=== PATIENT | male | born 1940 | race Caucasian/White ===

== ENCOUNTER → 2016-08-29 | Outpatient (REF) | payer MEDICARE, OTHER ==
[~2016-08-29] MED LIST: /AMLO25TA PO; ASPI325T5 PO; ASPI81TA85 PO; ATEN25TA PO; ATEN50TA2 PO; B COTAB3 PO; CALCTAB54 PO; CINN1CAP PO; CO Q10CA PO; FERR325T3 PO; FISH1200 PO; GARL1000 PO; LIVETAB PO; LOSA100T36 PO; MAGN250T PO; OMEP20CA3 PO; VISITAB5 PO; VITA-122 PO; ZOCO20TA PO
[2016-08-29 15:41] LABS: ALBUMIN 3.7 GM/DL (3.2-5.2); ALKALINE PHOSPHATASE 64 U/L (45-117); ALT/SGPT 82 U/L (12-78); ANION GAP 6 MEQ/L (8-16); AST/SGOT 77 U/L (15-37); BILIRUBIN,TOTAL 0.5 MG/DL (0.2-1.0); BLOOD UREA NITROGEN 21 MG/DL (7-18); CALCIUM LEVEL 9.3 MG/DL (8.8-10.2); CARBON DIOXIDE LEVEL 31 MEQ/L (21-32); CHLORIDE LEVEL 102 MEQ/L (98-107); CHOLESTEROL LEVEL 191 MG/DL (<200); CREATININE FOR GFR 1.16 MG/DL (0.70-1.30); GLOMERULAR FILTRATION RATE > 60.0 (>42); GLUCOSE, FASTING 115 MG/DL (83-110); POTASSIUM SERUM 5.1 MEQ/L (3.5-5.1); SODIUM LEVEL 139 MEQ/L (136-145); TOTAL PROTEIN 7.4 GM/DL (6.4-8.2); TRIGLYCERIDES LEVEL 171 MG/DL (<150)
== END ==
LOC: M SFHCSACK 09:26
PROVIDERS: ATTEND Physician Assistant
DX: I10 Essential (primary) hypertension (principal); E78.5 Hyperlipidemia, unspecified

== ENCOUNTER → 2017-01-21 | Outpatient (REF) | payer MEDICARE, OTHER ==
[~2017-01-21] MED LIST changes: +HYZA100T6 PO; +LOVA1CAP17 PO; +MOVE1TAB PO; +MULT1TAB10 PO; +PRAV40TA2 PO; +TOPR100T PO
[2017-01-21 18:34] LABS: ANION GAP 9 MEQ/L (8-16); BLOOD UREA NITROGEN 17 MG/DL (7-18); CALCIUM LEVEL 9.4 MG/DL (8.8-10.2); CARBON DIOXIDE LEVEL 29 MEQ/L (21-32); CHLORIDE LEVEL 97 MEQ/L (98-107); GLOMERULAR FILTRATION RATE > 60.0 (>42); GLUCOSE, FASTING 106 MG/DL (83-110); POTASSIUM SERUM 4.7 MEQ/L (3.5-5.1); SODIUM LEVEL 135 MEQ/L (136-145)
[2017-01-21 23:04] LABS: MEAN CORPUSCULAR HEMOGLOBIN 35.1 pg (27.0-33.0); MEAN CORPUSCULAR HGB CONC 35.8 g/dl (32.0-36.5); MEAN CORPUSCULAR VOLUME 98.1 fl (80.0-96.0); RED CELL DISTRIBUTION WIDTH 11.9 % (11.5-14.5); WHITE BLOOD COUNT 6.3 K/mm3 (4.0-10.0)
== END ==
LOC: M LABDRWSH 15:54
PROVIDERS: ATTEND Internal Medicine Cardiovascular Disease
DX: I25.10 Atherosclerotic heart disease of native coronary artery without angina pectoris (principal); I10 Essential (primary) hypertension

== ENCOUNTER → 2017-01-21 | Outpatient (REF) | payer MEDICARE, OTHER ==
[2017-01-21 18:40] LABS: ALBUMIN 3.6 GM/DL (3.2-5.2); ALBUMIN/GLOBULIN RATIO 0.95 (1.00-1.93); ALKALINE PHOSPHATASE 101 U/L (45-117); ALT/SGPT 79 U/L (12-78); ANION GAP 9 MEQ/L (8-16); AST/SGOT 72 U/L (15-37); BILIRUBIN,TOTAL 0.5 MG/DL (0.2-1.0); BLOOD UREA NITROGEN 17 MG/DL (7-18); CALCIUM LEVEL 9.2 MG/DL (8.8-10.2); CARBON DIOXIDE LEVEL 29 MEQ/L (21-32); CHLORIDE LEVEL 98 MEQ/L (98-107); CHOLESTEROL LEVEL 172 MG/DL (<200); CREATININE FOR GFR 1.02 MG/DL (0.70-1.30); GLOMERULAR FILTRATION RATE > 60.0 (>42); GLUCOSE, FASTING 103 MG/DL (83-110); POTASSIUM SERUM 4.7 MEQ/L (3.5-5.1); SODIUM LEVEL 136 MEQ/L (136-145); TOTAL PROTEIN 7.4 GM/DL (6.4-8.2); TRIGLYCERIDES LEVEL 125 MG/DL (<150)
[2017-01-21 19:55] LABS: BASO % 0.5 % (0.0-1.0); EOS # 0.2 K/mm3 (0.0-0.50); EOS % 2.5 % (0.0-3.0); LARGE UNSTAINED CELL # 0.1 K/mm3 (0.0-0.4); LARGE UNSTAINED CELL % 2.1 % (0.0-4.0); LYMPH # 1.2 K/mm3 (1.5-4.5); LYMPH % 18.9 % (24.0-44.0); MEAN CORPUSCULAR HEMOGLOBIN 35.1 pg (27.0-33.0); MEAN CORPUSCULAR HGB CONC 35.8 g/dl (32.0-36.5); MEAN CORPUSCULAR VOLUME 98.1 fl (80.0-96.0); MONO # 0.4 K/mm3 (0.0-0.8); MONO % 7.1 % (0.0-5.0); NEUTROPHILS # 4.3 K/mm3 (1.8-7.7); PLATELET COUNT, AUTOMATED 227 k/mm3 (150-450); RED CELL DISTRIBUTION WIDTH 11.9 % (11.5-14.5); WHITE BLOOD COUNT 6.3 K/mm3 (4.0-10.0)
== END ==
LOC: M SFHCSACK 10:07
PROVIDERS: ATTEND Physician Assistant
DX: D64.9 Anemia, unspecified (principal); I10 Essential (primary) hypertension; E78.5 Hyperlipidemia, unspecified; Z12.5 Encounter for screening for malignant neoplasm of prostate
CPT/HCPCS: 36415; 80053; 80061; 85025; G0103

== ENCOUNTER 2017-03-26 12:48 | Day surgery (SDC) | payer MEDICARE, OTHER ==
[~2017-03-26] VITALS: Ht 170.2 cm; Wt 88.9 kg
[2017-03-26] MEDS: NS 1,000 ML IV ONE (13:00)
[2017-03-26] MEDS ORDERED: PROPOFOL 200 MG/20 ML VIAL As Ordered ONE (13:39)
--- NOTE | 2017-03-26 13:55 | ROOR ---
Patient Name: Eric Eisenberg Procedure Date: 03/26/2017 1:34 PM Date of : 1940 Age: 76 Room: [facility] Gender: Male Note Status: Finalized Procedure: Colonoscopy Indications: High risk colon cancer surveillance: Personal history of colonic polyps Providers: Arnoldo Price Jr, MD Referring MD: Evelin Lozada MD, [facility], Admin. Requesting Provider: Medicines: Propofol per Anesthesia Complications: No immediate complications. Procedure: Pre-Anesthesia Assessment: - Prior to the procedure, a History and Physical was performed, and patient medications and allergies were reviewed. The patient is competent. The risks and benefits of the procedure and the sedation options and risks were discussed with the patient. All questions were answered and informed consent was obtained. Patient identification and proposed procedure were verified by the physician and the nurse in the pre-procedure area and in the procedure room. Mental Status Examination: alert and oriented. Airway Examination: normal oropharyngeal airway and neck mobility. Respiratory Examination: clear to auscultation. CV Examination: normal. ASA Grade Assessment: II - A patient with mild systemic disease. After reviewing the risks and benefits, the patient was deemed in satisfactory condition to undergo the procedure. The anesthesia plan was to use moderate sedation / analgesia (conscious sedation). Immediately prior to administration of medications, the patient was re-assessed for adequacy to receive sedatives. The heart rate, respiratory rate, oxygen saturations, blood pressure, adequacy of pulmonary ventilation, and response to care were monitored throughout the procedure. The physical status of the patient was re-assessed after the procedure. The Colonoscope was introduced through the anus and advanced to the cecum, identified by appendiceal orifice and ileocecal valve. The colonoscopy was performed without difficulty. The patient tolerated the procedure well. The quality of the bowel preparation was adequate and good. Findings: The rectum, recto-sigmoid colon, descending colon, transverse colon and appendiceal orifice appeared normal. Two polyps were found in the ascending colon and cecum. The polyps were diminutive in size. These polyps were removed with a jumbo cold forceps. Resection and retrieval were complete. Multiple small and large-mouthed diverticula were found in the sigmoid colon. Impression: - The rectum, recto-sigmoid colon, descending colon, transverse colon and appendiceal orifice are normal. - Two diminutive polyps in the ascending colon and in the cecum, removed with a jumbo cold forceps. Resected and retrieved. - Diverticulosis in the sigmoid colon. Recommendation: - Discharge patient to home (ambulatory). - Repeat colonoscopy in 5 years for surveillance. Arnoldo Price MD Arnoldo Price Jr, MD 03/26/2017 1:55:36 PM This report has been signed electronically. Number of Addenda: 0 Note Initiated On: 03/26/2017 1:34 PM Estimated Blood Loss: Estimated blood loss: none.
[2017-03-26 14:22] VITALS: BP 139/81
== END 2017-03-26 14:34 | disposition home or self-care (01) ==
LOC: M OPP 12:48
PROVIDERS: ATTEND Surgery
DX: Z12.11 Encounter for screening for malignant neoplasm of colon (principal); Z86.010 Personal history of colon polyps; D12.2 Benign neoplasm of ascending colon; D12.0 Benign neoplasm of cecum; K57.30 Diverticulosis of large intestine without perforation or abscess without bleeding; I25.10 Atherosclerotic heart disease of native coronary artery without angina pectoris; I10 Essential (primary) hypertension; Z95.1 Presence of aortocoronary bypass graft; Z95.5 Presence of coronary angioplasty implant and graft; I25.2 Old myocardial infarction; E78.5 Hyperlipidemia, unspecified; R12 Heartburn; K21.9 Gastro-esophageal reflux disease without esophagitis; Z85.46 Personal history of malignant neoplasm of prostate; Z92.3 Personal history of irradiation; G47.30 Sleep apnea, unspecified; R06.83 Snoring; N40.1 Benign prostatic hyperplasia with lower urinary tract symptoms; E66.9 Obesity, unspecified; Z79.82 Long term (current) use of aspirin; Z79.899 Other long term (current) drug therapy; Z87.891 Personal history of nicotine dependence

== ENCOUNTER → 2017-04-22 | Outpatient (REF) | payer MEDICARE, OTHER ==
[2017-04-22 14:58] LABS: BASO # 0.1 10^3/uL (0.0-0.2); BASO % 0.5 % (0.0-1.0); EOS # 0.2 10^3/uL (0.0-0.50); EOS % 2.1 % (0.0-3.0); IMMATURE GRANULOCYTE % 0.9 % (0-0); LYMPH # 1.8 10^3/uL (1.5-4.5); MEAN CORPUSCULAR HEMOGLOBIN 33.4 pg (27.0-33.0); MEAN CORPUSCULAR HGB CONC 33.7 g/dl (32.0-36.5); MEAN CORPUSCULAR VOLUME 99.2 fl (80.0-96.0); MONO # 0.8 10^3/uL (0.0-0.8); MONO % 8.8 % (0.0-5.0); NEUTROPHILS # 6.3 10^3/uL (1.8-7.7); NEUTROPHILS % 68.7 % (36.0-66.0); PLATELET COUNT, AUTOMATED 278 10^3/uL (150-450); RED CELL DISTRIBUTION WIDTH 12.1 % (11.5-14.5); WHITE BLOOD COUNT 9.2 10^3/uL (4.0-10.0)
[2017-04-22 15:26] LABS: ALBUMIN 3.5 GM/DL (3.2-5.2); ALBUMIN/GLOBULIN RATIO 0.88 (1.00-1.93); ALKALINE PHOSPHATASE 121 U/L (45-117); ALT/SGPT 64 U/L (12-78); ANION GAP 11 MEQ/L (8-16); AST/SGOT 56 U/L (7-37); BILIRUBIN,TOTAL 0.3 MG/DL (0.2-1.0); BLOOD UREA NITROGEN 22 MG/DL (7-18); CARBON DIOXIDE LEVEL 26 MEQ/L (21-32); CHLORIDE LEVEL 100 MEQ/L (98-107); CREATININE FOR GFR 0.93 MG/DL (0.70-1.30); FERRITIN 231 NG/ML (26-388); GLOMERULAR FILTRATION RATE > 60.0 (>42); GLUCOSE, FASTING 130 MG/DL (83-110); PERCENT SATURATION 17.8 % (19.7-50.0); POTASSIUM SERUM 4.2 MEQ/L (3.5-5.1); SODIUM LEVEL 137 MEQ/L (136-145); TOTAL IRON BINDING CAPACITY 349 UG/DL (250-450); TOTAL PROTEIN 7.5 GM/DL (6.4-8.2)
== END ==
LOC: M SFHCSACK 10:11
PROVIDERS: ATTEND Physician Assistant
DX: D64.9 Anemia, unspecified (principal); E78.5 Hyperlipidemia, unspecified; Z13.21 Encounter for screening for nutritional disorder; E55.9 Vitamin D deficiency, unspecified

== ENCOUNTER → 2017-07-23 | Outpatient (REF) | payer MEDICARE, OTHER ==
[2017-07-23 19:26] LABS: HEMATOCRIT 40.2 % (42.0-52.0)
[2017-07-23 20:07] LABS: RETIC HEMOGLOBIN EQUIVALENT 38.9 pg (24-36); RETICULOCYTE # 58.6 10^9/L (17-77); RETICULOCYTE % 1.5 % (0.5-1.5)
[2017-07-23 20:09] LABS: TOTAL PROTEIN,RANDOM URINE 23.9 MG/DL (0.0-12.0); URINE TOTAL PROTEIN 23.9 MG/DL (0-12)
[2017-07-23 20:12] LABS: IMMUNOGLOBULIN G 1050 MG/DL (681-1648); TOTAL PROTEIN 7.5 GM/DL (6.4-8.2)
[2017-07-23 20:13] LABS: VITAMIN B12 LEVEL 391 PG/ML (247-911)
[2017-07-23 20:15] LABS: SLIDE REVIEW Report; SOURCE PERIPHERAL SMEAR
[2017-07-23 20:18] LABS: REASON FOR REVIEW ANEMIA / RBC MORPH
[2017-07-23 20:26] LABS: APPEARANCE, URINE HAZY (CLEAR); BACTERIA, URINE AUTO NEGATIVE (NEGATIVE); BILIRUBIN, URINE AUTO NEGATIVE (NEGATIVE); BLOOD, URINE BLOOD NEGATIVE (NEGATIVE); COLOR, URINE YELLOW (YELLOW); GLUCOSE, URINE (UA) AUTO NEGATIVE (NEGATIVE); KETONE, URINE AUTO NEGATIVE (NEGATIVE); LEUKOCYTE ESTERASE, URINE AUTO NEGATIVE (NEGATIVE); MUCUS, URINE SMALL (NEGATIVE); NITRITE, URINE AUTO NEGATIVE (NEGATIVE); PROTEIN, URINE AUTO NEGATIVE (NEGATIVE); RBC, URINE AUTO 2 /HPF (0-3); SPECIFIC GRAVITY URINE AUTO 1.018 (1.002-1.035); SQUAMOUS EPITHELIAL CELL UR AU 0 /HPF (0-6); UROBILINOGEN, URINE AUTO 0.2 mg/dL (0.0-2.0); WBC, URINE AUTO 1 /HPF (0-3)
[2017-07-24 12:43] LABS: PRETREATED FOLATE FOR RBCFOL 11.9 NG/ML; RBC FOLATE 621.6 NG/ML (280-791)
[2017-07-24 13:53] LABS: ALBUMIN 3.95 GM/DL (3.29-5.55); ALBUMIN % 52.6 % (55.8-66.1); ALPHA-1-GLOBULIN % 4.9 % (2.9-4.9); ALPHA-1-GLOBULINS 0.37 GM/DL (0.17-0.41); ALPHA-2-GLOBULINS 1.02 GM/DL (0.42-0.99); ALPHA-2-GLOBULINS % 13.6 % (7.1-11.8); BETA-1-GLOBULINS 0.53 GM/DL (0.28-0.60); BETA-1-GLOBULINS % 7.1 % (4.7-7.2); BETA-2-GLOBULINS 0.47 GM/DL (0.19-0.55); BETA-2-GLOBULINS % 6.3 % (3.2-6.5); GAMMA GLOBULIN % 15.5 % (11.1-18.8); GAMMA GLOBULINS 1.16 GM/DL (0.65-1.58)
[2017-07-28 00:07] LABS: FREE KAPPA LIGHT CHAINS SERUM 36.5 mg/L (3.3-19.4); HOMOCYST(E)INE SERUM 21.1 umol/L (0.0-15.0); KAPPA/LAMBDA RATIO SERUM 1.35 (0.26-1.65); METHYLMALONIC ACID 198 nmol/L (0-378)
== END ==
LOC: M LAB REF 17:07
DX: D50.9 Iron deficiency anemia, unspecified (principal)
CPT/HCPCS: 84165

== ENCOUNTER → 2017-07-29 | Outpatient (REF) | payer MEDICARE, OTHER ==
[2017-07-29 14:18] LABS: BASO % 0.6 % (0.0-1.0); EOS # 0.2 10^3/uL (0.0-0.50); EOS % 2.8 % (0.0-3.0); HEMOGLOBIN 13.3 g/dl (14.0-18.0); IMMATURE GRANULOCYTE % 0.6 % (0-3.0); LYMPH # 1.7 10^3/uL (1.5-4.5); LYMPH % 26.8 % (24.0-44.0); MEAN CORPUSCULAR HEMOGLOBIN 32.8 pg (27.0-33.0); MEAN CORPUSCULAR VOLUME 93.8 fl (80.0-96.0); MONO # 0.7 10^3/uL (0.0-0.8); MONO % 11.2 % (0.0-5.0); NEUTROPHILS # 3.7 10^3/uL (1.8-7.7); RED BLOOD COUNT 4.05 10^6/uL (4.30-6.10); RED CELL DISTRIBUTION WIDTH 11.9 % (11.5-14.5); WHITE BLOOD COUNT 6.3 10^3/uL (4.0-10.0)
[2017-07-29 14:25] LABS: ALBUMIN 3.8 GM/DL (3.2-5.2); ALBUMIN/GLOBULIN RATIO 0.93 (1.00-1.93); ALKALINE PHOSPHATASE 108 U/L (45-117); ALT/SGPT 103 U/L (12-78); ANION GAP 10 MEQ/L (8-16); AST/SGOT 80 U/L (7-37); BILIRUBIN,TOTAL 0.5 MG/DL (0.2-1.0); BLOOD UREA NITROGEN 24 MG/DL (7-18); CALCIUM LEVEL 9.5 MG/DL (8.8-10.2); CARBON DIOXIDE LEVEL 26 MEQ/L (21-32); CHLORIDE LEVEL 99 MEQ/L (98-107); CREATININE FOR GFR 1.03 MG/DL (0.70-1.30); GLOMERULAR FILTRATION RATE > 60.0 (>42); GLUCOSE, FASTING 116 MG/DL (70-100); POTASSIUM SERUM 4.1 MEQ/L (3.5-5.1); SODIUM LEVEL 135 MEQ/L (136-145); TOTAL PROTEIN 7.9 GM/DL (6.4-8.2)
[2017-07-29 15:46] LABS: PLATELET COUNT, AUTOMATED 199 10^3/uL (150-450); POS COUNT POS FLAG
== END ==
LOC: M SFHCSACK 09:23
DX: E78.5 Hyperlipidemia, unspecified (principal); I10 Essential (primary) hypertension; E55.9 Vitamin D deficiency, unspecified
CPT/HCPCS: 80053

== ENCOUNTER → 2017-11-18 | Outpatient (REF) | payer MEDICARE, OTHER ==
[2017-11-18 15:29] LABS: BASO % 0.5 % (0.0-1.0); EOS # 0.1 10^3/uL (0.0-0.50); EOS % 1.1 % (0.0-3.0); HEMATOCRIT 36.7 % (42.0-52.0); HEMOGLOBIN 12.8 g/dl (13.5-17.5); IMMATURE GRANULOCYTE % 0.6 % (0-3.0); LYMPH # 1.1 10^3/uL (1.5-4.5); LYMPH % 17.8 % (24.0-44.0); MEAN CORPUSCULAR HEMOGLOBIN 33.6 pg (27.0-33.0); MEAN CORPUSCULAR HGB CONC 34.9 g/dl (32.0-36.5); MEAN CORPUSCULAR VOLUME 96.3 fl (80.0-96.0); MONO # 0.7 10^3/uL (0.0-0.8); MONO % 10.5 % (0.0-5.0); NEUTROPHILS # 4.3 10^3/uL (1.8-7.7); NEUTROPHILS % 69.5 % (36.0-66.0); PLATELET COUNT, AUTOMATED 214 10^3/uL (150-450); RED BLOOD COUNT 3.81 10^6/uL (4.30-6.10); WHITE BLOOD COUNT 6.2 10^3/uL (4.0-10.0)
[2017-11-18 15:41] LABS: ALBUMIN 3.6 GM/DL (3.2-5.2); ALBUMIN/GLOBULIN RATIO 0.92 (1.00-1.93); ALKALINE PHOSPHATASE 123 U/L (45-117); ALT/SGPT 68 U/L (12-78); ANION GAP 9 MEQ/L (8-16); AST/SGOT 58 U/L (7-37); BILIRUBIN,TOTAL 0.5 MG/DL (0.2-1.0); BLOOD UREA NITROGEN 15 MG/DL (7-18); CALCIUM LEVEL 9.1 MG/DL (8.8-10.2); CARBON DIOXIDE LEVEL 27 MEQ/L (21-32); CHLORIDE LEVEL 101 MEQ/L (98-107); CREATININE FOR GFR 1.04 MG/DL (0.70-1.30); FERRITIN 230 NG/ML (26-388); GLOMERULAR FILTRATION RATE > 60.0 (>42); GLUCOSE, FASTING 106 MG/DL (70-100); IRON (FE) 153 UG/DL (65-175); PERCENT SATURATION 47.1 % (19.7-50.0); POTASSIUM SERUM 4.2 MEQ/L (3.5-5.1); SODIUM LEVEL 137 MEQ/L (136-145); TOTAL IRON BINDING CAPACITY 325 UG/DL (250-450); TOTAL PROTEIN 7.5 GM/DL (6.4-8.2)
[2017-11-18 16:24] LABS: ESTIMATED AVERAGE GLUCOSE 105 MG/DL (60-110); HEMOGLOBIN A1c 5.3 %
== END ==
LOC: M SFHCPLAZ 10:38
DX: D64.9 Anemia, unspecified (principal); R73.09 Other abnormal glucose
CPT/HCPCS: 83550

== ENCOUNTER → 2017-12-07 | Outpatient (CLI) | payer MEDICARE, OTHER ==
[2017-12-07 20:00] LABS: APPEARANCE, URINE CLEAR (CLEAR); BACTERIA, URINE AUTO NEGATIVE (NEGATIVE); BILIRUBIN, URINE AUTO NEGATIVE (NEGATIVE); BLOOD, URINE BLOOD NEGATIVE (NEGATIVE); COLOR, URINE YELLOW (YELLOW); GLUCOSE, URINE (UA) AUTO NEGATIVE (NEGATIVE); KETONE, URINE AUTO NEGATIVE (NEGATIVE); LEUKOCYTE ESTERASE, URINE AUTO NEGATIVE (NEGATIVE); NITRITE, URINE AUTO NEGATIVE (NEGATIVE); PROTEIN, URINE AUTO NEGATIVE (NEGATIVE); RBC, URINE AUTO 0 /HPF (0-3); SPECIFIC GRAVITY URINE AUTO 1.009 (1.002-1.035); SQUAMOUS EPITHELIAL CELL UR AU 0 /HPF (0-6); UROBILINOGEN, URINE AUTO 0.2 mg/dL (0.0-2.0); WBC, URINE AUTO 2 /HPF (0-3)
== END ==
LOC: M SMT 13:53
DX: R31.9 Hematuria, unspecified (principal)
CPT/HCPCS: 36415

== ENCOUNTER → 2017-12-10 | Outpatient (REF) | payer MEDICARE, OTHER ==
[2017-12-10 18:42] LABS: APPEARANCE, URINE CLEAR (CLEAR); BACTERIA, URINE AUTO NEGATIVE (NEGATIVE); BILIRUBIN, URINE AUTO NEGATIVE (NEGATIVE); BLOOD, URINE BLOOD 2+ (NEGATIVE); COLOR, URINE YELLOW (YELLOW); GLUCOSE, URINE (UA) AUTO NEGATIVE (NEGATIVE); KETONE, URINE AUTO NEGATIVE (NEGATIVE); LEUKOCYTE ESTERASE, URINE AUTO NEGATIVE (NEGATIVE); NITRITE, URINE AUTO NEGATIVE (NEGATIVE); PROTEIN, URINE AUTO NEGATIVE (NEGATIVE); RBC, URINE AUTO 8 /HPF (0-3); SPECIFIC GRAVITY URINE AUTO 1.008 (1.002-1.035); SQUAMOUS EPITHELIAL CELL UR AU 0 /HPF (0-6); UROBILINOGEN, URINE AUTO 0.2 mg/dL (0.0-2.0); WBC, URINE AUTO 1 /HPF (0-3)
== END ==
LOC: M SMT 17:05
DX: R31.0 Gross hematuria (principal)
CPT/HCPCS: 81001

== ENCOUNTER → 2017-12-15 | Outpatient (CLI) | payer MEDICARE, OTHER ==
[~2017-12-15] MED LIST changes: -/AMLO25TA PO; -ASPI325T5 PO; -ASPI81TA85 PO; -ATEN25TA PO; -ATEN50TA2 PO; -B COTAB3 PO; -CALCTAB54 PO; -CINN1CAP PO; -CO Q10CA PO; -FERR325T3 PO; -FISH1200 PO; -GARL1000 PO; -HYZA100T6 PO; +ISOVUE-370 76% 100ML VIAL (Q9967) As Ordered; -LIVETAB PO; -LOSA100T36 PO; -LOVA1CAP17 PO; -MAGN250T PO; -MOVE1TAB PO; -MULT1TAB10 PO; -OMEP20CA3 PO; -PRAV40TA2 PO; -TOPR100T PO; -VISITAB5 PO; -VITA-122 PO; -ZOCO20TA PO
== END ==
LOC: M RAD 15:55
DX: R31.0 Gross hematuria (principal); N20.0 Calculus of kidney; N28.1 Cyst of kidney, acquired; E27.9 Disorder of adrenal gland, unspecified; R91.1 Solitary pulmonary nodule; K57.30 Diverticulosis of large intestine without perforation or abscess without bleeding
CPT/HCPCS: Q9967

== ENCOUNTER → 2018-03-26 | Outpatient (REF) | payer MEDICARE, OTHER ==
[2018-03-26 15:28] LABS: ALBUMIN 3.7 GM/DL (3.2-5.2); ALBUMIN/GLOBULIN RATIO 0.95 (1.00-1.93); ALKALINE PHOSPHATASE 127 U/L (45-117); ALT/SGPT 78 U/L (12-78); ANION GAP 7 MEQ/L (8-16); AST/SGOT 61 U/L (7-37); BILIRUBIN,TOTAL 0.5 MG/DL (0.2-1.0); BLOOD UREA NITROGEN 18 MG/DL (7-18); CALCIUM LEVEL 9.1 MG/DL (8.8-10.2); CARBON DIOXIDE LEVEL 32 MEQ/L (21-32); CHLORIDE LEVEL 97 MEQ/L (98-107); CHOLESTEROL LEVEL 165 MG/DL (<200); CHOLESTEROL RISK RATIO 2.426 (<5); CREATININE FOR GFR 1.08 MG/DL (0.70-1.30); FERRITIN 255 NG/ML (26-388); GLOMERULAR FILTRATION RATE > 60.0 (>42); GLUCOSE, FASTING 111 MG/DL (70-100); HDL CHOLESTEROL 68 MG/DL (>40); IRON (FE) 102 UG/DL (65-175); LDL CHOLESTEROL 77 MG/DL (<100); NON-HDL-C 97 MG/DL; POTASSIUM SERUM 4.3 MEQ/L (3.5-5.1); SODIUM LEVEL 136 MEQ/L (136-145); TOTAL IRON BINDING CAPACITY 352 UG/DL (250-450); TOTAL PROTEIN 7.6 GM/DL (6.4-8.2); TRIGLYCERIDES LEVEL 100 MG/DL (<150)
[2018-03-26 15:35] LABS: TOTAL 25(OH) VITAMIN D 50.1 NG/ML (30.0-100.0)
[2018-03-26 16:18] LABS: ESTIMATED AVERAGE GLUCOSE 105 MG/DL (60-110); HEMOGLOBIN A1c 5.3 %
== END ==
LOC: M SFHCSACK 10:42
DX: D50.9 Iron deficiency anemia, unspecified (principal); E78.5 Hyperlipidemia, unspecified; E55.9 Vitamin D deficiency, unspecified; R73.09 Other abnormal glucose
CPT/HCPCS: 83550

== ENCOUNTER → 2018-09-27 | Outpatient (REF) | payer MEDICARE, OTHER ==
[~2018-09-27] MED LIST changes: +ASPI325T5 PO; +ASPI81TA85 PO; +ATEN25TA PO; +ATEN50TA2 PO; +B COTAB3 PO; +CALCTAB54 PO; +CINN1CAP PO; +CO Q10CA PO; +FERR325T3 PO; +FISH1200 PO; +GARL1000 PO; +HYZA100T6 PO; -ISOVUE-370 76% 100ML VIAL (Q9967) As Ordered; +LIVETAB PO; +LOSA100T36 PO; +LOVA1CAP17 PO; +MAGN250T PO; +MOVE1TAB PO; +MULT1TAB10 PO; +NORV2TAB PO; +OMEP20CA3 PO; +PRAV40TA2 PO; +TOPR100T PO; +VISITAB5 PO; +VITA-122 PO; +ZOCO20TA PO
[2018-09-27 14:27] LABS: BASO % 0.3 % (0.0-1.0); EOS % 0.1 % (0.0-3.0); HEMATOCRIT 31.2 % (42.0-52.0); HEMOGLOBIN 10.5 g/dl (13.5-17.5); LYMPH # 0.8 10^3/uL (1.5-4.5); LYMPH % 9.7 % (24.0-44.0); MEAN CORPUSCULAR HGB CONC 33.7 g/dl (32.0-36.5); MEAN CORPUSCULAR VOLUME 98.1 fl (80.0-96.0); MONO # 0.6 10^3/uL (0.0-0.8); MONO % 7.2 % (0.0-5.0); NEUTROPHILS % 81.4 % (36.0-66.0); PLATELET COUNT, AUTOMATED 214 10^3/uL (150-450); RED BLOOD COUNT 3.18 10^6/uL (4.30-6.10); WHITE BLOOD COUNT 8.6 10^3/uL (4.0-10.0)
[2018-09-27 19:19] LABS: ALBUMIN 2.9 GM/DL (3.2-5.2); ALT/SGPT 31 U/L (12-78); BILIRUBIN,TOTAL 0.7 MG/DL (0.2-1.0); BLOOD UREA NITROGEN 24 MG/DL (7-18); CALCIUM LEVEL 9.3 MG/DL (8.8-10.2); CARBON DIOXIDE LEVEL 24 MEQ/L (21-32); CHLORIDE LEVEL 97 MEQ/L (98-107); CREATININE FOR GFR 1.02 MG/DL (0.70-1.30); FERRITIN 734 NG/ML (26-388); GLOMERULAR FILTRATION RATE > 60.0 (>42); GLUCOSE, FASTING 118 MG/DL (70-100); IRON (FE) 46 UG/DL (65-175); POTASSIUM SERUM 3.7 MEQ/L (3.5-5.1); PROSTATIC SPECIFIC AG MONITOR 0.04 NG/ML (< 4.00); SODIUM LEVEL 132 MEQ/L (136-145); TOTAL IRON BINDING CAPACITY 242 UG/DL (250-450); TOTAL PROTEIN 6.9 GM/DL (6.4-8.2)
[2018-09-27 19:56] LABS: TOTAL 25(OH) VITAMIN D 77.8 NG/ML (30.0-100.0)
[2018-09-27 21:39] LABS: HEMOGLOBIN A1c 5.1 %
== END ==
LOC: M SFHCSACK 10:42
PROVIDERS: ATTEND Physician Assistant
DX: D50.9 Iron deficiency anemia, unspecified (principal); R73.09 Other abnormal glucose; E55.9 Vitamin D deficiency, unspecified; N40.0 Benign prostatic hyperplasia without lower urinary tract symptoms

== ENCOUNTER 2018-11-10 16:45 | Inpatient (IN) | payer MEDICARE, OTHER ==
[~2018-11-10] VITALS: Ht 172.7 cm; Wt 73.4 kg
[2018-11-10] MEDS ORDERED: CIPR500T3 PO (16:57)
[2018-11-10] MEDS ORDERED: AMLO2.5T3 PO (16:57)
[2018-11-10] MEDS ORDERED: LOSA100T5 PO (16:57)
[2018-11-10] MEDS ORDERED: METR-265 PO (16:57)
[2018-11-10] MEDS ORDERED: FINA5TAB2 PO (16:57)
[2018-11-10 18:14] LABS: BASO % 0.1 % (0.0-1.0); HEMATOCRIT 27.3 % (42.0-52.0); HEMOGLOBIN 9.2 g/dl (13.5-17.5); LYMPH # 0.7 10^3/uL (1.5-4.5); LYMPH % 7.1 % (24.0-44.0); MEAN CORPUSCULAR HEMOGLOBIN 32.3 pg (27.0-33.0); MEAN CORPUSCULAR HGB CONC 33.7 g/dl (32.0-36.5); MEAN CORPUSCULAR VOLUME 95.8 fl (80.0-96.0); MONO # 0.9 10^3/uL (0.0-0.8); MONO % 8.6 % (0.0-5.0); NEUTROPHILS # 8.6 10^3/uL (1.8-7.7); NEUTROPHILS % 83.2 % (36.0-66.0); PLATELET COUNT, AUTOMATED 145 10^3/uL (150-450); RED BLOOD COUNT 2.85 10^6/uL (4.30-6.10); WHITE BLOOD COUNT 10.3 10^3/uL (4.0-10.0)
--- NOTE | 2018-11-10 18:38 | REPVR ---
EXAM: CT Head Without Contrast EXAM DATE/TIME: 11/10/2018 6:21 PM CLINICAL HISTORY: 78 years old, male; Injury or trauma; Fall; Initial encounter; Blunt trauma (contusions or hematomas); Additional info: Frequent falls with head injuries TECHNIQUE: Imaging protocol: Axial computed tomography images of the head without contrast. Radiation optimization: All CT scans at this facility use at least one of these dose optimization techniques: automated exposure control; mA and/or kV adjustment per patient size (includes targeted exams where dose is matched to clinical indication); or iterative reconstruction. COMPARISON: No relevant prior studies available. FINDINGS: Brain: Moderate age-related parenchymal atrophy. No significant white matter disease. Cerebellar atrophy. Ventricles: Normal. No ventriculomegaly. Bones/joints: Unremarkable. No acute fracture. Sinuses: Visualized sinuses are unremarkable. No fluid levels. Mastoid air cells: Visualized mastoid air cells are well aerated. No mastoid effusion. Soft tissues: Unremarkable. IMPRESSION: No acute findings. Electronically signed by: Erick Alvarez On 11/10/2018 18:38:46 PM
[2018-11-10 18:48] LABS: ALBUMIN 2.6 GM/DL (3.2-5.2); ALT/SGPT 19 U/L (12-78); BILIRUBIN,TOTAL 0.6 MG/DL (0.2-1.0); BLOOD UREA NITROGEN 20 MG/DL (7-18); CALCIUM LEVEL 8.7 MG/DL (8.8-10.2); CARBON DIOXIDE LEVEL 27 MEQ/L (21-32); CHLORIDE LEVEL 97 MEQ/L (98-107); CK-MB VALUE MASS < 1.0 NG/ML (<3.6); CPK CREATINE PHOSPHOKINASE 24 U/L (39-308); CREATININE FOR GFR 1.04 MG/DL (0.70-1.30); GLOMERULAR FILTRATION RATE > 60.0 (>42); GLUCOSE, FASTING 120 MG/DL (70-100); MAGNESIUM LEVEL 1.2 MG/DL (1.8-2.4); MB/CK RELATIVE INDEX 4.17 (< OR =4); POTASSIUM SERUM 3.6 MEQ/L (3.5-5.1); SODIUM LEVEL 134 MEQ/L (136-145); TOTAL PROTEIN 6.4 GM/DL (6.4-8.2); TROPONIN I 0.02 NG/ML (< 0.10)
[2018-11-10] MEDS ORDERED: MAG SULF 1GM/100ML (MAG RUN) 1 GM in APPROPRIATE DILUENT 1 EA IV ONE (20:00)
[2018-11-10] MEDS ORDERED: MAGNESIUM OXIDE 400 MG TAB (MAG-OX) PO ONE (20:00)
[2018-11-10 20:13] LABS: ETHYL ALCOHOL (ETHANOL) < 0.003 % (0.000-0.010)
[2018-11-10] MEDS ORDERED: AID PO (20:24)
[2018-11-10] MEDS ORDERED: MULTCAP PO (20:24)
[2018-11-10] MEDS ORDERED: BAYE325T12 PO (20:24)
[2018-11-10] MEDS ORDERED: OMEP-218 PO (20:24)
[2018-11-10] MEDS ORDERED: VITA50005 PO (20:25)
[2018-11-10] MEDS: GASTROGRAFIN SOLUTION 30ML PO SCH ×2 (21:00→21:12)
[2018-11-10 21:17] LABS: INR 1.17; PROTHROMBIN TIME 14.6 SECONDS (11.8-14.0)
[2018-11-10 21:18] LABS: PARTIAL THROMBOPLASTIN TIME 34.4 SECONDS (25.0-38.4)
[2018-11-10] MEDS ORDERED: ISOVUE-370 76% 100ML VIAL (Q9967) As Ordered ONE (22:20)
--- NOTE | 2018-11-10 23:19 | REPVR ---
EXAM: CT Abdomen and Pelvis With Contrast EXAM DATE/TIME: 11/10/2018 10:56 PM CLINICAL HISTORY: 78 years old, male; Abdominal pain; Additional info: Gi bleeding, weight loss TECHNIQUE: Imaging protocol: Axial computed tomography images of the abdomen and pelvis with intravenous contrast. Coronal and sagittal reformatted images were created and reviewed. Radiation optimization: All CT scans at this facility use at least one of these dose optimization techniques: automated exposure control; mA and/or kV adjustment per patient size (includes targeted exams where dose is matched to clinical indication); or iterative reconstruction. Contrast material: ISOVUE 370; Contrast volume: 100 ml; Contrast route: IV; COMPARISON: CT ABD PELVIS W/O FOL BY WIT 12/15/2017 4:16 PM FINDINGS: Lungs: Stable mild subpleural fibrotic changes at the lung bases. Stable noncalcified 4 mm nodule at the left lung base and 3.5 mm nodule at the right lung base. Liver: There is a diffuse decrease in hepatic parenchymal density, consistent with fatty infiltration. Gallbladder and bile ducts: The gallbladder is incompletely distended. This is most likely related to incomplete fasting. Clinical correlation to exclude gallbladder pathology suggested. Pancreas: There is diffuse pancreatic atrophy. Spleen: There is mild splenomegaly with a maximum span of 13 centimeters. No focal abnormalities demonstrated. Adrenals: There is bilateral adrenal hyperplasia. Kidneys and ureters: Subcentimeter nonobstructing calculus left kidney. Low pole right renal cyst measures 2.2 cm. Stomach and bowel: Mild diverticulosis is present in the distal colon. No diverticulitis. Appendix: No evidence of appendicitis. Intraperitoneal space: Normal. No free air. No significant fluid collection. Vasculature: The aorta demonstrates mild atherosclerotic calcification. Lymph nodes: Normal. No enlarged lymph nodes. Bladder: Unremarkable as visualized. Reproductive: The prostate gland demonstrates moderate hyperplasia. Fiducials demonstrated within the prostate gland. Bones/joints: The spine demonstrates mild degenerative changes. Moderate central spinal stenosis at L2-L3 4, moderate to severe central spinal stenosis at L4-5. Mild degenerative anterolisthesis of L5 and S1. Soft tissues: Unremarkable. IMPRESSION: 1. There is a diffuse decrease in hepatic parenchymal density, consistent with fatty infiltration. 2. The gallbladder is incompletely distended. This is most likely related to incomplete fasting. Clinical correlation to exclude gallbladder pathology suggested. 3. There is mild splenomegaly with a maximum span of 13 centimeters. No focal abnormalities demonstrated. 4. There is diffuse pancreatic atrophy. 5. There is bilateral adrenal hyperplasia. 6. Moderate prostatic hyperplasia. 7. Mild diverticulosis is present in the distal colon. No diverticulitis. Electronically signed by: Erick Alvarez On 11/10/2018 23:19:19 PM
[2018-11-10] MEDS ORDERED: METOPROLOL 5 MG/5 ML VIAL As Ordered ONE (23:38)
[2018-11-10] MEDS: METOPROLOL 5 MG/5 ML VIAL IV SCH ×2 (23:44→23:53)
[2018-11-11] VITALS (7 sets, daily range): BP systolic 92–146; BP diastolic 53–75
[2018-11-11] MEDS ORDERED: ACETAMINOPHEN TAB 650MG DOSE (2X325MG) PO PRN
[2018-11-11] MEDS ORDERED: MAALOX 30 ML SUSP *UDC PO PRN
[2018-11-11] MEDS ORDERED: MOM 30ML SUSPENSION UDC PO PRN
[2018-11-11] MEDS: METOPROLOL 5 MG/5 ML VIAL IV SCH (00:03)
[2018-11-11] MEDS: SUCRALFATE SUSP 1GM/10ML UD PO SCH ×5 (00:58→20:01)
--- NOTE | 2018-11-11 02:08 | HPEPDOC ---
General Date of Admission Nov 10, 2018 at 23:51 Date of Service: Nov 11, 2018 Primary Care Physician: Gita Wilkins PA-C ER Attending Physician: OUMAR WILLOUGHBY DO Chief Complaint The patient is a 78-year-old male admitted with a reason for visit of A Fib W/Rvr; Ugi Bleed. 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 In the ED patient was found to have Afib RVR, black stools (heme positive) and anemia. Patient states he has not notice black tarry stools, hematochezia. he states no N, no V, no stomach pain. has had increased GERD. States has been using alleve over past 2 weeks for low back pain, stopped all caffeine use 2-4 months ago and stopped all EtOH use (3-4 glasses of wine) 4 days ago. Denies signs of DTs. States he was started on new medication (cipro/flagyl by PCP) that would interfere with EtOH and cause N/V so he stopped all etOH use. In the ED patient was given IVF and metoprolol IV 5mg and converted from afib RVR to NSR with RBBB at 0030 on 11/11/18. Home Medications Scheduled Amlodipine Besylate (Amlodipine Besylate) 2.5 Mg Tablet, 2.5 MG PO DAILY, (Reported) Aspirin (Aspirin) 325 Mg Tablet, 325 MG PO DAILY, (Reported) Ciprofloxacin HCl (Ciprofloxacin HCl) 500 Mg Tablet, 500 MG PO BID, (Reported) Ergocalciferol (Vitamin D2) (Vitamin D2) 50,000 Unit Capsule, 50,000 UNIT PO QWEEK, (Reported) HAS BEEN TAKING ON SATURDAYS -- PT SAYS HE'S ON HIS LAST CAPSULE, AND PCP DID NOT WANT TO CONTINUE IT FOLLOWING. Finasteride (Finasteride) 5 Mg Tablet, 5 MG PO DAILY, (Reported) Losartan/Hydrochlorothiazide (Losartan-Hctz 100-25 mg Tab) 1 Each Tablet, 1 TAB PO DAILY, (Reported) Metoprolol Succinate (Toprol Xl) 100 Mg Tab, 100 MG PO DAILY, (Reported) Metronidazole (Metronidazole) 500 Mg Tablet, 500 MG PO BID, (Reported) Multivitamin (Multivitamins) 1 Each Capsule, 1 CAP PO DAILY, (Reported) Omeprazole (Omeprazole) 20 Mg Capsule.dr, 20 MG PO DAILY, (Reported) Pravastatin Sodium (Pravastatin Sodium) 40 Mg Tab, 40 MG PO DAILY, (Reported) [Liver Aid] , 1 TAB PO DAILY, (Reported) "Liverite" Allergies Coded Allergies: No Known Allergies (Unverified , 03/18/17) Past Medical History Medical History CAD, LALO with CPAP, Umbilical hernia, OA, Hyperlipidemia, prostate cancer (treated with radiation) GI bleeds s/p PVI due to radiation proctitis,GERD, HTN cardiomyopathy, HTN, pAFIB, iron deficiency anemia, diverticulosis, colon polyps (colonoscopy 2017), gross hematuria Past surgical history; CABG, pilonidal cyst, CAD stents x 2, colonoscopy 2016, PCI to left circumflex with stent 05/2013, CABGx3 and AVR 11/14/2013, cystoscopy 2017, left thoracocentesis 2013, colonsocopy 2016 Social history: EtOH 3-4 glasses wine daily denies tobacco use - quit 1980 Family history: mother and father - unknown health history A-FIB/CHADSVASC A-FIB History Current/History of A-Fib/PAF?: Yes Current PO Anticoag Therapy: No (due to GI bleed) Age/Risk Factor Scoring CHADSVASC: CHADSVASC Response (Comments) Value Age Risk Factor Age >/= 75 years old 2 Gender Risk Factor Male 0 Hx of CHF No 0 Hx of HTN Yes 1 Hx of Stroke/TIA/or VTE No 0 Hx of Diabetes No 0 Hx of Vascular Disease Yes 1 Total 4 Treatment Treatment ordered: NONE Reason Anticoagulant not given: Current bleeding Review of Systems Other systems 10 comprehensive systems reviewed and negative except as per HPI Physical Examination General Exam: Positive: Alert, Cooperative, No Acute Distress Eye Exam: Positive: PERRLA, Conjunctiva & lids normal, EOMI ENT Exam: Positive: Atraumatic, Mucous membr. moist/pink, Pharynx Normal Neck Exam: Positive: Supple, +2 carotid pulse wo bruit; Negative: JVD, thyromegaly, Lymphadenopathy Chest Exam: Positive: Clear to auscultation, Normal air movement; Negative: Rales, Rhonchi, Wheezing Heart Exam: Positive: Rate Normal, Normal S1, Normal S2, Murmurs Telemetry: Positive: Sinus, Other Telemetry: (RBBB; EKG reviewed with AFIB RVR and second EKG reviewed with NSR, RBBB) Abdomen Exam: Positive: Normal bowel sounds, Soft (NT ND , no palpable masses) Extremity Exam: Positive: Normal pulses; Negative: Clubbing, Cyanosis, Edema Skin Exam: Positive: Nl turgor and temperature, Other skin issue (surgical scars consistent with history) Neuro Exam: Positive: Normal Speech, Normal Tone, Sensation Intact, Other (moves all 4 extremities) Psych Exam: Positive: Mental status NL, Mood NL, Oriented x 3 Vital Signs Vital Signs Date Time Temp Pulse Resp B/P (MAP) Pulse Ox O2 Delivery O2 Flow Rate FiO2 11/11/18 00:03 151 95/58 11/10/18 23:45 16 100 Room Air 11/10/18 16:45 99.8 Laboratory Data Labs 24H Laboratory Tests 2 11/10/18 17:55: Immature Granulocyte % (Auto) 1.0, White Blood Count 10.3H, Red Blood Count 2.85L, Hemoglobin 9.2L, Hematocrit 27.3L, Mean Corpuscular Volume 95.8, Mean Corpuscular Hemoglobin 32.3, Mean Corpuscular Hemoglobin Concent 33.7, Red Cell Distribution Width 13.7, Platelet Count 145L, Neutrophils (%) (Auto) 83.2H, Lymphocytes (%) (Auto) 7.1L, Monocytes (%) (Auto) 8.6H, Eosinophils (%) (Auto) 0.0, Basophils (%) (Auto) 0.1, Neutrophils # (Auto) 8.6H, Lymphocytes # (Auto) 0.7L, Monocytes # (Auto) 0.9H, Eosinophils # (Auto) 0.0, Basophils # (Auto) 0.0, Nucleated Red Blood Cells % (auto) 0.0, Anion Gap 10, Glomerular Filtration Rate > 60.0, Blood Urea Nitrogen 20H, Creatinine 1.04, Sodium Level 134L, Potassium Level 3.6, Chloride Level 97L, Carbon Dioxide Level 27, Calcium Level 8.7L, Aspartate Amino Transf (AST/SGOT) 27, Alanine Aminotransferase (ALT/SGPT) 19, Total Creatine Kinase 24L, Alkaline Phosphatase 116, Total Bilirubin 0.6, Total Protein 6.4, Albumin 2.6L, Magnesium Level 1.2L, Creatine Kinase MB < 1.0, Crea fernando Kinase MB Relative Index 4.17H, Troponin I 0.02, Albumin/Globulin Ratio 0.68L, Ethyl Alcohol Level < 0.003 11/10/18 18:04: Urine Color YELLOW, Urine Appearance CLEAR, Urine pH 5.0, Urine Specific [place] 1.013, Urine Protein NEGATIVE, Urine Glucose (UA) NEGATIVE, Urine Ketones NEGATIVE, Urine Blood 2+H, Urine Nitrite NEGATIVE, Urine Bilirubin NEGATIVE, Urine Urobilinogen 0.2, Urine Leukocyte Esterase TRACEH, Urine WBC (Auto) 3, Urine RBC (Auto) 22H, Urine Hyaline Casts (Auto) 0, Urine Bacteria (Auto) NEGATIVE, Urine Squamous Epithelial Cells 0, Urine Calcium Oxalate Cryst (Auto) SMALL, Urine Mucus (Auto) SMALL, Urine Sperm (Auto) 11/10/18 20:44: Prothrombin Time 14.6H, Prothromb Time International Ratio 1.17, Activated Partial Thromboplast Time 34.4 CBC/BMP Laboratory Tests 11/10/18 17:55 Red Blood Count 2.85 L, Mean Corpuscular Volume 95.8, Mean Corpuscular Hemoglobin 32.3, Mean Corpuscular Hemoglobin Concent 33.7, Red Cell Distribution Width 13.7, Neutrophils (%) (Auto) 83.2 H, Lymphocytes (%) (Auto) 7.1 L, Monocytes (%) (Auto) 8.6 H, Eosinophils (%) (Auto) 0.0, Basophils (%) (Auto) 0.1, Neutrophils # (Auto) 8.6 H, Lymphocytes # (Auto) 0.7 L, Monocytes # (Auto) 0.9 H, Eosinophils # (Auto) 0.0, Basophils # (Auto) 0.0, Calcium Level 8.7 L, Aspartate Amino Transf (AST/SGOT) 27, Alanine Aminotransferase (ALT/SGPT) 19, Total Creatine Kinase 24 L, Alkaline Phosphatase 116, Total Bilirubin 0.6, Total Protein 6.4, Albumin 2.6 L Microbiology Microbiology 11/10/18 Urine Culture, Received Pending Assessment/Plan 1) Afib RVR - now in NSR after IVF and metoprolol 5mg IV Admit, TELE; Will need to address anticoagulation for AFIB after GI bleed resolved. 2) anemia due to iron deficiency from acute on chronic GI blood loss - probable peptic ulcer or gastritis ED spoke with surgeon email production consultant and recommended serial H/H, carafate and PPI. If remains hemodynamically stable then can be discharged and worked up as outpatient. If unstable, then will need to consult surgery. No need for transfusion at this time unless patient develops symptoms or if hgb drops below 8 given his cardiac history. Hold NSAIDS, hold caffeine 3) HTN - currently hypotension while afib RVR - now stable 4) diarrhea/stool incontinence due to GI bleed/melena - plan as above; hold cipro/flagyl 5) GERD - carafate, PPI 6) CAD with history of stents and CABG - stable CODE STATUS: FULL DVT PROPHYLAXIS: hold enoxparin. use SCD. Plan / VTE VTE Prophylaxis Ordered?: Yes OUMAR WILLOUGHBY DO Nov 11, 2018 02:08
[2018-11-11 02:54] LABS: HEMATOCRIT 25.1 % (42.0-52.0); HEMOGLOBIN 8.4 g/dl (13.5-17.5); MEAN CORPUSCULAR HEMOGLOBIN 32.1 pg (27.0-33.0); MEAN CORPUSCULAR HGB CONC 33.5 g/dl (32.0-36.5); MEAN CORPUSCULAR VOLUME 95.8 fl (80.0-96.0); PLATELET COUNT, AUTOMATED 141 10^3/uL (150-450); RED BLOOD COUNT 2.62 10^6/uL (4.30-6.10); WHITE BLOOD COUNT 9.4 10^3/uL (4.0-10.0)
[2018-11-11] MEDS ORDERED: ACETAMINOPHEN TAB 650MG DOSE (2X325MG) PO ONE (05:30)
[2018-11-11] MEDS ORDERED: diphenhydrAMINE 25 MG CAP PO ONE (05:30)
[2018-11-11] MEDS ORDERED: LORazepam 2 MG TAB PO PRN (08:30)
[2018-11-11] MEDS: PANTOPRAZOLE 40MG TAB (PROTONIX) PO SCH ×2 (08:44→20:03)
[2018-11-11] MEDS: MULTIVITAMINS/MINERALS THERAP 1 TAB PO SCH (08:44)
[2018-11-11] MEDS: FOLIC ACID 1 MG TAB PO SCH (08:44)
[2018-11-11] MEDS: THIAMINE 100 MG TAB PO SCH ×2 (08:45→20:02)
[2018-11-11] MEDS: DOCUSATE SODIUM 100 MG CAP PO SCH ×2 (08:45→20:03)
[2018-11-11] MEDS: FINASTERIDE 5 MG TAB PO SCH (08:45)
[2018-11-11] MEDS: PRAVASTATIN 20 MG TAB PO SCH (08:45)
[2018-11-11] MEDS: METOPROLOL SUCC (TopROL XL) 100MG *XL* TAB PO SCH (08:46)
[2018-11-11] MEDS: LOSARTAN 50 MG TAB PO SCH (08:47)
[2018-11-11 09:57] LABS: HEMATOCRIT 29.8 % (42.0-52.0); HEMOGLOBIN 10.1 g/dl (13.5-17.5)
--- NOTE | 2018-11-11 10:33 | ECGEPIP ---
[facility] - ED Test Date: 2018-11-10 Pat Name: CHERYL STONE Department: Room: - Gender: Male Torque Tester: : 1940 Requested By: LYNN Nolan PA-C Order Number: [id number] Reading MD: Tori Martinez Measurements Intervals [place] Rate: 94 P: 77 [place]: 135 QRS: QRSD: 138 T: 81 QT: 364 QTc: 456 Interpretive Statements SINUS RHYTHM WITH OCCASIONAL VENTRICULAR PREMATURE COMPLEXES BORDERLINE LEFT AXIS DEVIATION RIGHT BUNDLE BRANCH BLOCK No prior Electronically Signed on 11-11-2018 10:32:59 EDT by Tori Martinez
--- NOTE | 2018-11-11 10:34 | ECGEPIP ---
[facility] - ED Test Date: 2018-11-10 Pat Name: CHERYL STONE Department: Room: [facility] Gender: Male Application Chemist: amanda : 1940 Requested By: BERNARDO Howell Order Number: [id number] Reading MD: Wali Paige Measurements Intervals [place] Rate: 150 P: MA: -1 QRS: QRSD: 143 T: 84 QT: 311 QTc: 492 Interpretive Statements ATRIAL FIBRILLATION WITH RAPID VENTRICULAR RESPONSE RIGHT BUNDLE BRANCH BLOCK LEFT ANTERIOR FASCICULAR BLOCK RHYTHM/RATE CHANGE COMPARED TO PRIOR ON SAME DATE Electronically Signed on 11-11-2018 10:34:27 EDT by Wali Paige
[2018-11-11 10:36] LABS: ALBUMIN 2.5 GM/DL (3.2-5.2); ALT/SGPT 15 U/L (12-78); BILIRUBIN,TOTAL 1.7 MG/DL (0.2-1.0); BLOOD UREA NITROGEN 16 MG/DL (7-18); CALCIUM LEVEL 8.3 MG/DL (8.8-10.2); CARBON DIOXIDE LEVEL 26 MEQ/L (21-32); CHLORIDE LEVEL 99 MEQ/L (98-107); GLOMERULAR FILTRATION RATE > 60.0 (>42); GLUCOSE, FASTING 152 MG/DL (70-100); POTASSIUM SERUM 3.1 MEQ/L (3.5-5.1); SODIUM LEVEL 135 MEQ/L (136-145); TOTAL PROTEIN 5.9 GM/DL (6.4-8.2)
[2018-11-11] MEDS ORDERED: POTASSIUM CHLORIDE 10 MEQ SR TABLET PO ONE ×3 (11:00→23:35)
--- NOTE | 2018-11-11 11:48 | IPNPDOC ---
Text Note Date of Service The patient was seen on 11/11/18. NOTE PHYSICAL EXAMINATION: General: The patient is awake, alert, oriented x3, sitting up in the bed in no apparent distress. Head and Neck Exam: Extraocular muscles intact. Pupils equally round and reactive to light. Mucous membranes are moist. Neck is supple. There is no jugular venous distention (JVD). Cardiovascular: S1 and S2, regular rate. Trace edema of the bilateral lower extremities. Respiratory: Clear to auscultation bilaterally. No rhonchi, no rales, no wheezin g Abdomen: Soft. Positive bowel sounds. Nontender. No organomegaly. Genitourinary: Deferred Musculoskeletal: Clubbing of the fingernails, no cyanosis was noted. Central Nervous System (CONDENSER TUBE TENDER): No focal deficit. Power is 5/5 in all extremities. Assessment and plan 1) Afib RVR - was given 5 mg of IV metoprolol and continued on 100 mg of metoprolol home dose. Currently the patient is rate controlled with a heart rate in the upper 70s. Continue telemetry monitoring. The patient has a chart of a score of 4, but is not on any anticoagulation, likely secondary to his alcohol abuse. Also, as the patient is currently having melena. No indication of and accommodation. Continue telemetry monitoring . 2) Acute on chronic GI blood loss - probable peptic ulcer or gastritis: ED spoke with surgeon motion picture equipment machinist and recommended serial H/H, carafate and PPI. Hb stable for now. If remains hemodynamically stable then can be discharged and worked up as outpatient as per surgery. If unstable, then will need to consult surgery again . Pt is s/p 1 unit PRBC. Cont PPI and sucralfate. 3) HTN - continue home medications are contraindicated 4) hypomagnesemia and hypokalemia. Likely secondary to poor oral intake and alcohol abuse. Under replacement and frequent checks. 5) GERD - carafate, PPI 6) CAD with history of stents and CABG - stable, continue home medications CODE STATUS: FULL DVT PROPHYLAXIS: hold enoxparin. use SCD. [facility] protocol for alcohol withdrawal VS,Fishbone, I+O VS, Fishbone, I+O Laboratory Tests 11/10/18 17:55 Red Blood Count 2.85 L, Mean Corpuscular Volume 95.8, Mean Corpuscular Hemoglobin 32.3, Mean Corpuscular Hemoglobin Concent 33.7, Red Cell Distribution Width 13.7, Neutrophils (%) (Auto) 83.2 H, Lymphocytes (%) (Auto) 7.1 L, Monocytes (%) (Auto) 8.6 H, Eosinophils (%) (Auto) 0.0, Basophils (%) (Auto) 0.1, Neutrophils # (Auto) 8.6 H, Lymphocytes # (Auto) 0.7 L, Monocytes # (Auto) 0.9 H, Eosinophils # (Auto) 0.0, Basophils # (Auto) 0.0, Calcium Level 8.7 L, Aspartate Amino Transf (AST/SGOT) 27, Alanine Aminotransferase (ALT/SGPT) 19, Total Creatine Kinase 24 L, Alkaline Phosphatase 116, Total Bilirubin 0.6, Total Protein 6.4, Albumin 2.6 L 11/11/18 02:18 Red Blood Count 2.62 L, Mean Corpuscular Volume 95.8, Mean Corpuscular Hemoglobin 32.1, Mean Corpuscular Hemoglobin Concent 33.5, Red Cell Distribution Width 13.8 11/11/18 09:47 Calcium Level 8.3 L, Aspartate Amino Transf (AST/SGOT) 27, Alanine Aminotransferase (ALT/SGPT) 15, Alkaline Phosphatase 109, Total Bilirubin 1.7 #H, Total Protein 5.9 L, Albumin 2.5 L Vital Signs Date Time Temp Pulse Resp B/P (MAP) Pulse Ox O2 Delivery O2 Flow Rate FiO2 11/11/18 09:00 100 146/75 11/11/18 07:20 97.1 19 98 11/11/18 06:35 Room Air ONOFRE GOSS MD Nov 11, 2018 11:48
--- NOTE | 2018-11-11 13:28 | ECGEPIP ---
[facility] Test Date: 2018-11-11 Pat Name: CHERYL STONE Department: Room: [place] [address] Gender: Male Party Coordinator: KK : 1940 Requested By: OUMAR Bazan Order Number: [id number] Reading MD: Evelin Lozada Measurements Intervals [place] Rate: 81 P: 75 [place]: 150 QRS: QRSD: 145 T: 71 QT: 391 QTc: 454 Interpretive Statements SINUS RHYTHM MARKED LEFT AXIS DEVIATION, LAFH RIGHT BUNDLE BRANCH BLOCK COMPARED TO 11/10/2018 SINUS RHYTHM REPLACED ATRIAL FIBRILLATION WITH RVR Electronically Signed on 11-11-2018 13:27:59 EDT by Evelin Lozada
[2018-11-11 13:39] LABS: HEMATOCRIT 32.3 % (42.0-52.0); HEMOGLOBIN 10.7 g/dl (13.5-17.5)
[2018-11-11 16:35] LABS: MAGNESIUM LEVEL 1.6 MG/DL (1.8-2.4); POTASSIUM SERUM 3.4 MEQ/L (3.5-5.1)
[2018-11-11] MEDS ORDERED: SLF 3 ML SYR IV PRN (16:45)
[2018-11-11 20:02] LABS: HEMATOCRIT 26.9 % (42.0-52.0); HEMOGLOBIN 9.4 g/dl (13.5-17.5)
[2018-11-11] MEDS: MAGNESIUM OXIDE 400 MG TAB (MAG-OX) PO SCH (20:02)
[2018-11-11] MEDS: SLF 3 ML SYR IV SCH (20:49)
[2018-11-12 01:52] LABS: HEMOGLOBIN 9.6 g/dl (13.5-17.5)
[2018-11-12 04:00] VITALS: BP 106/63
[2018-11-12] MEDS: SLF 3 ML SYR IV SCH ×4 (05:06→22:00)
[2018-11-12] MEDS ORDERED: POTASSIUM CHLORIDE 10 MEQ SR TABLET PO ONE (07:30)
[2018-11-12 08:00] VITALS: BP 109/71
[2018-11-12] MEDS: PRAVASTATIN 20 MG TAB PO SCH (08:42)
[2018-11-12] MEDS: SUCRALFATE SUSP 1GM/10ML UD PO SCH ×4 (08:42→20:51)
[2018-11-12] MEDS: FINASTERIDE 5 MG TAB PO SCH (08:42)
[2018-11-12] MEDS: MULTIVITAMINS/MINERALS THERAP 1 TAB PO SCH (08:42)
[2018-11-12] MEDS: FOLIC ACID 1 MG TAB PO SCH (08:43)
[2018-11-12] MEDS: THIAMINE 100 MG TAB PO SCH ×2 (08:43→20:51)
[2018-11-12] MEDS: DOCUSATE SODIUM 100 MG CAP PO SCH ×2 (08:43→20:51)
[2018-11-12] MEDS: MAGNESIUM OXIDE 400 MG TAB (MAG-OX) PO SCH ×2 (08:43→20:51)
[2018-11-12] MEDS: PANTOPRAZOLE 40MG TAB (PROTONIX) PO SCH ×2 (08:43→20:51)
[2018-11-12] MEDS: LOSARTAN 50 MG TAB PO SCH (08:44)
[2018-11-12] MEDS: METOPROLOL SUCC (TopROL XL) 100MG *XL* TAB PO SCH (08:47)
[2018-11-12] MEDS ORDERED: SUCR1TA PO (09:51)
[2018-11-12] MEDS ORDERED: ASPI81TA85 PO (09:51)
--- NOTE | 2018-11-12 09:53 | DS.PDOC ---
Discharge Summary General Date of Admission Nov 10, 2018 at 23:51 Date of Discharge Today Discharge Summary Chief Complaint The patient is a 78-year-old male admitted with a reason for visit of A Fib W/Rvr, GI bleed Final diagnosis A. fib RVR GI bleed Alcohol abuse History of Present Illness 78 yo male with history of afib,CAD and GERD came to ED at the request of PCP. 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 In the ED patient was found to have Afib RVR, black stools (heme positive) and anemia. Patient states he has not notice black tarry stools, hematochezia. he states no N, no V, no stomach pain. has had increased GERD. States has been using alleve over past 2 weeks for low back pain, stopped all caffeine use 2-4 months ago and stopped all EtOH use (3-4 glasses of wine) 4 days ago. Denies signs of DTs. From the ER. Surgery was consulted for possible endoscopy versus colonoscopy, but they suggested that if the patient's hemoglobin and hemodynamics are stable. The patient can be discharged and he can scope the patient has an outpatient. The patient is followed up for 48 hours in the hospital. Hemoglobin remained stable and ended up. The patient was started on PPIs and sucralfate for possible gastritis. The patient's hemoglobin remained stable. He denied any complaints. He denied any hematemesis or hematochezia. The patient denied any blood in the bowel movement. The patient had a bowel movement which was nonbloody. As per him. For his A. fib RVR. Initially he got 5 mg of IV Lopressor and he was continued on his home dose of metoprolol 100 and heart rates have been in 80s for the last 6 hours. He'll be continued on his home medication. The patient also is having hypokalemia and low magnesium. Replacement was done and the patient has been advised to eat healthy diet. The patient is medically stable. Wants to go home today. States that he will follow up with outpatient doctors and wants to be back home for the weekend. Patient will be discharged home today PHYSICAL EXAMINATION: General: The patient is awake, alert, oriented x3, sitting up in the bed in no apparent distress. Head and Neck Exam: Extraocular muscles intact. Pupils equally round and reactive to light. Mucous membranes are moist. Neck is supple. There is no jugular venous distention (JVD). Cardiovascular: S1 and S2, regular rate. Trace edema of the bilateral lower extremities. Respiratory: Clear to auscultation bilaterally. No rhonchi, no rales, no wheezing Abdomen: Soft. Positive bowel sounds. Nontender. No organomegaly. Genitourinary: Deferred Musculoskeletal: Clubbing of the fingernails, no cyanosis was noted. Central Nervous System (PIPE [employer] T[employer]ER [employer] REPAIRER): No focal deficit. Power is 5/5 in all extremities. Vital Signs Date Time Temp Pulse Resp B/P (MAP) Pulse Ox O2 Delivery O2 Flow Rate FiO2 11/12/18 08:47 82 103/58 11/12/18 08:44 103/58 11/12/18 08:00 99.6 82 18 109/71 (84) 93 11/12/18 08:00 81 109/71 11/12/18 04:00 78 106/63 11/12/18 04:00 97.5 78 16 106/63 (77) 99 11/11/18 23:59 98.7 79 16 99/63 (75) 97 11/11/18 20:00 82 92/53 11/11/18 20:00 98.6 82 16 92/53 (66) 98 11/11/18 16:00 97.1 77 20 98/60 (73) 98 11/11/18 12:20 97.4 83 19 101/59 (73) 100 11/11/18 12:00 97.4 82 20 104/59 (74) 99 Intake & Output 11/12/18 06:00 Intake Total 1230 ml Output Total 250 ml Balance 980 ml Laboratory Tests 11/11/18 13:00: Hemoglobin 10.7L, Hematocrit 32.3L 11/11/18 16:13: Potassium Level 3.4L, Magnesium Level 1.6L 11/11/18 19:42: Hemoglobin 9.4L, Hematocrit 26.9L 11/12/18 01:47: Hemoglobin 9.6L, Hematocrit 29.0L 11/12/18 09:48: Hemoglobin [Pending], Hematocrit [Pending] Current Medications Medications (Trade) Dose Ordered Sig/Brandon Route PRN Reason Start Time Stop Time Status Last Admin Dose Admin Amlodipine Besylate (Norvasc) 2.5 mg DAILY PO 11/11/18 09:00 11/11/18 08:47 2.5 MG Docusate Sodium (Colace) 100 mg BID PO 11/11/18 09:00 11/12/18 08:43 100 MG Finasteride (Proscar) 5 mg DAILY PO 11/11/18 09:00 11/12/18 08:42 5 MG Folic Acid (Folic Acid) 1 mg DAILY PO 11/11/18 09:00 11/12/18 08:43 1 MG Losartan Potassium (Cozaar) 100 mg QAM PO 11/11/18 09:00 11/11/18 08:47 100 MG Magnesium Oxide (Mag-Ox) 800 mg BID PO 11/11/18 21:00 11/12/18 08:43 800 MG Metoprolol Succinate (TopROL XL) 100 mg DAILY PO 11/11/18 09:00 11/12/18 08:47 100 MG Multivitamins (Theragram-M) 1 tab DAILY PO 11/11/18 09:00 11/12/18 08:42 1 TAB Pantoprazole Sodium (Protonix) 40 mg BID PO 11/11/18 09:00 11/12/18 08:43 40 MG Pravastatin Sodium (Pravachol) 40 mg DAILY PO 11/11/18 09:00 11/12/18 08:42 40 MG Sodium Chloride (Saline Lock Flush) 2 ml SLF IV 11/11/18 22:00 11/12/18 05:06 2 ML Sucralfate (Carafate Suspension) 1 gm ACHS PO 11/11/18 00:00 11/12/18 08:42 1 GM Thiamine HCl (Thiamine HCl) 100 mg BID PO 11/11/18 09:00 11/13/18 21:01 11/12/18 08:43 100 MG Dictations. As per discharge reconciliation medication list Activity as tolerated Diet. 2 g sodium diet Follow-up appointments. PCP in 1 week, GI in 1 week. Condition on discharge. Patient is medically optimized for discharge Discharge disposition: Home Total time spent on this discharge including coordination of care, review of chart documentation and extubation contact is around 35 minutes Vital Signs/I&Os Vital Signs Date Time Temp Pulse Resp B/P (MAP) Pulse Ox O2 Delivery O2 Flow Rate FiO2 11/12/18 08:47 82 103/58 11/12/18 08:00 99.6 18 93 11/11/18 06:35 Room Air I&O- Last 24 Hours up to 6 AM 11/12/18 06:00 Intake Total 1230 ml Output Total 250 ml Balance 980 ml Laboratory Data Labs 24H Laboratory Tests 2 11/11/18 16:13: Magnesium Level 1.6L CBC/BMP Laboratory Tests 11/11/18 13:00 11/11/18 16:13 11/11/18 19:42 11/12/18 01:47 Microbiology Microbiology 11/10/18 Urine Culture, Received Pending Discharge Medications Scheduled Amlodipine Besylate (Amlodipine Besylate) 2.5 Mg Tablet, 2.5 MG PO DAILY, (Reported) Aspirin (Aspir 81) 81 Mg Tablet.dr, 81 MG PO DAILY Ergocalciferol (Vitamin D2) (Vitamin D2) 50,000 Unit Capsule, 50,000 UNIT PO QWEEK, (Reported) HAS BEEN TAKING ON SATURDAYS -- PT SAYS HE'S ON HIS LAST CAPSULE, AND PCP DID NOT WANT TO CONTINUE IT FOLLOWING. Finasteride (Finasteride) 5 Mg Tablet, 5 MG PO DAILY, (Reported) Losartan/Hydrochlorothiazide (Losartan-Hctz 100-25 mg Tab) 1 Each Tablet, 1 TAB PO DAILY, (Reported) Metoprolol Succinate (Toprol Xl) 100 Mg Tab, 100 MG PO DAILY, (Reported) Multivitamin (Multivitamins) 1 Each Capsule, 1 CAP PO DAILY, (Reported) Omeprazole (Omeprazole) 20 Mg Capsule.dr, 20 MG PO DAILY, (Reported) Pravastatin Sodium (Pravastatin Sodium) 40 Mg Tab, 40 MG PO DAILY, (Reported) Sucralfate (Sucralfate) 1 Gm Tablet, 1 TAB PO QID [Liver Aid] , 1 TAB PO DAILY, (Reported) "Liverite" Allergies Coded Allergies: No Known Allergies (Unverified , 03/18/17) ONOFRE GOSS MD Nov 12, 2018 09:53
[2018-11-12 10:01] LABS: HEMOGLOBIN 10.5 g/dl (13.5-17.5)
[2018-11-12 12:00] VITALS: BP 94/60
[2018-11-12 16:00] VITALS: BP 102/58
[2018-11-12 19:23] VITALS: BP 100/60
[2018-11-12 20:45] VITALS: BP 100/60
[2018-11-13] VITALS (8 sets, daily range): BP systolic 100–140; BP diastolic 56–67
[2018-11-13] MEDS: SLF 3 ML SYR IV SCH ×2 (05:31→05:35)
[2018-11-13] MEDS: SUCRALFATE SUSP 1GM/10ML UD PO SCH ×4 (06:37→20:39)
[2018-11-13] MEDS: PRAVASTATIN 20 MG TAB PO SCH (08:24)
[2018-11-13] MEDS: FOLIC ACID 1 MG TAB PO SCH (08:24)
[2018-11-13] MEDS: FINASTERIDE 5 MG TAB PO SCH (08:25)
[2018-11-13] MEDS: PANTOPRAZOLE 40MG TAB (PROTONIX) PO SCH ×2 (08:25→20:39)
[2018-11-13] MEDS: THIAMINE 100 MG TAB PO SCH ×2 (08:25→20:42)
[2018-11-13] MEDS: MULTIVITAMINS/MINERALS THERAP 1 TAB PO SCH (08:25)
[2018-11-13] MEDS: MAGNESIUM OXIDE 400 MG TAB (MAG-OX) PO SCH ×2 (08:25→20:39)
[2018-11-13] MEDS: METOPROLOL SUCC (TopROL XL) 100MG *XL* TAB PO SCH (08:26)
[2018-11-13] MEDS: LOSARTAN 50 MG TAB PO SCH (08:26)
[2018-11-13] MEDS: DOCUSATE SODIUM 100 MG CAP PO SCH ×2 (08:27→20:39)
--- NOTE | 2018-11-13 11:00 | IPNPDOC ---
Text Note Date of Service The patient was seen on 11/13/18. NOTE Patient was seen and examined by me. He was medically cleared for discharge by me but as the PT, OT has not cleared him. He stayed in the hospital PHYSICAL EXAMINATION: General: The patient is awake, alert, oriented x3, sitting up in the bed in no apparent distress. Head and Neck Exam: Extraocular muscles intact. Pupils equally round and reactive to light. Mucous membranes are moist. Neck is supple. There is no jugular venous distention (JVD). Cardiovascular: S1 and S2, regular rate. Trace edema of the bilateral lower extremities. Respiratory: Clear to auscultation bilaterally. No rhonchi, no rales, no wheezing Abdomen: Soft. Positive bowel sounds. Nontender. No organomegaly. Genitourinary: Deferred Musculoskeletal: Clubbing of the fingernails, no cyanosis was noted. Central Nervous System (RESTAURANT CREW): No focal deficit. Power is 5/5 in all extremities. Assessment and plan Hospital course 78 yo male with history of afib,CAD and GERD came to ED at the request of PCP. 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 In the ED patient was found to have Afib RVR, black stools (heme positive) and anemia. Patient states he has not notice black tarry stools, hematochezia. he states no N, no V, no stomach pain. has had increased GERD. States has been using alleve over past 2 weeks for low back pain, stopped all caffeine use 2-4 months ago and stopped all EtOH use (3-4 glasses of wine) 4 days ago. Denies signs of DTs. From the ER. Surgery was consulted for possible endoscopy versus colonoscopy, but they suggested that if the patient's hemoglobin and hemodynamics are stable. The patient can be discharged and he can scope the patient has an outpatient. The patient is followed up for 48 hours in the hospital. Hemoglobin remained stable and ended up. The patient was started on PPIs and sucralfate for possible gastritis. The patient's hemoglobin remained stable. He denied any complaints. He denied any hematemesis or hematochezia. The patient denied any blood in the bowel movement. The patient had a bowel movement which was nonbloody. As per him. For his A. fib RVR. Initially he got 5 mg of IV Lopressor and he was continued on his home dose of metoprolol 100 and heart rates have been in 80s for the last 6 hours. He'll be continued on his home medication. The patient also is having hypokalemia and low magnesium. Replacement was done and the patient has been advised to eat healthy diet. The patient is medically stable. Wanted to go home, but the PT, OT did not clear him yesterday or today. Discharge summary and the med reconciliation has been done for this discharge. 1) Afib RVR - was given 5 mg of IV metoprolol and continued on 100 mg of metoprolol home dose. Currently the patient is rate controlled with a heart rate in the upper 70s. Continue telemetry monitoring. The patient has a chart of a score of 4, but is not on any anticoagulation, likely secondary to his alcohol abuse and history of GI bleed in the past. Also, as the patient was having melena. Continue telemetry monitoring . 2) Acute on chronic GI blood loss - probable peptic ulcer or gastritis: ED spoke with surgeon field control inspector and recommended serial H/H, carafate and PPI. Hb stable for now. As per them If remains hemodynamically stable then can be discharged and worked up as outpatient as per surgery. If unstable, then will need to consult surgery again . Pt is s/p 1 unit PRBC. Cont PPI and sucralfate. He has been stable and cleared for discharge per PT, OT has not cleared him for discharge at 3) HTN - continue home medications are contraindicated 4) hypomagnesemia and hypokalemia. Likely secondary to poor oral intake and alcohol abuse. Under replacement and frequent checks. 5) GERD - carafate, PPI 6) CAD with history of stents and CABG - stable, continue home medications CODE STATUS: FULL DVT PROPHYLAXIS: SCD. [facility] protocol for alcohol withdrawal VS,Fishbone, I+O VS, Fishbone, I+O Vital Signs Date Time Temp Pulse Resp B/P (MAP) Pulse Ox O2 Delivery O2 Flow Rate FiO2 11/13/18 08:26 114/60 11/13/18 08:26 78 11/13/18 08:00 96.5 18 98 11/11/18 06:35 Room Air I&O- Last 24 Hours up to 6 AM 11/13/18 06:00 Intake Total 960 ml Balance 960 ml ONOFRE GOSS MD Nov 13, 2018 11:00
[2018-11-14 04:00] VITALS: BP 137/69
[2018-11-14 06:00] VITALS: BP 134/68
[2018-11-14] MEDS: SUCRALFATE SUSP 1GM/10ML UD PO SCH ×2 (07:35→11:42)
[2018-11-14 08:00] VITALS: BP_SYST 102; BP_SYST 96; BP_DIAS 56; BP_DIAS 58
[2018-11-14 08:21] VITALS: BP 102/56
[2018-11-14] MEDS: LOSARTAN 50 MG TAB PO SCH (08:46)
[2018-11-14] MEDS: DOCUSATE SODIUM 100 MG CAP PO SCH (08:55)
[2018-11-14] MEDS: PRAVASTATIN 20 MG TAB PO SCH (08:56)
[2018-11-14] MEDS: PANTOPRAZOLE 40MG TAB (PROTONIX) PO SCH (08:56)
[2018-11-14] MEDS: FINASTERIDE 5 MG TAB PO SCH (08:56)
[2018-11-14] MEDS: MULTIVITAMINS/MINERALS THERAP 1 TAB PO SCH (08:56)
[2018-11-14] MEDS: FOLIC ACID 1 MG TAB PO SCH (08:56)
[2018-11-14] MEDS: MAGNESIUM OXIDE 400 MG TAB (MAG-OX) PO SCH (08:56)
[2018-11-14 08:57] VITALS: BP 102/56
[2018-11-14] MEDS: METOPROLOL SUCC (TopROL XL) 100MG *XL* TAB PO SCH (08:57)
[2018-11-14 10:04] LABS: HEMOGLOBIN 9.8 g/dl (13.5-17.5)
[2018-11-14 10:28] LABS: BLOOD UREA NITROGEN 14 MG/DL (7-18); CALCIUM LEVEL 8.5 MG/DL (8.8-10.2); CARBON DIOXIDE LEVEL 26 MEQ/L (21-32); CHLORIDE LEVEL 100 MEQ/L (98-107); CREATININE FOR GFR 0.98 MG/DL (0.70-1.30); GLOMERULAR FILTRATION RATE > 60.0 (>42); GLUCOSE, FASTING 141 MG/DL (70-100); MAGNESIUM LEVEL 1.3 MG/DL (1.8-2.4); POTASSIUM SERUM 3.8 MEQ/L (3.5-5.1); SODIUM LEVEL 132 MEQ/L (136-145)
[2018-11-14 12:00] VITALS: BP 101/67
[2018-11-14] MEDS ORDERED: MAGNESIUM OXIDE 400 MG TAB (MAG-OX) PO ONE (15:00)
--- NOTE | 2018-11-15 07:20 | IPNPDOC ---
Text Note Date of Service The patient was seen on 11/14/18. NOTE This is a 78-year-old male admitted with history of GI blood loss. He had been noted to have a decreased hemoglobin from his prior visit and received 1 unit of packed red blood cells. Additionally, he had been noted on arrival to be in atrial fibrillation with rapid ventricular response. He rapidly reconverted to sinus after receiving metoprolol in the emergency room. Physical exam: HENT: Neck is supple, no adenopathy or thyromegaly, oral mucosa is moist. Cardiovascular: Regular rate and rhythm with a normal S1 and S2 and no appreciable murmur. Respiratory: Clear to auscultation. Abdomen: Soft, nontender, nondistended, normal bowel tones. Extremities: No peripheral edema, does have some joint changes consistent with arthritis Neuro: No focal neuromotor or sensory deficit, mobility is limited by fatigue and deconditioning. Psych: Has a moderately depressed affect. Disposition: Patient has been determined to be hemodynamically stable and medically stable for discharge to home. Discharged home had been delayed by his hesitancy and initial mobility concerns by physical and occupational therapy services. Patient is cleared to go home by them as well. Recommendations are that he have home health services for additional home physical therapy and home health nurse for vital signs/medication monitoring. Please also see full discharge summary dictated by Dr. Godoy on 11/12/2018. VS,Arleene, I+O VS, Fishbone, I+O Laboratory Tests 11/14/18 09:51 Calcium Level 8.5 L Vital Signs Date Time Temp Pulse Resp B/P (MAP) Pulse Ox O2 Delivery O2 Flow Rate FiO2 11/14/18 12:00 98.1 83 20 101/67 (78) 98 11/11/18 06:35 Room Air I&O- Last 24 Hours up to 6 AM 11/15/18 06:00 Intake Total 300 ml Balance 300 ml BENSON YOON MD Nov 15, 2018 07:20
--- NOTE | 2018-11-15 13:18 | ECGEPIP ---
[facility] Test Date: 2018-11-11 Pat Name: CHERYL STONE Department: Room: [place] [address] Gender: Male Photographer News: amanda : 1940 Requested By: BERNARDO Howell Order Number: [id number] Reading MD: Varsha Jackson Measurements Intervals [place] Rate: 79 P: MO: -1 QRS: QRSD: 146 T: 67 QT: 399 QTc: 460 Interpretive Statements NSR PACS LEFT AXIS DEVIATION LAFB RIGHT BUNDLE BRANCH BLOCK STTWA PACS NEW C/W 11/11/18 Electronically Signed on 11-15-2018 13:18:00 EDT by Varsha Jackson
== END 2018-11-14 15:38 | disposition home health service (06) | DRG 309 ==
LOC: M ED 16:45 → M ED INP 23:51 → M PCU 11-11 12:22
PROVIDERS: ADMIT Family Medicine; ATTEND Internal Medicine
PROC: 30233N1 Transfusion of Nonautologous Red Blood Cells into Peripheral Vein, Percutaneous Approach (ICD-10-PCS; principal; 2018-11-11)
DX: I48.0 Paroxysmal atrial fibrillation (principal); K92.2 Gastrointestinal hemorrhage, unspecified; D62 Acute posthemorrhagic anemia; I25.10 Atherosclerotic heart disease of native coronary artery without angina pectoris; K21.9 Gastro-esophageal reflux disease without esophagitis; G47.33 Obstructive sleep apnea (adult) (pediatric); E78.5 Hyperlipidemia, unspecified; Z92.3 Personal history of irradiation; I10 Essential (primary) hypertension; I42.9 Cardiomyopathy, unspecified; Z95.5 Presence of coronary angioplasty implant and graft; I95.9 Hypotension, unspecified; R15.9 Full incontinence of feces; E87.6 Hypokalemia; F10.10 Alcohol abuse, uncomplicated; E83.42 Hypomagnesemia; R19.7 Diarrhea, unspecified; Z85.46 Personal history of malignant neoplasm of prostate; Z79.82 Long term (current) use of aspirin; Z87.891 Personal history of nicotine dependence; Z79.899 Other long term (current) drug therapy

== ENCOUNTER 2019-01-07 12:00 | Inpatient (IN) | payer MEDICARE, OTHER ==
[~2019-01-07] VITALS: Ht 172.7 cm; Wt 66.5 kg
[~2019-01-07 12:00] MED LIST changes: +AID PO; +AMLO2.5T3 PO; +BAYE325T12 PO; +CIPR500T3 PO; +FINA5TAB2 PO; +LOSA100T5 PO; +METR-265 PO; +MULTCAP PO; +OMEP-218 PO; +SUCR1TA PO; +VITA50005 PO
[2019-01-07] MEDS ORDERED: NS 1,000 ML IV SCH ×2 (13:15→15:12)
--- NOTE | 2019-01-07 13:16 | REP ---
Portable chest, single AP view with the patient upright, 12:51 p.m.: Comparison is 01/05/2014. The lung monk are clear. Cardiac size is normal. The betsy and mediastinum are unremarkable. There is a cardiac valve replacement. The left shoulder has an unusual appearance. Clinical correlation for left shoulder dislocation is recommended. This could just be projectional artifact on the portable chest film. There is a focal lucency with surrounding eburnation in the right humeral head. This is unchanged and may represent aseptic necrosis. Impression: There are no acute cardiopulmonary findings. Sternotomy and cardiac valve replacement. Question left shoulder dislocation, correlate clinically. 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 Electronically Signed by Harjinder Vivas MD 01/07/2019 01:07 P
[2019-01-07] MEDS ORDERED: METO50TA7 PO (13:45)
[2019-01-07] MEDS ORDERED: OMEP-221 PO (13:45)
[2019-01-07] MEDS ORDERED: DRIS50003 PO (13:45)
[2019-01-07] MEDS ORDERED: THIA100T7 PO (13:45)
[2019-01-07] MEDS ORDERED: AMIO200T PO (13:45)
[2019-01-07] MEDS ORDERED: PRAV20TA2 PO (13:47)
[2019-01-07] MEDS ORDERED: SUCR1TAB56 PO (13:47)
[2019-01-07 13:50] LABS: HEMATOCRIT 27.1 % (42.0-52.0); HEMOGLOBIN 8.9 g/dl (13.5-17.5); MEAN CORPUSCULAR HEMOGLOBIN 30.6 pg (27.0-33.0); MEAN CORPUSCULAR HGB CONC 32.8 g/dl (32.0-36.5); MEAN CORPUSCULAR VOLUME 93.1 fl (80.0-96.0); PLATELET COUNT, AUTOMATED 330 10^3/uL (150-450); RED BLOOD COUNT 2.91 10^6/uL (4.30-6.10); WHITE BLOOD COUNT 25.6 10^3/uL (4.0-10.0)
[2019-01-07] MEDS ORDERED: SENN-3 PO (13:50)
[2019-01-07] MEDS ORDERED: DULC10SU2 PR (13:50)
[2019-01-07] MEDS ORDERED: ACET500T15 PO (13:51)
--- NOTE | 2019-01-07 13:54 | REP ---
Left lower extremity deep vein duplex ultrasound: The deep veins demonstrate normal compression, normal Doppler color flow and normal Doppler waveforms with respiration and augmentation from the popliteal vein to the common femoral vein. Impression: There is no lower extremity deep vein thrombus. Electronically Signed by Harjinder Vivas MD 01/07/2019 01:46 P
[2019-01-07 14:12] LABS: LYMPHOCYTES 5 % (16-44); MONOCYTES 6 % (0-5); NEUTROPHILS 89 % (28-66); PLATELET ESTIMATE NORMAL (NORMAL)
[2019-01-07 14:16] LABS: ERYTHROCYTE SEDIMENTATION RATE 106 mm/hr (0-20)
[2019-01-07 14:21] LABS: ALBUMIN 1.7 GM/DL (3.2-5.2); ALT/SGPT 9 U/L (12-78); BILIRUBIN,DIRECT 0.3 MG/DL (0.0-0.2); BILIRUBIN,TOTAL 0.5 MG/DL (0.2-1.0); BLOOD UREA NITROGEN 25 MG/DL (7-18); CALCIUM LEVEL 8.2 MG/DL (8.8-10.2); CARBON DIOXIDE LEVEL 23 MEQ/L (21-32); CHLORIDE LEVEL 98 MEQ/L (98-107); CREATININE FOR GFR 0.64 MG/DL (0.70-1.30); GLOMERULAR FILTRATION RATE > 60.0 (>42); GLUCOSE, FASTING 101 MG/DL (70-100); POTASSIUM SERUM 2.9 MEQ/L (3.5-5.1); SODIUM LEVEL 134 MEQ/L (136-145); TOTAL PROTEIN 5.4 GM/DL (6.4-8.2)
[2019-01-07 14:34] LABS: INR 1.56; PROTHROMBIN TIME 18.4 SECONDS (11.8-14.0)
[2019-01-07] MEDS ORDERED: SENOKOT S TAB PO PRN (15:30)
[2019-01-07] MEDS ORDERED: BISACODYL 10 MG SUPP PR PRN (15:30)
[2019-01-07] MEDS ORDERED: ACETAMINOPHEN 500 MG TAB PO PRN (15:30)
--- NOTE | 2019-01-07 16:19 | HPEPDOC ---
General Date of Admission Jan 07, 2019 at 15:12 Date of Service: Jan 07, 2019 Primary Care Physician: Gita Wilkins PA-C ER Attending Physician: MARCELO BARCENAS DO Chief Complaint The patient is a 78-year-old male admitted with a reason for visit of Decubitus Skin Ulcer,Hypokalemia,Ugi Bleed,Physica. Source: Patient, Family Exam Limitations: No limitations Timing/Duration: Day(s) (weakness for 3 days) Severity: Moderate Associated Symptoms: Loss of appetite, Malaise History of Present Illness Patient is 78 years old male with a past medical history of atrial fibrillation, CVA, previous GI bleed in November 2018 presented hospital with weakness. Patient stated that for past 3 days when he was in the rehabilitation he started feeling weakness, he couldn't have done exercises that he did before. Today patient developed bloody stool in the morning. Of note patient was recently hospitalized with GI bleed, he had black stool heme-positive and anemia, patient was treated conservatively with Protonix and discharged with follow-up with gastr oenterologist in the outpatient settings. In Emergency room patient was found to have elevated white blood count of 25, chest x-ray was unremarkable for acute cardiopulmonary diseases. Patient was normotensive with heart rate around 60s. Hemoglobin was 8.9, down from his baseline around 11-12. Also patient was found to have stage II decubitus ulcer which looks noninfected and multiple ingrown nails of left foot without signs of acute infection. Patient denies fever, chills, vomiting, chest pain, palpitations, shortness of breath Home Medications Scheduled Amiodarone HCl (Amiodarone HCl) 200 Mg Tablet, 200 MG PO BID, (Reported) Ergocalciferol (Vitamin D2) (Drisdol) 50,000 Unit Capsule, 50,000 UNIT PO QWEEK, (Reported) SUNDAYS Finasteride (Finasteride) 5 Mg Tablet, 5 MG PO DAILY, (Reported) Metoprolol Tartrate (Metoprolol Tartrate) 50 Mg Tablet, 50 MG PO BID, (Reported) Omeprazole (Omeprazole) 40 Mg Capsule.dr, 40 MG PO BID, (Reported) Pravastatin Sodium (Pravastatin Sodium) 20 Mg Tablet, 40 MG PO QHS, (Reported) Sucralfate (Sucralfate) 1 Gm Tablet, 1 GM PO QID, (Reported) Thiamine HCl (Thiamine HCl) 100 Mg Tablet, 100 MG PO BID, (Reported) Scheduled PRN Acetaminophen (Acetaminophen) 500 Mg Tablet, 500 MG PO Q4H PRN for PAIN, (Reported) Bisacodyl (Dulcolax) 10 Mg Supp.rect, 10 MG MI DAILY PRN for CONSTIPATION, (Reported) Sennosides/Docusate Sodium (Sennosides-Docusate Sodium Tab) 1 Each Tablet, 2 TAB PO BID PRN for CONSTIPATION, (Reported) Allergies Coded Allergies: No Known Allergies (Unverified , 03/18/17) Past Medical History Medical History CAD, LALO with CPAP, Umbilical hernia, OA, Hyperlipidemia, prostate cancer (treated with radiation) GI bleeds s/p PVI due to radiation proctitis,GERD, HTN cardiomyopathy, HTN, pAFIB, iron deficiency anemia, diverticulosis, colon polyps (colonoscopy 2016), gross hematuria Surgical History CABG, pilonidal cyst, CAD stents x 2, colonoscopy 2016, PCI to left circumflex with stent 05/2013, CABGx3 and AVR 11/14/2013, cystoscopy 2017, left thoracocentesis 2013, colonsocopy 2016 Family History Father from heart attack, mother from heart attack Social History * Smoker: former Smoker Alcohol: occationally 12 glasses of wine daily A-FIB/CHADSVASC A-FIB History Current/History of A-Fib/PAF?: Yes Current PO Anticoag Therapy: No Treatment Reason Anticoagulant not given: Current bleeding Review of Systems Constitutional: Reports: Malaise, Weakness; Denies: Chills Eyes: Denies: Pain, Vision change ENT: Denies: Head Aches, Sinus Congestion Skin: Denies: Rash, Jaundice Pulmonary: Denies: Dyspnea, Cough Cardiovascular: Denies: Chest Pain, Palpitations Gastrointestinal: Reports: Hematochezia; Denies: Nausea, Vomiting Genitourinary: Denies: Dysuria Hematologic: Denies: Bleeding Excessively Endocrine: Denies: Polydipsia, Polyphagia Musculoskeletal: Denies: Neck Pain, Back Pain Neurological: Denies: Weakness, Numbness Psych: Reports: Mood Normal Physical Examination General Exam: Positive: Alert, Cooperative, No Acute Distress; Negative: Mild Distress Eye Exam: Positive: PERRLA, Conjunctiva & lids normal, EOMI ENT Exam: Positive: Atraumatic Neck Exam: Positive: Supple; Negative: JVD Chest Exam: Positive: Clear to auscultation Heart Exam: Positive: Irregular Rhythm Telemetry: Positive: Atrial fibrillation Abdomen Exam: Positive: BS Hyperactive, Tenderness (lower quadrants bilaterally, no rebound, distended) Extremity Exam: Negative: Clubbing Skin Exam: Negative: Nl turgor and temperature Neuro Exam: Positive: Strength at 5/5 X4 ext, Cranial Nerves 3-12 NL Psych Exam: Positive: Mental status NL, Oriented x 3 Vital Signs Vital Signs Date Time Temp Pulse Resp B/P (MAP) Pulse Ox O2 Delivery O2 Flow Rate FiO2 01/07/19 16:00 64 97 01/07/19 15:00 117/61 (79) 01/07/19 12:19 98.8 20 Room Air Laboratory Data Labs 24H Laboratory Tests 2 01/07/19 13:34: Nucleated Red Blood Cells % (auto) 0.0, Neutrophils 89H, Lymphocytes (Manual) 5L, Monocytes (Manual) 6H, Platelet Estimate NORMAL, Red Blood Cell Morphology NORMAL, Erythrocyte Sedimentation Rate 106H, Anion Gap 13, Glomerular Filtration Rate > 60.0, Lactic Acid Level 1.0, Calcium Level 8.2L, Aspartate Amino Transf (AST/SGOT) 21, Alanine Aminotransferase (ALT/SGPT) 9L, Alkaline Phosphatase 211H, Total Bilirubin 0.5, Direct Bilirubin 0.3H, C-Reactive Protein, Quantitative 28.80H, Total Protein 5.4L, Albumin 1.7L, Albumin/Globulin Ratio 0.46L 01/07/19 14:12: Prothrombin Time 18.4H, Prothromb Time International Ratio 1.56 CBC/BMP Laboratory Tests 01/07/19 13:34 Red Blood Count 2.91 L, Mean Corpuscular Volume 93.1, Mean Corpuscular Hemoglob in 30.6, Mean Corpuscular Hemoglobin Concent 32.8, Red Cell Distribution Width 14.0 Microbiology Microbiology 01/07/19 Blood Culture, Received Pending 01/07/19 Blood Culture, Received Pending 01/07/19 Gram Stain - Final, Resulted 01/07/19 Wound Culture, Resulted Pending Assessment/Plan Patient is 78 years old male with a past medical history of atrial fibrillation, CVA, previous GI bleed in November 2018 presented hospital with weakness. Patient stated that for past 3 days when he was in the rehabilitation he started feeling weakness, he couldn't have done exercises that he did before. Today patient developed bloody stool in the morning. Of note patient was recently hospitalized with GI bleed, he had black stool heme-positive and anemia, patient was treated conservatively with Protonix and discharged with follow-up with fashion intern in the outpatient settings. In Emergency room patient was found to have elevated white blood count of 25, chest x-ray was unremarkable for acute cardiopulmonary diseases. Patient was normotensive with heart rate around 60s. Hemoglobin was 8.9, down from his baseline around 11-12. Also patient was found to have stage II decubitus ulcer which looks noninfected and multiple ingrown nails of left foot without signs of acute infection. Patient denies fever, chills, vomiting, chest pain, palpitations, shortness of breath Problems (1) GI bleed Problem Text: Differential diagnosis includes upper GI bleed from AVM, diverticulosis, peptic ulcer surgical consult for possible colonoscopy and EGD Protonix IV Abdominal CAT scan Clear liquid diet for now We will transfuse if hemoglobin less than 7 Patient currently normotensive with hemoglobin 8.6 (2) Physical deconditioning Problem Text: PT/OT evaluation Remelt Worker consult (3) Decubitus skin ulcer Status: Acute Problem Text: Wound care consult (4) Hypokalemia Status: Acute Problem Text: IV potassium replacement (5) Atrial fibrillation with RVR Problem Text: Heart rate is under control Continue home cardioprotective medications We will hold any anticoagulation due to bleeding (6) Leukocytosis Problem Text: Unlikely the noninfected decubitus ulcer stage II could be source of infection with high leukocytosis of 25. Await CT of abdomen We'll repeat CBC Plan / VTE VTE Prophylaxis Ordered?: No VTE Exclusion Pharmacological: Active Bleeding MARCELO BARCENAS DO Jan 07, 2019 16:19
[2019-01-07] MEDS: KCL 40MEQ in NS 1000ML 1,000 ML IV SCH (16:31)
[2019-01-07 17:00] VITALS: BP 117/55
[2019-01-07] MEDS ORDERED: POTASSIUM CHLORIDE 10 MEQ SR TABLET PO ONE (17:00)
[2019-01-07] MEDS ORDERED: SUCRALFATE 1 GM TAB PO ONE (17:00)
[2019-01-07 17:33] LABS: HEMATOCRIT 26.9 % (42.0-52.0); HEMOGLOBIN 8.9 g/dl (13.5-17.5); MEAN CORPUSCULAR HEMOGLOBIN 30.7 pg (27.0-33.0); MEAN CORPUSCULAR HGB CONC 33.1 g/dl (32.0-36.5); MEAN CORPUSCULAR VOLUME 92.8 fl (80.0-96.0); PLATELET COUNT, AUTOMATED 327 10^3/uL (150-450)
[2019-01-07] MEDS: GASTROGRAFIN SOLUTION 30ML PO SCH ×2 (18:02→18:29)
[2019-01-07 18:14] LABS: ATYPICAL LYMPH 1 % (0-5); LYMPHOCYTES 4 % (16-44); MONOCYTES 1 % (0-5); NEUTROPHILS 94 % (28-66); PLATELET ESTIMATE NORMAL (NORMAL)
[2019-01-07 18:18] LABS: TOXIC GRANULATION 1+
[2019-01-07 19:37] LABS: HEMATOCRIT 26.9 % (42.0-52.0); HEMOGLOBIN 8.7 g/dl (13.5-17.5)
[2019-01-07] MEDS ORDERED: ISOVUE-370 76% 100ML VIAL (Q9967) As Ordered ONE (19:43)
--- NOTE | 2019-01-07 20:59 | REPVR ---
EXAM: CT Abdomen and Pelvis With Contrast EXAM DATE/TIME: 01/07/2019 7:44 PM CLINICAL HISTORY: 78 years old, male; Other: Gi bleed TECHNIQUE: Imaging protocol: Computed tomography of the abdomen and pelvis with intravenous contrast. Radiation optimization: All CT scans at this facility use at least one of these dose optimization techniques: automated exposure control; mA and/or kV adjustment per patient size (includes targeted exams where dose is matched to clinical indication); or iterative reconstruction. Contrast material: ISOVUE 370; Contrast volume: 100 ml; Contrast route: IV; COMPARISON: CT ABD/PEL W/IV ORAL CONTRAS 11/10/2018 10:33 PM FINDINGS: Pleural space: Trace amount of pleural fluid noted bilaterally. Liver: Focal area of enhancement is noted in the posterior superior segment of the right lobe of the liver measuring 1.1 cm. This is contiguous with/adjacent to a terminal branch of the posterior division of the right portal vein Gallbladder and bile ducts: Hyperdensity noted along the dependent portion of the gallbladder wall may be related to sludge, stones or vicarious excretion of contrast. Pancreas: Normal. No ductal dilation. Spleen: Heterogeneous enhancement of the spleen with subcapsular low density noted along most of the lateral margin of the spleen. 1.6 cm accessory spleen inferior and anterior to the splenic hilum. Adrenals: Calcifications in the right adrenal gland. Adreniform enlargement of the left adrenal gland. Kidneys and ureters: 1.9 cm simple cyst in the lower pole of the right kidney. 2.2 mm calcification in the lower pole of the left kidney. 4.3 mm calcification in the midportion of the left kidney. Stomach and bowel: Dilated fluid containing small bowel loops noted diffusely within the abdomen with perienteric inflammation noted within the mesentery. Diffuse wall thickening noted of the dilated small bowel loops. Pneumatosis is suggested in bowel loops within the pelvis. Scattered sigmoid colonic diverticula. Appendix: No evidence of appendicitis. Intraperitoneal space: There is a small amount of intra-abdominal ascites. Vasculature: There is a thrombosis noted of the superior mesenteric artery located approximately 8 cm from its origin. There is mild mild recanalization of flow in distal branches via collaterals. Atherosclerotic change noted of the abdominal aorta with no aneurysm. Common hepatic artery has a separate origin from the aorta. Lymph nodes: Normal. No enlarged lymph nodes. Bladder: Unremarkable as visualized. Reproductive: Unremarkable as visualized. Bones/joints: No acute fracture. No dislocation. Soft tissues: Unremarkable. IMPRESSION: 1. 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 Dilated bowel loops, mesenteric and perienteric edema are present with pneumatosis suggested in small bowel loops within the pelvis. 2. 1.1 cm Rounded area of enhancement in the liver which is contiguous with or adjacent to a terminal branch of the posterior division of the right portal vein in the posterior superior segment of the right lobe the liver. This could represent a pseudoaneurysm of a terminal branch of the right hepatic artery. Portal venous aneurysm would be unusual. Was not present on previous examinations. 3. Heterogeneous enhancement of the spleen suggest splenic infarcts. 4. Right renal cyst. 5. Nonobstructing left-sided renal calculi. 6. Colonic diverticulosis. Electronically signed by: Patti Raphael On 01/07/2019 20:59:03 PM
[2019-01-07] MEDS: THIAMINE 100 MG TAB PO SCH (21:00)
[2019-01-07] MEDS: METOPROLOL TART 50 MG TAB PO SCH (21:00)
[2019-01-07] MEDS: AMIODARONE 200 MG TAB (PACERONE) PO SCH (21:00)
[2019-01-07] MEDS: PANTOPRAZOLE 40MG INJ (PROTONIX) (C9113) IV SCH (21:00)
[2019-01-07] MEDS: PRAVASTATIN 20 MG TAB PO SCH (21:00)
[2019-01-07] MEDS ORDERED: HEPARIN DRIP 25,000 UNITS in IV 1 EA IV SCH (21:46)
[2019-01-07 22:00] VITALS: BP 115/68
[2019-01-07] MEDS ORDERED: HEPARIN SOD (PORCINE) 5000 UNITS/ML VIAL IV PRN (22:00)
[2019-01-07 23:05] VITALS: BP 141/66
[2019-01-08] VITALS (26 sets, daily range): BP systolic 87–130; BP diastolic 50–67; O2SAT 97–98
[2019-01-08] MEDS: PIPERACILLIN/TAZOBACTAM SOD 3.375 GM in D5W MINI-BAG PLUS 50 ML IV SCH ×5 (00:03→22:43)
[2019-01-08 00:55] LABS: HEMATOCRIT 24.4 % (42.0-52.0); HEMOGLOBIN 7.9 g/dl (13.5-17.5)
[2019-01-08] MEDS: KCL 40MEQ in NS 1000ML 1,000 ML IV SCH ×3 (05:09→21:30)
[2019-01-08 05:59] LABS: HEMATOCRIT 27.5 % (42.0-52.0); MEAN CORPUSCULAR HEMOGLOBIN 29.4 pg (27.0-33.0); MEAN CORPUSCULAR HGB CONC 32.7 g/dl (32.0-36.5); MEAN CORPUSCULAR VOLUME 89.9 fl (80.0-96.0); PLATELET COUNT, AUTOMATED 306 10^3/uL (150-450); RED BLOOD COUNT 3.06 10^6/uL (4.30-6.10); WHITE BLOOD COUNT 26.6 10^3/uL (4.0-10.0)
[2019-01-08 06:25] LABS: ALBUMIN 1.5 GM/DL (3.2-5.2); ALT/SGPT 9 U/L (12-78); BILIRUBIN,TOTAL 0.7 MG/DL (0.2-1.0); BLOOD UREA NITROGEN 25 MG/DL (7-18); CALCIUM LEVEL 8.1 MG/DL (8.8-10.2); CARBON DIOXIDE LEVEL 21 MEQ/L (21-32); CHLORIDE LEVEL 103 MEQ/L (98-107); CREATININE FOR GFR 0.62 MG/DL (0.70-1.30); GLOMERULAR FILTRATION RATE > 60.0 (>42); GLUCOSE, FASTING 82 MG/DL (70-100); MAGNESIUM LEVEL 1.3 MG/DL (1.8-2.4); POTASSIUM SERUM 3.4 MEQ/L (3.5-5.1); SODIUM LEVEL 136 MEQ/L (136-145); TOTAL PROTEIN 5.5 GM/DL (6.4-8.2)
[2019-01-08] MEDS ORDERED: POTASSIUM CHLORIDE 10 MEQ SR TABLET PO ONE (06:45)
[2019-01-08 07:01] LABS: LYMPHOCYTES 6 % (16-44); MONOCYTES 1 % (0-5); NEUTROPHILS 93 % (28-66)
--- NOTE | 2019-01-08 07:01 | CR.PDOC ---
General Surgery Consultation Date of Consultation 01/07/19 History and Physical CONSULT REPORT FOR: Dr. Booker (hospitalist service) REASON FOR CONSULTATION: reported GI bleeding, abdominal pain HISTORY OF PRESENT ILLNESS: I was asked to see this 78-year-old gentleman with history of paroxysmal atrial fibrillation who is currently admitted from the rehabilitation floor to the acute floor for possible GI bleeding. He presented back in November with weakness and GI bleed. He was on anticoagulation at that time. This was held. 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 Reportedly have bloody diarrhea this morning likewise with vague abdominal discomfort. In the emergency room is found to have an elevated white cell count 25,000, hemoglobin of 8.9 which was down from baseline of about hemoglobin of 11. The 10 mL was cold a CT scan of the abdomen and pelvis is pending. PAST MEDICAL HISTORY: 1. History of CVA 2. Paroxysmal atrial fibrillation not on anticoagulation this time 3. Coronary artery disease 4. Obstructive sleep apnea 5. Prostate cancer treated with radiation 6. Gastroesophageal reflux disease 7. Hypertensive cardiomyopathy 8. Hypertension. PAST SURGICAL HISTORY: INCLUDES: 1. Coronary artery bypass graft 2. Coronary stent 3. CABG with bovine aortic valve replacement. ALLERGIES: Please see below HOME MEDICATIONS: Please see below. REVIEW OF SYSTEMS: GENERAL: He is 5 patient reports he has been sick since November. His strength recover from his admission in subacute rehabilitation setting and apparently was doing well up until today when he had bloody diarrhea he reports some mild weight loss. HEENT: Denies blurred vision and double vision. Denies ear symptoms. Denies walter rseness. NECK: Denies any neck pain CARDIOVASCULAR: Denies chest pain and palpitations.. SKIN: Denies rash. NEUROLOGIC: Denies headache, stroke and transient ischemic attack. PSYCHIATRIC: Denies anxiety and depression. ENDOCRINE: Denies thyroid disease. HEMATOLOGY/ONCOLOGY: Denies bleeding or clotting disorder. Patient is currently on anticoagulation HEART: Denies any chest pains, palpitations, paroxysmal dyspnea, orthopnea. PULMONARY: Denies chronic cough, dyspnea and wheezing. GASTROINTESTINAL: See HPI. GENITOURINARY: Denies dysuria, frequency, hematuria and nocturia. ENDOCRINE: Denies polydipsia, polyphagia, polyuria, heat or cold intolerance. INFECTIOUS: Denies any recent upper respiratory tract infection, UTI, need for use of antibiotics. NUTRITION: Reports fair appetite PHYSICAL EXAMINATION: VITALS SIGNS: Please see below. GENERAL APPEARANCE: Patient seen laying flat on bed relatively comfortable though he reports mild discomfort with movement SKIN: And dry. HEENT: Normocephalic, atraumatic. [place] palpebral conjunctiva, anicteric sclerae. Lips and mucosa appear moist. NECK: Supple, no thyromegaly. No obvious jugular venous distention. LUNGS: Clear to auscultation bilaterally. No wheezing appreciated. HEART: No chest wall abnormalities. Regular rate and rhythm with no murmurs appreciated. ABDOMEN: Abdomen is round, soft, mildly distended. He has some mild tenderness over the right lower quadrant area with localized guarding over the area is nontender on the upper abdomen. Abdomen is tympanitic to percussion relatively quiet. ANCILLARIES: . LABORATORY DATA: Please see below. IMAGING STUDIES: . 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 I examined him twice yesterday between6 pm before the CT and 10 pm last night. He has been hiccupping and he looks mildly distended but no tenderness now. I spoke to Dr. Naik to start him on anticoagulation (heparin drip). I have ordered Zosyn to be started. Dr. Naik has spoken To Dr. Yo. I think he needs urgent/emergent revascularization to pre vent full ischemia of his bowels. I called Dr. Yo and left a message but he has not called me back. If he develops peritonitis gets sicker, will need Ex lap to resect bowel but most important need at this time is to reopen the SMA. Vital Signs Vital Signs Date Time Temp Pulse Resp B/P (MAP) Pulse Ox O2 Delivery O2 Flow Rate FiO2 01/07/19 17:00 97.2 70 16 117/55 (75) 99 01/07/19 12:19 Room Air Laboratory Data Labs 24H Laboratory Tests 2 01/07/19 00:00: 01/07/19 13:34: Nucleated Red Blood Cells % (auto) 0.0, Neutrophils 89H, Lymphocytes (Manual) 5L, Monocytes (Manual) 6H, Platelet Estimate NORMAL, Red Blood Cell Morphology NORMAL, Erythrocyte Sedimentation Rate 106H, Anion Gap 13, Glomerular Filtration Rate > 60.0, Lactic Acid Level 1.0, Calcium Level 8.2L, Aspartate Amino Transf (AST/SGOT) 21, Alanine Aminotransferase (ALT/SGPT) 9L, Alkaline Phosphatase 211H, Total Bilirubin 0.5, Direct Bilirubin 0.3H, C-Reactive Protein, Quantitative 28.80H, Total Protein 5.4L, Albumin 1.7L, Albumin/Globulin Ratio 0.46L, Thyroid Stimulating Hormone (TSH) 3.010 01/07/19 14:12: Prothrombin Time 18.4H, Prothromb Time International Ratio 1.56 01/07/19 17:14: Nucleated Red Blood Cells % (auto) 0.0, Neutrophils 94H, Lymphocytes (Manual) 4L, Monocytes (Manual) 1, Platelet Estimate NORMAL, Red Blood Cell Morphology NORMAL, Atypical Lymphocytes 1, Toxic Granulation 1+ 01/07/19 21:58: CBC/BMP Laboratory Tests 01/07/19 13:34 Red Blood Count 2.91 L, Mean Corpuscular Volume 93.1, Mean Corpuscular Hemoglobin 30.6, Mean Corpuscular Hemoglobin Concent 32.8, Red Cell Distribution Width 14.0 01/07/19 17:14 Red Blood Count 2.90 L, Mean Corpuscular Volume 92.8, Mean Corpuscular Hemoglobin 30.7, Mean Corpuscular Hemoglobin Concent 33.1, Red Cell Distribution Width 13.9 01/07/19 19:15 Microbiology Microbiology 01/07/19 Blood Culture, Received Pending 01/07/19 Blood Culture, Received Pending 01/07/19 Gram Stain - Final, Resulted 01/07/19 Wound Culture, Resulted Pending Home Medications Scheduled Amiodarone HCl (Amiodarone HCl) 200 Mg Tablet, 200 MG PO BID, (Reported) Clopidogrel Bisulfate (Clopidogrel) 75 Mg Tablet, 75 MG PO DAILY Emollient Base (Vanicream) 453 Gm Cream..g., 0 DOSE TOP DAILY Ergocalciferol (Vitamin D2) (Drisdol) 50,000 Unit Capsule, 50,000 UNIT PO QWEEK, (Reported) SUNDAYS Finasteride (Finasteride) 5 Mg Tablet, 5 MG PO DAILY, (Reported) Magnesium Chloride (Mag64) 64 Mg Tablet.dr, 64 MG PO DAILY Metoprolol Tartrate (Metoprolol Tartrate) 50 Mg Tablet, 50 MG PO BID, (Reported) Mupirocin (Mupirocin) 22 Gm Oint...g., 0 DOSE TOP BID Nystatin (Nyamyc) 15 Gm Powder, 0 DOSE TOP BID Omeprazole (Omeprazole) 40 Mg Capsule.dr, 40 MG PO BID, (Reported) Potassium Chloride (Klor-Con M10) 10 Meq Tab.er.prt, 40 MEQ PO DAILY Pravastatin Sodium (Pravastatin Sodium) 20 Mg Tablet, 40 MG PO QHS, (Reported) Sucralfate (Sucralfate) 1 Gm Tablet, 1 GM PO QID, (Reported) Thiamine HCl (Thiamine HCl) 100 Mg Tablet, 100 MG PO BID, (Reported) Scheduled PRN Acetaminophen (Acetaminophen) 500 Mg Tablet, 500 MG PO Q4H PRN for PAIN, (Reported) Bisacodyl (Dulcolax) 10 Mg Supp.rect, 10 MG [place] DAILY PRN for CONSTIPATION, (Reported) Loperamide HCl (Loperamide) 2 Mg Capsule, 2 MG PO ASDIRECTED PRN for DIARRHEA Sennosides/Docusate Sodium (Sennosides-Docusate Sodium Tab) 1 Each Tablet, 2 TAB PO BID PRN for CONSTIPATION, (Reported) Allergies Coded Allergies: No Known Allergies (Unverified , 03/18/17) KEIRY CLIFFORD MD Jan 07, 2019 22:29
[2019-01-08 07:02] LABS: PLATELET ESTIMATE NORMAL (NORMAL); TOXIC GRANULATION 1+
[2019-01-08] MEDS: FINASTERIDE 5 MG TAB PO SCH (08:33)
[2019-01-08] MEDS: MAGNESIUM CHLORIDE 64 MG TABCR (SLO MAG) PO SCH (08:35)
[2019-01-08] MEDS: PANTOPRAZOLE 40MG INJ (PROTONIX) (C9113) IV SCH ×2 (08:35→21:19)
[2019-01-08] MEDS: METOPROLOL TART 50 MG TAB PO SCH ×2 (08:36→21:00)
[2019-01-08] MEDS: AMIODARONE 200 MG TAB (PACERONE) PO SCH ×2 (08:37→21:19)
--- NOTE | 2019-01-08 08:53 | IPNPDOC ---
Subjective General Date/Time Seen The patient was seen on 01/08/19 at 08:47. Subject Chief Complaint/History Patient reports feeling tired, did not get much sleep last night. One episode of loose stool this morning, minimal abdominal discomfort only when moving. Denies nausea, bloating, vomiting. Afebrile Current Medications Current Medications Current Medications Medications (Trade) Dose Ordered Sig/Brandon Route PRN Reason Start Time Stop Time Status Last Admin Dose Admin Acetaminophen (Tylenol Tab) 500 mg Q4H PRN PO PAIN 01/07/19 15:30 Amiodarone HCl (Pacerone, Cordarone) 200 mg BID PO 01/07/19 21:00 01/08/19 08:37 Bisacodyl (Dulcolax Suppository) 10 mg DAILY PRN [place] CONSTIPATION 01/07/19 15:30 Future hold Diatrizoate Meglum/ Diatrizoate Sod (Gastrografin) 10 ml Q30M PO 01/07/19 16:00 01/07/19 16:31 DC 01/07/19 18:29 Finasteride (Proscar) 5 mg DAILY PO 01/08/19 09:00 01/08/19 08:33 Heparin Sodium (Porcine) (Heparin) ASDIRECTED PRN IV SEE LABEL COMMENTS 01/07/19 22:00 Heparin Sodium (Porcine) 01979 units/IV Miscellaneous Supplies 250 ml @ 0 mls/hr Q0M IV 01/07/19 21:46 01/08/19 00:10 Home Med (Med Rec Complete!) ASDIRECTED XX 01/07/19 14:00 01/07/19 14:00 DC Magnesium Chloride (Slow-Mag) 64 mg DAILY PO 01/08/19 09:00 01/08/19 08:35 Metoprolol Tartrate (Lopressor) 50 mg BID PO 01/07/19 21:00 01/08/19 08:36 Non-Formulary Medication (Heparin Iv Rate Change Documentation ml/ Hr) ASDIRECTED XX 01/07/19 22:00 01/12/19 21:59 Pantoprazole Sodium (Protonix) 40 mg BID IV 01/07/19 21:00 01/08/19 08:35 Piperacillin Sod/ Tazobactam Sod 3.375 gm/Dextrose 50 ml @ 50 mls/hr Q6H IV 01/07/19 23:00 01/08/19 05:09 Potassium Chloride/Sodium Chloride 1,000 ml @ 100 mls/hr Q10H IV 01/07/19 15:30 01/08/19 05:09 Pravastatin Sodium (Pravachol) 40 mg QHS PO 01/07/19 21:00 Future hold Senna/Docusate Sodium (Senokot S) 2 tab BID PRN PO CONSTIPATION 01/07/19 15:30 Future hold Sodium Chloride 1,000 ml @ 100 mls/hr Q10H IV 01/07/19 15:12 01/07/19 15:26 DC Sodium Chloride 1,000 ml @ 150 mls/hr Q6H40M IV 01/07/19 13:15 01/07/19 15:26 DC 01/07/19 14:02 Thiamine HCl (Thiamine HCl) 100 mg BID PO 01/07/19 21:00 Future hold Vitamin D (Drisdol) 50,000 units Gr[place]om@0900 PO 01/09/19 09:00 01/09/19 09:00 DC Allergies Coded Allergies: No Known Allergies (Unverified , 03/18/17) Objective Physical Examination Examination GENERAL APPEARANCE:over all still looks comfortable, occasional hiccups SKIN: warm and dry. HEENT: dry lips, no facial asymmetry. NECK: Supple, no thyromegaly. No obvious jugular venous distention. LUNGS: Clear to auscultation bilaterally. No wheezing appreciated. HEART: irregular rhythm, 70s-80s. (+) blowing murmur. ABDOMEN: Abdomen is minimally distended, tympanitic to percussion, hypoactive BS, mild tenderness over right lower quadrant area without guarding. Vital Signs Vital Signs Date Time Temp Pulse Resp B/P (MAP) Pulse Ox O2 Delivery O2 Flow Rate FiO2 01/08/19 08:36 77 135/60 01/08/19 07:49 99.1 20 98 01/08/19 06:00 Room Air I&Os I&O- Last 24 Hours up to 6 AM 01/08/19 06:00 Intake Total 1964 ml Output Total 0 ml Balance 1964 ml Laboratory Data Labs 24H Laboratory Tests 2 01/07/19 13:34: Nucleated Red Blood Cells % (auto) 0.0, Neutrophils 89H, Lymphocytes (Manual) 5L, Monocytes (Manual) 6H, Platelet Estimate NORMAL, Red Blood Cell Morphology NORMAL, Erythrocyte Sedimentation Rate 106H, Anion Gap 13, Glomerular Filtration Rate > 60.0, Lactic Acid Level 1.0, Calcium Level 8.2L, Aspartate Amino Transf (AST/SGOT) 21, Alanine Aminotransferase (ALT/SGPT) 9L, Alkaline Phosphatase 211H, Total Bilirubin 0.5, Direct Bilirubin 0.3H, C-Reactive Protein, Quantitative 28.80H, Total Protein 5.4L, Albumin 1.7L, Albumin/Globulin Ratio 0.46L, Thyroid Stimulating Hormone (TSH) 3.010 01/07/19 14:12: Prothrombin Time 18.4H, Prothromb Time International Ratio 1.56 01/07/19 17:14: Nucleated Red Blood Cells % (auto) 0.0, Neutrophils 94H, Lymphocytes (Manual) 4L, Monocytes (Manual) 1, Platelet Estimate NORMAL, Red Blood Cell Morphology NORMAL, Atypical Lymphocytes 1, Toxic Granulation 1+ 01/07/19 21:58: Lactic Acid Level 0.8, Activated Partial Thromboplast Time 47.3H 01/08/19 05:43: Nucleated Red Blood Cells % (auto) 0.0, Neutrophils 93H, Lymphocytes (Manual) 6L, Monocytes (Manual) 1, Toxic Granulation 1+, Platelet Estimate NORMAL, Activated Partial Thromboplast Time 96.8H, Anion Gap 12, Glomerular Filtration Rate > 60.0, Blood Urea Nitrogen 25H, Creatinine 0.62L, Sodium Level 136, Potassium Level 3.4L, Chloride Level 103, Carbon Dioxide Level 21, Calcium Level 8.1L, Aspartate Amino Transf (AST/SGOT) 21, Alanine Aminotransferase (ALT/SGPT) 9L, Alkaline Phosphatase 195H, Total Bilirubin 0.7, Total Protein 5.5L, Albumin 1.5L, Magnesium Level 1.3L, Albumin/Globulin Ratio 0.38L 01/08/19 06:56: Lactic Acid Level 0.9 CBC/BMP Laboratory Tests 01/07/19 13:34 Red Blood Count 2.91 L, Mean Corpuscular Volume 93.1, Mean Corpuscular Hemoglobin 30.6, Mean Corpuscular Hemoglobin Concent 32.8, Red Cell Distribution Width 14.0 01/07/19 17:14 Red Blood Count 2.90 L, Mean Corpuscular Volume 92.8, Mean Corpuscular Hemoglobin 30.7, Mean Corpuscular Hemoglobin Concent 33.1, Red Cell Distribution Width 13.9 01/07/19 19:15 01/08/19 00:41 01/08/19 05:43 Red Blood Count 3.06 L, Mean Corpuscular Volume 89.9, Mean Corpuscular Hemoglobin 29.4, Mean Corpuscular Hemoglobin Concent 32.7, Red Cell Distribution Width 14.2, Calcium Level 8.1 L, Aspartate Amino Transf (AST/SGOT) 21, Alanine Aminotransferase (ALT/SGPT) 9 L, Alkaline Phosphatase 195 H, Total Bilirubin 0.7, Total Protein 5.5 L, Albumin 1.5 L Microbiology Microbiology 01/07/19 Blood Culture, Received Pending 01/07/19 Blood Culture, Received Pending 01/08/19 Stool Occult Blood (KAMRAN) - Final, Complete 01/07/19 Gram Stain - Final, Resulted 01/07/19 Wound Culture, Resulted Pending Impression SMA thrombosis/emboli with concerns for small bowel ischemia patient on heparin drip and zosyn His labs still show leukocytosis but no lactic acidemia. I have reached out to Dr. Yo and he is coming in to see the patient. will need to coordinate with him and plan to look at the bowels to check for degree of ischemia and necrosis. Plan / VTE VTE Prophylaxis Ordered?: Yes VTE Exclusion Pharmacological: Active Bleeding KEIRY CLIFFORD MD Jan 08, 2019 08:53
[2019-01-08] MEDS ORDERED: BUPIVACAINE HCL 0.5% 10 ML VIAL As Ordered ONE (09:55)
[2019-01-08] MEDS ORDERED: LIDOCAINE 2% MDV 20 ML VIAL As Ordered ONE (09:55)
[2019-01-08] MEDS ORDERED: ISOVUE-300 61% 50ML VIAL (Q9967) As Ordered ONE (09:55)
[2019-01-08] MEDS ORDERED: fentaNYL 100 MCG/2 ML INJECTION (J3010) As Ordered ONE ×2 (10:11→13:03)
[2019-01-08] MEDS ORDERED: MIDAZOLAM INJ 2 MG/2 ML VIAL (J2250) As Ordered ONE (10:11)
[2019-01-08] MEDS ORDERED: HEPARIN 1,000 UNITS/ML 10ML VIAL (FOR RADIOLOGY& DIALYSIS ONLY) As Ordered ONE (10:35)
[2019-01-08] MEDS: HEPARIN SOD (PORCINE) 5000 UNITS/ML VIAL IV ONE ×2 (10:37→12:42)
[2019-01-08] MEDS: LIDOCAINE 2% INJ 100 MG/5 ML SDV (FOR ANES.) XX ONE ×2 (10:50→12:40)
[2019-01-08] MEDS: ISOVUE-300 61% 50ML VIAL (Q9967) IV ONE ×2 (10:50→12:30)
--- NOTE | 2019-01-08 10:54 | IPNPDOC ---
Text Note Date of Service The patient was seen on 01/08/19. NOTE Subjective: Patient complains of abdominal pain on palpation, he described the pain as sharp. Patient denies fever but complains of chills. Objective: General Exam: Positive: Alert, Cooperative, No Acute Distress; Negative: Mild Distress Eye Exam: Positive: PERRLA, Conjunctiva & lids normal, EOMI ENT Exam: Positive: Atraumatic Neck Exam: Positive: Supple; Negative: JVD Chest Exam: Positive: Clear to auscultation Heart Exam: Positive: Irregular Rhythm Telemetry: Positive: Atrial fibrillation Abdomen Exam: Positive: Severe diffuse tenderness in all 4 quadrants, reduced bowel sounds, rebound sign positive, distended Extremity Exam: Negative: Clubbing Skin Exam: Negative: Nl turgor and temperature Neuro Exam: Positive: Strength at 5/5 X4 ext, Cranial Nerves 3-12 NL Psych Exam: Positive: Mental status NL, Oriented x 3 THIS REPORT CONTAINS FINDINGS THAT MAY BE CRITICAL TO PATIENT CARE. The findings were verbally communicated via telephone conference with Dr. Naik at 9:23 PM EDT on 01/07/2019. The findings were acknowledged and understood. Electronically signed by: Patti Raphael On 01/07/2019 21:24:40 PM DD: PATTI RAPHAEL MD [birth year]191943 DT: LINDA 01/07/192123 DS: ANTONIO 01/07/192123 EXAM: CT Abdomen and Pelvis With Contrast EXAM DATE/TIME: 01/07/2019 7:44 PM CLINICAL HISTORY: 78 years old, male; Other: Gi bleed TECHNIQUE: Imaging protocol: Computed tomography of the abdomen and pelvis with intravenous contrast. Radiation optimization: All CT scans at this facility use at least one of these dose optimization techniques: automated exposure control; mA and/or kV adjustment per patient size (includes targeted exams where dose is matched to clinical indication); or iterative reconstruction. Contrast material: ISOVUE 370; Contrast volume: 100 ml; Contrast route: IV; COMPARISON: CT ABD/PEL W/IV ORAL CONTRAS 11/10/2018 10:33 PM FINDINGS: Pleural space: Trace amount of pleural fluid noted bilaterally. Liver: Focal area of enhancement is noted in the posterior superior segment of the right lobe of the liver measuring 1.1 cm. This is contiguous with/adjacent to a terminal branch of the posterior division of the right portal vein Gallbladder and bile ducts: Hyperdensity noted along the dependent portion of the gallbladder wall may be related to sludge, stones or vicarious excretion of contrast. Pancreas: Normal. No ductal dilation. Spleen: Heterogeneous enhancement of the spleen with subcapsular low density noted along most of the lateral margin of the spleen. 1.6 cm accessory spleen inferior and anterior to the splenic hilum. Adrenals: Calcifications in the right adrenal gland. Adreniform enlargement of the left adrenal gland. Kidneys and ureters: 1.9 cm simple cyst in the lower pole of the right kidney. 2.2 mm calcification in the lower pole of the left kidney. 4.3 mm calcification in the midportion of the left kidney. Stomach and bowel: Dilated fluid containing small bowel loops noted diffusely within the abdomen with perienteric inflammation noted within the mesentery. Diffuse wall thickening noted of the dilated small bowel loops. Pneumatosis is suggested in bowel loops within the pelvis. Scattered sigmoid colonic diverticula. Appendix: No evidence of appendicitis. Intraperitoneal space: There is a small amount of intra-abdominal ascites. Vasculature: There is a thrombosis noted of the superior mesenteric artery located approximately 8 cm from its origin. There is mild mild recanalization of flow in distal branches via collaterals. Atherosclerotic change noted of the abdominal aorta with no aneurysm. Common hepatic artery has a separate origin from the aorta. Lymph nodes: Normal. No enlarged lymph nodes. Bladder: Unremarkable as visualized. Reproductive: Unremarkable as visualized. Bones/joints: No acute fracture. No dislocation. Soft tissues: Unremarkable. IMPRESSION: 1. 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 Dilated bowel loops, mesenteric and perienteric edema are present with pneumatosis suggested in small bowel loops within the pelvis. 2. 1.1 cm Rounded area of enhancement in the liver which is contiguous with or adjacent to a terminal branch of the posterior division of the right portal vein in the posterior superior segment of the right lobe the liver. This could represent a pseudoaneurysm of a terminal branch of the right hepatic artery. Portal venous aneurysm would be unusual. Was not present on previous examinations. 3. Heterogeneous enhancement of the spleen suggest splenic infarcts. 4. Right renal cyst. 5. Nonobstructing left-sided renal calculi. 6. Colonic diverticulosis. Electronically signed by: Patti Raphael On 01/07/2019 20:59:03 PM Assessment/Plan Patient is 78 years old male with a past medical history of atrial fibrillation, CVA, previous GI bleed in November 2018 presented hospital with weakness. Patient stated that for past 3 days when he was in the rehabilitation he s tarted feeling weakness, he couldn't have done exercises that he did before. Today patient developed bloody stool in the morning. Of note patient was recently hospitalized with GI bleed, he had black stool heme-positive and anemia, patient was treated conservatively with Protonix and discharged with follow-up with patient transport orderly in the outpatient settings. In Emergency room patient was found to have elevated white blood count of 25, chest x-ray was unremarkable for acute cardiopulmonary diseases. Patient was normotensive with heart rate around 60s. Hemoglobin was 8.9, down from his baseline around 11-12. Also patient was found to have stage II decubitus ulcer which looks noninfected and multiple ingrown nails of left foot without signs of acute infection. Patient was found to have severe tenderness on abdomen palpation. 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 Lactic acid was not elevated. Surgical team will proceed today with mesenteric angiography and possible exploratory laparoscopy. Acute abdomen Secondary to acute mesenteric ischemia with thrombosis of the superior mesenteric artery located 8 cm from its origin Surgical team will proceed today with mesenteric angiography and possible exploratory laparoscopy to rule out bowel ischemic necrosis. Lactic acid was negative. Zosycatrina IV Dr. Yo recommended heparin drip NPO GI bleed Hemoglobin is 9, patient is normotensive. 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 Decubitus skin ulcer Status: Acute Problem Text: Wound care consult Hydrofoam Hypokalemia Status: Acute Problem Text: IV potassium replacement Atrial fibrillation with RVR Problem Text: Heart rate is under control Continue home cardioprotective medications Pt was not on anticoagulation due to previous GI bleeding Leukocytosis Secondary to mesenteric ischemia Continue antibiotic treatment VS,Fishbone, I+O VS, Fishbone, I+O Laboratory Tests 01/07/19 13:34 Red Blood Count 2.91 L, Mean Corpuscular Volume 93.1, Mean Corpuscular Hemoglobin 30.6, Mean Corpuscular Hemoglobin Concent 32.8, Red Cell Distribution Width 14.0 01/07/19 17:14 Red Blood Count 2.90 L, Mean Corpuscular Volume 92.8, Mean Corpuscular Hemoglobin 30.7, Mean Corpuscular Hemoglobin Concent 33.1, Red Cell Distribution Width 13.9 01/07/19 19:15 01/08/19 00:41 01/08/19 05:43 Red Blood Count 3.06 L, Mean Corpuscular Volume 89.9, Mean Corpuscular Hemoglobin 29.4, Mean Corpuscular Hemoglobin Concent 32.7, Red Cell Distribution Width 14.2, Calcium Level 8.1 L, Aspartate Amino Transf (AST/SGOT) 21, Alanine Aminotransferase (ALT/SGPT) 9 L, Alkaline Phosphatase 195 H, Total Bilirubin 0.7, Total Protein 5.5 L, Albumin 1.5 L Vital Signs Date Time Temp Pulse Resp B/P (MAP) Pulse Ox O2 Delivery O2 Flow Rate FiO2 01/08/19 09:00 98 Room Air 01/08/19 08:36 77 135/60 01/08/19 07:49 99.1 20 I&O- Last 24 Hours up to 6 AM 01/08/19 06:00 Intake Total 1964 ml Output Total 0 ml Balance 1964 ml MARCELO BARCENAS DO Jan 08, 2019 10:54
[2019-01-08] MEDS ORDERED: ROCURONIUM BROMIDE 50 MG/5 ML VIAL As Ordered ONE (11:14)
[2019-01-08] MEDS ORDERED: propofoL 200 MG/20 ML VIAL As Ordered ONE (11:14)
[2019-01-08] MEDS ORDERED: LIDOCAINE 2% INJ 100 MG/5 ML SDV (FOR ANES.) As Ordered ONE (11:15)
[2019-01-08] MEDS ORDERED: BUPIVACAINE HCL 0.25% 30 ML VIAL As Ordered ONE (11:53)
[2019-01-08] MEDS ORDERED: LIDOCAINE 1% SDV INJ 30 ML VIAL As Ordered ONE (11:53)
[2019-01-08] MEDS ORDERED: ePHEDrine SULFATE 25 MG/5 ML(5MG/ML) SYRINGE As Ordered ONE (12:11)
--- NOTE | 2019-01-08 12:12 | ECGEPIP ---
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
[2019-01-08] MEDS ORDERED: ZOSYN 3.375 GM VIAL (J2543) As Ordered ONE (12:28)
[2019-01-08] MEDS ORDERED: ONDANSETRON 4MG/2ML VIAL (J2405) As Ordered ONE (13:31)
[2019-01-08] MEDS ORDERED: SUGAMMADEX SODIUM 500 MG/5 ML VIAL (BRIDION) As Ordered ONE (13:31)
[2019-01-08] MEDS ORDERED: KETOROLAC 60 MG/2 ML VIAL (J1885) As Ordered ONE (13:31)
[2019-01-08] MEDS ORDERED: MORPHINE 4 MG/ML 1ML VIAL/SYRINGE (J2270) IV PRN (14:00)
[2019-01-08] MEDS ORDERED: ONDANSETRON 4MG/2ML VIAL (J2405) IV PRN (14:30)
[2019-01-08] MEDS ORDERED: METOCLOPRAMIDE INJ 10MG/2ML VIAL (J2765) IV PRN (14:30)
[2019-01-08] MEDS ORDERED: LR 1,000 ML IV SCH (14:30)
[2019-01-08] MEDS ORDERED: fentaNYL 100 MCG/2 ML INJECTION (J3010) IV PRN (14:30)
[2019-01-08 14:58] LABS: HEMATOCRIT 28.6 % (42.0-52.0); HEMOGLOBIN 9.2 g/dl (13.5-17.5); MEAN CORPUSCULAR HEMOGLOBIN 29.3 pg (27.0-33.0); MEAN CORPUSCULAR HGB CONC 32.2 g/dl (32.0-36.5); MEAN CORPUSCULAR VOLUME 91.1 fl (80.0-96.0); PLATELET COUNT, AUTOMATED 333 10^3/uL (150-450); RED BLOOD COUNT 3.14 10^6/uL (4.30-6.10); WHITE BLOOD COUNT 16.9 10^3/uL (4.0-10.0)
[2019-01-08 15:17] LABS: ALBUMIN 1.4 GM/DL (3.2-5.2); ALT/SGPT 9 U/L (12-78); BILIRUBIN,TOTAL 0.8 MG/DL (0.2-1.0); BLOOD UREA NITROGEN 24 MG/DL (7-18); CALCIUM LEVEL 7.5 MG/DL (8.8-10.2); CARBON DIOXIDE LEVEL 21 MEQ/L (21-32); CHLORIDE LEVEL 105 MEQ/L (98-107); CREATININE FOR GFR 0.65 MG/DL (0.70-1.30); GLOMERULAR FILTRATION RATE > 60.0 (>42); GLUCOSE, FASTING 100 MG/DL (70-100); POTASSIUM SERUM 3.6 MEQ/L (3.5-5.1); SODIUM LEVEL 137 MEQ/L (136-145); TOTAL PROTEIN 4.6 GM/DL (6.4-8.2)
[2019-01-08 15:36] LABS: LYMPHOCYTES 4 % (16-44); MONOCYTES 4 % (0-5); NEUTROPHILS 89 % (28-66); PLATELET ESTIMATE NORMAL (NORMAL)
[2019-01-08] MEDS ORDERED: NS 1,000 ML IV ONE ×2 (19:30→21:15)
[2019-01-08 20:04] LABS: HEMATOCRIT 27.1 % (42.0-52.0); HEMOGLOBIN 8.8 g/dl (13.5-17.5); MEAN CORPUSCULAR HEMOGLOBIN 29.2 pg (27.0-33.0); MEAN CORPUSCULAR HGB CONC 32.5 g/dl (32.0-36.5); PLATELET COUNT, AUTOMATED 333 10^3/uL (150-450); RED BLOOD COUNT 3.01 10^6/uL (4.30-6.10); WHITE BLOOD COUNT 18.1 10^3/uL (4.0-10.0)
[2019-01-08] MEDS: NS 1,000 ML IV SCH (20:12)
[2019-01-08 20:33] LABS: BLOOD UREA NITROGEN 25 MG/DL (7-18); CALCIUM LEVEL 7.8 MG/DL (8.8-10.2); CARBON DIOXIDE LEVEL 22 MEQ/L (21-32); CHLORIDE LEVEL 109 MEQ/L (98-107); GLOMERULAR FILTRATION RATE > 60.0 (>42); GLUCOSE, FASTING 80 MG/DL (70-100); POTASSIUM SERUM 4.1 MEQ/L (3.5-5.1); SODIUM LEVEL 140 MEQ/L (136-145)
[2019-01-08 23:02] LABS: HEMATOCRIT 26.2 % (42.0-52.0); HEMOGLOBIN 8.3 g/dl (13.5-17.5)
[2019-01-09] VITALS (19 sets, daily range): BP systolic 88–103; BP diastolic 50–55
[2019-01-09 03:08] LABS: HEMATOCRIT 26.3 % (42.0-52.0); HEMOGLOBIN 8.5 g/dl (13.5-17.5)
[2019-01-09] MEDS: NS 1,000 ML IV SCH (05:30)
[2019-01-09] MEDS: PIPERACILLIN/TAZOBACTAM SOD 3.375 GM in D5W MINI-BAG PLUS 50 ML IV SCH ×4 (05:31→23:12)
[2019-01-09 07:22] LABS: HEMATOCRIT 24.7 % (42.0-52.0); HEMOGLOBIN 7.9 g/dl (13.5-17.5); MEAN CORPUSCULAR HEMOGLOBIN 29.9 pg (27.0-33.0); MEAN CORPUSCULAR VOLUME 93.6 fl (80.0-96.0); PLATELET COUNT, AUTOMATED 267 10^3/uL (150-450); RED BLOOD COUNT 2.64 10^6/uL (4.30-6.10); WHITE BLOOD COUNT 18.4 10^3/uL (4.0-10.0)
[2019-01-09 07:56] LABS: LYMPHOCYTES 4 % (16-44); MONOCYTES 4 % (0-5); NEUTROPHILS 90 % (28-66); PLATELET ESTIMATE NORMAL (NORMAL)
[2019-01-09] MEDS ORDERED: VITAMIN D 50,000 UNITS CAPSULE (ERGOCALCIFEROL 1.25MG) PO SCH (09:00)
[2019-01-09] MEDS: METOPROLOL TART 50 MG TAB PO SCH ×2 (09:00→21:00)
[2019-01-09] MEDS ORDERED: NS 1,000 ML IV ONE (09:00)
[2019-01-09 09:07] LABS: BLOOD UREA NITROGEN 26 MG/DL (7-18); CALCIUM LEVEL 7.1 MG/DL (8.8-10.2); CARBON DIOXIDE LEVEL 19 MEQ/L (21-32); CHLORIDE LEVEL 111 MEQ/L (98-107); CREATININE FOR GFR 0.73 MG/DL (0.70-1.30); GLOMERULAR FILTRATION RATE > 60.0 (>42); GLUCOSE, FASTING 73 MG/DL (70-100); POTASSIUM SERUM 3.9 MEQ/L (3.5-5.1); SODIUM LEVEL 140 MEQ/L (136-145)
[2019-01-09] MEDS: THIAMINE 100 MG TAB PO SCH ×2 (09:33→21:02)
[2019-01-09] MEDS: MAGNESIUM CHLORIDE 64 MG TABCR (SLO MAG) PO SCH (09:33)
[2019-01-09] MEDS: AMIODARONE 200 MG TAB (PACERONE) PO SCH ×2 (09:33→21:02)
[2019-01-09] MEDS: PANTOPRAZOLE 40MG INJ (PROTONIX) (C9113) IV SCH ×2 (09:33→21:02)
[2019-01-09] MEDS: FINASTERIDE 5 MG TAB PO SCH (09:33)
[2019-01-09] MEDS: D5W/0.9% SODIUM CHLORIDE 1,000 ML IV SCH ×2 (09:42→18:19)
[2019-01-09 11:04] LABS: HEMATOCRIT 27.2 % (42.0-52.0); HEMOGLOBIN 8.5 g/dl (13.5-17.5)
--- NOTE | 2019-01-09 11:35 | ROOPDOC ---
[facility] Report Of Operation Report of Operation DATE OF PROCEDURE: 01/07/19 PREPROCEDURE DIAGNOSES: Superior mesenteric artery thrombosis, ischemic bowel. POSTPROCEDURE DIAGNOSES: Superior mesenteric artery thrombosis, segmental ischemic bowel. PROCEDURE: Diagnostic laparoscopy, laparoscopic lysis of adhesion, minilaparotomy, small bowel resection of 1 foot of small bowel at the distal jejunum, early ileum with small bowel anastomosis. SURGEON: Kel Robert MD COMPUTER FIELD TECHNICIAN: MD Dr. Srinath Gil assisted me with palpation of the bowels and the blood supply and mesentery as well as in performing the resection and anastomosis through to the closure of the abdominal incision ANESTHESIA: General anesthesia. ESTIMATED BLOOD LOSS: Approximately 50 mL. COMPLICATIONS: None. REMARKS: Patient remained hemodynamically stable throughout the procedure. PROCEDURE NOTE: Roughly about a foot of small bowel is clearly ischemic with patches of necrosis along the area. The involved mesentery is hardened and thickened. I used ICG and the robotic laparoscopic for Flurosyn imaging to try to determine the extent of perfusion abnormalities and picked well-perfused area before and after this ischemic bowel to determine resection. There are some scattered patches of antimesenteric bruising at a short distance beyond the clearly necrotic bowel but shows good perfusion, peristalsis and healthy mesentery and observation that I left over. A [id number] anastomosis was then created using a WATSON 75 mm stapler with a blue load. I asked Dr. Yo to scrub in in case we need to determine the need for further vascular procedures with relation to the ischemic bowel. DESCRIPTION OF PROCEDURE: Patient was brought up from the interventional radiology suite where he had mesenteric angiogram performed with Dr. Yo and the celiac and mesenteric artery were stented. He has been receiving Zosyn 3.375 g IV every 6 hours for the bowel ischemia. He was placed supine on the table in the left arm was [facility]. Patient has been on heparin drip throughout this time and he should adequately cover for DVT prophylaxis. Heparin drip was turned off. He received 6000 units of heparin as a bolus during his time in the angiogram suite. General endotracheal anesthesia was started. A Boogie catheter placed for urine output monitoring. His abdomen was then prepped and draped in usual sterile fashion.We paused for a surgical timeout using both pre-incision safety checklist to verify correct patient, procedure site and additional clinical information prior to beginning the procedure. As his abdomen looks distended today use the left upper quadrant as my point of entry. A Veress needle was inserted after making a small incision over the left upper quadrant area. Intra-abdominal placement was confirmed with saline drop technique. CO2 insufflation started to pressure 15 mm of agree. Using the same incision a 5 mm optical port was placed under direct vision of laparoscope. Insertion site was inspected for injury and none was found. On insertion there is a ischemic appearing bowel noted starting at the mid abdomen below the umbilicus coming towards the pelvis extent of it was not immediately apparent. An 8 mm trocar was placed over the patient's supraumbilical area. I switched to the robotic laparoscope to allow me to use firefly to help check for fluorescent imaging to determine perfusion of the bowel. A 5 mm port was placed over the patient's left lower quadrant area and at the suprapubic area. Patient was placed on a Trendelenburg position the right side tilted up towards. I first visualized the bowels on the right side. The ascending colon was traced back to the cecum which appears healthy. The terminal ileum was noted to be also healthy and I traced the bowel back and I got to about 2 feet before I could see some blotching and patchy ecchymosis on the wall and the mesentery starts to get thickened. This is dropping down towards the pelvis which is likely adhered and I got to the area of clearly ischemic purplish bowel. This was lysed away from the adhesions in the pelvic sidewall as well as interbowel adhesions and also to the anterior wall of the pelvis and I continued retrogradely tracing the bowel. I estimate about a foot of small bowel that appears purplish and necrotic for get into an area of the bowel that is distended that looks to be a late jejunal in appearance and this goes back towards the left upper quadrant area were the bowels appear pink though looks moderately distended. I then asked anesthesia to inject 2 mL of the ICG dye and 10 mL of saline flush after this. I didn't turn on the fire 5 feature of the laparoscope and examined the bowel once more. The area of necrosis correlates to the lack of perfusion on fire thigh. I marked the area where there is clearly good perfusion beyond the necrotic areas both proximally and distally and I estimate about was bowel is involved. At this point I made a minilaparotomy incision roughly about 4-5 cm at the midline going towards the umbilicus and the 8 mm trocar was removed. A wound protector was placed in the necrotic portion of the bowel was exteriorized to the previously healthier selected marked. The bowel was divided with 75 mm stapler with blue load the mesentery was divided with LigaSure device. I fashioned of [id number] anastomosis using the same 75 liver stapler with blue load and the enterotomy was closed with a TA 60 mm stapler with a green load. The intersection point of the stapler as well as the crotch of the anastomosis is reinforced with 3-0 silk's. Couple of bleeding points along the staple lines were cauterized and they reinforce the corner where some bleeding with another 3-0 silk. The length of the anastomosis was examined and this was noted to be adequate. Prior to making the anastomosis examined the bowels internally and did not notice any profuse oozing. The bowels were then placed back into the abdomen I then irrigated the abdomen where there was some blood that I noticed in the pelvis or laparoscopy. I placed a 19 Steven drain in through to the abdomen pa ssing this out through the left lower quadrant port site and directed this to the pelvis. The minilaparotomy incision fascial closure was then performed using 1 Vicryl in a mattress fashion. The subcutaneous space was irrigated and the skin closed with toby along with the other port site incisions. The drain was secured to the skin. Patient remains hemodynamically stable throughout the procedure. He was subsequently awakened, extubated and brought to recovery room in a stable condition. KEL ROBERT MD Jan 09, 2019 11:34
--- NOTE | 2019-01-09 12:28 | IPNPDOC ---
Subjective General Date/Time Seen The patient was seen on 01/09/19 at 12:25. Subject Chief Complaint/History The patient is a 78-year-old male admitted with a reason for visit of Decubitus Skin Ulcer,Hypokalemia,Ugi Bleed,Physica. Patient remains in the ICU not requiring any pressors. Abdomen is distended. He is relatively clinically stable. He seems to be making increased amount the urine. Current Medications Current Medications Current Medications Medications (Trade) Dose Ordered Sig/Brandon Route PRN Reason Start Time Stop Time Status Last Admin Dose Admin Acetaminophen (Tylenol Tab) 500 mg Q4H PRN PO PAIN 01/07/19 15:30 Amiodarone HCl (Pacerone, Cordarone) 200 mg BID PO 01/07/19 21:00 01/09/19 09:33 Bisacodyl (Dulcolax Suppository) 10 mg DAILY PRN VT CONSTIPATION 01/07/19 15:30 Future hold Clopidogrel Bisulfate (PLAVix) 75 mg DAILY PO 01/09/19 09:00 Dextrose/Sodium Chloride 1,000 ml @ 125 mls/hr Q8H IV 01/09/19 10:00 01/09/19 09:42 Diatrizoate Meglum/ Diatrizoate Sod (Gastrografin) 10 ml Q30M PO 01/07/19 16:00 01/07/19 16:31 DC 01/07/19 18:29 Fentanyl Citrate (Sublimaze) 25 mcg Q5MP PRN IV MODERATE PAIN (PS 4-7) 01/08/19 14:30 01/08/19 14:31 DC Finasteride (Proscar) 5 mg DAILY PO 01/08/19 09:00 01/09/19 09:33 Heparin Sodium (Porcine) (Heparin) ASDIRECTED PRN IV SEE LABEL COMMENTS 01/07/19 22:00 01/09/19 12:13 DC Heparin Sodium (Porcine) 53440 units/IV Miscellaneous Supplies 250 ml @ 0 mls/hr Q0M IV 01/07/19 21:46 01/08/19 14:00 DC 01/08/19 00:10 Home Med (Med Rec Complete!) ASDIRECTED XX 01/07/19 14:00 01/07/19 14:00 DC Lactated Ringer's 1,000 ml @ 75 mls/hr [id number] IV 01/08/19 14:30 01/08/19 19:24 DC Magnesium Chloride (Slow-Mag) 64 mg DAILY PO 01/08/19 09:00 01/09/19 09:33 Metoclopramide HCl (REGLAN INJection) 10 mg Q6HP PRN IV NAUSEA OR VOMITING 01/08/19 14:30 01/08/19 19:25 DC Metoprolol Tartrate (Lopressor) 50 mg BID PO 01/07/19 21:00 01/08/19 08:36 Morphine Sulfate (Morphine Sulfate Inj) 2 mg Q1HP PRN IV MILD/MODERATE PAIN (PS 1-7) 01/08/19 14:00 Morphine Sulfate (Morphine Sulfate Inj) 4 mg Q3HP PRN IV SEVERE PAIN (PS 8-10) 01/08/19 14:00 Non-Formulary Medication (Heparin Iv Rate Change Documentation ml/ Hr) ASDIRECTED XX 01/07/19 22:00 01/09/19 12:13 DC Ondansetron HCl (ZOFRAN INJection) 4 mg Q4HP PRN IV NAUSEA OR VOMITING 01/08/19 14:30 01/09/19 11:44 DC Pantoprazole Sodium (Protonix) 40 mg BID IV 01/07/19 21:00 01/09/19 09:33 Piperacillin Sod/ Tazobactam Sod 3.375 gm/Dextrose 50 ml @ 50 mls/hr Q6H IV 01/07/19 23:00 01/09/19 11:54 Potassium Chloride/Sodium Chloride 1,000 ml @ 100 mls/hr Q10H IV 01/07/19 15:30 01/09/19 08:40 DC 01/08/19 11:30 Pravastatin Sodium (Pravachol) 40 mg QHS PO 01/07/19 21:00 Future hold Senna/Docusate Sodium (Senokot S) 2 tab BID PRN PO CONSTIPATION 01/07/19 15:30 Future hold Sodium Chloride 1,000 ml @ 100 mls/hr Q10H IV 01/07/19 15:12 01/07/19 15:26 DC Sodium Chloride 1,000 ml @ 125 mls/hr Q8H IV 01/08/19 19:30 01/09/19 08:40 DC 01/09/19 05:30 Sodium Chloride 1,000 ml @ 150 mls/hr Q6H40M IV 01/07/19 13:15 01/07/19 15:26 DC 01/07/19 14:02 Thiamine HCl (Thiamine HCl) 100 mg BID PO 01/07/19 21:00 Future hold 01/09/19 09:33 Vancomycin HCl 1000 mg/IV Miscellaneous Supplies 1 each/ Dextrose 270 ml @ 270 mls/hr Q12H IV 01/09/19 13:00 Vitamin D (Drisdol) 50,000 units Grissom@0900 PO 01/09/19 09:00 01/09/19 09:00 DC Allergies Coded Allergies: No Known Allergies (Unverified , 03/18/17) Objective Physical Examination Examination GENERAL APPEARANCE: Minimally uncomfortable. SKIN: Warm and dry.. NECK: Supple, no thyromegaly. No obvious jugular venous distention. LUNGS: Clear to auscultation bilaterally. No wheezing appreciated. HEART: No chest wall abnormalities. Regular rate and rhythm. ABDOMEN: Abdomen is still looks moderately distended, soft,. Dressings are clean, dry and intact. LEON drainage light pink serosanguineous in color. Mildly tender on palpation no guarding. EXTREMITIES: Minimal lower extremity edema. Vital Signs Vital Signs Date Time Temp Pulse Resp B/P (MAP) Pulse Ox O2 Delivery O2 Flow Rate FiO2 01/09/19 10:00 75 18 94/53 (67) 100 2.0 01/09/19 08:00 100.0 01/08/19 09:00 Room Air I&Os I&O- Last 24 Hours up to 6 AM 01/09/19 05:59 Intake Total 5455 ml Output Total 645 ml Balance 4810 ml Laboratory Data Labs 24H Laboratory Tests 2 01/08/19 14:37: Nucleated Red Blood Cells % (auto) 0.0, Neutrophils 89H, Band Neutrophils 3, Lymphocytes (Manual) 4L, Monocytes (Manual) 4, Platelet Estimate NORMAL, Red Blood Cell Morphology NORMAL, Anion Gap 11, Glomerular Filtration Rate > 60.0, Lactic Acid Level 1.4, Blood Urea Nitrogen 24H, Creatinine 0.65L, Sodium Level 137, Potassium Level 3.6, Chloride Level 105, Carbon Dioxide Level 21, Calcium Level 7.5L, Aspartate Amino Transf (AST/SGOT) 22, Alanine Aminotransferase (ALT/SGPT) 9L, Alkaline Phosphatase 195H, Total Bilirubin 0.8, Total Protein 4.6L, Albumin 1.4L, Albumin/Globulin Ratio 0.44L 01/08/19 19:55: Nucleated Red Blood Cells % (auto) 0.0, Anion Gap 9, Glomerular Filtration Rate > 60.0, Blood Urea Nitrogen 25H, Creatinine 0.80, Sodium Level 140, Potassium Level 4.1, Chloride Level 109H, Carbon Dioxide Level 22, Calcium Level 7.8L 01/09/19 07:06: Anion Gap 10, Glomerular Filtration Rate > 60.0, Blood Urea Nitrogen 26H, Creatinine 0.73, Sodium Level 140, Potassium Level 3.9, Chloride Level 111H, Carbon Dioxide Level 19L, Calcium Level 7.1L 01/09/19 07:10: Nucleated Red Blood Cells % (auto) 0.0, Neutrophils 90H, Band Neutrophils 2, Lymphocytes (Manual) 4L, Monocytes (Manual) 4, Platelet Estimate NORMAL, Red Blood Cell Morphology NORMAL, Lactic Acid Level 0.8, Whole Blood Ionized Calcium 4.2L CBC/BMP Laboratory Tests 01/08/19 14:37 Red Blood Count 3.14 L, Mean Corpuscular Volume 91.1, Mean Corpuscular Hemoglobin 29.3, Mean Corpuscular Hemoglobin Concent 32.2, Red Cell Distribution Width 14.4, Calcium Level 7.5 L, Aspartate Amino Transf (AST/SGOT) 22, Alanine Aminotransferase (ALT/SGPT) 9 L, Alkaline Phosphatase 195 H, Total Bilirubin 0.8, Total Protein 4.6 L, Albumin 1.4 L 01/08/19 19:55 Red Blood Count 3.01 L, Mean Corpuscular Volume 90.0, Mean Corpuscular Hemoglobin 29.2, Mean Corpuscular Hemoglobin Concent 32.5, Red Cell Distribution Width 14.4, Calcium Level 7.8 L 01/08/19 22:48 01/09/19 03:03 01/09/19 07:06 Calcium Level 7.1 L 01/09/19 07:10 Red Blood Count 2.64 L, Mean Corpuscular Volume 93.6, Mean Corpuscular Hem oglobin 29.9, Mean Corpuscular Hemoglobin Concent 32.0, Red Cell Distribution Width 14.6 H 01/09/19 10:52 Microbiology Microbiology 01/07/19 Blood Culture - Preliminary, Resulted 01/07/19 Blood Culture - Preliminary, Resulted No growth after 24 hours . All specim... 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 Patient should have adequate length of his small bowel and he still has his terminal ileum. I don't think he is ready yet for any oral intake. I'll allow him some sips of water just to get him comfortable. He still looks distended. He'll try to get physical therapy to work with him and strengthen him up. Continue on antib iotics. Issue at this point is went to anticoagulate him. I spoke with Dr. Yo yesterday. He does not need the heparin drip at this point as the clot that large was pretty distal to the SMA origin and the effected bowel has already been resected. He is currently in sinus though if he does go in and out of atrial fibrillation he will need long-term anticoagulation to prevent this from happening again. In terms of the stent according to Dr. Yo he will be on Plavix. Plan / VTE VTE Prophylaxis Ordered?: Yes VTE Exclusion Pharmacological: Active Bleeding KEIRY CLIFFORD MD Jan 09, 2019 12:28
--- NOTE | 2019-01-09 12:37 | IPNPDOC ---
Text Note Date of Service The patient was seen on 01/09/19. NOTE Subjective: Patient complains of moderate abdominal pain, but stated that he f eels much better in general. His urine output was 15 mL per hour. Pt stated that he is thirsty. Patient was hypotensive in the morning. Blood pressure around 90s over 60s Objective: Gen: NAD HEENT: PERRLA, EOMI, no JVD Chest: CTA Abdomen: Drainage in place, serosanguineous discharge around 10 mL, moderately tender around area of surgery, no rebound, no rigidity Extremities: No cyanosis, no swelling, ingrown nails on the left fourth, no open wounds seen Neuro: Nonfocal, cranial nerves from 2 through 12 intact, alert, awake, oriented Patient is 78 years old male with a past medical history of atrial fibrillation, subarachnoid bleed in 11/19/2018, previous GI bleed in November 2018 presented ho spital with weakness. Patient stated that for past 3 days when he was in the rehabilitation he started feeling weakness, he couldn't have done exercises that he did before. Patient developed bloody stool in the morning. 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 In Emergency room patient was found to have elevated white blood count of 25, chest x-ray was unremarkable for acute cardiopulmonary diseases. Patient was normotensive with heart rate around 60s. Hemoglobin was 8.9, down from his baseline around 11-12. Also patient was found to have stage II decubitus ulcer which looks noninfected and multiple ingrown nails of left foot without signs of acute infection. Patient was found to have severe tenderness on abdomen palpation. 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 Lactic acid was not elevated. Surgical team proceeded with mesenteric angiography followed by revascularization, exploratory laparotomy and colon resection. Dr. Yo recommended Plavix 75 mg daily. Blood culture came back positive for MRSA, vancomycin added to Zosyn. 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 Dr. Yo recommended Plavix 75 mg NPO Acute mesenteric ischemia above Sepsis Secondary to MRSA bacteremia Wound culture was positive for Klebsiella pneumonia, Escherichia coli, MRSA Continue vancomycin and Zosyn Echo to r/o endocarditis Repeat blood culture Lactic acid was negative in the morning Appreciate/agree with ID consult Continue to monitor the urine output fluid IV GI bleed Most likely secondary to ischemic colitis secondary to mesenteric ischemia Hemoglobin is 8.5 We will transfuse if hemoglobin less than 7 Surgical team on board see above Physical deconditioning Problem Text: PT/OT Fence Builder consult Nothing by mouth for now Decubitus skin ulcer Status: Acute Problem Text: Wound care consult Hydrofoam Hypokalemia Status: Resolved Atrial fibrillation with RVR Problem Text: Heart rate is under control Continue home cardioprotective medications Received medical records from [facility] in [place]. 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 seen on MRI on 11/30/18 Oral anticoagulation is contraindicated Leukocytosis Secondary to bacteremia Continue antibiotic treatment DVT sequential device VS,Fishbone, I+O VS, Fishbone, I+O Laboratory Tests 01/08/19 14:37 Red Blood Count 3.14 L, Mean Corpuscular Volume 91.1, Mean Corpuscular Hemoglobin 29.3, Mean Corpuscular Hemoglobin Concent 32.2, Red Cell Distribution Width 14.4, Calcium Level 7.5 L, Aspartate Amino Transf (AST/SGOT) 22, Alanine Aminotransferase (ALT/SGPT) 9 L, Alkaline Phosphatase 195 H, Total Bilirubin 0.8, Total Protein 4.6 L, Albumin 1.4 L 01/08/19 19:55 Red Blood Count 3.01 L, Mean Corpuscular Volume 90.0, Mean Corpuscular Hemo globin 29.2, Mean Corpuscular Hemoglobin Concent 32.5, Red Cell Distribution Width 14.4, Calcium Level 7.8 L 01/08/19 22:48 01/09/19 03:03 01/09/19 07:06 Calcium Level 7.1 L 01/09/19 07:10 Red Blood Count 2.64 L, Mean Corpuscular Volume 93.6, Mean Corpuscular Hemoglobin 29.9, Mean Corpuscular Hemoglobin Concent 32.0, Red Cell Distribution Width 14.6 H 01/09/19 10:52 Vital Signs Date Time Temp Pulse Resp B/P (MAP) Pulse Ox O2 Delivery O2 Flow Rate FiO2 9/1/19 10:00 75 18 94/53 (67) 100 2.0 01/09/19 08:00 100.0 01/08/19 09:00 Room Air I&O- Last 24 Hours up to 6 AM 01/09/19 06:00 Intake Total 6035 ml Output Total 690 ml Balance 5345 ml MARCELO BARCENAS DO Jan 09, 2019 12:37
--- NOTE | 2019-01-09 13:47 | PHACANCOPD ---
PHARMACY VANCOMYCIN DOSING Pt Demographics Demographics Patient Age:78 , Weight:67.100 , Gender: male Adjusted Body Weight Date: 01/09/19, Adjusted Body Weight: Kg Events Past 24 Hours Events Past 24 Hours: YES: Fever, Elevation in WBC Vancomycin Vancomycin indication: SEPSIS Vancomycin Target Ranges: 15-20 mcg/ml Vancomycin Load Y/N: Yes Load Dose Date Time Vancomycin Load Dose: 1500mg Date: 01/09/19 Time: 1300 Vancomycin Dose Date: 01/09/19. Current Vancomycin Dose: [1g IV Q12H] Intermittent Dosing?: No Labs Labs Item Value Date Time White Blood Count 18.1 10^3/uL H 01/08/191954 White Blood Count 18.4 10^3/uL H 01/09/19 0710 Creatinine 0.73 MG/DL 01/09/19 0706 Creatinine 0.80 MG/DL 01/08/191954 Lactic Acid Level 1.4 MMOL/L 01/08/19 143 Lactic Acid Level 0.8 MMOL/L 01/09/19 0710 Blood Urea Nitrogen 26 MG/DL H 01/09/19 0706 Blood Urea Nitrogen 25 MG/DL H 01/08/191954 Micro Microbiology 01/07/19 Blood Culture - Preliminary, Resulted 01/07/19 Blood Culture - Preliminary, Resulted 01/08/19 Stool Occult Blood (KAMRAN) - Final, Complete 01/07/19 Gram Stain - Final, Complete 01/07/19 Wound Culture - Final, Complete Klebsiella Pneumoniae Escherichia Coli Staph.aureus Methicillin Resis Creatinine Clearance Date:01/09/19. Est Creatinine Clearance: [~70ml/min]. Pending Labs Vancomycin trough level scheduled 01/10/19 @1200, prior to the 3rd dose Assessment and Plan Maintaining Current Dose?: Yes Reason for dose change: No Dose Change Pharmacist Note Pharmacist Note Date: 01/09/19. Pharmacist note: Day #1 empiric vancomycin tx initiated with a 1500g loading dose, followed by a maintenance regimen of 1g IV Q12H for the treatment of sepsis - aiming for 15-20mcg/ml. Pt is febrile, WBC, CRP, ESR, and procalcitonin all elevated. Pt has been hypotensive with LA WNL. 2/2 Blood cultures drawn prior to abx growing gram positive cocci in chains. Decubitus ulcer wound culture growing klebsiella, ecoli, and MRSA (KAMRAN <0.5). Given sepsis, pt age, and concomitant zosyn tx will schedule a vancomycin trough level prior to the 3rd dose, 01/10/19, at 1200 - to ensure close monitoring. We will continue to monitor and make dose adjustments as needed. SUJIT SABILLON PHARMACY Jan 09, 2019 13:47
[2019-01-09] MEDS ORDERED: VANCOMYCIN HCL 500 MG in D5W MINI-BAG PLUS 100 ML IV ONE (14:00)
[2019-01-09] MEDS: CLOPIDOGREL 75 MG TAB PO SCH (15:14)
[2019-01-09 15:18] LABS: HEMATOCRIT 22.2 % (42.0-52.0); HEMOGLOBIN 7.1 g/dl (13.5-17.5); MEAN CORPUSCULAR HEMOGLOBIN 30.1 pg (27.0-33.0); MEAN CORPUSCULAR VOLUME 94.1 fl (80.0-96.0); PLATELET COUNT, AUTOMATED 248 10^3/uL (150-450); RED BLOOD COUNT 2.36 10^6/uL (4.30-6.10); WHITE BLOOD COUNT 19.8 10^3/uL (4.0-10.0)
[2019-01-09] MEDS: VANCOMYCIN HCL 1,000 MG, VIAL MATE ADAPTER 1 EACH in D5W 250 ML IV SCH (15:20)
[2019-01-09 15:33] LABS: BLOOD UREA NITROGEN 24 MG/DL (7-18); CALCIUM LEVEL 7.1 MG/DL (8.8-10.2); CARBON DIOXIDE LEVEL 20 MEQ/L (21-32); CHLORIDE LEVEL 112 MEQ/L (98-107); GLOMERULAR FILTRATION RATE > 60.0 (>42); GLUCOSE, FASTING 115 MG/DL (70-100); POTASSIUM SERUM 3.6 MEQ/L (3.5-5.1); SODIUM LEVEL 140 MEQ/L (136-145)
[2019-01-09] MEDS: KCL 40MEQ in NS 1000ML 1,000 ML IV SCH (16:30)
--- NOTE | 2019-01-09 16:30 | ECGEPIP ---
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
[2019-01-09] MEDS: PRAVASTATIN 20 MG TAB PO SCH (21:02)
[2019-01-10] VITALS (22 sets, daily range): BP systolic 90–120; BP diastolic 51–73
[2019-01-10] MEDS: VANCOMYCIN HCL 1,000 MG, VIAL MATE ADAPTER 1 EACH in D5W 250 ML IV SCH ×2 (00:55→12:40)
[2019-01-10] MEDS: D5W/0.9% SODIUM CHLORIDE 1,000 ML IV SCH (02:00)
[2019-01-10] MEDS: PIPERACILLIN/TAZOBACTAM SOD 3.375 GM in D5W MINI-BAG PLUS 50 ML IV SCH ×4 (05:13→23:18)
[2019-01-10 05:16] LABS: HEMATOCRIT 25.2 % (42.0-52.0); MEAN CORPUSCULAR HEMOGLOBIN 29.9 pg (27.0-33.0); MEAN CORPUSCULAR HGB CONC 31.7 g/dl (32.0-36.5); PLATELET COUNT, AUTOMATED 265 10^3/uL (150-450); RED BLOOD COUNT 2.68 10^6/uL (4.30-6.10); WHITE BLOOD COUNT 21.7 10^3/uL (4.0-10.0)
[2019-01-10 05:28] LABS: ANISOCYTOSIS 1+; LYMPHOCYTES 3 % (16-44); MONOCYTES 3 % (0-5); NEUTROPHILS 94 % (28-66); POLYCHROMASIA 1+
[2019-01-10 05:29] LABS: PLATELET ESTIMATE NORMAL (NORMAL)
[2019-01-10] MEDS ORDERED: CALCIUM GLUCONATE 1,000 MG in D5W MINI-BAG PLUS 100 ML IV ONE (07:00)
[2019-01-10 07:19] LABS: ALBUMIN 1.2 GM/DL (3.2-5.2); ALT/SGPT 11 U/L (12-78); BILIRUBIN,DIRECT 0.4 MG/DL (0.0-0.2); BILIRUBIN,TOTAL 0.7 MG/DL (0.2-1.0); BLOOD UREA NITROGEN 24 MG/DL (7-18); CALCIUM LEVEL 7.3 MG/DL (8.8-10.2); CARBON DIOXIDE LEVEL 20 MEQ/L (21-32); CHLORIDE LEVEL 110 MEQ/L (98-107); CREATININE FOR GFR 0.67 MG/DL (0.70-1.30); GLOMERULAR FILTRATION RATE > 60.0 (>42); GLUCOSE, FASTING 160 MG/DL (70-100); POTASSIUM SERUM 3.4 MEQ/L (3.5-5.1); SODIUM LEVEL 139 MEQ/L (136-145); TOTAL PROTEIN 4.2 GM/DL (6.4-8.2)
[2019-01-10] MEDS: FINASTERIDE 5 MG TAB PO SCH (08:29)
[2019-01-10] MEDS: CLOPIDOGREL 75 MG TAB PO SCH (08:29)
[2019-01-10] MEDS: THIAMINE 100 MG TAB PO SCH ×2 (08:29→20:55)
[2019-01-10] MEDS: MAGNESIUM CHLORIDE 64 MG TABCR (SLO MAG) PO SCH (08:29)
[2019-01-10] MEDS: PANTOPRAZOLE 40MG INJ (PROTONIX) (C9113) IV SCH ×2 (08:29→20:54)
[2019-01-10] MEDS: AMIODARONE 200 MG TAB (PACERONE) PO SCH ×2 (08:29→20:55)
[2019-01-10] MEDS: METOPROLOL TART 50 MG TAB PO SCH ×2 (09:00→20:59)
--- NOTE | 2019-01-10 09:59 | IPNPDOC ---
Subjective General Date/Time Seen The patient was seen on 01/10/19 at 09:38. Subject Chief Complaint/History The patient is a 78-year-old male admitted with a reason for visit of Decubitus Skin Ulcer,Hypokalemia,Ugi Bleed,Physica. Patient is having some increased abdominal distention and discomfort overnight. Nasogastric tube has been placed. He has remained hemodynamically stable and did not need any further fluid boluses. He is making adequate and clear-appearing urine now. Current Medications Current Medications Current Medications Medications (Trade) Dose Ordered Sig/Brandon Route PRN Reason Start Time Stop Time Status Last Admin Dose Admin Acetaminophen (Tylenol Tab) 500 mg Q4H PRN PO PAIN 01/07/19 15:30 Amiodarone HCl (Pacerone, Cordarone) 200 mg BID PO 01/07/19 21:00 01/10/19 08:29 Bisacodyl (Dulcolax Suppository) 10 mg DAILY PRN MA CONSTIPATION 01/07/19 15:30 Future hold Clopidogrel Bisulfate (PLAVix) 75 mg DAILY PO 01/09/19 09:00 01/10/19 08:29 Dextrose/Sodium Chloride 1,000 ml @ 125 mls/hr Q8H IV 01/09/19 10:00 01/10/19 06:53 DC 01/09/19 18:19 Diatrizoate Meglum/ Diatrizoate Sod (Gastrografin) 10 ml Q30M PO 01/07/19 16:00 01/07/19 16:31 DC 01/07/19 18:29 Fentanyl Citrate (Sublimaze) 25 mcg Q5MP PRN IV MODERATE PAIN (PS 4-7) 01/08/19 14:30 01/08/19 14:31 DC Finasteride (Proscar) 5 mg DAILY PO 01/08/19 09:00 01/10/19 08:29 Heparin Sodium (Porcine) (Heparin) ASDIRECTED PRN IV SEE LABEL COMMENTS 01/07/19 22:00 01/09/19 12:13 DC Heparin Sodium (Porcine) 51124 units/IV Miscellaneous Supplies 250 ml @ 0 mls/hr Q0M IV 01/07/19 21:46 01/08/19 14:00 DC 01/08/19 00:10 Home Med (Med Rec Complete!) ASDIRECTED XX 01/07/19 14:00 01/07/19 14:00 DC Lactated Ringer's 1,000 ml @ 75 mls/hr [id number] IV 01/08/19 14:30 01/08/19 19:24 DC Magnesium Chloride (Slow-Mag) 64 mg DAILY PO 01/08/19 09:00 01/10/19 08:29 Metoclopramide HCl (REGLAN INJection) 10 mg Q6HP PRN IV NAUSEA OR VOMITING 01/08/19 14:30 01/08/19 19:25 DC Metoprolol Tartrate (Lopressor) 50 mg BID PO 01/07/19 21:00 01/08/19 08:36 Morphine Sulfate (Morphine Sulfate Inj) 2 mg Q1HP PRN IV MILD/MODERATE PAIN (PS 1-7) 01/08/19 14:00 Morphine Sulfate (Morphine Sulfate Inj) 4 mg Q3HP PRN IV SEVERE PAIN (PS 8-10) 01/08/19 14:00 01/09/19 18:15 Non-Formulary Medication (Heparin Iv Rate Change Documentation ml/ Hr) ASDIRECTED XX 01/07/19 22:00 01/09/19 12:13 DC Ondansetron HCl (ZOFRAN INJection) 4 mg Q4HP PRN IV NAUSEA OR VOMITING 01/08/19 14:30 01/09/19 11:44 DC Pantoprazole Sodium (Protonix) 40 mg BID IV 01/07/19 21:00 01/10/19 08:29 Piperacillin Sod/ Tazobactam Sod 3.375 gm/Dextrose 50 ml @ 50 mls/hr Q6H IV 01/07/19 23:00 01/10/19 05:13 Potassium Chloride/Sodium Chloride 1,000 ml @ 100 mls/hr Q10H IV 01/07/19 15:30 01/09/19 08:40 DC 01/08/19 11:30 Potassium Chloride 1,000 ml @ 100 mls/hr Q10H IV 01/10/19 07:00 Pravastatin Sodium (Pravachol) 40 mg QHS PO 01/07/19 21:00 Future hold 01/09/19 21:02 Senna/Docusate Sodium (Senokot S) 2 tab BID PRN PO CONSTIPATION 01/07/19 15:30 Future hold Sodium Chloride 1,000 ml @ 100 mls/hr Q10H IV 01/07/19 15:12 01/07/19 15:26 DC Sodium Chloride 1,000 ml @ 125 mls/hr Q8H IV 01/08/19 19:30 01/09/19 08:40 DC 01/09/19 05:30 Sodium Chloride 1,000 ml @ 150 mls/hr Q6H40M IV 01/07/19 13:15 01/07/19 15:26 DC 01/07/19 14:02 Thiamine HCl (Thiamine HCl) 100 mg BID PO 01/07/19 21:00 Future hold 01/10/19 08:29 Vancomycin HCl 1000 mg/IV Miscellaneous Supplies 1 each/ Dextrose 270 ml @ 270 mls/hr Q12H IV 01/09/19 13:00 01/10/19 00:55 Vitamin D (Drisdol) 50,000 units Grissom@0900 PO 01/09/19 09:00 01/09/19 09:00 DC Allergies Coded Allergies: No Known Allergies (Unverified , 03/18/17) Objective Physical Examination Examination GENERAL APPEARANCE: Looks comfortable. SKIN: Warm and dry. HEENT: He has a new nasogastric tube in place.Per his nurse about a liter of enteric contents came out soon as the nasogastric tube was asiya. NECK: [Supple, no thyromegaly. No obvious jugular venous distention]. LUNGS: [Clear to auscultation bilaterally. No wheezing appreciated]. HEART: Intermittent irregular beats, heart rates in the 70s. Positive murmur. ABDOMEN: Abdomen is moderately distended, soft, and quiet abdomen. Midline mini laparotomy incision with dressings clean and intact. LEON drain is mostly serous now. He has still some distinct tenderness over the right lower quadrant area more than the other parts of the abdomen with some mild guarding.. EXTREMITIES: Mild lower extremity edema. Vital Signs Vital Signs Date Time Temp Pulse Resp B/P (MAP) Pulse Ox O2 Delivery O2 Flow Rate FiO2 01/10/19 06:00 93 106/59 (75) 99 01/10/19 04:00 2.0 01/10/19 04:00 98.5 18 01/08/19 09:00 Room Air I&Os I&O- Last 24 Hours up to 6 AM 01/10/19 05:59 Intake Total 3940 ml Output Total 1005 ml Balance 2935 ml Laboratory Data Labs 24H Laboratory Tests 2 01/09/19 15:06: Nucleated Red Blood Cells % (auto) 0.0, Anion Gap 8, Glomerular Filtration Rate > 60.0, Blood Urea Nitrogen 24H, Creatinine 0.70, Sodium Level 140, Potassium Level 3.6, Chloride Level 112H, Carbon Dioxide Level 20L, Calcium Level 7.1L 01/10/19 04:44: Nucleated Red Blood Cells % (auto) 0.0, Anion Gap 9, Glomerular Filtration Rate > 60.0, Calcium Level 7.3L, Neutrophils 94H, Lymphocytes (Manual) 3L, Monocytes (Manual) 3, Platelet Estimate NORMAL, Polychromasia 1+, Anisocytosis 1+, Aspartate Amino Transf (AST/SGOT) 20, Alanine Aminotransferase (ALT/SGPT) 11L, Alkaline Phosphatase 183H, Total Bilirubin 0.7, Direct Bilirubin 0.4H, Total Protein 4.2L, Albumin 1.2L, Albumin/Globulin Ratio 0.40L 01/10/19 07:08: Lactic Acid Level 1.7 CBC/BMP Laboratory Tests 01/09/19 10:52 01/09/19 15:06 Red Blood Count 2.36 L, Mean Corpuscular Volume 94.1, Mean Corpuscular Hemoglobin 30.1, Mean Corpuscular Hemoglobin Concent 32.0, Red Cell Distribution Width 14.6 H, Calcium Level 7.1 L 01/10/19 04:44 Red Blood Count 2.68 L, Mean Corpuscular Volume 94.0, Mean Corpuscular Hemoglobin 29.9, Mean Corpuscular Hemoglobin Concent 31.7 L, Red Cell Distribution Width 14.6 H Microbiology Microbiology 01/09/19 Blood Culture, Received Pending 01/07/19 Blood Culture - Preliminary, Resulted 01/07/19 Blood Culture - Preliminary, Resulted 01/08/19 Stool Occult Blood (KMARAN) - Final, Complete 01/07/19 Gram Stain - Final, Complete 01/07/19 Wound Culture - Final, Complete Klebsiella Pneumoniae Escherichia Coli Staph.aureus Methicillin Resis Impression Postop day 2 exploratory laparotomy for 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 He has remained hemodynamically stable throughout his postoperative course and he is making adequate urine. He had some worsening tenderness overnight and this is probably from postoperative ileus and this has gotten better within nasogastric tube. Depending on his course he may need TPN to bridge him until we have good bowel function. Secondary issue is whether he should be anticoagulated. Apparently he was at [facility] for 3 weeks in November with from what could granddaughter reports is a small intracranial hemorrhage seen on one cut of the MRI. He had a normal-appearing CT here in our institution. The risks of him bleeding may need to be reinvestigated. Awaiting the results of the echocardiogram. Plan / VTE VTE Prophylaxis Ordered?: Yes VTE Exclusion Pharmacological: Active Bleeding KEIRY CLIFFORD MD Jan 10, 2019 09:59
[2019-01-10] MEDS: KCL 40MEQ IN D5/NS 1000ML 1,000 ML IV SCH ×2 (11:04→21:02)
--- NOTE | 2019-01-10 12:47 | ECHO ---
DATE OF PROCEDURE: 01/09/2019 REFERRING PHYSICIAN: Dr. Booker INDICATION: Sepsis. HEIGHT: 68 inches. WEIGHT: 147 pounds. 2D MEASUREMENTS: Aortic root: 3.0 cm Proximal ascending aorta: 3.7 cm Left atrium: 5.7 cm Left atrial volume index: 63 Ventricular septum: 0.99 cm - 1.61 cm Posterior wall: 0.97 cm Left ventricle diastole: 4.9 cm Left ventricle systole: 3.2 cm Right ventricle: 3.9 cm Aortic annulus: 2.0 cm DOPPLER MEASUREMENTS: No aortic stenosis No aortic regurgitation Aortic valve velocity: 223 cm/s Peak aortic valve gradient: 44 mmHg Mean aortic valve gradient: 25 mmHg Aortic valve VTI: 68.7 cm LVOT velocity: 138 cm/s LVOT VTI: 30.2 cm Moderate mitral regurgitation. Mitral E velocity: 123 cm/s Mitral A velocity: 124 cm/s Mitral deceleration time: 169 ms Moderate tricuspid regurgitation. Estimated right ventricle systolic pressure: 39-44 mmHg assuming a right atrial pressure of 5 -10 mmHg. Pulmonary artery systolic pressure: 40 mmHg MITRAL ANNULAR TISSUE DOPPLER: E prime septal: 6.4 cm/s E prime lateral: 8.4 cm/s DESCRIPTION: Rhythm was sinus with appearance of right bundle branch block. Image quality was fair. No subcostal views present due to presence of a dressing. CONCLUSIONS: 1. No vegetations visualized. 2. Status post aortic valve bioprosthesis, which appears to be structurally and functionally normal. If I had to guess, I suspect that it was a TAVR valve. No aortic stenosis or regurgitation. 3. Normal left ventricle internal dimensions. Moderate focal hypertrophy of the basal anterior ventricular septum. No dynamic LVOT obstruction. Normal LV wall thickness elsewhere. Normal LV systolic function. Left ventricular ejection fraction of 60% by visual estimate. Grade 1 LV diastolic dysfunction. 4. Severe left atrial dilatation. 5. Mild mitral annular calcification and presence of thickening of the distal portion of the anterior mitral leaflet (septal contact lesion). Mild mitral regurgitation. 6. Tiny pericardial effusion. 7. Suggestive of mild to moderate elevation of pulmonary artery systolic pressure and estimated right ventricle systolic pressure.
--- NOTE | 2019-01-10 15:19 | IPNPDOC ---
Text Note Date of Service The patient was seen on 01/10/19. NOTE Subjective: Patient complains of moderate abdominal pain. No any acute events overnight. His blood pressure became better and normalized. Objective: Gen: NAD HEENT: PERRLA, EOMI, no JVD Chest: CTA Abdomen: Drainage in place, serous discharge, moderately tender around area of surgery, no rebound, no rigidity, abdomen is distended Extremities: No cyanosis, no swelling, ingrown nails on the left fourth, no open wounds seen Neuro: Nonfocal, cranial nerves from 2 through 12 intact, alert, awake, oriented Assessment and plan: Patient is 78 years old male with a past medical history of atrial fibrillation, subarachnoid bleed in 11/19/2018, previous GI bleed in November 2018 presented hospital with weakness. 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 Lactic acid was not elevated. Surgical team proceeded with mesenteric angiography followed by revascularization, exploratory laparotomy and colon resection. Dr. Yo recommended Plavix 75 mg daily. Blood culture came back positive for MRSA, vancomycin added to Zosyn. TTE was done and negative. 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 Today patient's abdomen was very distended, NG tube was placed Dr. Yo recommended Plavix 75 mg NPO Continue IV fluid Ileus NG tube placed Acute mesenteric ischemia above Sepsis Secondary to MRSA bacteremia Wound culture was positive for Klebsiella pneumonia, Escherichia coli, MRSA Continue vancomycin and Zosyn Echo was negative for vegetation Repeat blood culture Lactic acid was negative in the morning Appreciate/agree with ID consult Urine output improved, continued to monitor GI bleed Most likely secondary to ischemic colitis secondary to mesenteric ischemia Hemoglobin is stable We will transfuse if hemoglobin less than 7 Surgical team on board see above Physical deconditioning Problem Text: PT/OT 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 in [place]. 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 seen on MRI on 11/30/18 Oral anticoagulation for atrial fibrillation is contraindicated for now Leukocytosis Secondary to bacteremia Continue antibiotic treatment DVT sequential device VS,Fishbone, I+O VS, Fishbone, I+O Laboratory Tests 01/10/19 04:44 Red Blood Count 2.68 L, Mean Corpuscular Volume 94.0, Mean Corpuscular Hemo globin 29.9, Mean Corpuscular Hemoglobin Concent 31.7 L, Red Cell Distribution Width 14.6 H Vital Signs Date Time Temp Pulse Resp B/P (MAP) Pulse Ox O2 Delivery O2 Flow Rate FiO2 01/10/19 10:00 85 17 100/57 (71) 100 01/10/19 08:00 98.3 01/10/19 04:00 2.0 01/08/19 09:00 Room Air I&O- Last 24 Hours up to 6 AM 01/10/19 06:00 Intake Total 3740 ml Output Total 1065 ml Balance 2675 ml MARCELO BARCENAS DO Jan 10, 2019 15:19
[2019-01-10 16:09] LABS: BLOOD UREA NITROGEN 23 MG/DL (7-18); CALCIUM LEVEL 7.3 MG/DL (8.8-10.2); CARBON DIOXIDE LEVEL 20 MEQ/L (21-32); CHLORIDE LEVEL 111 MEQ/L (98-107); GLOMERULAR FILTRATION RATE > 60.0 (>42); GLUCOSE, FASTING 130 MG/DL (70-100); POTASSIUM SERUM 3.1 MEQ/L (3.5-5.1); SODIUM LEVEL 139 MEQ/L (136-145)
--- NOTE | 2019-01-10 18:49 | ROOPDOC ---
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 PROCEDURE: Left brachial artery exposure Abdominal Aortogram Selective celiac artery catheter placement with angiogram Celiac artery angioplasty and stent with a 6 mm x 14 mm express SD stent Selective superior mesenteric artery catheter placement with angiogram Superior mesenteric artery angioplasty and stent with a 6 mm x 18 mm express SD stent Selective secondary branch catheter placement of the superior mesenteric artery with angiography Selective tertiary branch catheter placement of the superior mesenteric artery with angiography Secondary and tertiary branch artery of the superior mesenteric artery into plasty with a 5 mm x 100 mm Madison balloon catheter Closure of the left brachial artery arteriotomy SURGEON: Dr. Farrukh Yo MD CHIEF INTERNAL AUDITOR: Minnie Kang INDICATION: The patient is a 78-year-old male who presented with abdominal pain and underwent a CT angiogram of the abdomen and pelvis which showed stenosis secondary to atherosclerotic arterial occlusive disease in the celiac artery and superior mesenteric artery. The CT angiogram also showed occlusion of a branch of the superior mesenteric artery approximately 8 cm distal to the takeoff of the superior mesenteric artery. The CT angiogram also showed some thickened small bowel consistent with possible ischemia. Patient was evaluated and recommendation was to undergo angiography of the mesenteric arteries with possible angioplasty, stent, thrombolysis, thrombectomy and/or atherectomy. The procedure was explained and described to the patient's family in detail including drawing of pictures demonstrating the procedure and the pertinent anatomy. Risks, benefits and alternative treatment options were discussed with the patient's family. Alternative treatment options included but were not limited to no intervention. Benefits include but were not limited to evaluation of arterial inflow to the intra-abdominal organs, small bowel and large bowel with possible intervention to treat the gastrointestinal hemorrhage. Risks included but were not limited to infection, bleeding, renal failure requiring hemodialysis, retroperitoneal hematoma, possible need for surgical intervention, allergic and/or adverse reaction from the prepping and draping materials, allergic and/or adverse reaction to the IV sedation and local anesthetic, sedation related complication, possible requirement for transfusion of blood products, scarring of the skin, bruising, nerve injury, anesthetic complications, cerebrovascular accident, myocardial infarction, pulmonary e mbolus, deep venous thrombosis, poor satisfaction, poor outcome, poor results, loss of limb and loss of life. Patient's family's questions were answered. Patient's family voices understanding of these risks, benefits and alternative treatment options. Patient's family voices acceptance of the risks associated with angiogram to evaluate for gastrointestinal bleeding with possible intervention and consents to proceed with the procedure accepting the associated risks of the procedure. There were no promises or guarantees made to the patient regarding the outcome and/or results of the procedure ANESTHESIA: Local monitored anesthesia care with 10 mL of 2% lidocaine mixed with 0.5% Marcaine. FLOURO TIME: 8.1 minutes CONTRAST: 20 mL of Isovue 300 IVF: 100 mL ESTIMATED BLOOD LOSS: 20 mL. HEPARIN: 6000 units PROTAMINE: None COMPLICATIONS: None. DRAINS: None SPECIMENS: None IMPLANTS: 6 mm x 14 mm express SD stent in the celiac artery. 6 mm x 18 mm express SD stent in the superior mesenteric artery. DESCRIPTION OF PROCEDURE: The patient was taken to the angiography suite and placed supine on the angiography room table and then prepped and draped in a standard surgical fashion. A time-out was conducted by myself and the team members in the room confirming the correct procedure, patient and laterality. The left brachial artery was exposed through a transverse incision in the left antecubital fossa after anesthetizing the overlying skin with 2% lidocaine mixed with 0.5% Marcaine. The brachial artery was sharply dissected free proximally and distally and then encircled with vessel loops. The micropuncture needle was then used to cannulate the left brachial artery. A micropuncture wire was then advanced through the micropuncture needle which was used to up-size to a micropuncture sheath. The Middleton wire was then advanced through the micropuncture sheath which was up-sized to a 5 Chinese sheath. The Omni flush catheter was used to direct the Middleton wire through the aortic arch into the descending thoracic aorta and the infrarenal abdominal aorta. The socks Omni catheter was placed in the aorta at the level of the diaphragm and aortogram was performed showing the position of the celiac and superior mesenteric arteries.. The 5 Chinese sheath was then exchanged for a long 6 Chinese sheath which was placed with the tip in the abdominal aorta just below the diaphragm. The patient was given systemic heparin for anticoagulation. The celiac artery was then selectively cannulated and an angiogram performed showing approximately 80% stenosis at its origin. This celiac artery was then angioplastied and stented with a 6 mm x 14 mm express SD stent. The completion celiac artery angiogram showed the celiac artery to be widely patent with no residual stenosis and good placement of the stent at the origin of the celiac artery. The superior mesenteric artery was then selectively cannulated and an angiogram performed showing and approximate 70% stenosis at the origin of the superior mesenteric artery. There was also noted to be occlusion of a distal branch of the superior mesenteric artery add a secondary and tertiary branch point. The branch where the occlusion was noted was a branch leading to the small bowel.. The superior mesenteric artery was then angioplastied and stented with a 6 mm x 18 mm express SD stent. The completion superior mesenteric artery angiogram showed the superior mesenteric artery origin to be widely patent with a stent in good position with no residual stenosis remaining. The occlusion in the distal superior mesenteric artery branches was then recanalized with the angled glide catheter advanced through the occlusion and into the tertiary branch of the superior mesenteric artery with angiography showing intraluminal positioning. The secondary and tertiary branches of the superior mesenteric artery which were previously occluded with an angioplastied with a 5 mm x 100 mm balloon catheter. A completion angiogram showed resolution of the occlusion with no residual stenosis remaining. A completion aortogram was performed and this showed the superior mesenteric artery and celiac arteries to be widely patent. The sheath was then removed and the arteriotomy in the left brachial artery was closed with 6-0 Prolene sutures in interrupted fashion. Once hemostasis was obtained the wound was closed using toby to approximate the skin . Steri-Strips and dressings were then applied. The patient tolerated the procedure well. All instrument, sponge and needle counts were correct at the end of the case. There were no complications. Dr. Yo was present for and directed the entire case. The patient was transferred to the recovery area and subsequently to the operating room for exploratory laparoscopy in stable condition. RADIOLOGIC SUPERVISION INTERPRETATION: Aortogram: This showed atherosclerotic plaquing along the wall of the aorta. The celiac artery showed and approximate 80% stenosis at its origin. The superior mesenteric artery showed and approximate 70% stenosis at its origin. Selective celiac artery angiogram: This confirmed the stenosis in the celiac artery and showed intraluminal positioning after crossing the stenosis in the celiac artery origin. The celiac artery underwent angioplasty and stenting with follow-up angiogram showing widely patent celiac artery. Selective superior mesenteric artery angiogram: This showed the stenosis at the superior mesenteric artery origin as well as the occluded secondary and tertiary branch origin of the superior mesenteric artery distally with the branch occluded being a branch going to the small bowel. The superior mesenteric artery origin underwent angioplasty and stenting with follow-up angiogram showing widely patent origin with no residual stenosis remaining. The occlusion in the distal superior mesenteric artery was crossed using a nail Glidewire catheter and the angled glide catheter placed in the superior mesenteric artery branch distal to the occlusion with an angiogram showing intraluminal positioning after which these. Mesenteric artery secondary and tertiary branch occlusion underwent and plasty with a 5 x 100 mm balloon. A completion angiogram showed the occlusion to be resolved with good flow through the superior mesenteric artery into the previously occluded secondary and tertiary branch point with good filling of the branch distally. CONCLUSION: Patient underwent successful angioplasty and stenting of the celiac artery and superior mesenteric artery origins. The occlusion in the distal superior mesenteric artery branch was recanalized and underwent successful angioplasty with a 5 mm balloon. PLAN: Patient will be taken to the operating room for exploratory laparoscopy with possible intervention to evaluate for ischemic bowel. Patient will require Plavix secondary to the placement of the superior mesenteric and celiac artery stents. Ashutosh Yo MD Jan 10, 2019 18:49
[2019-01-10] MEDS: PRAVASTATIN 20 MG TAB PO SCH (20:55)
[2019-01-10] MEDS ORDERED: ISOVUE-370 76% 100ML VIAL (Q9967) As Ordered ONE (21:37)
[2019-01-10] MEDS: MORPHINE 4 MG/ML 1ML VIAL/SYRINGE (J2270) IV PRN (22:17)
--- NOTE | 2019-01-10 22:54 | REPVR ---
EXAM: CT Abdomen and Pelvis With Contrast EXAM DATE/TIME: 01/10/2019 10:04 PM CLINICAL HISTORY: 78 years old, male; Abdominal pain; Generalized; Prior surgery; Surgery date: 3-7 days post-operative; Additional info: S/P bowel resection, revasc after mesent art thrombosis TECHNIQUE: Imaging protocol: Computed tomography of the abdomen and pelvis with intravenous contrast. Radiation optimization: All CT scans at this facility use at least one of these dose optimization techniques: automated exposure control; mA and/or kV adjustment per patient size (includes targeted exams where dose is matched to clinical indication); or iterative reconstruction. Contrast material: ISOVUE 370; Contrast volume: 100 ml; Contrast route: IV; COMPARISON: CT ABD/PEL W/IV ORAL CONTRAS 01/07/2019 7:44 PM FINDINGS: Tubes, catheters and devices: NG tube extending to the gastric antrum. Pelvic drain in position. Lungs: Mild bilateral lower lobe fibro-atelectatic change. Pleural space: Small bilateral pleural effusions with suggestion of loculation on the right. 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 Gallbladder and bile ducts: Layering density in the gallbladder which may reflect recent contrast injection. Pancreas: Normal. No ductal dilation. Spleen: Perfusion defects of the spleen consistent with areas of splenic infarct which are similar to the prior study. Adrenals: Slight fullness of the adrenals, left greater than right which may reflect hyperplasia. Kidneys and ureters: There is a right renal cyst measuring 20 mm. Small nonobstructing left renal calculus. Stomach and bowel: Colonic diverticulosis with muscular hypertrophy and some wall thickening of the mid and distal sigmoid. There is surrounding induration which is likely postsurgical. Minimal diverticulitis is not excluded. Mild distention of proximal small bowel with air-fluid levels and collapse of distal small bowel consistent with small bowel obstruction. There appears to be a point of transition in the anterior left pelvis and corresponds to a site of anastomosis. Appendix: There are no changes of appendicitis. A normal appendix is not seen. Intraperitoneal space: Free air in the abdomen consistent with recent surgery. Minimal free fluid about the abdomen and pelvis. Vasculature: There is moderate atherosclerotic calcification of the abdominal aorta with extension into the iliac arteries. Lymph nodes: Unremarkable. No enlarged lymph nodes. Bladder: There is a Boogie catheter in the bladder. Reproductive: Metallic densities in the prostatic bed which may reflect previous prostatectomy. Bones/joints: Status post sternotomy with aortic valve replacement. Soft tissues: Unremarkable. Other findings: Midline skin toby. IMPRESSION: 1. Evidence of interval surgery since 01/07/2019 with free air, free fluid, midline skin toby and a pelvic drain. 2. Evidence of small bowel obstruction which is increased since the prior study with a point of transition corresponding to a site of small bowel anastomosis in the anterior left pelvis. 3. Colonic diverticulosis with muscular hypertrophy and wall thickening of the mid to distal sigmoid. Surrounding induration is likely postsurgical in origin. Minimal diverticulitis is not excluded. 4. Small bilateral pleural effusions, slightly increased since the prior study with suggestion of some loculation on the right. There is adjacent mild bilateral lower lobe fibro-atelectatic change. 5. NG tube in the stomach. 6. Nonobstructing left renal calculus. 7. Multiple focal perfusion defects of the spleen consistent with splenic infarcts which are similar. 8. Small dense focus in the posterior right hepatic lobe which is decreased since the prior study and suggests a hepatic pseudoaneurysm. Electronically signed by: Javier Knutson On 01/10/2019 22:54:37 PM
[2019-01-10] MEDS: MAG SULF 1GM/100ML (MAG RUN) 1 GM in IV 1 EA IV SCH (23:18)
[2019-01-11] VITALS (28 sets, daily range): BP systolic 102–160; BP diastolic 51–74
[2019-01-11] MEDS: MAG SULF 1GM/100ML (MAG RUN) 1 GM in IV 1 EA IV SCH (00:26)
[2019-01-11] MEDS: VANCOMYCIN HCL 1,000 MG, VIAL MATE ADAPTER 1 EACH in D5W 250 ML IV SCH ×2 (00:26→13:16)
[2019-01-11 02:38] LABS: HEMATOCRIT 21.3 % (42.0-52.0); MEAN CORPUSCULAR HEMOGLOBIN 30.3 pg (27.0-33.0); MEAN CORPUSCULAR HGB CONC 32.4 g/dl (32.0-36.5); MEAN CORPUSCULAR VOLUME 93.4 fl (80.0-96.0); PLATELET COUNT, AUTOMATED 209 10^3/uL (150-450); RED BLOOD COUNT 2.28 10^6/uL (4.30-6.10); WHITE BLOOD COUNT 14.5 10^3/uL (4.0-10.0)
[2019-01-11 02:51] LABS: HEMOGLOBIN 6.9 g/dl (13.5-17.5)
[2019-01-11 03:01] LABS: ALT/SGPT 8 U/L (12-78); BILIRUBIN,TOTAL 0.5 MG/DL (0.2-1.0); BLOOD UREA NITROGEN 20 MG/DL (7-18); CALCIUM LEVEL 7.4 MG/DL (8.8-10.2); CARBON DIOXIDE LEVEL 21 MEQ/L (21-32); CHLORIDE LEVEL 113 MEQ/L (98-107); CREATININE FOR GFR 0.66 MG/DL (0.70-1.30); EOSINOPHILS 2 % (0-3); GLOMERULAR FILTRATION RATE > 60.0 (>42); GLUCOSE, FASTING 143 MG/DL (70-100); LYMPHOCYTES 4 % (16-44); MAGNESIUM LEVEL 1.7 MG/DL (1.8-2.4); MONOCYTES 1 % (0-5); NEUTROPHILS 93 % (28-66); PLATELET ESTIMATE NORMAL (NORMAL); POTASSIUM SERUM 3.1 MEQ/L (3.5-5.1); SODIUM LEVEL 140 MEQ/L (136-145); TOTAL PROTEIN 4.1 GM/DL (6.4-8.2)
[2019-01-11 03:02] LABS: ANISOCYTOSIS 1+; POLYCHROMASIA 1+
[2019-01-11] MEDS ORDERED: MAG SULF 1GM/100ML (MAG RUN) 1 GM in IV 1 EA IV ONE ×2 (04:00→09:00)
[2019-01-11] MEDS ORDERED: POTASSIUM CHLORIDE 10% LIQ 20 MEQ/15 ML UDC PO ONE (04:00)
[2019-01-11] MEDS: PIPERACILLIN/TAZOBACTAM SOD 3.375 GM in D5W MINI-BAG PLUS 50 ML IV SCH ×2 (04:27→10:59)
[2019-01-11 08:38] LABS: HEMATOCRIT 25.6 % (42.0-52.0); HEMOGLOBIN 8.2 g/dl (13.5-17.5)
[2019-01-11 08:39] LABS: BASO % 0.1 % (0.0-1.0); EOS # 0.1 10^3/uL (0.0-0.5); EOS % 0.8 % (0.0-3.0); HEMATOCRIT 25.2 % (42.0-52.0); HEMOGLOBIN 8.3 g/dl (13.5-17.5); LYMPH # 0.5 10^3/uL (1.5-5.0); LYMPH % 3.5 % (24.0-44.0); MEAN CORPUSCULAR HEMOGLOBIN 30.7 pg (27.0-33.0); MEAN CORPUSCULAR HGB CONC 32.9 g/dl (32.0-36.5); MEAN CORPUSCULAR VOLUME 93.3 fl (80.0-96.0); MONO # 0.6 10^3/uL (0.0-0.8); MONO % 4.3 % (0.0-5.0); NEUTROPHILS # 12.6 10^3/uL (1.5-8.5); NEUTROPHILS % 89.4 % (36.0-66.0); PLATELET COUNT, AUTOMATED 225 10^3/uL (150-450); WHITE BLOOD COUNT 14.1 10^3/uL (4.0-10.0)
[2019-01-11 08:57] LABS: BLOOD UREA NITROGEN 17 MG/DL (7-18); CALCIUM LEVEL 7.2 MG/DL (8.8-10.2); CARBON DIOXIDE LEVEL 20 MEQ/L (21-32); CHLORIDE LEVEL 113 MEQ/L (98-107); CREATININE FOR GFR 0.62 MG/DL (0.70-1.30); GLOMERULAR FILTRATION RATE > 60.0 (>42); GLUCOSE, FASTING 117 MG/DL (70-100); POTASSIUM SERUM 4.8 MEQ/L (3.5-5.1); SODIUM LEVEL 140 MEQ/L (136-145)
[2019-01-11] MEDS: MAGNESIUM CHLORIDE 64 MG TABCR (SLO MAG) PO SCH (09:00)
[2019-01-11] MEDS: THIAMINE 100 MG TAB PO SCH ×2 (09:00→21:00)
[2019-01-11] MEDS: FINASTERIDE 5 MG TAB PO SCH (09:00)
[2019-01-11] MEDS: METOPROLOL TART 50 MG TAB PO SCH ×2 (09:00→21:00)
[2019-01-11] MEDS: CLOPIDOGREL 75 MG TAB PO SCH (09:08)
[2019-01-11] MEDS: AMIODARONE 200 MG TAB (PACERONE) PO SCH ×2 (09:08→21:14)
[2019-01-11] MEDS: KCL 40MEQ IN D5/NS 1000ML 1,000 ML IV SCH ×2 (09:08→13:00)
[2019-01-11] MEDS: PANTOPRAZOLE 40MG INJ (PROTONIX) (C9113) IV SCH ×2 (09:08→21:13)
[2019-01-11 13:00] LABS: VANCOMYCIN LEVEL TROUGH 15.8 UG/ML (10.0-20.0)
--- NOTE | 2019-01-11 13:11 | PHACANCOPD ---
PHARMACY VANCOMYCIN DOSING Pt Demographics Demographics Patient Age:78 , Weight:75.800 , Gender: male Adjusted Body Weight Date: 01/09/19, Adjusted Body Weight: Kg Events Past 24 Hours Events Past 24 Hours: YES: Change in CrCl; NO: Dialysis, Diuretic Therapy, Fever, Elevation in WBC, Pending Diagnostics, Pending Procedures, Other Vancomycin Vancomycin indication: SEPSIS Vancomycin Target Ranges: 15-20 mcg/ml Vancomycin Load Y/N: Yes Load Dose Date Time Vancomycin Load Dose: 1500mg Date: 01/09/19 Time: 1300 Vancomycin Dose Date: 01/09/19. Current Vancomycin Dose: [1g IV Q12H] Intermittent Dosing?: No Labs Labs Vital Signs Label Value Date Time Patient Temperature 97.3 degrees F 01/11/19 1119 Temperature Source Temporal 01/11/19 1119 Patient Temperature 98.4 degrees F 01/11/19 1034 Temperature Source Temporal 01/11/19 1034 Patient Temperature 98.7 degrees F 01/11/19 1019 Temperature Source Temporal 01/11/19 1019 Item Value Date Time White Blood Count 14.1 10^3/uL H 01/11/19 0823 White Blood Count 14.5 10^3/uL H 01/11/19 0233 White Blood Count 21.7 10^3/uL H 01/10/19 0444 Creatinine 0.62 MG/DL L 01/11/19 0823 Creatinine 0.66 MG/DL L 01/11/19 0233 Vancomycin Level Trough 15.8 UG/ML 01/11/19 1227 Vancomycin Level Trough 16.4 UG/ML 01/10/19 1153 Micro Microbiology 01/09/19 Blood Culture - Preliminary, Resulted No growth after 24 hours . All specim... 01/07/19 Blood Culture - Final, Complete Streptococcus Salivarius 01/07/19 Blood Culture - Preliminary, Resulted 01/08/19 Stool Occult Blood (KAMRAN) - Final, Complete 01/07/19 Gram Stain - Final, Complete 01/07/19 Wound Culture - Final, Complete Klebsiella Pneumoniae Escherichia Coli Staph.aureus Methicillin Resis Creatinine Clearance Date:01/09/19. Est Creatinine Clearance: [~70ml/min]. Pending Labs Vancomycin trough level scheduled 01/10/19 @1200, prior to the 3rd dose Assessment and Plan Maintaining Current Dose?: Yes Reason for dose change: No Dose Change Pharmacist Note Pharmacist Note 01/11/19: Trough was ordered due to change in SCr. Trough resulted at 15.8mcg/ml. This is within 15-20mcg/ml so at this time I would continue the current dose of Vanco 1G IV Q12H. We will continue to monitor and adjust dose as needed. Date: 01/09/19. Pharmacist note: Day #1 empiric vancomycin tx initiated with a 1500g loading dose, followed by a maintenance regimen of 1g IV Q12H for the treatment of sepsis - aiming for 15-20mcg/ml. Pt is febrile, WBC, CRP, ESR, and procalcitonin all elevated. Pt has been hypotensive with LA WNL. 2/2 Blood cultures drawn prior to abx growing gram positive cocci in chains. Decubitus ulcer wound culture growing klebsiella, ecoli, and MRSA (KAMRAN <0.5). Given sepsis, pt age, and concomitant zosyn tx will schedule a vancomycin trough level prior to the 3rd dose, 01/10/19, at 1200 - to ensure close monitoring. We will continue to monitor and make dose adjustments as needed. VALE PITT PHARMACY Jan 11, 2019 13:11
--- NOTE | 2019-01-11 15:54 | IPNPDOC ---
Text Note Date of Service The patient was seen on 01/11/19. NOTE Subjective: Patient complains of mild abdominal pain, abdomen less distended t emile. Hemoglobin dropped overnight, patient received blood transfusion 1 unit. Objective: Gen: NAD HEENT: PERRLA, EOMI, no JVD Chest: CTA Abdomen: Drainage in place, serous discharge, moderately tender around area of surgery, no rebound, no rigidity, abdomen is moderately distended Extremities: No cyanosis, no swelling, ingrown nails on the left fourth, no open wounds seen Neuro: Nonfocal, cranial nerves from 2 through 12 intact, alert, awake, oriented Assessment and plan: Patient is 78 years old male with a past medical history of atrial fibrillation, subarachnoid bleed in 11/19/2018, previous GI bleed in November 2018 presented hospital with weakness. 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 Lactic acid was not elevated. Surgical team proceeded with mesenteric angiography followed by revascularization, exploratory laparotomy and colon resection. Dr. Yo recommended Plavix 75 mg daily. Blood culture came back positive for gram-positive cocci, vancomycin added to Zosyn. Blood culture on 01/11/19 showed Streptococcus salivary. TTE was done and negative. Repeated blood culture negative for past 48 hours Await ID input. After surgery patient was mildly hypotensive with hypokalemia. Developed ileus.Received IV fluid and electrolytes replacement. On 01/11/19 hemoglobin dropped to 6.9. Patient received 3 units of blood in total. CT scan of abdomen was done on 01/11/2019 showed increased small bowel obstruction and ileus. NG tube in place. On 01/11/2019 PICC line placed for TPN. Received medical records from [facility] in [place]. 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 seen on MRI on 11/30/18 Oral anticoagulation for atrial fibrillation is contraindicated for now Acute abdomen Secondary to 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 NG tube was placed Dr. Yo recommended Plavix 75 mg NPO Continue IV fluid Surgical team recommended PICC line placement and TPN Ileus NG tube Continue follow clinically Acute mesenteric ischemia above Sepsis Secondary to MRSA bacteremia Wound culture was positive for Klebsiella pneumonia, Escherichia coli, MRSA. Could be contamination. 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 in [place]. 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 seen on MRI on 11/30/18 Oral anticoagulation for atrial fibrillation is contraindicated for now Leukocytosis Secondary to bacteremia Continue antibiotic treatment DVT sequential device VS,Fishbone, I+O VS, Fishbone, I+O Laboratory Tests 01/11/19 02:33 Red Blood Count 2.28 L, Mean Corpuscular Volume 93.4, Mean Corpuscular Hemoglob in 30.3, Mean Corpuscular Hemoglobin Concent 32.4, Red Cell Distribution Width 14.6 H, Neutrophils (%) (Auto) , Lymphocytes (%) (Auto) , Monocytes (%) (Auto) , Eosinophils (%) (Auto) , Basophils (%) (Auto) , Neutrophils # (Auto) , Lymphocytes # (Auto) , Monocytes # (Auto) , Eosinophils # (Auto) , Basophils # (Auto) , Calcium Level 7.4 L, Aspartate Amino Transf (AST/SGOT) 17, Alanine Aminotransferase (ALT/SGPT) 8 L, Alkaline Phosphatase 143 H, Total Bilirubin 0.5, Total Protein 4.1 L, Albumin 1.0 L 01/11/19 08:23 Red Blood Count 2.70 L, Mean Corpuscular Volume 93.3, Mean Corpuscular Hemoglobin 30.7, Mean Corpuscular Hemoglobin Concent 32.9, Red Cell Distribution Width 14.3, Neutrophils (%) (Auto) 89.4 H, Lymphocytes (%) (Auto) 3.5 L, Monocytes (%) (Auto) 4.3, Eosinophils (%) (Auto) 0.8, Basophils (%) (Auto) 0.1, Neutrophils # (Auto) 12.6 H, Lymphocytes # (Auto) 0.5 L, Monocytes # (Auto) 0.6, Eosinophils # (Auto) 0.1, Basophils # (Auto) 0.0, Calcium Level 7.2 L Vital Signs Date Time Temp Pulse Resp B/P (MAP) Pulse Ox O2 Delivery O2 Flow Rate FiO2 01/11/19 11:19 97.3 75 18 125/60 (81) 98 01/10/19 04:00 2.0 01/08/19 09:00 Room Air I&O- Last 24 Hours up to 6 AM 01/11/19 05:59 Intake Total 3870 ml Output Total 2900 ml Balance 970 ml MARCELO BARCENAS DO Jan 11, 2019 15:54
[2019-01-11] MEDS ORDERED: LIDOCAINE 1% MDV 20ML VIAL As Ordered ONE (16:01)
[2019-01-11] MEDS ORDERED: SODIUM CHLORIDE 0.9% INJ 10 ML SYR IV PRN (17:30)
[2019-01-11] MEDS: HumaLOG INSULIN (NovoLOG) PER UNIT SC SCH (17:39)
[2019-01-11] MEDS: cefTRIAXone SOD 2 GM in D5W MINI-BAG PLUS 50 ML IV SCH (17:40)
[2019-01-11] MEDS: SODIUM CHLORIDE 0.9% INJ 10 ML SYR IV SCH (17:42)
[2019-01-11 17:54] LABS: HEMATOCRIT 31.8 % (42.0-52.0); HEMOGLOBIN 10.5 g/dl (13.5-17.5)
[2019-01-11] MEDS ORDERED: FAT EMULSION IV 20% 500 ML IV SCH (18:00)
[2019-01-11] MEDS ORDERED: POTASSIUM CHLORIDE INJ 40 MEQ in AMINO AC/ELECTROLYTE/DEX/CALC 2,000 ML IV SCH (18:00)
[2019-01-11 18:08] LABS: INR 1.95
[2019-01-11] MEDS ORDERED: VANICREAM MOISTURIZING SKIN CREAM 113GM TUBE TOP ONE (19:15)
[2019-01-11] MEDS: PRAVASTATIN 20 MG TAB PO SCH (21:00)
--- NOTE | 2019-01-11 22:11 | CR ---
DATE OF CONSULTATION: 01/11/2019 CONSULTING PROVIDER: Dr. Justin Booker REASON FOR CONSULTATION: Sepsis, positive blood cultures and methicillin-resistant Staphylococcus aureus (MRSA) wound cultures. HISTORY OF PRESENT ILLNESS: This is a 78-year-old male with a pertinent past medical history of atrial fibrillation, not currently on anticoagulation, history of CVA previous with gastrointestinal (GI) bleed in 2011, who presented to the emergency room (ER) after a fall. He states that he came to the ER on 01/07/2019 per the recommendations of his primary care provider, for he was feeling weak and fell and was recommended for further evaluation. He did admit on the morning of the fall, he did have bloody stools but none in the days prior. He did admit in early November, he did have some GI bleed and was treated with Protonix and was discharged to followup with GI outpatient. He notes that he has had a 50-pound weight loss early this May due to poor appetite. He denies having any fevers, chills, night sweats, nausea, vomiting, or constipation. He denies having any lightheadedness or dizziness, just weakness. He denies having any open wound, but he does notice that there is dry, gangrenous changes on his left lower toes. He also admits that he has a wound on his buttocks area but denies having any discharge. He denies any chest pain, palpitation, or shortness of breath. 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 Dr. Robert and Dr. Yo performed a mesenteric angiography followed by revascularization, exploratory laparotomy, and a colon resection on 01/08/2019. A nasogastric (NG) tube was placed, and he was continued on Plavix 75 mg. Two blood cultures came back positive for gram-positive cocci, and one came back positive for Streptococcus salivarius. He was started on vancomycin and Zosyn, and a transthoracic echocardiogram (TTE) was done but was negative for vegetation. Patient does admit to having a bovine aortic valve placed a couple years prior. He denies any intravenous (IV) drug use. He does admit to having a history of atrial fibrillation. Is currently not on any anticoagulation, for he had a subarachnoid bleed in his left frontal lobe found on 11/30/2018. His hemoglobin while admitted did drop to 6.9, and he has had 3 units of packed red blood cells (RBC) transfused. PAST MEDICAL HISTORY: 1. Coronary artery disease. 2. Obstructive sleep apnea, on continuous positive airway pressure (CPAP). 3. Umbilical hernia. 4. Osteoarthritis. 5. Hyperlipidemia. 6. Prostate cancer, treated with radiation. 7. GI bleed, status post PVI due to radiation proctitis. 8. Gastroesophageal reflux disease (GERD). 9. Hypertensive cardiomyopathy. 10. Hypertension. 11. Paroxysmal atrial fibrillation, not on anticoagulation. 12. Iron deficiency anemia. 13. Diverticulosis. 14. History of colon polyps in 2017. 15. Gross hematuria. SURGICAL HISTORY: 1. Coronary artery bypass graft (CABG). 2. Pilonidal cyst. 3. Coronary artery disease, stent placement times two. 4. Colonoscopy in 2016. 5. Percutaneous coronary intervention (PCI) of the left circumflex with stent in May 2013. 6. CABG times three with a bovine aortic valve replacement in November 2013. 7. Cystoscopy in 2017. 8. Thoracocentesis in 2013. FAMILY HISTORY: Father and mother both due to heart attack. SOCIAL HISTORY: Former smoker. Admits to 12 glasses of wine daily. REVIEW OF SYSTEMS: CONSTITUTIONAL: Admits to malaise, weakness, weight loss, 50 pounds. Denies chills or fevers, vision change, headaches, or sinus congestion. PULMONARY: Denies shortness of breath, trouble breathing, or dyspnea. CARDIOVASCULAR: Denies chest pain, palpitations. Does admit to lower extremity edema. GASTROINTESTINAL: Admits to hematochezia, blood in his stool. Denies nausea, vomiting. Admits to current diarrhea due to ileus. GENITOURINARY: Denies dysuria. HEMATOLOGY: Denies bleeding excessively, but currently not on anticoagulation because of history of GI bleed. ENDOCRINE: Denies polydipsia or polyphagia. MUSCULOSKELETAL: Denies any back pain or joint swelling. PHYSICAL EXAMINATION: VITAL SIGNS: Temperature 97.5, pulse 80, respirations 20, blood pressure 144/64 (90), pulse oximetry 99% on room air. GENERAL: This is a very pleasant 78-year-old male who is sitting up on the chair. Does not appear in any acute distress. Appropriately answering questions with no accessory muscle use. HEENT: Atraumatic, normocephalic. Pupils are equal, round, and reactive.Fair dentition is noted with a NG tube placed in the right naris. No jugular venous distention (JVD) is noted. HEART: Regular rate and rhythm. A 2/6 holosystolic murmur appreciated at the right 2nd intercostal space with no radiation. LUNGS: Clear to auscultate bilaterally. No audible wheezing, rhonchi, or rales. ABDOMEN: Positive bowel sounds in one quadrant, diminished in the remaining. Distended abdomen with slight tenderness around the surgical site, none in the left lower quadrant. No bruising. No discharge noted on the dressing. Nawaf-Flynn (LEON) drain in place with serosanguineous discharge noted. LOWER EXTREMITIES: No lower extremity tenderness. 2+ edema,bilaterally. Dry gangrenous changes noted in the distal tips of the left toes #2,3,5, noninfectious. No open wound noted. Stage II decubitus ulcer measuring about 2-3 cm with no discharge, noninfectious in nature, with slight scaling of the skin around. Bandage on top for protection. LABORATORY: WBC 14.1, hemoglobin 8.3, hematocrit 25.2, platelets 225. Chemistry: Sodium 140, potassium 4.8, chloride 113, carbon dioxide 20, anion gap 7, BUN 17, creatinine 0.62, GFR 60, fasting glucose 117, calcium 7.2. CRP 14.0, down from 28.8 on the day of admission. Lactic acid 1.4. Procalcitonin 1.02. Wound cultures: Blood culture times one positive for Streptococcus salivarius. Blood culture times one positive for gram-positive cocci in chain. Decubitus wound culture positive for Klebsiella pneumoniae, Escherichia (E) coli, and MRSA. Stool occult positive for blood. Repeat blood culture times one negative for no growth for 48. Repeat blood culture times one pending. Echocardiogram on 01/09/2019 was negative for any vegetation, status post aortic valve bioprosthetic that is structurally and functionally normal. No aortic stenosis or regurgitation noted. There was severe left atrial dilatation with mild mitral annular calcification with thickening of the distal portion of the anterior mitral leaflet with mild mitral regurgitation. ASSESSMENT AND PLAN: This is a pleasant 78-year-old male with a pertinent past medical history of paroxysmal atrial fibrillation, currently not on anticoagulation, who has a pertinent history of a 50-pound weight loss since May 2017, who is admitted for weakness and acute abdomen. 1. Streptococcus salivarius Bacteremia in patient with aortic valve replacement aortic valve replacement (TAVR), concerning for endocarditis TTE was negative for vegetation. Dr. Lozada his factory laborer was consulted to perform a TTE. We will discontinue the vancomycin and Zosyn and start him on ceftriaxone 2 grams every 24 hours. Pending the results of the transesophageal echocardiogram (ORLY), we will decide on duration of antibiotics, 2 weeks versus 6 weeks. We will continue to monitor patient while he is admitted. We will also trend his C-reactive protein (CRP) 2. Stage II decubitus ulcer. Wound cultures were positive for Klebsiella, MRSA, and E. coli colonization. The wound does not appear infected at this current time. No additional topical antibiotics were necessary. exchange specialist has been consulted. Will follow with their recommendations. ADDENDUM: Asked to consult by hospitalist for evaluation of Streptococcus salivarius bacteremia and a decubitus ulcer antibiotic management. The consult report is done by Dr. Vania Pepper. This is an addendum. Patient admitted with loss of appetite, malaise. He has been sick for over 3 months with different presentations, including gastrointestinal (GI) bleed in November of 2017, admitted to [facility]. No blood cultures were done as the patient was afebrile. 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 The decubitus ulcer does not seem to be infected. Patient is status post aortic valve replacement. He follows up with cardiology and, therefore, a transesophageal echocardiogram was ordered to rule out endocarditis of the mitral valve, which would explain possibility of septic emboli to his superior mesenteric artery and multiple emboli to his left foot, where he has four purplish toes.DC IV VANCO/zosyn switch to Rocephin Case has been discussed with Dr. Lozada and his granddaughter, who is at the bedside, Cha Blank. Addendum dictated: GREG 01/11/[id number] Addendum transcribed: camryn 01/11/[id number] SADIE
[2019-01-11] MEDS ORDERED: METOPROLOL TART 12.5 MG PER 1/2 TAB PO ONE (23:00)
[2019-01-12] VITALS (9 sets, daily range): BP systolic 152–174; BP diastolic 72–84
[2019-01-12 00:16] LABS: HEMATOCRIT 30.1 % (42.0-52.0); HEMOGLOBIN 10.2 g/dl (13.5-17.5)
[2019-01-12] MEDS: HumaLOG INSULIN (NovoLOG) PER UNIT SC SCH ×4 (00:16→17:47)
[2019-01-12 05:07] LABS: BASO % 0.2 % (0.0-1.0); EOS # 0.1 10^3/uL (0.0-0.5); EOS % 0.9 % (0.0-3.0); HEMATOCRIT 31.5 % (42.0-52.0); HEMOGLOBIN 10.4 g/dl (13.5-17.5); LYMPH # 0.6 10^3/uL (1.5-5.0); LYMPH % 4.2 % (24.0-44.0); MEAN CORPUSCULAR HEMOGLOBIN 29.8 pg (27.0-33.0); MEAN CORPUSCULAR VOLUME 90.3 fl (80.0-96.0); MONO # 0.5 10^3/uL (0.0-0.8); MONO % 4.1 % (0.0-5.0); NEUTROPHILS # 11.5 10^3/uL (1.5-8.5); NEUTROPHILS % 87.6 % (36.0-66.0); PLATELET COUNT, AUTOMATED 229 10^3/uL (150-450); RED BLOOD COUNT 3.49 10^6/uL (4.30-6.10); WHITE BLOOD COUNT 13.2 10^3/uL (4.0-10.0)
[2019-01-12 05:47] LABS: ALBUMIN 1.2 GM/DL (3.2-5.2); ALT/SGPT 11 U/L (12-78); BILIRUBIN,TOTAL 0.7 MG/DL (0.2-1.0); BLOOD UREA NITROGEN 15 MG/DL (7-18); CALCIUM LEVEL 7.2 MG/DL (8.8-10.2); CARBON DIOXIDE LEVEL 21 MEQ/L (21-32); CHLORIDE LEVEL 111 MEQ/L (98-107); CREATININE FOR GFR 0.56 MG/DL (0.70-1.30); GLOMERULAR FILTRATION RATE > 60.0 (>42); GLUCOSE, FASTING 120 MG/DL (70-100); MAGNESIUM LEVEL 1.7 MG/DL (1.8-2.4); POTASSIUM SERUM 3.5 MEQ/L (3.5-5.1); SODIUM LEVEL 139 MEQ/L (136-145); TOTAL PROTEIN 4.2 GM/DL (6.4-8.2)
--- NOTE | 2019-01-12 05:59 | IPNPDOC ---
Subjective General Date/Time Seen The patient was seen on 01/11/19 at 07:30 am Subject Chief Complaint/History The patient is a 78-year-old male admitted with a reason for visit of Decubitus Skin Ulcer,Hypokalemia,Ugi Bleed,Physica. Patient reports feeling mildly better. His having bowel movements, denies any further bloating. He has been afebrile. Current Medications Current Medications Current Medications Medications (Trade) Dose Ordered Sig/Brandon Route PRN Reason Start Time Stop Time Status Last Admin Dose Admin Acetaminophen (Tylenol Tab) 500 mg Q4H PRN PO PAIN 01/07/19 15:30 Amiodarone HCl (Pacerone, Cordarone) 200 mg BID PO 01/07/19 21:00 01/11/19 21:14 Bisacodyl (Dulcolax Suppository) 10 mg DAILY PRN AR CONSTIPATION 01/07/19 15:30 Future hold Ceftriaxone Sodium 2 gm/ Dextrose 50 ml @ 100 mls/hr Q24H IV 01/11/19 17:00 01/11/19 17:40 Clopidogrel Bisulfate (PLAVix) 75 mg DAILY PO 01/09/19 09:00 01/11/19 09:08 Dextrose/Sodium Chloride 1,000 ml @ 125 mls/hr Q8H IV 01/09/19 10:00 01/10/19 06:53 DC 01/09/19 18:19 Diatrizoate Meglum/ Diatrizoate Sod (Gastrografin) 10 ml Q30M PO 01/07/19 16:00 01/07/19 16:31 DC 01/07/19 18:29 Fat Emulsion Intravenous 500 ml @ 20 mls/hr ONCE@1800 IV 01/11/19 18:00 01/12/19 17:59 01/11/19 17:42 Fentanyl Citrate (Sublimaze) 25 mcg Q5MP PRN IV MODERATE PAIN (PS 4-7) 01/08/19 14:30 01/08/19 14:31 DC Finasteride (Proscar) 5 mg DAILY PO 01/08/19 09:00 01/10/19 08:29 Heparin Sodium (Heparin (Flush)) 200 units ASDIRECTED PRN IV SEE LABEL COMMENTS 01/11/19 17:30 Heparin Sodium (Heparin (Flush)) 200 units PICC IV 01/11/19 18:00 Heparin Sodium (Porcine) (Heparin) ASDIRECTED PRN IV SEE LABEL COMMENTS 01/07/19 22:00 01/09/19 12:13 DC Heparin Sodium (Porcine) 42719 units/IV Miscellaneous Supplies 250 ml @ 0 mls/hr Q0M IV 01/07/19 21:46 01/08/19 14:00 DC 01/08/19 00:10 Home Med (Med Rec Complete!) ASDIRECTED XX 01/07/19 14:00 01/07/19 14:00 DC Insulin Human Lispro (HumaLOG INSULIN) See Protocol Table Q6H SC 01/11/19 18:00 01/12/19 12:01 01/12/19 00:16 Lactated Ringer's 1,000 ml @ 75 mls/hr [id number] IV 01/08/19 14:30 01/08/19 19:24 DC Magnesium Chloride (Slow-Mag) 64 mg DAILY PO 01/08/19 09:00 01/10/19 08:29 Magnesium Sulfate/ Dextrose 1 gm/IV Miscellaneous Supplies 100 ml @ 100 mls/hr 0000,2300 IV 01/10/19 23:00 01/11/19 03:00 DC 01/11/19 00:26 Metoclopramide HCl (REGLAN INJection) 10 mg Q6HP PRN IV NAUSEA OR VOMITING 01/08/19 14:30 01/08/19 19:25 DC Metoprolol Tartrate (Lopressor) 50 mg BID PO 01/07/19 21:00 01/11/19 21:54 DC 01/08/19 08:36 Morphine Sulfate (Morphine Sulfate Inj) 2 mg Q1HP PRN IV MILD/MODERATE PAIN (PS 1-7) 01/08/19 14:00 01/10/19 22:17 Morphine Sulfate (Morphine Sulfate Inj) 4 mg Q3HP PRN IV SEVERE PAIN (PS 8-10) 01/08/19 14:00 01/09/19 18:15 Non-Formulary Medication (Heparin Iv Rate Change Documentation ml/ Hr) ASDIRECTED XX 01/07/19 22:00 01/09/19 12:13 DC Ondansetron HCl (ZOFRAN INJection) 4 mg Q4HP PRN IV NAUSEA OR VOMITING 01/08/19 14:30 01/09/19 11:44 DC Pantoprazole Sodium (Protonix) 40 mg BID IV 01/07/19 21:00 01/11/19 21:13 Piperacillin Sod/ Tazobactam Sod 3.375 gm/Dextrose 50 ml @ 50 mls/hr Q6H IV 01/07/19 23:00 01/11/19 15:43 DC 01/11/19 10:59 Potassium Chloride 40 meq/ Amino Ac/Electrol/ Dextrose/Calcium 2,020 ml @ 70 mls/hr ONCE@1800 IV 01/11/19 18:00 01/12/19 17:59 01/11/19 17:42 Potassium Chloride/Sodium Chloride 1,000 ml @ 100 mls/hr Q10H IV 01/07/19 15:30 01/09/19 08:40 DC 01/08/19 11:30 Potassium Chloride 1,000 ml @ 125 mls/hr Q8H IV 01/10/19 07:00 01/11/19 16:30 DC 01/10/19 21:02 Pravastatin Sodium (Pravachol) 40 mg QHS PO 01/07/19 21:00 Future hold 01/10/19 20:55 Senna/Docusate Sodium (Senokot S) 2 tab BID PRN PO CONSTIPATION 01/07/19 15:30 Future hold Sodium Chloride 1,000 ml @ 100 mls/hr Q10H IV 01/07/19 15:12 01/07/19 15:26 DC Sodium Chloride 1,000 ml @ 125 mls/hr Q8H IV 01/08/19 19:30 01/09/19 08:40 DC 01/09/19 05:30 Sodium Chloride 1,000 ml @ 150 mls/hr Q6H40M IV 01/07/19 13:15 01/07/19 15:26 DC 01/07/19 14:02 Sodium Chloride (Saline Lock Flush) 10 ML PICC IV 01/11/19 18:00 01/11/19 17:42 Sodium Chloride (Saline Lock Flush) 10ML ASDIRECTED PRN IV SEE LABEL COMMENTS 01/11/19 17:30 Thiamine HCl (Thiamine HCl) 100 mg BID PO 01/07/19 21:00 Future hold 01/10/19 20:55 Vancomycin HCl 1000 mg/IV Miscellaneous Supplies 1 each/ Dextrose 270 ml @ 270 mls/hr Q12H IV 01/09/19 13:00 01/11/19 15:43 DC 01/11/19 13:16 Vitamin D (Drisdol) 50,000 units Grissom@0900 PO 01/09/19 09:00 01/09/19 09:00 DC Allergies Coded Allergies: No Known Allergies (Unverified , 03/18/17) Objective Physical Examination Examination GENERAL APPEARANCE: Patient looks relatively comfortable. SKIN: Warm and dry. LUNGS: Clear to auscultation bilaterally. No wheezing appreciated. HEART: No chest wall abnormalities. Regular rate and rhythm with no murmurs appreciated. ABDOMEN: Abdomen is round, soft, and minimally distended. Incision over the midline is clean and intact, toby in place. No drainage. Minimally tender, active bowel sounds. EXTREMITIES: Extremities have no deformities. No edema identified. Vital Signs Vital Signs Date Time Temp Pulse Resp B/P (MAP) Pulse Ox O2 Delivery O2 Flow Rate FiO2 01/12/19 04:00 97.8 68 17 161/76 (104) 98 01/10/19 04:00 2.0 01/08/19 09:00 Room Air I&Os I&O- Last 24 Hours up to 6 AM 01/12/19 06:00 Intake Total 2375 ml Output Total 2795 ml Balance -420 ml Laboratory Data Labs 24H Laboratory Tests 2 01/11/19 08:23: Immature Granulocyte % (Auto) 1.9, White Blood Count 14.1H, Red Blood Count 2.70L, Hemoglobin 8.3L, Hematocrit 25.2L, Mean Corpuscular Volume 93.3, Mean Corpuscular Hemoglobin 30.7, Mean Corpuscular Hemoglobin Concent 32.9, Red Cell Distribution Width 14.3, Platelet Count 225, Neutrophils (%) (Auto) 89.4H, Lymphocytes (%) (Auto) 3.5L, Monocytes (%) (Auto) 4.3, Eosinophils (%) (Auto) 0.8, Basophils (%) (Auto) 0.1, Neutrophils # (Auto) 12.6H, Lymphocytes # (Auto) 0.5L, Monocytes # (Auto) 0.6, Eosinophils # (Auto) 0.1, Basophils # (Auto) 0.0, Nucleated Red Blood Cells % (auto) 0.0, Anion Gap 7L, Glomerular Filtration Rate > 60.0, Blood Urea Nitrogen 17, Creatinine 0.62L, Sodium Level 140, Potassium Level 4.8#, Chloride Level 113H, Carbon Dioxide Level 20L, Calcium Level 7.2L 01/11/19 12:27: C-Reactive Protein, Quantitative 14.00H, Vancomycin Level Trough 15.8 01/11/19 17:23: Bedside Glucose (Misc Panel) 91 01/11/19 17:38: Prothrombin Time 22.0H, Prothromb Time International Ratio 1.95 01/12/19 00:09: Bedside Glucose (Misc Panel) 141H 01/12/19 04:52: Immature Granulocyte % (Auto) 3.0, White Blood Count 13.2H, Red Blood Count 3.49L, Hemoglobin 10.4L, Hematocrit 31.5L, Mean Corpuscular Volume 90.3, Mean Corpuscular Hemoglobin 29.8, Mean Corpuscular Hemoglobin Concent 33.0, Red Cell Distribution Width 14.3, Platelet Count 229, Neutrophils (%) (Auto) 87.6H, Lymphocytes (%) (Auto) 4.2L, Monocytes (%) (Auto) 4.1, Eosinophils (%) (Auto) 0.9, Basophils (%) (Auto) 0.2, Neutrophils # (Auto) 11.5H, Lymphocytes # (Auto) 0.6L, Monocytes # (Auto) 0.5, Eosinophils # (Auto) 0.1, Basophils # (Auto) 0.0, Nucleated Red Blood Cells % (auto) 0.0, Anion Gap 7L, Glomerular Filtration Rate > 60.0, Blood Urea Nitrogen 15, Creatinine 0.56L, Sodium Level 139, Potassium Level 3.5#, Chloride Level 111H, Carbon Dioxide Level 21, Calcium Level 7.2L, Aspartate Amino Transf (AST/SGOT) 21, Alanine Aminotransferase (ALT/SGPT) 11L, Alkaline Phosphatase 183H, Total Bilirubin 0.7, Total Protein 4.2L, Albumin 1.2L, Magnesium Level 1.7L, Albumin/Globulin Ratio 0.40L CBC/BMP Laboratory Tests 01/11/19 08:23 Red Blood Count 2.70 L, Mean Corpuscular Volume 93.3, Mean Corpuscular Hemoglobin 30.7, Mean Corpuscular Hemoglobin Concent 32.9, Red Cell Distribution Width 14.3, Neutrophils (%) (Auto) 89.4 H, Lymphocytes (%) (Auto) 3.5 L, Monocytes (%) (Auto) 4.3, Eosinophils (%) (Auto) 0.8, Basophils (%) (Auto) 0.1, Neutrophils # (Auto) 12.6 H, Lymphocytes # (Auto) 0.5 L, Monocytes # (Auto) 0.6, Eosinophils # (Auto) 0.1, Basophils # (Auto) 0.0, Calcium Level 7.2 L 01/11/19 17:35 01/12/19 00:06 01/12/19 04:52 Red Blood Count 3.49 L, Mean Corpuscular Volume 90.3, Mean Corpuscular Hem oglobin 29.8, Mean Corpuscular Hemoglobin Concent 33.0, Red Cell Distribution Width 14.3, Neutrophils (%) (Auto) 87.6 H, Lymphocytes (%) (Auto) 4.2 L, Monocytes (%) (Auto) 4.1, Eosinophils (%) (Auto) 0.9, Basophils (%) (Auto) 0.2, Neutrophils # (Auto) 11.5 H, Lymphocytes # (Auto) 0.6 L, Monocytes # (Auto) 0.5, Eosinophils # (Auto) 0.1, Basophils # (Auto) 0.0, Calcium Level 7.2 L, Aspartate Amino Transf (AST/SGOT) 21, Alanine Aminotransferase (ALT/SGPT) 11 L, Alkaline Phosphatase 183 H, Total Bilirubin 0.7, Total Protein 4.2 L, Albumin 1.2 L Microbiology Microbiology 01/11/19 Blood Culture, Received Pending 01/09/19 Blood Culture - Preliminary, Resulted No Growth after 48 hours. All Specime... 01/07/19 Blood Culture - Final, Complete Streptococcus Salivarius 01/07/19 Blood Culture - Preliminary, Resulted 01/08/19 Stool Occult Blood (KAMRAN) - Final, Complete 01/07/19 Gram Stain - Final, Complete 01/07/19 Wound Culture - Final, Complete Klebsiella Pneumoniae Escherichia Coli Staph.aureus Methicillin Resis Impression Postop day 3 exploratory laparoscopy for small bowel ischemia and small bowel resection Status post SMA and celiac artery stenting Postoperative ileus Patient are still remains somewhat distended. Continue with nasogastric tube decompression. Continue with antibiotics. Increase activity. Plan / VTE VTE Prophylaxis Ordered?: Yes VTE Exclusion Pharmacological: Active Bleeding KEIRY CLIFFORD MD Jan 12, 2019 05:59
[2019-01-12] MEDS: SODIUM CHLORIDE 0.9% INJ 10 ML SYR IV SCH ×2 (06:34→17:27)
[2019-01-12] MEDS: MORPHINE 4 MG/ML 1ML VIAL/SYRINGE (J2270) IV PRN (08:26)
--- NOTE | 2019-01-12 08:29 | IPNPDOC ---
Subjective General Date/Time Seen The patient was seen on 01/12/19 at 08:28. Subject Chief Complaint/History The patient is a 78-year-old male admitted with a reason for visit of Decubitus Skin Ulcer,Hypokalemia,Ugi Bleed,Physica. Looks comfortable. Reports feeling the same as yesterday. Denies any nausea. He has had a couple of loose bowel movements overnight that are nonbloody. Nasogastric tube output has decreased and remains nonbloody. He has been seen by infectious disease for possible blood cultures of Staphylococcus aureus and Dr. Lozada is planning for a ORLY to rule out endocarditis today Current Medications Current Medications Current Medications Medications (Trade) Dose Ordered Sig/Brandon Route PRN Reason Start Time Stop Time Status Last Admin Dose Admin Acetaminophen (Tylenol Tab) 500 mg Q4H PRN PO PAIN 01/07/19 15:30 Amiodarone HCl (Pacerone, Cordarone) 200 mg BID PO 01/07/19 21:00 01/11/19 21:14 Bisacodyl (Dulcolax Suppository) 10 mg DAILY PRN UT CONSTIPATION 01/07/19 15:30 Future hold Ceftriaxone Sodium 2 gm/ Dextrose 50 ml @ 100 mls/hr Q24H IV 01/11/19 17:00 01/11/19 17:40 Clopidogrel Bisulfate (PLAVix) 75 mg DAILY PO 01/09/19 09:00 01/11/19 09:08 Dextrose/Sodium Chloride 1,000 ml @ 125 mls/hr Q8H IV 01/09/19 10:00 01/10/19 06:53 DC 01/09/19 18:19 Diatrizoate Meglum/ Diatrizoate Sod (Gastrografin) 10 ml Q30M PO 01/07/19 16:00 01/07/19 16:31 DC 01/07/19 18:29 Fat Emulsion Intravenous 500 ml @ 20 mls/hr ONCE@1800 IV 01/11/19 18:00 01/12/19 17:59 01/11/19 17:42 Fentanyl Citrate (Sublimaze) 25 mcg Q5MP PRN IV MODERATE PAIN (PS 4-7) 01/08/19 14:30 01/08/19 14:31 DC Finasteride (Proscar) 5 mg DAILY PO 01/08/19 09:00 01/10/19 08:29 Heparin Sodium (Heparin (Flush)) 200 units ASDIRECTED PRN IV SEE LABEL COMMENTS 01/11/19 17:30 Heparin Sodium (Heparin (Flush)) 200 units PICC IV 01/11/19 18:00 01/12/19 06:34 Heparin Sodium (Porcine) (Heparin) ASDIRECTED PRN IV SEE LABEL COMMENTS 01/07/19 22:00 01/09/19 12:13 DC Heparin Sodium (Porcine) 51033 units/IV Miscellaneous Supplies 250 ml @ 0 mls/hr Q0M IV 01/07/19 21:46 01/08/19 14:00 DC 01/08/19 00:10 Home Med (Med Rec Complete!) ASDIRECTED XX 01/07/19 14:00 01/07/19 14:00 DC Insulin Human Lispro (HumaLOG INSULIN) See Protocol Table Q6H SC 01/11/19 18:00 01/12/19 12:01 01/12/19 06:33 Lactated Ringer's 1,000 ml @ 75 mls/hr [id number] IV 01/08/19 14:30 01/08/19 19:24 DC Magnesium Chloride (Slow-Mag) 64 mg DAILY PO 01/08/19 09:00 01/10/19 08:29 Magnesium Sulfate/ Dextrose 1 gm/IV Miscellaneous Supplies 100 ml @ 100 mls/hr 0000,2300 IV 01/10/19 23:00 01/11/19 03:00 DC 01/11/19 00:26 Metoclopramide HCl (REGLAN INJection) 10 mg Q6HP PRN IV NAUSEA OR VOMITING 01/08/19 14:30 01/08/19 19:25 DC Metoprolol Tartrate (Lopressor) 50 mg BID PO 01/07/19 21:00 01/11/19 21:54 DC 01/08/19 08:36 Morphine Sulfate (Morphine Sulfate Inj) 2 mg Q1HP PRN IV MILD/MODERATE PAIN (PS 1-7) 01/08/19 14:00 01/12/19 08:26 Morphine Sulfate (Morphine Sulfate Inj) 4 mg Q3HP PRN IV SEVERE PAIN (PS 8-10) 01/08/19 14:00 01/09/19 18:15 Non-Formulary Medication (Heparin Iv Rate Change Documentation ml/ Hr) ASDIRECTED XX 01/07/19 22:00 01/09/19 12:13 DC Ondansetron HCl (ZOFRAN INJection) 4 mg Q4HP PRN IV NAUSEA OR VOMITING 01/08/19 14:30 01/09/19 11:44 DC Pantoprazole Sodium (Protonix) 40 mg BID IV 01/07/19 21:00 01/11/19 21:13 Piperacillin Sod/ Tazobactam Sod 3.375 gm/Dextrose 50 ml @ 50 mls/hr Q6H IV 01/07/19 23:00 01/11/19 15:43 DC 01/11/19 10:59 Potassium Chloride 40 meq/ Amino Ac/Electrol/ Dextrose/Calcium 2,020 ml @ 70 mls/hr ONCE@1800 IV 01/11/19 18:00 01/12/19 17:59 01/11/19 17:42 Potassium Chloride/Sodium Chloride 1,000 ml @ 100 mls/hr Q10H IV 01/07/19 15:30 01/09/19 08:40 DC 01/08/19 11:30 Potassium Chloride 1,000 ml @ 125 mls/hr Q8H IV 01/10/19 07:00 01/11/19 16:30 DC 01/10/19 21:02 Pravastatin Sodium (Pravachol) 40 mg QHS PO 01/07/19 21:00 Future hold 01/10/19 20:55 Senna/Docusate Sodium (Senokot S) 2 tab BID PRN PO CONSTIPATION 01/07/19 15:30 Future hold Sodium Chloride 1,000 ml @ 100 mls/hr Q10H IV 01/07/19 15:12 01/07/19 15:26 DC Sodium Chloride 1,000 ml @ 125 mls/hr Q8H IV 01/08/19 19:30 01/09/19 08:40 DC 01/09/19 05:30 Sodium Chloride 1,000 ml @ 150 mls/hr Q6H40M IV 01/07/19 13:15 01/07/19 15:26 DC 01/07/19 14:02 Sodium Chloride (Saline Lock Flush) 10 ML PICC IV 01/11/19 18:00 01/12/19 06:34 Sodium Chloride (Saline Lock Flush) 10ML ASDIRECTED PRN IV SEE LABEL COMMENTS 01/11/19 17:30 Thiamine HCl (Thiamine HCl) 100 mg BID PO 01/07/19 21:00 Future hold 01/10/19 20:55 Vancomycin HCl 1000 mg/IV Miscellaneous Supplies 1 each/ Dextrose 270 ml @ 270 mls/hr Q12H IV 01/09/19 13:00 01/11/19 15:43 DC 01/11/19 13:16 Vitamin D (Drisdol) 50,000 units Grissom@0900 PO 01/09/19 09:00 01/09/19 09:00 DC Allergies Coded Allergies: No Known Allergies (Unverified , 03/18/17) Objective Physical Examination Examination GENERAL APPEARANCE: Overall looks fairly comfortable. He remains awake, alert, oriented. SKIN: Warm and dry. HEENT: Mild pale palpebral conjunctiva. Nasogastric tube in place, functioning with bilious output. Output has decreased. Only 50 ML's overnight. Lips are dry. NECK: Supple, no thyromegaly. No obvious jugular venous distention. LUNGS: Clear to auscultation bilaterally. No wheezing appreciated. HEART: No chest wall abnormalities. Regular rate and rhythm with no murmurs appreciated. ABDOMEN: Abdomen is still appears moderately distended, soft, he has some point tenderness over the right lower quadrant area which seems less today than yesterday. He still has some mild guarding over the area. Nontender over the midline. The incision over the dressings were removed and the incision inspected and noted to be containing and dry with no drainage or erythema. He is having a lot of serous drainage from his intra-abdominal drain no signs of bleeding. . EXTREMITIES: Both lower extremities minimal edematous. Vital Signs Vital Signs Date Time Temp Pulse Resp B/P (MAP) Pulse Ox O2 Delivery O2 Flow Rate FiO2 01/12/19 08:26 18 98 01/12/19 06:00 72 158/84 (108) 01/12/19 04:00 97.8 01/10/19 04:00 2.0 01/08/19 09:00 Room Air I&Os I&O- Last 24 Hours up to 6 AM 01/12/19 06:00 Intake Total 2555 ml Output Total 3025 ml Balance -470 ml Laboratory Data Labs 24H Laboratory Tests 2 01/11/19 12:27: C-Reactive Protein, Quantitative 14.00H, Vancomycin Level Trough 15.8 01/11/19 17:23: Bedside Glucose (Misc Panel) 91 01/11/19 17:38: Prothrombin Time 22.0H, Prothromb Time International Ratio 1.95 01/12/19 00:09: Bedside Glucose (Misc Panel) 141H 01/12/19 04:52: Immature Granulocyte % (Auto) 3.0, White Blood Count 13.2H, Red Blood Count 3.49L, Hemoglobin 10.4L, Hematocrit 31.5L, Mean Corpuscular Volume 90.3, Mean Corpuscular Hemoglobin 29.8, Mean Corpuscular Hemoglobin Concent 33.0, Red Cell Distribution Width 14.3, Platelet Count 229, Neutrophils (%) (Auto) 87.6H, Lymphocytes (%) (Auto) 4.2L, Monocytes (%) (Auto) 4.1, Eosinophils (%) (Auto) 0.9, Basophils (%) (Auto) 0.2, Neutrophils # (Auto) 11.5H, Lymphocytes # (Auto) 0.6L, Monocytes # (Auto) 0.5, Eosinophils # (Auto) 0.1, Basophils # (Auto) 0.0, Nucleated Red Blood Cells % (auto) 0.0, Anion Gap 7L, Glomerular Filtration Rate > 60.0, Blood Urea Nitrogen 15, Creatinine 0.56L, Sodium Level 139, Potassium Level 3.5#, Chloride Level 111H, Carbon Dioxide Level 21, Calcium Level 7.2L, Aspartate Amino Transf (AST/SGOT) 21, Alanine Aminotransferase (ALT/SGPT) 11L, Alkaline Phosphatase 183H, Total Bilirubin 0.7, Total Protein 4.2L, Albumin 1.2L, Magnesium Level 1.7L, Albumin/Globulin Ratio 0.40L CBC/BMP Laboratory Tests 01/11/19 17:35 01/12/19 00:06 01/12/19 04:52 Red Blood Count 3.49 L, Mean Corpuscular Volume 90.3, Mean Corpuscular Hemoglobin 29.8, Mean Corpuscular Hemoglobin Concent 33.0, Red Cell Distribution Width 14.3, Neutrophils (%) (Auto) 87.6 H, Lymphocytes (%) (Auto) 4.2 L, Monocytes (%) (Auto) 4.1, Eosinophils (%) (Auto) 0.9, Basophils (%) (Auto) 0.2, Neutrophils # (Auto) 11.5 H, Lymphocytes # (Auto) 0.6 L, Monocytes # (Auto) 0.5, Eosinophils # (Auto) 0.1, Basophils # (Auto) 0.0, Calcium Level 7.2 L, Aspartate Amino Transf (AST/SGOT) 21, Alanine Aminotransferase (ALT/SGPT) 11 L, Alkaline Phosphatase 183 H, Total Bilirubin 0.7, Total Protein 4.2 L, Albumin 1.2 L Microbiology Microbiology 01/11/19 Blood Culture, Received Pending 01/09/19 Blood Culture - Preliminary, Resulted No Growth after 48 hours. All Specime... 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 Yo paroxysmal atrial fibrillation postop ileus He seems to be having some bowel function although he still remains distended. I'll clamp the NG tube and see if he'll tolerate this and hopefully remove the nasogastric tube weight by the end of the day. Continue with close monitoring and antibiotics. He remains on antibiotics for the possibility cultures. He is having less serous drainage from the intra-abdominal drain which he thinks mainly from third spacing which is expected. we'll observe if he continues to have good bowel function and hopefully advance his diet appropriately for now continue with TPN. He scheduled for ORLY today. Plan / VTE VTE Prophylaxis Ordered?: Yes VTE Exclusion Pharmacological: Active Bleeding KEIRY CLIFFORD MD Jan 12, 2019 08:29
[2019-01-12] MEDS: MAGNESIUM CHLORIDE 64 MG TABCR (SLO MAG) PO SCH (09:00)
[2019-01-12] MEDS: THIAMINE 100 MG TAB PO SCH ×2 (09:00→20:51)
[2019-01-12] MEDS: AMIODARONE 200 MG TAB (PACERONE) PO SCH ×2 (09:00→20:51)
[2019-01-12] MEDS: FINASTERIDE 5 MG TAB PO SCH (09:09)
[2019-01-12] MEDS: PANTOPRAZOLE 40MG INJ (PROTONIX) (C9113) IV SCH ×2 (09:09→20:51)
[2019-01-12] MEDS: CLOPIDOGREL 75 MG TAB PO SCH (09:09)
[2019-01-12 09:25] LABS: HEMATOCRIT 31.1 % (42.0-52.0); HEMOGLOBIN 10.4 g/dl (13.5-17.5)
--- NOTE | 2019-01-12 11:16 | IPNPDOC ---
Subjective Date Seen The patient was seen on 01/12/19. Subjective Chief Complaint/HPI Patient is comfortable in no distress had a BM yesterday. Again, scheduled for EGD today General: Denies: ROS Unobtainable, Chills, Night Sweats, Fatigue, Malaise, Normal Appetite, Other Symptoms Constitutional: Denies: Chills, Fever, Malaise, Night Sweats, Weakness, Fatigue, Weight Loss, Lethargy, Other Eyes: Denies: Pain, Vision change, Conjunctivae inflammation, Eyelid infla mmation, Redness, Other ENT: Denies: Head Aches, Ear Pain, Dysphagia, Sinus Congestion, Post Nasal Drip, Sore Throat, Epistaxis, Other Symptoms Skin: Denies: Rash, Lesions, Jaundice, Bruising, Itching, Dry, Breakdown, Nail Changes, Other Pulmonary: Denies: Dyspnea, Cough, Pleuritic Chest Pain, Other Symptoms Cardiovascular: Denies: Chest Pain, Palpitations, Orthopnea, Paroxysmal Noc. Dyspnea, Edema, Lt Headedness, Other Symptoms Gastrointestinal: Denies: Nausea, Vomiting, Abdominal Pain, Diarrhea, Constipation, Melena, Hematochezia, Other Symptoms Musculoskeletal: Denies: Neck Pain, Back Pain, Shoulder Pain, Arm Pain, Hand Pain, Leg Pain, Foot Pain, Joint Pain, Muscle Pain, Spasms, Other Symptoms Neurological: Denies: Weakness, Numbness, Incoordination, Change in speech, Confusion, Seizures, Other Symptoms Objective Physical Examination General Exam: Positive: Alert, Cooperative, No Acute Distress; Negative: Mild Distress Eye Exam: Positive: PERRLA, Conjunctiva & lids normal, EOMI ENT Exam: Positive: Atraumatic Neck Exam: Positive: Supple; Negative: JVD Chest Exam: Positive: Clear to auscultation Heart Exam: Positive: Irregular Rhythm Telemetry: Positive: Atrial fibrillation Abdomen Exam: Positive: BS Hyperactive, Tenderness (lower quadrants bilaterally, no rebound, distended) Extremity Exam: Negative: Clubbing Skin Exam: Negative: Nl turgor and temperature Neuro Exam: Positive: Strength at 5/5 X4 ext, Cranial Nerves 3-12 NL Psych Exam: Positive: Mental status NL, Oriented x 3 Assessment /Plan Problems (1) GI bleed Status: Acute Problem Text: (2) Physical deconditioning Status: Acute Problem Text: (3) Decubitus skin ulcer Status: Acute Problem Text: (4) Hypokalemia Status: Acute Problem Text: (5) Atrial fibrillation with RVR Status: Chronic Problem Text: (6) Leukocytosis Status: Acute Problem Text: (7) Uncontrolled hypertension Status: Acute (8) Mesenteric ischemia Status: Acute (9) Sepsis Status: Acute Plan/VTE VTE Prophylaxis Ordered?: Yes VTE Exclusion Pharmacological: Active Bleeding Plan Acute mesenteric ischemia Secondary to 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 NG tube was placed Dr. Yo recommended Plavix 75 mg NPO with NG tube in place Continue IV fluid PICC line and TPN and progress as per surgical recommendations NG tube has been clamped and possibly will be removed today Will monitor patient's progress. Surgical consultation appreciated Sepsis Secondary to MRSA bacteremia Wound culture was positive for Klebsiella pneumonia, Escherichia coli, MRSA. Could be contamination. Sacral wound does not look infected Started on Rocephin to by Dr. 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 seen on MRI on 11/30/18 Oral anticoagulation for atrial fibrillation is contraindicated for now Leukocytosis Secondary to bacteremia Continue antibiotic treatment Uncontrolled hypertension Restart metoprolol 50 mg by mouth twice a day Monitor blood pressure closely DVT sequential device VS, I&O, 24H, Angie Vital Signs/I&O Vital Signs Date Time Temp Pulse Resp B/P (MAP) Pulse Ox O2 Delivery O2 Flow Rate FiO2 01/12/19 08:26 18 98 01/12/19 08:04 98.0 72 167/80 (109) 01/10/19 04:00 2.0 01/08/19 09:00 Room Air I&O- Last 24 Hours up to 6 AM 01/12/19 06:00 Intake Total 2555 ml Output Total 3025 ml Balance -470 ml Laboratory Data 24H LABS Laboratory Tests 2 01/11/19 12:27: C-Reactive Protein, Quantitative 14.00H, Vancomycin Level Trough 15.8 01/11/19 17:23: Bedside Glucose (Misc Panel) 91 01/11/19 17:38: Prothrombin Time 22.0H, Prothromb Time International Ratio 1.95 01/12/19 00:09: Bedside Glucose (Misc Panel) 141H 01/12/19 04:52: Immature Granulocyte % (Auto) 3.0, White Blood Count 13.2H, Red Blood Count 3.49L, Hemoglobin 10.4L, Hematocrit 31.5L, Mean Corpuscular Volume 90.3, Mean Corpuscular Hemoglobin 29.8, Mean Corpuscular Hemoglobin Concent 33.0, Red Cell Distribution Width 14.3, Platelet Count 229, Neutrophils (%) (Auto) 87.6H, Lymphocytes (%) (Auto) 4.2L, Monocytes (%) (Auto) 4.1, Eosinophils (%) (Auto) 0.9, Basophils (%) (Auto) 0.2, Neutrophils # (Auto) 11.5H, Lymphocytes # (Auto) 0.6L, Monocytes # (Auto) 0.5, Eosinophils # (Auto) 0.1, Basophils # (Auto) 0.0, Nucleated Red Blood Cells % (auto) 0.0, Anion Gap 7L, Glomerular Filtration Rate > 60.0, Blood Urea Nitrogen 15, Creatinine 0.56L, Sodium Level 139, Potassium Level 3.5#, Chloride Level 111H, Carbon Dioxide Level 21, Calcium Level 7.2L, Aspartate Amino Transf (AST/SGOT) 21, Alanine Aminotransferase (ALT/SGPT) 11L, Alkaline Phosphatase 183H, Total Bilirubin 0.7, Total Protein 4.2L, Albumin 1.2L, Magnesium Level 1.7L, Albumin/Globulin Ratio 0.40L CBC/BMP Laboratory Tests 01/11/19 17:35 01/12/19 00:06 01/12/19 04:52 Red Blood Count 3.49 L, Mean Corpuscular Volume 90.3, Mean Corpuscular Hemoglo bin 29.8, Mean Corpuscular Hemoglobin Concent 33.0, Red Cell Distribution Width 14.3, Neutrophils (%) (Auto) 87.6 H, Lymphocytes (%) (Auto) 4.2 L, Monocytes (%) (Auto) 4.1, Eosinophils (%) (Auto) 0.9, Basophils (%) (Auto) 0.2, Neutrophils # (Auto) 11.5 H, Lymphocytes # (Auto) 0.6 L, Monocytes # (Auto) 0.5, Eosinophils # (Auto) 0.1, Basophils # (Auto) 0.0, Calcium Level 7.2 L, Aspartate Amino Transf (AST/SGOT) 21, Alanine Aminotransferase (ALT/SGPT) 11 L, Alkaline Phosphatase 183 H, Total Bilirubin 0.7, Total Protein 4.2 L, Albumin 1.2 L 01/12/19 09:05 Microbiology Microbiology 01/11/19 Blood Culture, Received Pending 01/09/19 Blood Culture - Preliminary, Resulted No Growth after 48 hours. All Specime... 01/07/19 Blood Culture - Final, Complete Streptococcus Salivarius 01/07/19 Blood Culture - Final, Complete Streptococcus Salivarius 01/08/19 Stool Occult Blood (KAMRAN) - Final, Complete 01/07/19 Gram Stain - Final, Complete 01/07/19 Wound Culture - Final, Complete Klebsiella Pneumoniae Escherichia Coli Staph.aureus Methicillin Resis RODGER ZUNIGA MD Jan 12, 2019 11:16
[2019-01-12] MEDS: METOPROLOL TART 50 MG TAB PO SCH ×2 (11:18→20:51)
[2019-01-12] MEDS: cefTRIAXone SOD 2 GM in D5W MINI-BAG PLUS 50 ML IV SCH (17:26)
[2019-01-12] MEDS ORDERED: [UNRECOGNIZED DRUG - MIXTURE] IV SCH ×4 (18:00)
[2019-01-12] MEDS ORDERED: FAT EMULSION IV 20% 500 ML IV SCH (18:00)
[2019-01-12 19:42] LABS: HEMATOCRIT 31.8 % (42.0-52.0); HEMOGLOBIN 10.5 g/dl (13.5-17.5)
[2019-01-12] MEDS: PRAVASTATIN 20 MG TAB PO SCH (20:51)
[2019-01-13] VITALS: BP 144/67
[2019-01-13 04:00] VITALS: BP_SYST 138; BP_SYST 170; BP_DIAS 72; BP_DIAS 91
[2019-01-13 05:44] LABS: HEMOGLOBIN 11.2 g/dl (13.5-17.5); MEAN CORPUSCULAR HEMOGLOBIN 30.8 pg (27.0-33.0); MEAN CORPUSCULAR HGB CONC 33.9 g/dl (32.0-36.5); MEAN CORPUSCULAR VOLUME 90.7 fl (80.0-96.0); PLATELET COUNT, AUTOMATED 204 10^3/uL (150-450); RED BLOOD COUNT 3.64 10^6/uL (4.30-6.10); WHITE BLOOD COUNT 11.4 10^3/uL (4.0-10.0)
[2019-01-13 06:10] LABS: ALBUMIN 1.2 GM/DL (3.2-5.2); ALT/SGPT 11 U/L (12-78); BILIRUBIN,TOTAL 0.4 MG/DL (0.2-1.0); BLOOD UREA NITROGEN 12 MG/DL (7-18); CALCIUM LEVEL 7.7 MG/DL (8.8-10.2); CARBON DIOXIDE LEVEL 23 MEQ/L (21-32); CHLORIDE LEVEL 106 MEQ/L (98-107); CREATININE FOR GFR 0.48 MG/DL (0.70-1.30); GLOMERULAR FILTRATION RATE > 60.0 (>42); GLUCOSE, FASTING 143 MG/DL (70-100); MAGNESIUM LEVEL 1.6 MG/DL (1.8-2.4); POTASSIUM SERUM 3.1 MEQ/L (3.5-5.1); SODIUM LEVEL 136 MEQ/L (136-145); TOTAL PROTEIN 4.8 GM/DL (6.4-8.2)
[2019-01-13] MEDS: SODIUM CHLORIDE 0.9% INJ 10 ML SYR IV SCH ×2 (06:17→17:28)
[2019-01-13] MEDS: HumaLOG INSULIN (NovoLOG) PER UNIT SC SCH ×3 (06:17→12:16)
[2019-01-13 06:59] LABS: EOSINOPHILS 2 % (0-3); LYMPHOCYTES 6 % (16-44); MONOCYTES 8 % (0-5); NEUTROPHILS 84 % (28-66)
[2019-01-13 07:00] LABS: PLATELET ESTIMATE NORMAL (NORMAL)
[2019-01-13 07:03] LABS: TOXIC GRANULATION 1+
[2019-01-13] MEDS ORDERED: MAG SULF 1GM/100ML (MAG RUN) 1 GM in IV 1 EA IV ONE (08:00)
[2019-01-13] MEDS: FINASTERIDE 5 MG TAB PO SCH (08:16)
[2019-01-13] MEDS: KCL 10MEQ/100ML SWI (KRUN) 10 MEQ in IV 1 EA IV SCH ×4 (08:16→12:16)
[2019-01-13] MEDS: METOPROLOL TART 50 MG TAB PO SCH ×2 (08:17→22:13)
[2019-01-13] MEDS: AMIODARONE 200 MG TAB (PACERONE) PO SCH ×2 (08:17→22:12)
[2019-01-13] MEDS: CLOPIDOGREL 75 MG TAB PO SCH (08:17)
[2019-01-13] MEDS: THIAMINE 100 MG TAB PO SCH ×2 (08:17→22:13)
[2019-01-13] MEDS: PANTOPRAZOLE 40MG INJ (PROTONIX) (C9113) IV SCH ×2 (08:17→22:12)
[2019-01-13] MEDS: MAGNESIUM CHLORIDE 64 MG TABCR (SLO MAG) PO SCH (08:17)
[2019-01-13 08:20] VITALS: BP 147/77
[2019-01-13] MEDS: VANICREAM MOISTURIZING SKIN CREAM 113GM TUBE TOP SCH (09:00)
--- NOTE | 2019-01-13 11:23 | IPNPDOC ---
Subjective Date Seen The patient was seen on 01/13/19. Subjective Chief Complaint/HPI Patient offers no new complaints at the present time General: Denies: ROS Unobtainable, Chills, Night Sweats, Fatigue, Malaise, Normal Appetite, Other Symptoms Constitutional: Denies: Chills, Fever, Malaise, Night Sweats, Weakness, Fatigue, Weight Loss, Lethargy, Other Eyes: Denies: Pain, Vision change, Conjunctivae inflammation, Eyelid inflammation, Redness, Other ENT: Denies: Head Aches, Ear Pain, Dysphagia, Sinus Congestion, Post Nasal Drip, Sore Throat, Epistaxis, Other Symptoms Pulmonary: Denies: Dyspnea, Cough, Pleuritic Chest Pain, Other Symptoms Cardiovascular: Denies: Chest Pain, Palpitations, Orthopnea, Paroxysmal Noc. Dyspnea, Edema, Lt Headedness, Other Symptoms Gastrointestinal: Denies: Nausea, Vomiting, Abdominal Pain, Diarrhea, Constipation, Melena, Hematochezia, Other Symptoms Musculoskeletal: Denies: Neck Pain, Back Pain, Shoulder Pain, Arm Pain, Hand Pain, Leg Pain, Foot Pain, Joint Pain, Muscle Pain, Spasms, Other Symptoms Neurological: Denies: Weakness, Numbness, Incoordination, Change in speech, Confusion, Seizures, Other Symptoms Objective Physical Examination General Exam: Positive: Alert, Cooperative, No Acute Distress; Negative: Mild Distress Eye Exam: Positive: PERRLA, Conjunctiva & lids normal, EOMI ENT Exam: Positive: Atraumatic Neck Exam: Positive: Supple; Negative: JVD Chest Exam: Positive: Clear to auscultation Heart Exam: Positive: Irregular Rhythm Telemetry: Positive: Atrial fibrillation Abdomen Exam: Positive: BS Hyperactive, Tenderness (lower quadrants bilaterally, no rebound, distended) Extremity Exam: Negative: Clubbing Skin Exam: Negative: Nl turgor and temperature Neuro Exam: Positive: Strength at 5/5 X4 ext, Cranial Nerves 3-12 NL Psych Exam: Positive: Mental status NL, Oriented x 3 Assessment /Plan Problems (1) GI bleed Status: Acute Problem Text: (2) Physical deconditioning Status: Acute Problem Text: (3) Decubitus skin ulcer Status: Acute Problem Text: (4) Hypokalemia Status: Acute Problem Text: (5) Atrial fibrillation with RVR Status: Chronic Problem Text: (6) Leukocytosis Status: Acute Problem Text: (7) Uncontrolled hypertension Status: Acute (8) Mesenteric ischemia Status: Acute (9) Sepsis Status: Acute Plan/VTE VTE Prophylaxis Ordered?: Yes VTE Exclusion Pharmacological: Active Bleeding Plan Acute mesenteric ischemia Secondary to 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 NG tube was placed Dr. Yo recommended Plavix 75 mg NG tube has been taken out Patient is still nothing by mouth diet as per surgery Continue IV fluid Continue TPN Sepsis Secondary to MRSA bacteremia Wound culture was positive for Klebsiella pneumonia, Escherichia coli, MRSA. Could be contamination. Sacral wound does not look infected Started on Rocephin to by Dr. 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 seen on MRI on 11/30/18 Oral anticoagulation for atrial fibrillation is contraindicated for now Leukocytosis Secondary to bacteremia Continue antibiotic treatment Uncontrolled hypertension Restart metoprolol 50 mg by mouth twice a day Monitor blood pressure closely DVT sequential device VS, I&O, 24H, [facility] Vital Signs/I&O Vital Signs Date Time Temp Pulse Resp B/P (MAP) Pulse Ox O2 Delivery O2 Flow Rate FiO2 01/13/19 08:20 97.9 76 22 147/77 (100) 99 01/10/19 04:00 2.0 01/08/19 09:00 Room Air I&O- Last 24 Hours up to 6 AM 01/13/19 06:00 Intake Total 945 ml Output Total 820 ml Balance 125 ml Laboratory Data 24H LABS Laboratory Tests 2 01/12/19 11:55: Bedside Glucose (Misc Panel) 135H 01/12/19 17:34: Bedside Glucose (Misc Panel) 115H 01/13/19 00:08: Bedside Glucose (Misc Panel) 128H 01/13/19 04:59: Immature Granulocyte % (Auto) , Nucleated Red Blood Cells % (auto) 0.0, Neutrophils 84H, Lymphocytes (Manual) 6L, Monocytes (Manual) 8H, Eosinophils (Manual) 2, Toxic Granulation 1+, Platelet Estimate NORMAL, Anion Gap 7L, Glomerular Filtration Rate > 60.0, Blood Urea Nitrogen 12, Creatinine 0.48L, Sodium Level 136, Potassium Level 3.1L, Chloride Level 106, Carbon Dioxide Level 23, Calcium Level 7.7L, Aspartate Amino Transf (AST/SGOT) 20, Alanine Aminotransferase (ALT/SGPT) 11L, Alkaline Phosphatase 225H, Total Bilirubin 0.4, Total Protein 4.8L, Albumin 1.2L, Magnesium Level 1.6L, Albumin/Globulin Ratio 0.33L 01/13/19 06:14: Bedside Glucose (Misc Panel) 139H CBC/BMP Laboratory Tests 01/12/19 19:24 01/13/19 04:59 Red Blood Count 3.64 L, Mean Corpuscular Volume 90.7, Mean Corpuscular Hemoglobin 30.8, Mean Corpuscular Hemoglobin Concent 33.9, Red Cell Distribution Width 14.0, Calcium Level 7.7 L, Aspartate Amino Transf (AST/SGOT) 20, Alanine Aminotransferase (ALT/SGPT) 11 L, Alkaline Phosphatase 225 H, Total Bilirubin 0.4, Total Protein 4.8 L, Albumin 1.2 L Microbiology Microbiology 01/11/19 Blood Culture - Preliminary, Resulted No growth after 24 hours . All specim... 01/09/19 Blood Culture - Preliminary, Resulted No Growth after 72 hours. All specime... 01/07/19 Blood Culture - Final, Complete Streptococcus Salivarius 01/07/19 Blood Culture - Final, Complete Streptococcus Salivarius 01/08/19 Stool Occult Blood (KAMRAN) - Final, Complete 01/07/19 Gram Stain - Final, Complete 01/07/19 Wound Culture - Final, Complete Klebsiella Pneumoniae Escherichia Coli Staph.aureus Methicillin Resis RODGER ZUNIGA MD Jan 13, 2019 11:23
--- NOTE | 2019-01-13 11:30 | REP ---
Procedure: PICC line insertion with Herbert-Kylie The procedure was performed under the direct supervision of Dr. Conroy. The risks and benefits of the procedure were explained to the patient and informed consent was obtained. The right basilic vein was localized using ultrasound guidance. The skin was prepped and draped in a sterile fashion. 2% lidocaine was used as a local anesthetic. Using ultrasound guidance the basilic vein was cannulated and a 0.018 guidewire was inserted and advanced to the SVC using fluoroscopic guidance. The needle was removed and a 5.5 Marshallese dilator and peel-away sheath was inserted over the guide wire. A 5.5 Marshallese dual lumen catheter was cut to length of 38 cm. The dilator was removed and the catheter was inserted over the guide wire with the tip ending in the SVC. The peel-away sheath was removed and the catheter was flushed with heparinized saline as per Hospital protocol. The catheter was affixed to the skin and a sterile dressing was applied. The patient tolerated the procedure well and there were no immediate complications. 0.1 minutes of fluoro time was utilized for this procedure. Reviewed by AUGUSTA Hidalgo 01/12/2019 05:13 P Electronically Signed by Harjinder Conroy MD 01/13/2019 11:21 A
[2019-01-13 12:00] VITALS: BP 138/78
--- NOTE | 2019-01-13 12:08 | IPNPDOC ---
Subjective General Date/Time Seen The patient was seen on 01/13/19 at 12:07. Subject Chief Complaint/History The patient is a 78-year-old male admitted with a reason for visit of Decubitus Skin Ulcer,Hypokalemia,Ugi Bleed,Physica. Patient reports minimal discomfort over the abdomen. Denies any nausea or vomiting. He is tolerating clear liquids Current Medications Current Medications Current Medications Medications (Trade) Dose Ordered Sig/Brandon Route PRN Reason Start Time Stop Time Status Last Admin Dose Admin Acetaminophen (Tylenol Tab) 500 mg Q4H PRN PO PAIN 01/07/19 15:30 Amino Ac/Electrol/ Dextrose/Calcium 2,000 ml @ 70 mls/hr ONCE@1800 IV 01/13/19 18:00 01/14/19 17:59 Amiodarone HCl (Pacerone, Cordarone) 200 mg BID PO 01/07/19 21:00 01/13/19 08:17 Bisacodyl (Dulcolax Suppository) 10 mg DAILY PRN [place] CONSTIPATION 01/07/19 15:30 Future hold Ceftriaxone Sodium 2 gm/ Dextrose 50 ml @ 100 mls/hr Q24H IV 01/11/19 17:00 01/12/19 17:26 Clopidogrel Bisulfate (PLAVix) 75 mg DAILY PO 01/09/19 09:00 01/13/19 08:17 Dextrose/Sodium Chloride 1,000 ml @ 125 mls/hr Q8H IV 01/09/19 10:00 01/10/19 06:53 DC 01/09/19 18:19 Diatrizoate Meglum/ Diatrizoate Sod (Gastrografin) 10 ml Q30M PO 01/07/19 16:00 01/07/19 16:31 DC 01/07/19 18:29 Fat Emulsion Intravenous 500 ml @ 20 mls/hr ONCE@1800 IV 01/11/19 18:00 01/12/19 17:59 DC 01/11/19 17:42 Fat Emulsion Intravenous 500 ml @ 20 mls/hr ONCE@1800 IV 01/12/19 18:00 01/13/19 17:59 01/12/19 17:27 Fat Emulsion Intravenous 500 ml @ 20 mls/hr ONCE@1800 IV 01/13/19 18:00 01/14/19 17:59 Fentanyl Citrate (Sublimaze) 25 mcg Q5MP PRN IV MODERATE PAIN (PS 4-7) 01/08/19 14:30 01/08/19 14:31 DC Finasteride (Proscar) 5 mg DAILY PO 01/08/19 09:00 01/13/19 08:16 Heparin Sodium (Heparin (Flush)) 200 units ASDIRECTED PRN IV SEE LABEL COMMENTS 01/11/19 17:30 Heparin Sodium (Heparin (Flush)) 200 units PICC IV 01/11/19 18:00 01/13/19 06:17 Heparin Sodium (Porcine) (Heparin) ASDIRECTED PRN IV SEE LABEL COMMENTS 01/07/19 22:00 01/09/19 12:13 DC Heparin Sodium (Porcine) 90148 units/IV Miscellaneous Supplies 250 ml @ 0 mls/hr Q0M IV 01/07/19 21:46 01/08/19 14:00 DC 01/08/19 00:10 Home Med (Med Rec Complete!) ASDIRECTED XX 01/07/19 14:00 01/07/19 14:00 DC Insulin Human Lispro (HumaLOG INSULIN) See Protocol Table Q6H GA 01/11/19 18:00 01/12/19 12:01 DC 01/12/19 12:42 Insulin Human Lispro (HumaLOG INSULIN) See Protocol Table Q6H GA 01/12/19 18:00 01/13/19 12:01 DC 01/13/19 06:17 Lactated Ringer's 1,000 ml @ 75 mls/hr [id number] IV 01/08/19 14:30 01/08/19 19:24 DC Magnesium Chloride (Slow-Mag) 64 mg DAILY PO 01/08/19 09:00 01/13/19 08:17 Magnesium Sulfate/ Dextrose 1 gm/IV Miscellaneous Supplies 100 ml @ 100 mls/hr 0000,2300 IV 01/10/19 23:00 01/11/19 03:00 DC 01/11/19 00:26 Metoclopramide HCl (REGLAN INJection) 10 mg Q6HP PRN IV NAUSEA OR VOMITING 01/08/19 14:30 01/08/19 19:25 DC Metoprolol Tartrate (Lopressor) 50 mg BID PO 01/07/19 21:00 01/11/19 21:54 DC 01/08/19 08:36 Metoprolol Tartrate (Lopressor) 50 mg BID PO 01/12/19 09:00 01/13/19 08:17 Morphine Sulfate (Morphine Sulfate Inj) 2 mg Q1HP PRN IV MILD/MODERATE PAIN (PS 1-7) 01/08/19 14:00 01/12/19 08:26 Morphine Sulfate (Morphine Sulfate Inj) 4 mg Q3HP PRN IV SEVERE PAIN (PS 8-10) 01/08/19 14:00 01/09/19 18:15 Multivitamins 10 ml/Chromium/ Copper/Manganese/ Seleni/Zn 1 ml/ Magnesium Sulfate 5 meq/Amino Ac/ Electrol/Dextrose/ Calcium 2,012.25 ml @ 70 mls/hr ONCE@1800 IV 01/12/19 18:00 01/13/19 17:59 01/12/19 17:27 Non-Formulary Medication (Heparin Iv Rate Change Documentation ml/ Hr) ASDIRECTED XX 01/07/19 22:00 01/09/19 12:13 DC Ondansetron HCl (ZOFRAN INJection) 4 mg Q4HP PRN IV NAUSEA OR VOMITING 01/08/19 14:30 01/09/19 11:44 DC Pantoprazole Sodium (Protonix) 40 mg BID IV 01/07/19 21:00 01/13/19 08:17 Piperacillin Sod/ Tazobactam Sod 3.375 gm/Dextrose 50 ml @ 50 mls/hr Q6H IV 01/07/19 23:00 01/11/19 15:43 DC 01/11/19 10:59 Potassium Chloride 10 meq/ IV Miscellaneous Supplies 100 ml @ 100 mls/hr Q1H IV 01/13/19 08:00 01/13/19 11:59 DC 01/13/19 11:12 Potassium Chloride 40 meq/ Amino Ac/Electrol/ Dextrose/Calcium 2,020 ml @ 70 mls/hr ONCE@1800 IV 01/11/19 18:00 01/12/19 17:59 DC 01/11/19 17:42 Potassium Chloride/Sodium Chloride 1,000 ml @ 100 mls/hr Q10H IV 01/07/19 15:30 01/09/19 08:40 DC 01/08/19 11:30 Potassium Chloride 1,000 ml @ 125 mls/hr Q8H IV 01/10/19 07:00 01/11/19 16:30 DC 01/10/19 21:02 Pravastatin Sodium (Pravachol) 40 mg QHS PO 01/07/19 21:00 Future hold 01/12/19 20:51 Senna/Docusate Sodium (Senokot S) 2 tab BID PRN PO CONSTIPATION 01/07/19 15:30 Future hold Sodium Chloride 1,000 ml @ 100 mls/hr Q10H IV 01/07/19 15:12 01/07/19 15:26 DC Sodium Chloride 1,000 ml @ 125 mls/hr Q8H IV 01/08/19 19:30 01/09/19 08:40 DC 01/09/19 05:30 Sodium Chloride 1,000 ml @ 150 mls/hr Q6H40M IV 01/07/19 13:15 01/07/19 15:26 DC 01/07/19 14:02 Sodium Chloride (Saline Lock Flush) 10 ML PICC IV 01/11/19 18:00 01/13/19 06:17 Sodium Chloride (Saline Lock Flush) 10ML ASDIRECTED PRN IV SEE LABEL COMMENTS 01/11/19 17:30 Thiamine HCl (Thiamine HCl) 100 mg BID PO 01/07/19 21:00 Future hold 01/13/19 08:17 Vancomycin HCl 1000 mg/IV Miscellaneous Supplies 1 each/ Dextrose 270 ml @ 270 mls/hr Q12H IV 01/09/19 13:00 01/11/19 15:43 DC 01/11/19 13:16 Vitamin D (Drisdol) 50,000 units Grissom@0900 PO 01/09/19 09:00 01/09/19 09:00 DC Allergies Coded Allergies: No Known Allergies (Unverified , 03/18/17) Objective Physical Examination Examination GENERAL APPEARANCE: Looks more comfortable today. SKIN: Warm and moist. HEENT: Normocephalic, atraumatic. Cos Cob palpebral conjunctiva, anicteric sclerae. Lips and mucosa appear moist. NECK: Supple, no thyromegaly. No obvious jugular venous distention. LUNGS: Clear to auscultation bilaterally. No wheezing appreciated. HEART: No chest wall abnormalities. Regular rate and rhythm. ABDOMEN: Abdomen is round, soft, and minimally distended. Midline incision with toby intact, no drainage no erythema. LEON drain mostly serous at this point. Minimal tenderness only on deep palpation. Vital Signs Vital Signs Date Time Temp Pulse Resp B/P (MAP) Pulse Ox O2 Delivery O2 Flow Rate FiO2 01/13/19 08:20 97.9 76 22 147/77 (100) 99 01/10/19 04:00 2.0 01/08/19 09:00 Room Air I&Os I&O- Last 24 Hours up to 6 AM 01/13/19 06:00 Intake Total 945 ml Output Total 820 ml Balance 125 ml Laboratory Data Labs 24H Laboratory Tests 2 01/12/19 17:34: Bedside Glucose (Misc Panel) 115H 01/13/19 00:08: Bedside Glucose (Misc Panel) 128H 01/13/19 04:59: Immature Granulocyte % (Auto) , Nucleated Red Blood Cells % (auto) 0.0, Neutrophils 84H, Lymphocytes (Manual) 6L, Monocytes (Manual) 8H, Eosinophils (Manual) 2, Toxic Granulation 1+, Platelet Estimate NORMAL, Anion Gap 7L, Glomerular Filtration Rate > 60.0, Blood Urea Nitrogen 12, Creatinine 0.48L, Sodium Level 136, Potassium Level 3.1L, Chloride Level 106, Carbon Dioxide Level 23, Calcium Level 7.7L, Aspartate Amino Transf (AST/SGOT) 20, Alanine Aminotransferase (ALT/SGPT) 11L, Alkaline Phosphatase 225H, Total Bilirubin 0.4, Total Protein 4.8L, Albumin 1.2L, Magnesium Level 1.6L, Albumin/Globulin Ratio 0.33L 01/13/19 06:14: Bedside Glucose (Misc Panel) 139H CBC/BMP Laboratory Tests 01/12/19 19:24 01/13/19 04:59 Red Blood Count 3.64 L, Mean Corpuscular Volume 90.7, Mean Corpuscular Hemoglobin 30.8, Mean Corpuscular Hemoglobin Concent 33.9, Red Cell Distribution Width 14.0, Calcium Level 7.7 L, Aspartate Amino Transf (AST/SGOT) 20, Alanine Aminotransferase (ALT/SGPT) 11 L, Alkaline Phosphatase 225 H, Total Bilirubin 0.4, Total Protein 4.8 L, Albumin 1.2 L Microbiology Microbiology 01/11/19 Blood Culture - Preliminary, Resulted No growth after 24 hours . All specim... 01/09/19 Blood Culture - Preliminary, Resulted No Growth after 72 hours. All specime... 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 Yo paroxysmal atrial fibrillation postop ileus grm pos bacteremia (Staph aureus) Can advance diet if no plans to do ORLY today. Plan / VTE VTE Prophylaxis Ordered?: Yes VTE Exclusion Pharmacological: Active Bleeding KEIRY CLIFFORD MD Jan 13, 2019 12:08
[2019-01-13 16:00] VITALS: BP 135/75
[2019-01-13] MEDS: FUROSEMIDE 40 MG TAB PO SCH (17:27)
[2019-01-13] MEDS: cefTRIAXone SOD 2 GM in D5W MINI-BAG PLUS 50 ML IV SCH (17:28)
[2019-01-13] MEDS ORDERED: AMINO AC/ELECTROLYTE/DEX/CALC 2,000 ML IV SCH (18:00)
[2019-01-13] MEDS ORDERED: FAT EMULSION IV 20% 500 ML IV SCH (18:00)
--- NOTE | 2019-01-13 19:02 | IPN ---
DATE: 01/13/2019 Mr. Eisenberg was seen and examined this afternoon, laying comfortably in his bed. He states that he is feeling much better today. He is ambulating around the room and to the bathroom with no problems. He states that he has had multiple bowel movements today and his urine output is not as significant, but he is transitioning off of total parenteral nutrition (TPN) to a full liquid diet today and is hoping that it will get better. He denies having any fevers, chills, night sweats, nausea, vomiting, or diarrhea. He has no complaints today. He does admit to having some abdominal discomfort with palpation but none at rest. PHYSICAL EXAMINATION: Vital signs: Temperature 98.0, pulse 78, respirations 22, blood pressure 138/78 (98), 99% on room air. Heart: Regular rate and rhythm with 2/6 holosystolic murmur appreciated at the right second intercostal space with no radiation. Lungs: Clear to auscultate bilaterally with no audible wheezing, rhonchi, or rales. Abdomen: Positive bowel sounds in two quadrants, diminished in the remaining. Distended abdomen with some tenderness right around the surgical site, none on the left lower, right lower and the left upper quadrant. No bruising, no discharge noted on the dressing. Nawaf-Flynn (LEON) drain noted with serosanguineous fluid noted. Lower Extremities: 1+ pitting edema at the midcalves with 2+ pitting edema in the ankles bilaterally with dry gangrenous changes on the distal tips of the left toes on 2, 3, and 5, noninfectious. No open wounds are noted. Very dry scaly skin bilateral on the feet, left worse than right. LABORATORIES: WBC 11.4, hemoglobin 11.2, hematocrit 33.0, platelets 204. Chemistries: Sodium 136, potassium 3.1, chloride 106, BUN 12, creatinine 0.48, fasting glucose 143, AST 20, ALT 11, alkaline phosphatase 225. ANTIBIOTICS: Ceftriaxone 2 grams every 24 hours. Blood cultures: Most recent blood cultures times two - no growth for 72 hours and 48 hours respectively. 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 Repeat blood cultures for the last 72 hours have no growth. We will continue with the ceftriaxone 2 grams every 24 hours as planned. He does have a history of aortic bovine valve via the TAVR, which could be a possible source of infection. He had a transthoracic echocardiogram (TTE), which was negative for vegetations. was called and will perform a transesophageal echocardiogram (ORLY) on 01/17/2019. We will continue with the ceftriaxone as scheduled; pending the results of the ORLY, we will determine the duration for 2 weeks versus 6 weeks. MTDD
[2019-01-13 20:00] VITALS: BP 116/70
[2019-01-13] MEDS: PRAVASTATIN 20 MG TAB PO SCH (22:12)
[2019-01-14] VITALS (7 sets, daily range): BP systolic 96–126; BP diastolic 51–72
[2019-01-14] MEDS: SODIUM CHLORIDE 0.9% INJ 10 ML SYR IV SCH ×2 (05:06→17:52)
[2019-01-14 05:21] LABS: HEMATOCRIT 34.3 % (42.0-52.0); HEMOGLOBIN 11.5 g/dl (13.5-17.5); MEAN CORPUSCULAR HGB CONC 33.5 g/dl (32.0-36.5); MEAN CORPUSCULAR VOLUME 89.6 fl (80.0-96.0); PLATELET COUNT, AUTOMATED 195 10^3/uL (150-450); RED BLOOD COUNT 3.83 10^6/uL (4.30-6.10); WHITE BLOOD COUNT 12.3 10^3/uL (4.0-10.0)
[2019-01-14 05:44] LABS: ALBUMIN 1.2 GM/DL (3.2-5.2); ALT/SGPT 12 U/L (12-78); BILIRUBIN,TOTAL 0.5 MG/DL (0.2-1.0); BLOOD UREA NITROGEN 10 MG/DL (7-18); CALCIUM LEVEL 7.8 MG/DL (8.8-10.2); CARBON DIOXIDE LEVEL 24 MEQ/L (21-32); CHLORIDE LEVEL 103 MEQ/L (98-107); CREATININE FOR GFR 0.32 MG/DL (0.70-1.30); GLOMERULAR FILTRATION RATE > 60.0 (>42); GLUCOSE, FASTING 76 MG/DL (70-100); MAGNESIUM LEVEL 1.3 MG/DL (1.8-2.4); POTASSIUM SERUM 3.1 MEQ/L (3.5-5.1); SODIUM LEVEL 133 MEQ/L (136-145); TOTAL PROTEIN 5.1 GM/DL (6.4-8.2)
[2019-01-14 05:47] LABS: ATYPICAL LYMPH 2 % (0-5); LYMPHOCYTES 6 % (16-44); MONOCYTES 5 % (0-5); NEUTROPHILS 86 % (28-66); PLATELET ESTIMATE NORMAL (NORMAL)
[2019-01-14 05:49] LABS: GIANT PLATELETS 1+
[2019-01-14] MEDS ORDERED: POTASSIUM CHLORIDE 10% LIQ 20 MEQ/15 ML UDC PO ONE (06:30)
[2019-01-14] MEDS: FINASTERIDE 5 MG TAB PO SCH (08:00)
[2019-01-14] MEDS: FUROSEMIDE 40 MG TAB PO SCH ×2 (08:00→17:52)
[2019-01-14] MEDS: CLOPIDOGREL 75 MG TAB PO SCH (08:00)
[2019-01-14] MEDS: PANTOPRAZOLE 40MG INJ (PROTONIX) (C9113) IV SCH ×2 (08:01→20:49)
[2019-01-14] MEDS: MAGNESIUM CHLORIDE 64 MG TABCR (SLO MAG) PO SCH (08:01)
[2019-01-14] MEDS: VANICREAM MOISTURIZING SKIN CREAM 113GM TUBE TOP SCH (08:01)
[2019-01-14] MEDS: AMIODARONE 200 MG TAB (PACERONE) PO SCH ×2 (08:01→20:49)
[2019-01-14] MEDS: THIAMINE 100 MG TAB PO SCH ×2 (08:01→20:50)
[2019-01-14] MEDS: METOPROLOL TART 50 MG TAB PO SCH ×2 (08:02→20:50)
--- NOTE | 2019-01-14 11:24 | IPNPDOC ---
Subjective General Date/Time Seen The patient was seen on 01/14/19 at 11:20. Subject Chief Complaint/History The patient is a 78-year-old male admitted with a reason for visit of Decubitus Skin Ulcer,Hypokalemia,Ugi Bleed,Physica. Reports feeling better, tolerating liquids but no appetite. Denies nausea, abdominal pain. Having a couple of loose stools so far. Current Medications Current Medications Current Medications Medications (Trade) Dose Ordered Sig/Brandon Route PRN Reason Start Time Stop Time Status Last Admin Dose Admin Acetaminophen (Tylenol Tab) 500 mg Q4H PRN PO PAIN 01/07/19 15:30 Amino Ac/Electrol/ Dextrose/Calcium 2,000 ml @ 70 mls/hr ONCE@1800 IV 01/13/19 18:00 01/14/19 17:59 Cancel Amiodarone HCl (Pacerone, Cordarone) 200 mg BID PO 01/07/19 21:00 01/14/19 08:01 Bisacodyl (Dulcolax Suppository) 10 mg DAILY PRN [place] CONSTIPATION 01/07/19 15:30 Future hold Ceftriaxone Sodium 2 gm/ Dextrose 50 ml @ 100 mls/hr Q24H IV 01/11/19 17:00 01/13/19 17:28 Clopidogrel Bisulfate (PLAVix) 75 mg DAILY PO 01/09/19 09:00 01/14/19 08:00 Dextrose/Sodium Chloride 1,000 ml @ 125 mls/hr Q8H IV 01/09/19 10:00 01/10/19 06:53 DC 01/09/19 18:19 Diatrizoate Meglum/ Diatrizoate Sod (Gastrografin) 10 ml Q30M PO 01/07/19 16:00 01/07/19 16:31 DC 01/07/19 18:29 Emollient Cream (Vanicream) Apply to dry areas daily DAILY TOP 01/13/19 09:00 01/14/19 08:01 Fat Emulsion Intravenous 500 ml @ 20 mls/hr ONCE@1800 IV 01/11/19 18:00 01/12/19 17:59 DC 01/11/19 17:42 Fat Emulsion Intravenous 500 ml @ 20 mls/hr ONCE@1800 IV 01/12/19 18:00 01/13/19 17:59 DC 01/12/19 17:27 Fat Emulsion Intravenous 500 ml @ 20 mls/hr ONCE@1800 IV 01/13/19 18:00 01/14/19 17:59 Cancel Fentanyl Citrate (Sublimaze) 25 mcg Q5MP PRN IV MODERATE PAIN (PS 4-7) 01/08/19 14:30 01/08/19 14:31 DC Finasteride (Proscar) 5 mg DAILY PO 01/08/19 09:00 01/14/19 08:00 Furosemide (Lasix) 40 mg BID@09,17 PO 01/13/19 17:00 01/14/19 08:00 Heparin Sodium (Heparin (Flush)) 200 units ASDIRECTED PRN IV SEE LABEL COMMENTS 01/11/19 17:30 Heparin Sodium (Heparin (Flush)) 200 units PICC IV 01/11/19 18:00 01/14/19 05:05 Heparin Sodium (Porcine) (Heparin) ASDIRECTED PRN IV SEE LABEL COMMENTS 01/07/19 22:00 01/09/19 12:13 DC Heparin Sodium (Porcine) 30429 units/IV Miscellaneous Supplies 250 ml @ 0 mls/hr Q0M IV 01/07/19 21:46 01/08/19 14:00 DC 01/08/19 00:10 Home Med (Med Rec Complete!) ASDIRECTED XX 01/07/19 14:00 01/07/19 14:00 DC Insulin Human Lispro (HumaLOG INSULIN) See Protocol Table Q6H [place] 01/11/19 18:00 01/12/19 12:01 DC 01/12/19 12:42 Insulin Human Lispro (HumaLOG INSULIN) See Protocol Table Q6H VA 01/12/19 18:00 01/13/19 12:01 DC 01/13/19 12:16 Lactated Ringer's 1,000 ml @ 75 mls/hr [id number] IV 01/08/19 14:30 01/08/19 19:24 DC Magnesium Chloride (Slow-Mag) 64 mg DAILY PO 01/08/19 09:00 01/14/19 08:01 Magnesium Sulfate/ Dextrose 1 gm/IV Miscellaneous Supplies 100 ml @ 100 mls/hr 0000,2300 IV 01/10/19 23:00 01/11/19 03:00 DC 01/11/19 00:26 Metoclopramide HCl (REGLAN INJection) 10 mg Q6HP PRN IV NAUSEA OR VOMITING 01/08/19 14:30 01/08/19 19:25 DC Metoprolol Tartrate (Lopressor) 50 mg BID PO 01/07/19 21:00 01/11/19 21:54 DC 01/08/19 08:36 Metoprolol Tartrate (Lopressor) 50 mg BID PO 01/12/19 09:00 01/14/19 08:02 Morphine Sulfate (Morphine Sulfate Inj) 2 mg Q1HP PRN IV MILD/MODERATE PAIN (PS 1-7) 01/08/19 14:00 01/12/19 08:26 Morphine Sulfate (Morphine Sulfate Inj) 4 mg Q3HP PRN IV SEVERE PAIN (PS 8-10) 01/08/19 14:00 01/09/19 18:15 Multivitamins 10 ml/Chromium/ Copper/Manganese/ Seleni/Zn 1 ml/ Magnesium Sulfate 5 meq/Amino Ac/ Electrol/Dextrose/ Calcium 2,012.25 ml @ 70 mls/hr ONCE@1800 IV 01/12/19 18:00 01/13/19 15:52 DC 01/12/19 17:27 Non-Formulary Medication (Heparin Iv Rate Change Documentation ml/ Hr) ASDIRECTED XX 01/07/19 22:00 01/09/19 12:13 DC Ondansetron HCl (ZOFRAN INJection) 4 mg Q4HP PRN IV NAUSEA OR VOMITING 01/08/19 14:30 01/09/19 11:44 DC Pantoprazole Sodium (Protonix) 40 mg BID IV 01/07/19 21:00 01/14/19 08:01 Piperacillin Sod/ Tazobactam Sod 3.375 gm/Dextrose 50 ml @ 50 mls/hr Q6H IV 01/07/19 23:00 01/11/19 15:43 DC 01/11/19 10:59 Potassium Chloride 10 meq/ IV Miscellaneous Supplies 100 ml @ 100 mls/hr Q1H IV 01/13/19 08:00 01/13/19 11:59 DC 01/13/19 12:16 Potassium Chloride 40 meq/ Amino Ac/Electrol/ Dextrose/Calcium 2,020 ml @ 70 mls/hr ONCE@1800 IV 01/11/19 18:00 01/12/19 17:59 DC 01/11/19 17:42 Potassium Chloride/Sodium Chloride 1,000 ml @ 100 mls/hr Q10H IV 01/07/19 15:30 01/09/19 08:40 DC 01/08/19 11:30 Potassium Chloride 1,000 ml @ 125 mls/hr Q8H IV 01/10/19 07:00 01/11/19 16:30 DC 01/10/19 21:02 Pravastatin Sodium (Pravachol) 40 mg QHS PO 01/07/19 21:00 Future hold 01/13/19 22:12 Senna/Docusate Sodium (Senokot S) 2 tab BID PRN PO CONSTIPATION 01/07/19 15:30 Future hold Sodium Chloride 1,000 ml @ 100 mls/hr Q10H IV 01/07/19 15:12 01/07/19 15:26 DC Sodium Chloride 1,000 ml @ 125 mls/hr Q8H IV 01/08/19 19:30 01/09/19 08:40 DC 01/09/19 05:30 Sodium Chloride 1,000 ml @ 150 mls/hr Q6H40M IV 01/07/19 13:15 01/07/19 15:26 DC 01/07/19 14:02 Sodium Chloride (Saline Lock Flush) 10 ML PICC IV 01/11/19 18:00 01/14/19 05:06 Sodium Chloride (Saline Lock Flush) 10ML ASDIRECTED PRN IV SEE LABEL COMMENTS 01/11/19 17:30 Thiamine HCl (Thiamine HCl) 100 mg BID PO 01/07/19 21:00 Future hold 01/14/19 08:01 Vancomycin HCl 1000 mg/IV Miscellaneous Supplies 1 each/ Dextrose 270 ml @ 270 mls/hr Q12H IV 01/09/19 13:00 01/11/19 15:43 DC 01/11/19 13:16 Vitamin D (Drisdol) 50,000 units Grissom@0900 PO 01/09/19 09:00 01/09/19 09:00 DC Allergies Coded Allergies: No Known Allergies (Unverified , 03/18/17) Objective Physical Examination Examination GENERAL APPEARANCE:looks comfortable. SKIN: Warm and moist. NECK: Supple, no thyromegaly. No obvious jugular venous distention. LUNGS: Clear to auscultation bilaterally. No wheezing appreciated. HEART: No chest wall abnormalities. Regular rate and rhythm with no murmurs appreciated. ABDOMEN: Abdomen is minimally distended, soft, no longer tender at the right lower quadrant. incision site dressings are clean, dry, minimal staining at the mini-laparotomy incision. drain with serous output. EXTREMITIES: moderate landen LE edema. Vital Signs Vital Signs Date Time Temp Pulse Resp B/P (MAP) Pulse Ox O2 Delivery O2 Flow Rate FiO2 01/14/19 08:02 77 124/60 01/14/19 08:00 97.0 18 100 01/10/19 04:00 2.0 01/08/19 09:00 Room Air I&Os I&O- Last 24 Hours up to 6 AM 01/14/19 05:59 Intake Total 2390 ml Output Total 1320 ml Balance 1070 ml Laboratory Data Labs 24H Laboratory Tests 2 01/13/19 12:08: Bedside Glucose (Misc Panel) 153H 01/14/19 05:00: Immature Granulocyte % (Auto) , Nucleated Red Blood Cells % (auto) 0.0, Neutrophils 86H, Band Neutrophils 1, Lymphocytes (Manual) 6L, Monocytes (Manual) 5, Atypical Lymphocytes 2, Platelet Estimate NORMAL, Giant Platelets 1+, Anion Gap 6L, Glomerular Filtration Rate > 60.0, Blood Urea Nitrogen 10, Creatinine 0.32L, Sodium Level 133L, Potassium Level 3.1L, Chloride Level 103, Carbon Dioxide Level 24, Calcium Level 7.8L, Aspartate Amino Transf (AST/SGOT) 25, Alanine Aminotransferase (ALT/SGPT) 12, Alkaline Phosphatase 327H, Total Bilirubin 0.5, Total Protein 5.1L, Albumin 1.2L, Magnesium Level 1.3L, Albumin/Globulin Ratio 0.31L CBC/BMP Laboratory Tests 01/14/19 05:00 Red Blood Count 3.83 L, Mean Corpuscular Volume 89.6, Mean Corpuscular Hemoglobin 30.0, Mean Corpuscular Hemoglobin Concent 33.5, Red Cell Distribution Width 13.8, Calcium Level 7.8 L, Aspartate Amino Transf (AST/SGOT) 25, Alanine Aminotransferase (ALT/SGPT) 12, Alkaline Phosphatase 327 H, Total Bilirubin 0.5, Total Protein 5.1 L, Albumin 1.2 L Microbiology Microbiology 01/11/19 Blood Culture - Preliminary, Resulted No Growth after 48 hours. All Specime... 01/09/19 Blood Culture - Preliminary, Resulted No Growth after 72 hours. All specime... 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 Yo paroxysmal atrial fibrillation, in sinus postop ileus resolved grm pos bacteremia (streptococcus) I have advanced him to regular diet. continue pt/ot. still getting a lot of serous drainage from joel drain, continue for now. Plan / VTE VTE Prophylaxis Ordered?: Yes VTE Exclusion Pharmacological: Active Bleeding KEIRY CLIFFORD MD Jan 14, 2019 11:24
--- NOTE | 2019-01-14 12:15 | IPNPDOC ---
Subjective Date Seen The patient was seen on 01/14/19. Subjective Chief Complaint/HPI Patient comfortable, in no apparent distress. Offers no new complaints General: Denies: ROS Unobtainable, Chills, Night Sweats, Fatigue, Malaise, Normal Appetite, Other Symptoms Constitutional: Denies: Chills, Fever, Malaise, Night Sweats, Weakness, Fatigue, Weight Loss, Lethargy, Other Eyes: Denies: Pain, Vision change, Conjunctivae inflammation, Eyelid inflammation, Redness, Other ENT: Denies: Head Aches, Ear Pain, Dysphagia, Sinus Congestion, Post Nasal Drip, Sore Throat, Epistaxis, Other Symptoms Skin: Denies: Rash, Lesions, Jaundice, Bruising, Itching, Dry, Breakdown, Nail Changes, Other Pulmonary: Denies: Dyspnea, Cough, Pleuritic Chest Pain, Other Symptoms Cardiovascular: Denies: Chest Pain, Palpitations, Orthopnea, Paroxysmal Noc. Dyspnea, Edema, Lt Headedness, Other Symptoms Gastrointestinal: Denies: Nausea, Vomiting, Abdominal Pain, Diarrhea, Const ipation, Melena, Hematochezia, Other Symptoms Endocrine: Denies: Polydipsia, Polyphagia, Polyuria, Heat Intolerance, Cold Intolerance, Other Endocrine Sx Musculoskeletal: Denies: Neck Pain, Back Pain, Shoulder Pain, Arm Pain, Hand Pain, Leg Pain, Foot Pain, Joint Pain, Muscle Pain, Spasms, Other Symptoms Neurological: Denies: Weakness, Numbness, Incoordination, Change in speech, Confusion, Seizures, Other Symptoms Objective Physical Examination General Exam: Positive: Alert, Cooperative, No Acute Distress; Negative: Mild Distress Eye Exam: Positive: PERRLA, Conjunctiva & lids normal, EOMI ENT Exam: Positive: Atraumatic Neck Exam: Positive: Supple; Negative: JVD Chest Exam: Positive: Clear to auscultation Heart Exam: Positive: Irregular Rhythm Telemetry: Positive: Atrial fibrillation Abdomen Exam: Positive: BS Hyperactive, Tenderness (lower quadrants bilaterally, no rebound, distended) Extremity Exam: Negative: Clubbing Skin Exam: Negative: Nl turgor and temperature Neuro Exam: Positive: Strength at 5/5 X4 ext, Cranial Nerves 3-12 NL Psych Exam: Positive: Mental status NL, Oriented x 3 Assessment /Plan Problems (1) Status post laparotomy Status: Acute Problem Text: POD5 Ex Lap small bowel resection for small bowel ischemia POD5 stenting of SMA and celiac artery by Dr. Yo Surgical follow-up appreciated Diet advanced to regular Physical therapy and occupational therapy in progress Drain to be continued as per surgery secondary to his large amount of serous drainage Further, as per surgery (2) GI bleed Status: Resolved Problem Text: (3) Physical deconditioning Status: Acute Problem Text: (4) Decubitus skin ulcer Status: Acute Problem Text: (5) Hypokalemia Status: Acute Problem Text: Corrected, supplement given Repeat labs in a.m. (6) Atrial fibrillation with RVR Status: Chronic Problem Text: In normal sinus rhythm Rate under control Continue home meds (7) Leukocytosis Status: Acute Problem Text: (8) Uncontrolled hypertension Status: Resolved (9) Mesenteric ischemia Status: Acute (10) Sepsis Status: Acute Problem Text: Sepsis secondary to Streptococcus bacteremia based on a positive blood cultures on admission Patient had a TAVR done with bovine wall, could be possible source of infection Repeat blood cultures have been negative so far Continue ceftriaxone 2 g every 24 hours as per ID Repeat ORLY is scheduled on 01/17/2019 Further decision will made by ID regarding the duration of IV antibiotics depending on the reports of ORLY Plan/VTE VTE Prophylaxis Ordered?: Yes VTE Exclusion Pharmacological: Active Bleeding VS, I&O, 24H, Fishbone Vital Signs/I&O Vital Signs Date Time Temp Pulse Resp B/P (MAP) Pulse Ox O2 Delivery O2 Flow Rate FiO2 01/14/19 08:02 77 124/60 01/14/19 08:00 97.0 18 100 01/10/19 04:00 2.0 01/08/19 09:00 Room Air I&O- Last 24 Hours up to 6 AM 01/14/19 05:59 Intake Total 2390 ml Output Total 1320 ml Balance 1070 ml Laboratory Data 24H LABS Laboratory Tests 2 01/14/19 05:00: Immature Granulocyte % (Auto) , Nucleated Red Blood Cells % (auto) 0.0, Neutrophils 86H, Band Neutrophils 1, Lymphocytes (Manual) 6L, Monocytes (Manual) 5, Atypical Lymphocytes 2, Platelet Estimate NORMAL, Giant Platelets 1+, Anion Gap 6L, Glomerular Filtration Rate > 60.0, Blood Urea Nitrogen 10, Creatinine 0.32L, Sodium Level 133L, Potassium Level 3.1L, Chloride Level 103, Carbon Dioxide Level 24, Calcium Level 7.8L, Aspartate Amino Transf (AST/SGOT) 25, Alanine Aminotransferase (ALT/SGPT) 12, Alkaline Phosphatase 327H, Total Bilirubin 0.5, Total Protein 5.1L, Albumin 1.2L, Magnesium Level 1.3L, Albu min/Globulin Ratio 0.31L CBC/BMP Laboratory Tests 01/14/19 05:00 Red Blood Count 3.83 L, Mean Corpuscular Volume 89.6, Mean Corpuscular Hemoglobin 30.0, Mean Corpuscular Hemoglobin Concent 33.5, Red Cell Distribution Width 13.8, Calcium Level 7.8 L, Aspartate Amino Transf (AST/SGOT) 25, Alanine Aminotransferase (ALT/SGPT) 12, Alkaline Phosphatase 327 H, Total Bilirubin 0.5, Total Protein 5.1 L, Albumin 1.2 L Microbiology Microbiology 01/11/19 Blood Culture - Preliminary, Resulted No Growth after 48 hours. All Specime... 01/09/19 Blood Culture - Preliminary, Resulted No Growth after 72 hours. All specime... 01/07/19 Blood Culture - Final, Complete Streptococcus Salivarius 01/07/19 Blood Culture - Final, Complete Streptococcus Salivarius 01/08/19 Stool Occult Blood (K[facility]RAN) - Final, Complete 01/07/19 Gram Stain - Final, Complete 01/07/19 Wound Culture - Final, Complete Klebsiella Pneumoniae Escherichia Coli Staph.aureus Methicillin Resis RODGER ZUNIGA MD Jan 14, 2019 12:15
[2019-01-14] MEDS: cefTRIAXone SOD 2 GM in D5W MINI-BAG PLUS 50 ML IV SCH (17:52)
[2019-01-14] MEDS ORDERED: MAG SULF 1GM/100ML (MAG RUN) 1 GM in IV 1 EA IV ONE (19:00)
[2019-01-14] MEDS: PRAVASTATIN 20 MG TAB PO SCH (20:49)
[2019-01-15] MEDS ORDERED: LOPERAMIDE 2 MG CAPLET PO ONE (01:45)
[2019-01-15] MEDS ORDERED: LOPERAMIDE 2 MG CAPLET PO PRN ×2 (01:45→22:45)
[2019-01-15] MEDS ORDERED: NS 1,000 ML IV ONE (01:45)
[2019-01-15] MEDS: SODIUM CHLORIDE 0.9% INJ 10 ML SYR IV SCH ×2 (03:27→17:31)
[2019-01-15 04:00] VITALS: BP 119/60
[2019-01-15 06:44] LABS: ALBUMIN 1.2 GM/DL (3.2-5.2); ALT/SGPT 11 U/L (12-78); BILIRUBIN,TOTAL 0.5 MG/DL (0.2-1.0); BLOOD UREA NITROGEN 8 MG/DL (7-18); CALCIUM LEVEL 7.7 MG/DL (8.8-10.2); CARBON DIOXIDE LEVEL 24 MEQ/L (21-32); CHLORIDE LEVEL 103 MEQ/L (98-107); CREATININE FOR GFR 0.44 MG/DL (0.70-1.30); GLOMERULAR FILTRATION RATE > 60.0 (>42); GLUCOSE, FASTING 71 MG/DL (70-100); MAGNESIUM LEVEL 1.5 MG/DL (1.8-2.4); POTASSIUM SERUM 2.5 MEQ/L (3.5-5.1); SODIUM LEVEL 136 MEQ/L (136-145); TOTAL PROTEIN 4.8 GM/DL (6.4-8.2)
[2019-01-15] MEDS ORDERED: KCL 10MEQ/100ML SWI (KRUN) 10 MEQ in IV 1 EA IV ONE (07:00)
[2019-01-15] MEDS ORDERED: POTASSIUM CHLORIDE 10 MEQ SR TABLET PO ONE (07:00)
[2019-01-15 08:00] VITALS: BP 96/48
[2019-01-15] MEDS ORDERED: MAG SULF 1GM/100ML (MAG RUN) 1 GM in IV 1 EA IV ONE (08:00)
[2019-01-15] MEDS: FUROSEMIDE 40 MG TAB PO SCH (09:00)
[2019-01-15] MEDS: METOPROLOL TART 50 MG TAB PO SCH ×2 (09:00→20:49)
[2019-01-15] MEDS: FINASTERIDE 5 MG TAB PO SCH (09:46)
[2019-01-15] MEDS: CLOPIDOGREL 75 MG TAB PO SCH (09:46)
[2019-01-15] MEDS: AMIODARONE 200 MG TAB (PACERONE) PO SCH ×2 (09:46→20:49)
[2019-01-15] MEDS: THIAMINE 100 MG TAB PO SCH ×2 (09:46→20:48)
[2019-01-15] MEDS: MAGNESIUM CHLORIDE 64 MG TABCR (SLO MAG) PO SCH (09:47)
[2019-01-15] MEDS: VANICREAM MOISTURIZING SKIN CREAM 113GM TUBE TOP SCH (09:47)
[2019-01-15] MEDS: KCL 10MEQ/100ML SWI (KRUN) 10 MEQ in IV 1 EA IV SCH ×4 (09:48→14:05)
--- NOTE | 2019-01-15 10:34 | IPNPDOC ---
Subjective Date Seen The patient was seen on 01/15/19. Subjective Chief Complaint/HPI Patient is comfortable in no apparent distress. Offers no new complaints. No more diarrhea General: Denies: ROS Unobtainable, Chills, Night Sweats, Fatigue, Malaise, Normal Appetite, Other Symptoms Constitutional: Denies: Chills, Fever, Malaise, Night Sweats, Weakness, Fatigue, Weight Loss, Lethargy, Other Eyes: Denies: Pain, Vision change, Conjunctivae inflammation, Eyelid inf lammation, Redness, Other ENT: Denies: Head Aches, Ear Pain, Dysphagia, Sinus Congestion, Post Nasal Drip, Sore Throat, Epistaxis, Other Symptoms Skin: Denies: Rash, Lesions, Jaundice, Bruising, Itching, Dry, Breakdown, Nail Changes, Other Pulmonary: Denies: Dyspnea, Cough, Pleuritic Chest Pain, Other Symptoms Cardiovascular: Denies: Chest Pain, Palpitations, Orthopnea, Paroxysmal Noc. Dyspnea, Edema, Lt Headedness, Other Symptoms Gastrointestinal: Denies: Nausea, Vomiting, Abdominal Pain, Diarrhea, Constipation, Melena, Hematochezia, Other Symptoms Musculoskeletal: Denies: Neck Pain, Back Pain, Shoulder Pain, Arm Pain, Hand Pain, Leg Pain, Foot Pain, Joint Pain, Muscle Pain, Spasms, Other Symptoms Neurological: Denies: Weakness, Numbness, Incoordination, Change in speech, Confusion, Seizures, Other Symptoms Objective Physical Examination General Exam: Positive: Alert, Cooperative, No Acute Distress; Negative: Mild Distress Eye Exam: Positive: PERRLA, Conjunctiva & lids normal, EOMI ENT Exam: Positive: Atraumatic Neck Exam: Positive: Supple; Negative: JVD Chest Exam: Positive: Clear to auscultation Heart Exam: Positive: Irregular Rhythm Telemetry: Positive: Atrial fibrillation Abdomen Exam: Positive: BS Hyperactive, Tenderness (lower quadrants bilaterally, no rebound, distended) Extremity Exam: Negative: Clubbing Skin Exam: Negative: Nl turgor and temperature Neuro Exam: Positive: Strength at 5/5 X4 ext, Cranial Nerves 3-12 NL Psych Exam: Positive: Mental status NL, Oriented x 3 Assessment /Plan Problems (1) Status post laparotomy Status: Acute Problem Text: POD5 Ex Lap small bowel resection for small bowel ischemia POD5 stenting of SMA and celiac artery by Dr. Yo Surgical follow-up appreciated Diet advanced to regular Physical therapy and occupational therapy in progress Drain to be continued as per surgery secondary to his large amount of serous drainage Further, as per surgery (2) GI bleed Status: Resolved Problem Text: (3) Physical deconditioning Status: Acute Problem Text: (4) Decubitus skin ulcer Status: Acute Problem Text: (5) Hypokalemia Status: Acute Problem Text: KCl 10 mEq 4. Given Repeat labs in a.m. (6) Atrial fibrillation with RVR Status: Chronic Problem Text: In normal sinus rhythm Rate under control Continue home meds (7) Leukocytosis Status: Acute Problem Text: (8) Uncontrolled hypertension Status: Resolved (9) Mesenteric ischemia Status: Acute (10) Sepsis Status: Acute Problem Text: Sepsis secondary to Streptococcus bacteremia based on a positive blood cultures on admission Patient had a TAVR done with bovine wall, could be possible source of infection Repeat blood cultures have been negative so far Continue ceftriaxone 2 g every 24 hours as per ID Repeat ORLY is scheduled on 01/17/2019 Further decision will made by ID regarding the duration of IV antibiotics depending on the reports of ORLY (11) Hypomagnesemia Status: Acute Problem Text: Make sulfate 1 g IV given Check levels in a.m. Plan/VTE VTE Prophylaxis Ordered?: Yes VTE Exclusion Pharmacological: Active Bleeding VS, I&O, 24H, Fishbone Vital Signs/I&O Vital Signs Date Time Temp Pulse Resp B/P (MAP) Pulse Ox O2 Delivery O2 Flow Rate FiO2 01/15/19 09:00 75 96/48 01/15/19 08:00 97.7 18 99 01/10/19 04:00 2.0 I&O- Last 24 Hours up to 6 AM 01/15/19 05:59 Intake Total 1910 ml Output Total 1010 ml Balance 900 ml Laboratory Data 24H LABS Laboratory Tests 2 01/15/19 05:38: Anion Gap 9, Glomerular Filtration Rate > 60.0, Blood Urea Nitrogen 8, Creatinine 0.44L, Sodium Level 136, Potassium Level 2.5*L, Chloride Level 103, Carbon Dioxide Level 24, Calcium Level 7.7L, Aspartate Amino Transf (AST/SGOT) 22, Alanine Aminotransferase (ALT/SGPT) 11L, Alkaline Phosphatase 337H, Total Bilirubin 0.5, Total Protein 4.8L, Albumin 1.2L, Magnesium Level 1.5L, Albumin/Globulin Ratio 0.33L CBC/BMP Laboratory Tests 01/15/19 05:38 Calcium Level 7.7 L, Aspartate Amino Transf (AST/SGOT) 22, Alanine Aminotransferase (ALT/SGPT) 11 L, Alkaline Phosphatase 337 H, Total Bilirubin 0.5, Total Protein 4.8 L, Albumin 1.2 L Microbiology Microbiology 01/11/19 Blood Culture - Preliminary, Resulted No Growth after 72 hours. All specime... 01/09/19 Blood Culture - Final, Complete NO GROWTH AFTER 5 DAYS 01/07/19 Blood Culture - Final, Complete Streptococcus Salivarius 01/07/19 Blood Culture - Final, Complete Streptococcus Salivarius 01/08/19 Stool Occult Blood ([facility]RAN) - Final, Complete 01/07/19 Gram Stain - Final, Complete 01/07/19 Wound Culture - Final, Complete Klebsiella Pneumoniae Escherichia Coli Staph.aureus Methicillin Resis RODGER ZUNIGA MD Jan 15, 2019 10:34
[2019-01-15 12:00] VITALS: BP 101/57
[2019-01-15 13:34] LABS: BLOOD UREA NITROGEN 8 MG/DL (7-18); CREATININE FOR GFR 0.51 MG/DL (0.70-1.30); GLOMERULAR FILTRATION RATE > 60.0 (>42); GLUCOSE, FASTING 101 MG/DL (70-100); POTASSIUM SERUM 3.7 MEQ/L (3.5-5.1); SODIUM LEVEL 135 MEQ/L (136-145)
[2019-01-15 13:35] LABS: CALCIUM LEVEL 7.6 MG/DL (8.8-10.2); CARBON DIOXIDE LEVEL 17 MEQ/L (21-32); CHLORIDE LEVEL 106 MEQ/L (98-107)
--- NOTE | 2019-01-15 14:12 | REP ---
Clinical: Chest pain. Possible effusion . Comparison: 01/07/2019 . Findings: The mediastinum and cardiac silhouette are stable and within normal limits for portable technique. Right PICC line with tip in the SVC. Evidence of prior sternotomy and aortic valve repair. The lung monk are clear without acute consolidation, effusion, or pneumothorax. Degenerative changes of the left shoulder noted. Impression: No acute cardiopulmonary process appreciated. Electronically Signed by Sam Villa MD 01/15/2019 02:04 P
--- NOTE | 2019-01-15 15:05 | IPN ---
DATE: 01/15/2019 HISTORY: The patient is now postop day #8 from laparotomy for small bowel resection for ischemic bowel. On that same date, he had also undergone a visceral arteriogram with stenting of the celiac and superior mesenteric arteries by Dr. Yo. He reports today that he feels tired and weak just like he did yesterday. He has been tolerating some oral intake and reports that the Ensure is going okay, though he does not have much appetite. He is voiding spontaneously. He reports he has been having some loose stools. Vital signs show that he has been afebrile over the past 24 hours. His pulse is in the 70s and 80s and his blood pressure has been somewhat low in the mid 90s to low 1 teens. His oxygen saturation is normal. Intake and output shows that yesterday he had 900 in with 1200 recorded out, although he had 800 of urine and 400 from his abdominal drain. There were multiple small bowel movements noted. PHYSICAL EXAMINATION: The patient is an elderly man sitting up in the bed. He is alert and appears oriented. Sclerae are anicteric. Mucous membranes are moist. Heart exam shows a regular rhythm. The lungs show somewhat distant breath sounds but no wheezes or rhonchi. The abdomen reveals a clean dressing over a midline incision. He has a drain in the left midabdomen with a small amount of turbid yellowish fluid in the bulb. He does have bowel sounds present. Laboratory studies show white count of 12, hemoglobin 12, hematocrit 34 and platelet count of 195,000. Differential count shows 86% neutrophils, 1 band, 6 lymphocytes and 5 monocytes. Chemistry profile shows a sodium of 136, potassium 2.5, chloride 103, CO2 of 24, BUN of 8, creatinine 0.4 and glucose of 71. Magnesium is 1.5. Total protein is 4.8 with an albumin of 1.2. Most recent cultures include blood cultures from the 01/09 and 01/11/2019 and these were both no growth. IMPRESSION: The patient appears to be doing acceptably. His oral intake is somewhat suspect. He is having bowel movements and urine output. His drain output has diminished with 400 mL recorded yesterday after 970 the day before. PLAN: The patient will be allowed to shower. I will stop his ordered morphine, which he has not been using. I will obtain a chest x-ray to evaluate for pleural effusions. He does have some lower extremity pitting edema. Because his blood pressure has been somewhat low and he is complaining of feeling weak and tired, I am going to stop his Lasix for now as well. He has another medical profile pending soon to recheck his potassium, which was quite low this morning. SADIE
[2019-01-15 16:00] VITALS: BP 106/57
[2019-01-15] MEDS: cefTRIAXone SOD 2 GM in D5W MINI-BAG PLUS 50 ML IV SCH (17:31)
[2019-01-15 20:00] VITALS: BP 118/63
[2019-01-15] MEDS: PRAVASTATIN 20 MG TAB PO SCH (20:49)
[2019-01-15 23:59] VITALS: BP 123/66
[2019-01-16 04:00] VITALS: BP 115/64
[2019-01-16 05:43] LABS: BASO % 0.2 % (0.0-1.0); EOS # 0.1 10^3/uL (0.0-0.5); EOS % 0.6 % (0.0-3.0); HEMATOCRIT 29.8 % (42.0-52.0); HEMOGLOBIN 9.9 g/dl (13.5-17.5); LYMPH # 0.8 10^3/uL (1.5-5.0); LYMPH % 5.2 % (24.0-44.0); MEAN CORPUSCULAR HEMOGLOBIN 30.3 pg (27.0-33.0); MEAN CORPUSCULAR HGB CONC 33.2 g/dl (32.0-36.5); MEAN CORPUSCULAR VOLUME 91.1 fl (80.0-96.0); MONO # 0.7 10^3/uL (0.0-0.8); MONO % 4.2 % (0.0-5.0); NEUTROPHILS % 87.8 % (36.0-66.0); PLATELET COUNT, AUTOMATED 168 10^3/uL (150-450); RED BLOOD COUNT 3.27 10^6/uL (4.30-6.10); WHITE BLOOD COUNT 15.9 10^3/uL (4.0-10.0)
[2019-01-16] MEDS: SODIUM CHLORIDE 0.9% INJ 10 ML SYR IV SCH ×2 (05:50→17:08)
[2019-01-16 06:08] LABS: ALBUMIN 1.2 GM/DL (3.2-5.2); ALT/SGPT 10 U/L (12-78); BILIRUBIN,TOTAL 0.4 MG/DL (0.2-1.0); BLOOD UREA NITROGEN 9 MG/DL (7-18); CALCIUM LEVEL 7.6 MG/DL (8.8-10.2); CARBON DIOXIDE LEVEL 25 MEQ/L (21-32); CHLORIDE LEVEL 104 MEQ/L (98-107); GLOMERULAR FILTRATION RATE > 60.0 (>42); GLUCOSE, FASTING 83 MG/DL (70-100); MAGNESIUM LEVEL 1.5 MG/DL (1.8-2.4); POTASSIUM SERUM 3.3 MEQ/L (3.5-5.1); SODIUM LEVEL 135 MEQ/L (136-145); TOTAL PROTEIN 4.9 GM/DL (6.4-8.2)
[2019-01-16] MEDS ORDERED: MAG SULF 1GM/100ML (MAG RUN) 1 GM in IV 1 EA IV ONE (07:30)
--- NOTE | 2019-01-16 07:53 | PHACANCOPD ---
PHARMACY VANCOMYCIN DOSING Pt Demographics Demographics Patient Age:78 , Weight:70.200 , Gender: male Adjusted Body Weight Date: 01/09/19, Adjusted Body Weight: Kg Events Past 24 Hours Events Past 24 Hours: YES: Elevation in WBC; NO: Dialysis, Diuretic Therapy, Change in CrCl, Fever, Pending Diagnostics, Pending Procedures, Other Vancomycin Vancomycin indication: SEPSIS Vancomycin Target Ranges: 15-20 mcg/ml Vancomycin Load Y/N: Yes Load Dose Date Time Vancomycin Load Dose: 1500mg Date: 01/16/19 Time: 0800 Vancomycin Dose Date: 01/16/19. Current Vancomycin Dose: [1g IV Q12H @09] Intermittent Dosing?: No Labs Labs Item Value Date Time White Blood Count 11.4 10^3/uL H 01/13/19 0459 White Blood Count 12.3 10^3/uL H 01/14/19 0500 White Blood Count 15.9 10^3/uL H 01/16/19 0525 Creatinine 0.44 MG/DL L 01/15/19 0538 Creatinine 0.51 MG/DL L 01/15/19 1114 Creatinine 0.40 MG/DL L 01/16/19 0525 Micro Microbiology 01/11/19 Blood Culture - Preliminary, Resulted No Growth after 72 hours. All specime... 01/09/19 Blood Culture - Final, Complete NO GROWTH AFTER 5 DAYS 01/07/19 Blood Culture - Final, Complete Streptococcus Salivarius 01/07/19 Blood Culture - Final, Complete Streptococcus Salivarius 01/08/19 Stool Occult Blood (KAMRAN) - Final, Complete 01/07/19 Gram Stain - Final, Complete 01/07/19 Wound Culture - Final, Complete Klebsiella Pneumoniae Escherichia Coli Staph.aureus Methicillin Resis Creatinine Clearance Date:01/09/19. Est Creatinine Clearance: [~70ml/min]. Pending Labs vancomycin trough scheduled 01/17 @08:00 Assessment and Plan Maintaining Current Dose?: Yes Reason for dose change: No Dose Change Pharmacist Note Pharmacist Note Date: 01/16/19. Pharmacist note: pt has been restarted on Vancomycin. He was previously on vancomycin/zosyn earlier this admission from 01/09 - 01/11. On 01/11 he was switched to Rocephin monotherapy for bacteremia/possible endocarditis. Based on his prior consult I have started him on vancomycin 1.5g loading dose followed by 1g IV q12h. Inflammatory markers have been trending up. I have a trough scheduled for tomorrow morning. We will continue to monitor and make adjustments as necessary. Colton Tolbert Pharm.D. Jan 16, 2019 07:53
[2019-01-16 08:00] VITALS: BP 111/65
[2019-01-16] MEDS ORDERED: VANCOMYCIN HCL 500 MG in D5W MINI-BAG PLUS 100 ML IV ONE (08:00)
[2019-01-16] MEDS: CLOPIDOGREL 75 MG TAB PO SCH (08:56)
[2019-01-16] MEDS: THIAMINE 100 MG TAB PO SCH ×2 (08:56→20:10)
[2019-01-16] MEDS: FINASTERIDE 5 MG TAB PO SCH (08:56)
[2019-01-16] MEDS: AMIODARONE 200 MG TAB (PACERONE) PO SCH ×2 (08:56→20:11)
[2019-01-16] MEDS: METOPROLOL TART 50 MG TAB PO SCH ×2 (08:56→20:10)
[2019-01-16] MEDS: MAGNESIUM CHLORIDE 64 MG TABCR (SLO MAG) PO SCH (08:57)
[2019-01-16] MEDS: POTASSIUM CHLORIDE 10 MEQ SR TABLET PO SCH (08:57)
[2019-01-16] MEDS: VANICREAM MOISTURIZING SKIN CREAM 113GM TUBE TOP SCH (08:57)
[2019-01-16] MEDS: VANCOMYCIN HCL 1,000 MG, VIAL MATE ADAPTER 1 EACH in D5W 250 ML IV SCH ×2 (08:57→20:11)
--- NOTE | 2019-01-16 10:51 | IPNPDOC ---
Subjective Date Seen The patient was seen on 01/16/19. Subjective Chief Complaint/HPI Patient is comfortable in no apparent distress tolerated breakfast without any complications or problems, patient feels much better. He has shaved and cleaned himself as well General: Denies: ROS Unobtainable, Chills, Night Sweats, Fatigue, Malaise, Normal Appetite, Other Symptoms Constitutional: Denies: Chills, Fever, Malaise, Night Sweats, Weakness, Fatigue, Weight Loss, Lethargy, Other Eyes: Denies: Pain, Vision change, Conjunctivae inflammation, Eyelid inflammation, Redness, Other ENT: Denies: Head Aches, Ear Pain, Dysphagia, Sinus Congestion, Post Nasal Drip, Sore Throat, Epistaxis, Other Symptoms Skin: Denies: Rash, Lesions, Jaundice, Bruising, Itching, Dry, Breakdown, Nail Changes, Other Pulmonary: Denies: Dyspnea, Cough, Pleuritic Chest Pain, Other Symptoms Cardiovascular: Denies: Chest Pain, Palpitations, Orthopnea, Paroxysmal Noc. Dyspnea, Edema, Lt Headedness, Other Symptoms Gastrointestinal: Denies: Nausea, Vomiting, Abdominal Pain, Diarrhea, C onstipation, Melena, Hematochezia, Other Symptoms Musculoskeletal: Denies: Neck Pain, Back Pain, Shoulder Pain, Arm Pain, Hand Pain, Leg Pain, Foot Pain, Joint Pain, Muscle Pain, Spasms, Other Symptoms Neurological: Denies: Weakness, Numbness, Incoordination, Change in speech, Confusion, Seizures, Other Symptoms Objective Physical Examination General Exam: Positive: No Acute Distress Neck Exam: Positive: Supple Chest Exam: Positive: Clear to auscultation Heart Exam: Positive: Irregular Rhythm Telemetry: Positive: Atrial fibrillation Abdomen Exam: Positive: Normal bowel sounds Extremity Exam: Positive: Normal pulses Assessment /Plan Problems (1) Status post laparotomy Status: Acute Problem Text: POD6 Ex Lap small bowel resection for small bowel ischemia POD6 stenting of SMA and celiac artery by Dr. Yo Patient is tolerating regular diet very well wBC count is slightly elevated to 15.9 related vancomycin along with Rocephin for MRSA coverage But patient is afebrile, asymptomatic at the present time Physical therapy and occupational therapy in progress Drain to be continued as per surgery secondary to his large amount of serous drainage (2) GI bleed Status: Resolved Problem Text: (3) Physical deconditioning Status: Acute Problem Text: (4) Decubitus skin ulcer Status: Acute Problem Text: (5) Hypokalemia Status: Acute Problem Text: KCl 40 mg by mouth 1 given Repeat labs in a.m. (6) Atrial fibrillation with RVR Status: Chronic Problem Text: In normal sinus rhythm Rate under control Continue home meds (7) Leukocytosis Status: Acute Problem Text: (8) Uncontrolled hypertension Status: Resolved (9) Mesenteric ischemia Status: Acute (10) Sepsis Status: Acute Problem Text: Sepsis secondary to Streptococcus bacteremia based on a positive blood cultures on admission Patient had a TAVR done with bovine wall, could be possible source of infection Repeat blood cultures have been negative so far Continue ceftriaxone 2 g every 24 hours as per ID Repeat ORLY is scheduled on 01/17/2019 Further decision will made by ID regarding the duration of IV antibiotics depending on the reports of ORLY Will add vancomycin secondary to increasing WBC count and MRSA positive on wound culture Is with ID in a.m. (11) Hypomagnesemia Status: Acute Problem Text: Magnesium sulfate 1 g IV given Repeat labs in a.m. Plan/VTE VTE Prophylaxis Ordered?: Yes VTE Exclusion Pharmacological: Active Bleeding VS, I&O, 24H, Fishbone Vital Signs/I&O Vital Signs Date Time Temp Pulse Resp B/P (MAP) Pulse Ox O2 Delivery O2 Flow Rate FiO2 01/16/19 08:56 76 111/65 01/16/19 08:00 97.2 18 99 01/10/19 04:00 2.0 I&O- Last 24 Hours up to 6 AM 01/16/19 05:59 Intake Total 1570 ml Output Total 510 ml Balance 1060 ml Laboratory Data 24H LABS Laboratory Tests 2 01/15/19 11:14: Anion Gap 12, Glomerular Filtration Rate > 60.0, Blood Urea Nitrogen 8, Creatinine 0.51L, Sodium Level 135L, Potassium Level 3.7#, Chloride Level 106, Carbon Dioxide Level 17L, Calcium Level 7.6L 01/15/19 23:54: Bedside Glucose (Misc Panel) 90 01/16/19 05:25: Anion Gap 6L, Glomerular Filtration Rate > 60.0, Blood Urea Nitrogen 9, Creatinine 0.40L, Sodium Level 135L, Potassium Level 3.3L, Chloride Level 104, Carbon Dioxide Level 25, Calcium Level 7.6L, Immature Granulocyte % (Auto) 2.0, White Blood Count 15.9H, Red Blood Count 3.27L, Hemoglobin 9.9L, Hematocrit 29.8L, Mean Corpuscular Volume 91.1, Mean Corpuscular Hemoglobin 30.3, Mean Corpuscular Hemoglobin Concent 33.2, Red Cell Distribution Width 13.8, Platelet Count 168, Neutrophils (%) (Auto) 87.8H, Lymphocytes (%) (Auto) 5.2L, Monocytes (%) (Auto) 4.2, Eosinophils (%) (Auto) 0.6, Basophils (%) (Auto) 0.2, Neutrophils # (Auto) 14.0H, Lymphocytes # (Auto) 0.8L, Monocytes # (Auto) 0.7, Eosinophils # (Auto) 0.1, Basophils # (Auto) 0.0, Nucleated Red Blood Cells % (auto) 0.0, Aspartate Amino Transf (AST/SGOT) 16, Alanine Aminotransferase (ALT/SGPT) 10L, Alkaline Phosphatase 315H, Total Bilirubin 0.4, Total Protein 4.9L, Albumin 1.2L, Magnesium Level 1.5L, Albumin/Globulin Ratio 0.32L CBC/BMP Laboratory Tests 01/15/19 11:14 Calcium Level 7.6 L 01/16/19 05:25 Calcium Level 7.6 L, Red Blood Count 3.27 L, Mean Corpuscular Volume 91.1, Mean Corpuscular Hemoglobin 30.3, Mean Corpuscular Hemoglobin Concent 33.2, Red Cell Distribution Width 13.8, Neutrophils (%) (Auto) 87.8 H, Lymphocytes (%) (Auto) 5.2 L, Monocytes (%) (Auto) 4.2, Eosinophils (%) (Auto) 0.6, Basophils (%) (Auto) 0.2, Neutrophils # (Auto) 14.0 H, Lymphocytes # (Auto) 0.8 L, Monocytes # (Auto) 0.7, Eosinophils # (Auto) 0.1, Basophils # (Auto) 0.0, Aspartate Amino Transf (AST/SGOT) 16, Alanine Aminotransferase (ALT/SGPT) 10 L, Alkaline Phosp hatase 315 H, Total Bilirubin 0.4, Total Protein 4.9 L, Albumin 1.2 L Microbiology Microbiology 01/11/19 Blood Culture - Preliminary, Resulted No Growth after 72 hours. All specime... 01/09/19 Blood Culture - Final, Complete NO GROWTH AFTER 5 DAYS 01/07/19 Blood Culture - Final, Complete Streptococcus Salivarius 01/07/19 Blood Culture - Final, Complete Streptococcus Salivarius 01/08/19 Stool Occult Blood (KAMRAN) - Final, Complete 01/07/19 Gram Stain - Final, Complete 01/07/19 Wound Culture - Final, Complete Klebsiella Pneumoniae Escherichia Coli Staph.aureus Methicillin Resis RODGER ZUNIGA MD Jan 16, 2019 10:50
[2019-01-16 12:00] VITALS: BP 98/57
[2019-01-16 16:00] VITALS: BP 105/58
--- NOTE | 2019-01-16 16:16 | IPN ---
DATE: 01/16/2019 HISTORY: The patient is now postoperative day #9 from an open small bowel resection for ischemic bowel. He underwent arteriography with placement of celiac and superior mesenteric artery stents on the same day as his bowel resection. Today the patient complains of feeling tired and weak just like yesterday. He has been taking a limited diet. He denies any nausea or vomiting and has had some small bowel movements though these have diminished today. Vital signs show that he has been afebrile over the past 24 hours. His pulse is in the 70s generally and his blood pressure is good. Intake and output show that yesterday he had 2600 in with 560 recorded out. 500 of this was from an abdominal drain. 50 mL was recorded as stool and he had four voids and four incontinent voids recorded numerically but no volume was measured. He also was reported to have had ten bowel movements yesterday. PHYSICAL EXAMINATION: The patient is lying quietly in the hospital bed. He appears fairly comfortable. He is alert and oriented. Heart exam shows a regular rhythm. The lungs are clear. The abdomen shows a dry dressing at the midline. He has a drain in the left side of the abdomen which has some clear serous fluid in the bulb. The abdomen is soft and without any undue tenderness. LABORATORY STUDIES: His CBC today shows a white count of 16,000 with a hemoglobin of 10, hematocrit of 30 and platelet count of 168,000. The differential count shows 88% neutrophils, 5% lymphocytes and 4% monocytes. Chemistry panel today shows a sodium of 135, potassium 3.3, chloride 106, CO2 of 25, BUN of 9, creatinine 0.4, glucose of 83. His magnesium is 1.5. Liver function tests are normal, though his alkaline phosphatase is slightly elevated at 315. His protein and albumin remain low at 4.9 and 1.2 respectively. His chest x-ray yesterday was interpreted as showing no acute cardiopulmonary process. IMPRESSION: The patient remains stable postoperative day #9. His oral intake remains somewhat limited. He reports that he just feels tired and weak and has not reported any nausea or vomiting. His multiple bowel movements seem to have slowed down significantly today. He did have a dose of Imodium late last night. This had been ordered by the hospitalist. PLAN: The patient will have his drain removed today. This only had 20 mL so far today. I do not believe this is of any clinical benefit to him so I will have the drain removed. I encouraged him to take a diet as tolerated. If his diet remains limited and his nutritional parameters do not improve it may be that we will need to resort to total parenteral nutrition again. MTDD
[2019-01-16] MEDS: cefTRIAXone SOD 2 GM in D5W MINI-BAG PLUS 50 ML IV SCH (17:07)
[2019-01-16 20:00] VITALS: BP 115/61
[2019-01-16] MEDS: PRAVASTATIN 20 MG TAB PO SCH (20:11)
[2019-01-17] VITALS (10 sets, daily range): BP systolic 100–136; BP diastolic 56–66
[2019-01-17] MEDS: SODIUM CHLORIDE 0.9% INJ 10 ML SYR IV SCH ×2 (06:19→17:57)
--- NOTE | 2019-01-17 07:40 | IPN ---
DATE: 01/17/2019 I was asked by Dr. Basilio to perform transesophageal echocardiogram on Mr. Eric Gil, ID# [id number]. I met with the patient this morning, took history and examined him. I explained to the patient the nature of the procedure, its indications and potential complications. He did sign appropriate consent. The procedure will be performed later today. He has been nothing by mouth. Otherwise, the physical pertinent findings include presence of normal airway. He has all of his own teeth without dentures or loose fitting dentures. His heart revealed irregular rhythm, with a faint murmur best heard over the aortic valve. I do not appreciate any diastolic murmur or signs of peripheral embolization. SADIE
[2019-01-17 08:05] LABS: BASO % 0.1 % (0.0-1.0); EOS # 0.1 10^3/uL (0.0-0.5); EOS % 0.6 % (0.0-3.0); HEMATOCRIT 30.3 % (42.0-52.0); LYMPH # 0.9 10^3/uL (1.5-5.0); MEAN CORPUSCULAR HEMOGLOBIN 29.7 pg (27.0-33.0); MEAN CORPUSCULAR VOLUME 89.9 fl (80.0-96.0); MONO # 0.7 10^3/uL (0.0-0.8); MONO % 4.3 % (0.0-5.0); NEUTROPHILS # 13.5 10^3/uL (1.5-8.5); NEUTROPHILS % 87.7 % (36.0-66.0); PLATELET COUNT, AUTOMATED 255 10^3/uL (150-450); RED BLOOD COUNT 3.37 10^6/uL (4.30-6.10); WHITE BLOOD COUNT 15.4 10^3/uL (4.0-10.0)
[2019-01-17] MEDS ORDERED: LIDOCAINE 2% INJ 100 MG/5 ML SDV (FOR ANES.) As Ordered ONE (08:08)
[2019-01-17] MEDS ORDERED: propofoL 200 MG/20 ML VIAL As Ordered ONE (08:08)
[2019-01-17] MEDS ORDERED: fentaNYL 100 MCG/2 ML INJECTION (J3010) As Ordered ONE (08:09)
[2019-01-17] MEDS ORDERED: MIDAZOLAM INJ 2 MG/2 ML VIAL (J2250) As Ordered ONE (08:09)
[2019-01-17] MEDS ORDERED: VANCOMYCIN 1000 MG/20 ML VIAL (J3370) As Ordered ONE (08:26)
[2019-01-17 08:31] LABS: ALBUMIN 1.3 GM/DL (3.2-5.2); ALT/SGPT 11 U/L (12-78); BILIRUBIN,TOTAL 0.4 MG/DL (0.2-1.0); BLOOD UREA NITROGEN 12 MG/DL (7-18); CALCIUM LEVEL 8.2 MG/DL (8.8-10.2); CARBON DIOXIDE LEVEL 22 MEQ/L (21-32); CHLORIDE LEVEL 102 MEQ/L (98-107); CREATININE FOR GFR 0.44 MG/DL (0.70-1.30); GLOMERULAR FILTRATION RATE > 60.0 (>42); GLUCOSE, FASTING 72 MG/DL (70-100); MAGNESIUM LEVEL 1.7 MG/DL (1.8-2.4); POTASSIUM SERUM 3.9 MEQ/L (3.5-5.1); SODIUM LEVEL 134 MEQ/L (136-145); TOTAL PROTEIN 4.9 GM/DL (6.4-8.2); VANCOMYCIN LEVEL TROUGH 15.5 UG/ML (10.0-20.0)
[2019-01-17] MEDS: VANCOMYCIN HCL 1,000 MG, VIAL MATE ADAPTER 1 EACH in D5W 250 ML IV SCH (09:00)
[2019-01-17] MEDS ORDERED: LR 1,000 ML IV SCH (09:15)
--- NOTE | 2019-01-17 09:43 | IPNPDOC ---
Subjective Date Seen The patient was seen on 01/17/19. Subjective Chief Complaint/HPI Patient is scheduled for ORLY today and in no apparent distress. Offers no new complaints General: Denies: ROS Unobtainable, Chills, Night Sweats, Fatigue, Malaise, Normal Appetite, Other Symptoms Constitutional: Denies: Chills, Fever, Malaise, Night Sweats, Weakness, Fatigue, Weight Loss, Lethargy, Other Eyes: Denies: Pain, Vision change, Conjunctivae inflammation, Eyelid infla mmation, Redness, Other ENT: Denies: Head Aches, Ear Pain, Dysphagia, Sinus Congestion, Post Nasal Drip, Sore Throat, Epistaxis, Other Symptoms Skin: Denies: Rash, Lesions, Jaundice, Bruising, Itching, Dry, Breakdown, Nail Changes, Other Pulmonary: Denies: Dyspnea, Cough, Pleuritic Chest Pain, Other Symptoms Cardiovascular: Denies: Chest Pain, Palpitations, Orthopnea, Paroxysmal Noc. Dyspnea, Edema, Lt Headedness, Other Symptoms Gastrointestinal: Denies: Nausea, Vomiting, Abdominal Pain, Diarrhea, Constipation, Melena, Hematochezia, Other Symptoms Musculoskeletal: Denies: Neck Pain, Back Pain, Shoulder Pain, Arm Pain, Hand Pain, Leg Pain, Foot Pain, Joint Pain, Muscle Pain, Spasms, Other Symptoms Neurological: Denies: Weakness, Numbness, Incoordination, Change in speech, Confusion, Seizures, Other Symptoms Objective Physical Examination General Exam: Positive: No Acute Distress Neck Exam: Positive: Supple Chest Exam: Positive: Clear to auscultation Heart Exam: Positive: Irregular Rhythm Telemetry: Positive: Atrial fibrillation Abdomen Exam: Positive: Normal bowel sounds Extremity Exam: Positive: Normal pulses Assessment /Plan Problems (1) Status post laparotomy Status: Acute Problem Text: And also had a stenting of SMA and celiac artery done by Dr. Yo. Patient has a history of aortic wall replacement and his wound cultures were positive for Status post Ex Lap small bowel resection for small bowel ischemia Status post stenting of SMA and celiac artery by Dr. Yo Patient is tolerating regular diet, I encouraged him to take a diet as tolerated. If his diet remains limited and his nutritional parameters do not improve it may be that we will need to resort to total parenteral nutrition again. But patient is afebrile, asymptomatic at the present time Vancomycin was again added to Rocephin secondary to increasing WBC count. WBC today is 15.4 which is slightly decreased from yesterday Patient will get a ORLY done today to rule out any vegetation as it has a history of aortic wall replacement with positive strep salivirus on wound culture Will request ID follow-up for this patient as soon as the ORLY report is back Restart physical therapy Drain was removed by surgery yesterday. Further, as per surgery (2) GI bleed Status: Resolved Problem Specific Plan: Repeat Labs Problem Text: (3) Physical deconditioning Status: Acute Problem Text: (4) Decubitus skin ulcer Status: Acute Problem Text: (5) Hypokalemia Status: Acute Problem Text: KCl 40 mg by mouth 1 given Repeat labs in a.m. (6) Atrial fibrillation with RVR Status: Chronic Problem Text: In normal sinus rhythm Rate under control Continue home meds (7) Leukocytosis Status: Acute Problem Text: (8) Uncontrolled hypertension Status: Resolved (9) Mesenteric ischemia Status: Acute (10) Sepsis Status: Acute Problem Text: Sepsis secondary to Streptococcus bacteremia based on a positive blood cultures on admission Patient had a TAVR done with bovine wall, could be possible source of infection Repeat blood cultures have been negative so far Continue ceftriaxone 2 g every 24 hours as per ID aid vancomycin 1 g IV every 12 hours secondary to rising WBC count Repeat ORLY is scheduled today to rule out vegetation Further decision will made by ID regarding the duration of IV antibiotics depending on the reports of ORLY ID follow-up has been requested (11) Hypomagnesemia Status: Acute Problem Text: Magnesium sulfate 1 g IV given Repeat labs in a.m. Plan/VTE VTE Prophylaxis Ordered?: Yes VTE Exclusion Pharmacological: Active Bleeding VS, I&O, 24H, Fishbone Vital Signs/I&O Vital Signs Date Time Temp Pulse Resp B/P (MAP) Pulse Ox O2 Delivery O2 Flow Rate FiO2 01/17/19 09:24 97 68 16 102/64 (77) 98 01/17/19 08:59 10 I&O- Last 24 Hours up to 6 AM 01/17/19 05:59 Intake Total 1700 ml Output Total 85 ml Balance 1615 ml Laboratory Data 24H LABS Laboratory Tests 2 01/17/19 07:54: Immature Granulocyte % (Auto) 1.3, White Blood Count 15.4H, Red Blood Count 3.37L, Hemoglobin 10.0L, Hematocrit 30.3L, Mean Corpuscular Volume 89.9, Mean Corpuscular Hemoglobin 29.7, Mean Corpuscular Hemoglobin Concent 33.0, Red Cell Distribution Width 13.9, Platelet Count 255, Neutrophils (%) (Auto) 87.7H, Lymphocytes (%) (Auto) 6.0L, Monocytes (%) (Auto) 4.3, Eosinophils (%) (Auto) 0.6, Basophils (%) (Auto) 0.1, Neutrophils # (Auto) 13.5H, Lymphocytes # (Auto) 0.9L, Monocytes # (Auto) 0.7, Eosinophils # (Auto) 0.1, Basophils # (Auto) 0.0, Nucleated Red Blood Cells % (auto) 0.0, Anion Gap 10, Glomerular Filtration Rate > 60.0, Blood Urea Nitrogen 12, Creatinine 0.44L, Sodium Level 134L, Potassium Level 3.9, Chloride Level 102, Carbon Dioxide Level 22, Calcium Level 8.2L, Aspartate Amino Transf (AST/SGOT) 18, Alanine Aminotransferase (ALT/SGPT) 11L, Alkaline Phosphatase 373H, Total Bilirubin 0.4, Total Protein 4.9L, Albumin 1.3L, Magnesium Level 1.7L, Albumin/Globulin Ratio 0.36L, Vancomycin Level Trough 15.5 CBC/BMP Laboratory Tests 01/17/19 07:54 Red Blood Count 3.37 L, Mean Corpuscular Volume 89.9, Mean Corpuscular Hemoglobin 29.7, Mean Corpuscular Hemoglobin Concent 33.0, Red Cell Distribution Width 13.9, Neutrophils (%) (Auto) 87.7 H, Lymphocytes (%) (Auto) 6.0 L, Monocytes (%) (Auto) 4.3, Eosinophils (%) (Auto) 0.6, Basophils (%) (Auto) 0.1, Neutrophils # (Auto) 13.5 H, Lymphocytes # (Auto) 0.9 L, Monocytes # (Auto) 0.7, Eosinophils # (Auto) 0.1, Basophils # (Auto) 0.0, Calcium Level 8.2 L, Aspartate Amino Transf (AST/SGOT) 18, Alanine Aminotransferase (ALT/SGPT) 11 L, Alkaline Phosphatase 373 H, Total Bilirubin 0.4, Total Protein 4.9 L, Albumin 1.3 L Microbiology Microbiology 01/11/19 Blood Culture - Final, Complete NO GROWTH AFTER 5 DAYS 01/09/19 Blood Culture - Final, Complete NO GROWTH AFTER 5 DAYS 01/07/19 Blood Culture - Final, Complete Streptococcus Salivarius 01/07/19 Blood Culture - Final, Complete Streptococcus Salivarius 01/08/19 Stool Occult Blood ([facility]) - Final, Complete 01/07/19 Gram Stain - Final, Complete 01/07/19 Wound Culture - Final, Complete Klebsiella Pneumoniae Escherichia Coli Staph.aureus Methicillin Resis RODGER ZUNIGA MD Jan 17, 2019 09:43
[2019-01-17] MEDS ORDERED: MAG SULF 1GM/100ML (MAG RUN) 1 GM in IV 1 EA IV ONE (10:00)
[2019-01-17] MEDS: FINASTERIDE 5 MG TAB PO SCH (10:15)
[2019-01-17] MEDS: POTASSIUM CHLORIDE 10 MEQ SR TABLET PO SCH (10:15)
[2019-01-17] MEDS: METOPROLOL TART 50 MG TAB PO SCH ×2 (10:17→21:11)
[2019-01-17] MEDS: THIAMINE 100 MG TAB PO SCH ×2 (10:18→21:11)
[2019-01-17] MEDS: AMIODARONE 200 MG TAB (PACERONE) PO SCH ×2 (10:18→21:11)
[2019-01-17] MEDS: CLOPIDOGREL 75 MG TAB PO SCH (10:18)
[2019-01-17] MEDS: MAGNESIUM CHLORIDE 64 MG TABCR (SLO MAG) PO SCH (10:18)
[2019-01-17] MEDS: VANICREAM MOISTURIZING SKIN CREAM 113GM TUBE TOP SCH (10:19)
[2019-01-17 15:27] LABS: C REACTIVE PROTEIN QUANTITATIV 6.06 MG/DL (0.00-0.30)
[2019-01-17 16:18] LABS: ERYTHROCYTE SEDIMENTATION RATE 70 mm/hr (0-20)
[2019-01-17] MEDS: cefTRIAXone SOD 2 GM in D5W MINI-BAG PLUS 50 ML IV SCH (17:07)
--- NOTE | 2019-01-17 18:45 | IPN ---
DATE: 01/17/2019 SUBJECTIVE: Mr. Eisenberg is a 78-year-old male who does not appear in acute distress, laying comfortably in his bed with his granddaughter at bedside playing Tile. The patient states that he is feeling relatively well, just very weak and has been tired for the last couple of days. He denies having any fevers, chills, night sweats, shortness of breath, trouble breathing, nausea, vomiting, diarrhea. He does admit to having some abdominal discomfort, which has been there but is slowly improving as the days go by. He states that he has not worked with physical therapy (PT) for the last couple of days for he has been pretty weak. But he will work with them tomorrow. PHYSICAL EXAMINATION: Vital Signs: Temperature 97.3, pulse 70, respirations 18, blood pressure 100/56 (71), pulse oximetry 96% on room air. Heart: Regular rate and rhythm with a 2/6 holosystolic murmur appreciated on the right second intercostal space with no radiation. Lungs: Clear to auscultation bilaterally with no audible wheezing, rhonchi or rales. Abdomen: Continues to have a distended abdomen with minimal tenderness around the surgical site, which is improving since we have last seen him. No drainage or discharge noted on the dressing. Lower Extremities: 1+ pitting edema up to mid calf bilaterally with dry gangrenous changes on the distal tips of the left toes on the 2nd, 3rd and 5th, noninfectious in nature. No open wounds continue to be noted. Dry scaly skin on bilateral feet are improved but left continues to be worse than right. LABORATORY: WBC 15.4, hemoglobin 10.0, hematocrit 30.3, platelets 255. Chemistries: Electrolytes - sodium 134, potassium 3.9, chloride 102, carbon dioxide 22, BUN 12, creatinine 0.44, fasting glucose 72. Alkaline phosphatase 273. CRP is 6.06. Blood cultures are negative since 01/09/2019; no growth for 5 days. Transesophageal echocardiogram (ORLY) report is currently pending. ANTIBIOTICS: Ceftriaxone every 24 hours IV plus vancomycin 1 gram every 12 hours. ASSESSMENT: This is a very pleasant 78-year-old male with a pertinent history of paroxysmal atrial fibrillation, currently on anticoagulation, 50-pound weight loss since May 2017, who is currently being treated for Streptococcus salivarius bacteremia with acute mesenteric ischemia, on ceftriaxone 2 grams every 24 hours. Recently he was just started on vancomycin yesterday for an increased white count, but clinically he has been improving. He had a ORLY done by Dr. Lozada today, which showed positive vegetations. The official report is currently pending. PLAN: 1. We will continue with the ceftriaxone 2 grams every 24 hours for treatment for endocarditis for the next 6 weeks, end date being 02/22/2019. He has a peripherally inserted central catheter (PICC) line in place, and once he is clinically stable, he can continue with antibiotics when discharged. 2. Discontinue the vancomycin, which was initially started yesterday for an increasing white count. Clinically, the patient is improving. If the white count continues to climb today, will need to evaluate the decubitus ulcer for on initial evaluation it was noninfectious or will have to consider doing repeat imaging of the abdomen for the patient does still complain of abdominal discomfort. 3. Deconditioning. Patient is significantly deconditioned. At the current time, will benefit from acute rehab or NH placement for he has no one to take care of him. He will continue IV antibiotics in either/or of those locations. SADIE
--- NOTE | 2019-01-17 20:47 | T-ECHO ---
DATE OF PROCEDURE: 01/17/2019 REFERRING PHYSICIAN: Dr. Basilio INDICATION: Streptococcal bacteremia in patient with aortic valve replacement, suspicion for bacterial endocarditis. PROCEDURE: Transesophageal echocardiogram. PROCEDURE PERFORMED BY: Dr. Evelin Lozada ANESTHESIA: Kanwal Buenrostro CRNA BRIEF HISTORY: Mr. Eisenberg is a 78-year-old man who has a history of paroxysmal atrial fibrillation, aortic valve replacement with bioprosthesis and coronary artery bypass grafting. He presented with altered mental status and was found to have evidence for infection. His decubital ulcer on his buttocks grew mixed gregg but blood cultures were positive for Streptococcus on two separate occasions. In setting of prosthetic valve, there was raised suspicion for bacterial endocarditis. After transthoracic echocardiogram did not provide convincing evidence for the vegetation, transesophageal echocardiogram was ordered. The patient also had ischemic colon and underwent intervention to mesenteric artery and small bowel resection. I spoke about the procedure with the patient the morning of the procedure in his room. I explained the rationale and potential outcomes. He did sign appropriate consent. PROCEDURE NOTE: Procedure was performed in the operating room. The patient was in fasting condition. After appropriate time-out was taken and all monitors were applied, the patient's posterior pharynx was anesthetized using Cetacaine spray. The patient was then positioned in the left lateral decubital position. Bite block was placed. After appropriate level of sedation was accomplished by anesthesiology, probe was introduced into esophagus and later stomach without difficulty. After appropriate images were taken, it was withdrawn. There were no immediate complications. FINDINGS: Left ventricle appears to be normal systolic function with estimated ejection fraction (EF) around 60%. I do not appreciate any segmental wall motion abnormalities. Same applies for right ventricle. Both atria appear enlarged. Mitral valve has normal anatomy. No vegetations or prolapse is apparent. Mild mitral insufficiency seen by color Doppler imaging. Left atrial appendix is free of thrombi. There is normal flow in both left-sided and right-sided pulmonary veins. Atrial septum is intact based on 2D and color Doppler imaging. Tricuspid valve was fairly seen. There is mild tricuspid insufficiency. Calculated pulmonary artery pressure was in 30s. No vegetation is seen. Pulmonic valve was poorly visualized but grossly appears normal. There is a bioprosthetic valve in aortic position. The valve itself was relatively poorly seen but grossly appears intact. There is a mobile echodensity attached to the aortic surface of the valve in appropriate clinical setting consistent with vegetation. By color Doppler imaging, there is trace aortic insufficiency. Peak gradient across the valve was 23 and mean gradient 13 mmHg. No pericardial effusion is noted. Mild atherosclerosis of aortic arch was noted. CONCLUSION: 1. Preserved left ventricular (LV) systolic function. 2. Normally functioning mitral valve with only mild insufficiency. 3. Bioprosthetic aortic valve with trivial insufficiency and no stenosis, mobile echodensity attached to aortic surface consistent with vegetation. 4. Mild tricuspid insufficiency, mild pulmonary hypertension. 5. Mild atherosclerosis of thoracic aorta. COMMENT: Subacute bacterial endocarditis (SBE) is recommended. In appropriate clinical setting, this study confirms presence of bacterial endocarditis. [facility]
[2019-01-17] MEDS: PRAVASTATIN 20 MG TAB PO SCH (21:11)
--- NOTE | 2019-01-17 21:36 | IPN ---
DATE: 01/14/2019 He is tolerating his dinner with no complaints. He has had no fever or chills. No abdominal pain. PHYSICAL EXAMINATION: Temperature is 97.3, pulse 68, respirations 18, blood pressure 115/71, oxygen saturation 98% on room air. HEART: Normal S1, S2 with systolic ejection murmur, 2/6, unchanged. LUNGS: Clear. No wheezes, rales, or rhonchi. ABDOMEN: Mildly tender. Incision site is clean. EXTREMITIES: Bilateral lower extremity edema. LABORATORY DATA: White count 12.3, hemoglobin 11.5, hematocrit 34.3, platelets 195, 96% neutrophils, 6% lymphocytes, 5% monocytes. Sodium 133, potassium 3.1, chloride 103, bicarbonate 24, BUN 10, creatinine 0.32, glucose 76, calcium 7.8, magnesium 1.3. AST 25, ALT 12, alkaline phosphatase 327, CRP 5.1, down from 14 on January 11. Blood cultures on January 07 were positive for Streptococcus salivarius. Decubitus ulcer has Klebsiella, Escherichia (E) coli, and methicillin-resistant Staphylococcus aureus (MRSA). Repeat blood cultures on January 09, and January 11 are negative. IMPRESSION: 1. Streptococcus salivarius bacteremia in a patient with an aortic valve replacement. Patient is scheduled for a transesophageal echocardiogram on January 17, to be done by Dr. Lozada. In the meantime, he will continue intravenous (IV) Rocephin for presumptive endocarditis. 2. 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 Tolerating a clear liquid last night. 3. Decubitus ulcer colonized with methicillin-resistant Staphylococcus aureus (MRSA) , Escherichia (E) coli, and Klebsiella, currently being treated conservatively with dressing changes and alternating size of the decubitus ulcer . There is no evidence of evidence of infection there at this point. PLAN: Continue IV Rocephin to run every 24 hours. Transesophageal echocardiogram on Thursday. Plan of treatment with will depend on those results. [facility]
[2019-01-18] VITALS: BP 118/61
[2019-01-18 04:00] VITALS: BP 123/69
[2019-01-18] MEDS: SODIUM CHLORIDE 0.9% INJ 10 ML SYR IV SCH ×2 (05:56→17:56)
[2019-01-18 07:39] VITALS: BP 131/67
[2019-01-18] MEDS: POTASSIUM CHLORIDE 10 MEQ SR TABLET PO SCH (08:10)
[2019-01-18] MEDS: AMIODARONE 200 MG TAB (PACERONE) PO SCH ×2 (08:10→20:25)
[2019-01-18] MEDS: CLOPIDOGREL 75 MG TAB PO SCH (08:10)
[2019-01-18] MEDS: FINASTERIDE 5 MG TAB PO SCH (08:10)
[2019-01-18] MEDS: METOPROLOL TART 50 MG TAB PO SCH ×2 (08:11→20:25)
[2019-01-18] MEDS: THIAMINE 100 MG TAB PO SCH ×2 (08:11→20:25)
[2019-01-18] MEDS: MAGNESIUM CHLORIDE 64 MG TABCR (SLO MAG) PO SCH (08:11)
[2019-01-18 08:15] LABS: BASO % 0.2 % (0.0-1.0); EOS # 0.1 10^3/uL (0.0-0.5); EOS % 0.4 % (0.0-3.0); HEMATOCRIT 30.7 % (42.0-52.0); HEMOGLOBIN 10.1 g/dl (13.5-17.5); LYMPH # 0.9 10^3/uL (1.5-5.0); LYMPH % 6.3 % (24.0-44.0); MEAN CORPUSCULAR HEMOGLOBIN 30.3 pg (27.0-33.0); MEAN CORPUSCULAR HGB CONC 32.9 g/dl (32.0-36.5); MEAN CORPUSCULAR VOLUME 92.2 fl (80.0-96.0); MONO # 0.6 10^3/uL (0.0-0.8); MONO % 4.6 % (0.0-5.0); NEUTROPHILS # 11.9 10^3/uL (1.5-8.5); NEUTROPHILS % 87.5 % (36.0-66.0); PLATELET COUNT, AUTOMATED 301 10^3/uL (150-450); RED BLOOD COUNT 3.33 10^6/uL (4.30-6.10); WHITE BLOOD COUNT 13.5 10^3/uL (4.0-10.0)
[2019-01-18] MEDS: VANICREAM MOISTURIZING SKIN CREAM 113GM TUBE TOP SCH (08:16)
--- NOTE | 2019-01-18 08:32 | IPN ---
DATE: 01/18/2019 I came to talk to Mr. Eisenberg about the transesophageal echocardiogram that I performed yesterday. I explained to him again that there is evidence for vegetation on his aortic valve and also explained the ramifications of these findings. He does not have any negative consequences after the procedure and has been feeling relatively well. Unfortunately, he is facing a tough clinical situation. I am sincerely hopeful that he will not have to consider redo open heart surgery which in his condition would be very challenging proposition.
[2019-01-18 08:49] LABS: ALBUMIN 1.4 GM/DL (3.2-5.2); ALT/SGPT 11 U/L (12-78); BILIRUBIN,TOTAL 0.4 MG/DL (0.2-1.0); BLOOD UREA NITROGEN 11 MG/DL (7-18); CALCIUM LEVEL 8.2 MG/DL (8.8-10.2); CARBON DIOXIDE LEVEL 23 MEQ/L (21-32); CHLORIDE LEVEL 103 MEQ/L (98-107); CREATININE FOR GFR 0.44 MG/DL (0.70-1.30); GLOMERULAR FILTRATION RATE > 60.0 (>42); GLUCOSE, FASTING 88 MG/DL (70-100); SODIUM LEVEL 136 MEQ/L (136-145); TOTAL PROTEIN 4.7 GM/DL (6.4-8.2)
--- NOTE | 2019-01-18 10:27 | IPNPDOC ---
Subjective Date Seen The patient was seen on 01/18/19. Subjective Chief Complaint/HPI Patient comfortable. His in no apparent distress. Offers no new complaints General: Denies: ROS Unobtainable, Chills, Night Sweats, Fatigue, Malaise, Normal Appetite, Other Symptoms Constitutional: Denies: Chills, Fever, Malaise, Night Sweats, Weakness, Fatigue, Weight Loss, Lethargy, Other Eyes: Denies: Pain, Vision change, Conjunctivae inflammation, Eyelid inflammation, Redness, Other ENT: Denies: Head Aches, Ear Pain, Dysphagia, Sinus Congestion, Post Nasal Drip, Sore Throat, Epistaxis, Other Symptoms Skin: Denies: Rash, Lesions, Jaundice, Bruising, Itching, Dry, Breakdown, Nail Changes, Other Pulmonary: Denies: Dyspnea, Cough, Pleuritic Chest Pain, Other Symptoms Cardiovascular: Denies: Chest Pain, Palpitations, Orthopnea, Paroxysmal Noc. Dyspnea, Edema, Lt Headedness, Other Symptoms Gastrointestinal: Denies: Nausea, Vomiting, Abdominal Pain, Diarrhea, Constipation, Melena, Hematochezia, Other Symptoms Genitourinary: Denies: Dysuria, Frequency, Incontinence, Hematuria, Retention, Other Symptoms Hematologic: Denies: Bruising, Bleeding Excessively, Petecchia, Purpura, Enlarged Lymph Nodes, Other Hematologic Musculoskeletal: Denies: Neck Pain, Back Pain, Shoulder Pain, Arm Pain, Hand Pain, Leg Pain, Foot Pain, Joint Pain, Muscle Pain, Spasms, Other Symptoms Neurological: Denies: Weakness, Numbness, Incoordination, Change in speech, Confusion, Seizures, Other Symptoms Objective Physical Examination General Exam: Positive: No Acute Distress Neck Exam: Positive: Supple Chest Exam: Positive: Clear to auscultation Heart Exam: Positive: Irregular Rhythm Telemetry: Positive: Atrial fibrillation Abdomen Exam: Positive: Normal bowel sounds Extremity Exam: Positive: Normal pulses Assessment /Plan Problems (1) Subacute bacterial endocarditis (SBE) Status: Acute Problem Text: Repeat PE consistent with subacute bacterial endocarditis Patient is currently receiving Rocephin as per IDs recommendation Will reach out to Dr. tobias for any further recommendations Patient has a PICC line in already Possible transfer to subacute rehabilitation facility once cleared by ID (2) Status post laparotomy Status: Acute Problem Text: And also had a stenting of SMA and celiac artery done by Dr. Yo. Patient has a history of aortic wall replacement and his wound cultures were positive for Status post Ex Lap small bowel resection for small bowel ischemia Status post stenting of SMA and celiac artery by Dr. Yo Patient is tolerating regular diet, . But patient is afebrile, asymptomatic at the present time Further, as per surgery (3) GI bleed Status: Resolved Problem Specific Plan: Repeat Labs Problem Text: (4) Physical deconditioning Status: Acute Problem Text: (5) Decubitus skin ulcer Status: Acute Problem Text: (6) Hypokalemia Status: Acute Problem Text: KCl 40 mg by mouth 1 given Repeat labs in a.m. (7) Atrial fibrillation with RVR Status: Chronic Problem Text: In normal sinus rhythm Rate under control Continue home meds (8) Leukocytosis Status: Acute Problem Text: (9) Uncontrolled hypertension Status: Resolved (10) Mesenteric ischemia Status: Acute (11) Sepsis Status: Acute Problem Text: Sepsis secondary to Streptococcus bacteremia based on a positive blood cultures on admission Patient had a TAVR done with bovine wall, could be possible source of infection Repeat blood cultures have been negative so far Continue ceftriaxone 2 g every 24 hours as per ID aid vancomycin 1 g IV every 12 hours secondary to rising WBC count Repeat ORLY is scheduled today to rule out vegetation Further decision will made by ID regarding the duration of IV antibiotics depending on the reports of ORLY ID follow-up has been requested (12) Hypomagnesemia Status: Acute Problem Text: Magnesium sulfate 1 g IV given Repeat labs in a.m. Plan/VTE VTE Prophylaxis Ordered?: Yes VTE Exclusion Pharmacological: Active Bleeding VS, I&O, 24H, Fishbone Vital Signs/I&O Vital Signs Date Time Temp Pulse Resp B/P (MAP) Pulse Ox O2 Delivery O2 Flow Rate FiO2 01/18/19 07:39 97.5 73 16 131/67 (88) 98 01/17/19 08:59 10 I&O- Last 24 Hours up to 6 AM 01/18/19 05:59 Intake Total 972 ml Output Total 150 ml Balance 822 ml Laboratory Data 24H LABS Laboratory Tests 2 01/18/19 08:01: Immature Granulocyte % (Auto) 1.0, White Blood Count 13.5H, Red Blood Count 3.33L, Hemoglobin 10.1L, Hematocrit 30.7L, Mean Corpuscular Volume 92.2, Mean Corpuscular Hemoglobin 30.3, Mean Corpuscular Hemoglobin Concent 32.9, Red Cell Distribution Width 13.8, Platelet Count 301, Neutrophils (%) (Auto) 87.5H, Lymphocytes (%) (Auto) 6.3L, Monocytes (%) (Auto) 4.6, Eosinophils (%) (Auto) 0.4, Basophils (%) (Auto) 0.2, Neutrophils # (Auto) 11.9H, Lymphocytes # (Auto) 0.9L, Monocytes # (Auto) 0.6, Eosinophils # (Auto) 0.1, Basophils # (Auto) 0.0, Nucleated Red Blood Cells % (auto) 0.0, Anion Gap 10, Glomerular Filtration Rate > 60.0, Blood Urea Nitrogen 11, Creatinine 0.44L, Sodium Level 136, Potassium Level 4.0, Chloride Level 103, Carbon Dioxide Level 23, Calcium Level 8.2L, Aspartate Amino Transf (AST/SGOT) 18, Alanine Aminotransferase (ALT/SGPT) 11L, Alkaline Phosphatase 361H, Total Bilirubin 0.4, Total Protein 4.7L, Albumin 1.4L, Albumin/Globulin Ratio 0.42L CBC/BMP Laboratory Tests 01/18/19 08:01 Red Blood Count 3.33 L, Mean Corpuscular Volume 92.2, Mean Corpuscular Hemoglobin 30.3, Mean Corpuscular Hemoglobin Concent 32.9, Red Cell Distribution Width 13.8, Neutrophils (%) (Auto) 87.5 H, Lymphocytes (%) (Auto) 6.3 L, Monocytes (%) (Auto) 4.6, Eosinophils (%) (Auto) 0.4, Basophils (%) (Auto) 0.2, Neutrophils # (Auto) 11.9 H, Lymphocytes # (Auto) 0.9 L, Monocytes # (Auto) 0.6, Eosinophils # (Auto) 0.1, Basophils # (Auto) 0.0, Calcium Level 8.2 L, Aspartate Amino Transf (AST/SGOT) 18, Alanine Aminotransferase (ALT/SGPT) 11 L, Alkaline Phosphatase 361 H, Total Bilirubin 0.4, Total Protein 4.7 L, Albumin 1.4 L Microbiology Microbiology 01/11/19 Blood Culture - Final, Complete NO GROWTH AFTER 5 DAYS 01/09/19 Blood Culture - Final, Complete NO GROWTH AFTER 5 DAYS 01/08/19 Stool Occult Blood (KAMRAN) - Final, Complete RODGER ZUNIGA MD Jan 18, 2019 10:27
[2019-01-18 14:05] LABS: C REACTIVE PROTEIN QUANTITATIV 5.44 MG/DL (0.00-0.30)
--- NOTE | 2019-01-18 15:22 | IPNPDOC ---
Subjective General Date/Time Seen The patient was seen on 01/18/19 at 15:18. Subject Chief Complaint/History The patient is a 78-year-old male admitted with a reason for visit of Decubitus Skin Ulcer,Hypokalemia,Ugi Bleed,Physica. Patient continues to do well. He is starting to increase activity, increasing oral intake. He has soft stools, no overt diarrhea. He has been afebrile. Current Medications Current Medications Current Medications Medications (Trade) Dose Ordered Sig/Brandon Route PRN Reason Start Time Stop Time Status Last Admin Dose Admin Acetaminophen (Tylenol Tab) 500 mg Q4H PRN PO PAIN 01/07/19 15:30 Amino Ac/Electrol/ Dextrose/Calcium 2,000 ml @ 70 mls/hr ONCE@1800 IV 01/13/19 18:00 01/14/19 17:59 Cancel Amiodarone HCl (Pacerone, Cordarone) 200 mg BID PO 01/07/19 21:00 01/18/19 08:10 Bisacodyl (Dulcolax Suppository) 10 mg DAILY PRN NM CONSTIPATION 01/07/19 15:30 Future hold Ceftriaxone Sodium 2 gm/ Dextrose 50 ml @ 100 mls/hr Q24H IV 01/11/19 17:00 01/17/19 17:07 Clopidogrel Bisulfate (PLAVix) 75 mg DAILY PO 01/09/19 09:00 01/18/19 08:10 Dextrose/Sodium Chloride 1,000 ml @ 125 mls/hr Q8H IV 01/09/19 10:00 01/10/19 06:53 DC 01/09/19 18:19 Diatrizoate Meglum/ Diatrizoate Sod (Gastrografin) 10 ml Q30M PO 01/07/19 16:00 01/07/19 16:31 DC 01/07/19 18:29 Emollient Cream (Vanicream) Apply to dry areas daily DAILY TOP 01/13/19 09:00 01/18/19 08:16 Fat Emulsion Intravenous 500 ml @ 20 mls/hr ONCE@1800 IV 01/11/19 18:00 01/12/19 17:59 DC 01/11/19 17:42 Fat Emulsion Intravenous 500 ml @ 20 mls/hr ONCE@1800 IV 01/12/19 18:00 01/13/19 17:59 DC 01/12/19 17:27 Fat Emulsion Intravenous 500 ml @ 20 mls/hr ONCE@1800 IV 01/13/19 18:00 01/14/19 17:59 Cancel Fentanyl Citrate (Sublimaze) 25 mcg Q5MP PRN IV MODERATE PAIN (PS 4-7) 01/08/19 14:30 01/08/19 14:31 DC Finasteride (Proscar) 5 mg DAILY PO 01/08/19 09:00 01/18/19 08:10 Furosemide (Lasix) 40 mg BID@09,17 PO 01/13/19 17:00 01/15/19 13:19 DC 01/14/19 17:52 Heparin Sodium (Heparin (Flush)) 200 units ASDIRECTED PRN IV SEE LABEL COMMENTS 01/11/19 17:30 Heparin Sodium (Heparin (Flush)) 200 units PICC IV 01/11/19 18:00 01/18/19 05:56 Heparin Sodium (Porcine) (Heparin) ASDIRECTED PRN IV SEE LABEL COMMENTS 01/07/19 22:00 01/09/19 12:13 DC Heparin Sodium (Porcine) 97716 units/IV Miscellaneous Supplies 250 ml @ 0 mls/hr Q0M IV 01/07/19 21:46 01/08/19 14:00 DC 01/08/19 00:10 Home Med (Med Rec Complete!) ASDIRECTED XX 01/07/19 14:00 01/07/19 14:00 DC Insulin Human Lispro (HumaLOG INSULIN) See Protocol Table Q6H SC 01/11/19 18:00 01/12/19 12:01 DC 01/12/19 12:42 Insulin Human Lispro (HumaLOG INSULIN) See Protocol Table Q6H SC 01/12/19 18:00 01/13/19 12:01 DC 01/13/19 12:16 Lactated Ringer's 1,000 ml @ 75 mls/hr [id number] IV 01/08/19 14:30 01/08/19 19:24 DC Lactated Ringer's 1,000 ml @ 100 mls/hr Q10H IV 01/17/19 09:15 01/17/19 10:15 DC Loperamide HCl (Imodium) 2 mg ASDIRECTED PRN PO DIARRHEA 01/15/19 01:45 9/9/19 01:44 Cancel Loperamide HCl (Imodium) 2 mg ASDIRECTED PRN PO DIARRHEA 01/15/19 22:45 01/15/19 22:55 Magnesium Chloride (Slow-Mag) 64 mg DAILY PO 01/08/19 09:00 01/18/19 08:11 Magnesium Sulfate/ Dextrose 1 gm/IV Miscellaneous Supplies 100 ml @ 100 mls/hr 0000,2300 IV 01/10/19 23:00 01/11/19 03:00 DC 01/11/19 00:26 Metoclopramide HCl (REGLAN INJection) 10 mg Q6HP PRN IV NAUSEA OR VOMITING 01/08/19 14:30 01/08/19 19:25 DC Metoprolol Tartrate (Lopressor) 50 mg BID PO 01/07/19 21:00 01/11/19 21:54 DC 01/08/19 08:36 Metoprolol Tartrate (Lopressor) 50 mg BID PO 01/12/19 09:00 01/18/19 08:11 Miscellaneous (Unresolved Clarification Entry) SEE LABEL COMMENTS DAILY XX 01/14/19 09:00 01/15/19 22:43 DC Morphine Sulfate (Morphine Sulfate Inj) 2 mg Q1HP PRN IV MILD/MODERATE PAIN (PS 1-7) 01/08/19 14:00 01/15/19 13:19 DC 01/12/19 08:26 Morphine Sulfate (Morphine Sulfate Inj) 4 mg Q3HP PRN IV SEVERE PAIN (PS 8-10) 01/08/19 14:00 01/15/19 13:19 DC 01/09/19 18:15 Multivitamins 10 ml/Chromium/ Copper/Manganese/ Seleni/Zn 1 ml/ Magnesium Sulfate 5 meq/Amino Ac/ Electrol/Dextrose/ Calcium 2,012.25 ml @ 70 mls/hr ONCE@1800 IV 01/12/19 18:00 01/13/19 15:52 DC 01/12/19 17:27 Non-Formulary Medication (Heparin Iv Rate Change Documentation ml/ Hr) ASDIRECTED XX 01/07/19 22:00 01/09/19 12:13 DC Ondansetron HCl (ZOFRAN INJection) 4 mg Q4HP PRN IV NAUSEA OR VOMITING 01/08/19 14:30 01/09/19 11:44 DC Pantoprazole Sodium (Protonix) 40 mg BID IV 01/07/19 21:00 01/15/19 01:29 DC 01/14/19 20:49 Piperacillin Sod/ Tazobactam Sod 3.375 gm/Dextrose 50 ml @ 50 mls/hr Q6H IV 01/07/19 23:00 01/11/19 15:43 DC 01/11/19 10:59 Potassium Chloride 10 meq/ IV Miscellaneous Supplies 100 ml @ 100 mls/hr Q1H IV 01/13/19 08:00 01/13/19 11:59 DC 01/13/19 12:16 Potassium Chloride 10 meq/ IV Miscellaneous Supplies 100 ml @ 100 mls/hr Q1H IV 01/15/19 08:00 01/15/19 11:59 DC 01/15/19 14:05 Potassium Chloride 40 meq/ Amino Ac/Electrol/ Dextrose/Calcium 2,020 ml @ 70 mls/hr ONCE@1800 IV 01/11/19 18:00 01/12/19 17:59 DC 01/11/19 17:42 Potassium Chloride/Sodium Chloride 1,000 ml @ 100 mls/hr Q10H IV 01/07/19 15:30 01/09/19 08:40 DC 01/08/19 11:30 Potassium Chloride 1,000 ml @ 125 mls/hr Q8H IV 01/10/19 07:00 01/11/19 16:30 DC 01/10/19 21:02 Potassium Chloride (Micro-K Extencaps) 40 meq DAILY PO 01/16/19 09:00 01/18/19 08:10 Pravastatin Sodium (Pravachol) 40 mg QHS PO 01/07/19 21:00 Future hold 01/17/19 21:11 Senna/Docusate Sodium (Senokot S) 2 tab BID PRN PO CONSTIPATION 01/07/19 15:30 01/15/19 01:29 DC Sodium Chloride 1,000 ml @ 100 mls/hr Q10H IV 01/07/19 15:12 01/07/19 15:26 DC Sodium Chloride 1,000 ml @ 125 mls/hr Q8H IV 01/08/19 19:30 01/09/19 08:40 DC 01/09/19 05:30 Sodium Chloride 1,000 ml @ 150 mls/hr Q6H40M IV 01/07/19 13:15 01/07/19 15:26 DC 01/07/19 14:02 Sodium Chloride (Saline Lock Flush) 10 ML PICC IV 01/11/19 18:00 01/18/19 05:56 Sodium Chloride (Saline Lock Flush) 10ML ASDIRECTED PRN IV SEE LABEL COMMENTS 01/11/19 17:30 Thiamine HCl (Thiamine HCl) 100 mg BID PO 01/07/19 21:00 Future hold 01/18/19 08:11 Vancomycin HCl 1000 mg/IV Miscellaneous Supplies 1 each/ Dextrose 270 ml @ 270 mls/hr Q12H IV 01/09/19 13:00 01/11/19 15:43 DC 01/11/19 13:16 Vancomycin HCl 1000 mg/IV Miscellaneous Supplies 1 each/ Dextrose 270 ml @ 270 mls/hr Q12H IV 01/16/19 09:00 01/17/19 18:03 DC 01/16/19 20:11 Vitamin D (Drisdol) 50,000 units Grissom@0900 PO 01/09/19 09:00 01/09/19 09:00 DC Allergies Coded Allergies: No Known Allergies (Unverified , 03/18/17) Objective Physical Examination Examination Patient looks comfortable sitting up on the chair. He looks well. His abdomen looks benign, nondistended. Midline incision with toby intact with no drainage and appears to be healing well. Drain site with dressing intact with slight staining no gross erythema. Nontender on palpation Vital Signs Vital Signs Date Time Temp Pulse Resp B/P (MAP) Pulse Ox O2 Delivery O2 Flow Rate FiO2 01/18/19 07:39 97.5 73 16 131/67 (88) 98 01/17/19 08:59 10 I&Os I&O- Last 24 Hours up to 6 AM 01/18/19 05:59 Intake Total 972 ml Output Total 150 ml Balance 822 ml Laboratory Data Labs 24H Laboratory Tests 2 01/18/19 08:01: Immature Granulocyte % (Auto) 1.0, White Blood Count 13.5H, Red Blood Count 3.33L, Hemoglobin 10.1L, Hematocrit 30.7L, Mean Corpuscular Volume 92.2, Mean Corpuscular Hemoglobin 30.3, Mean Corpuscular Hemoglobin Concent 32.9, Red Cell Distribution Width 13.8, Platelet Count 301, Neutrophils (%) (Auto) 87.5H, Lymphocytes (%) (Auto) 6.3L, Monocytes (%) (Auto) 4.6, Eosinophils (%) (Auto) 0.4, Basophils (%) (Auto) 0.2, Neutrophils # (Auto) 11.9H, Lymphocytes # (Auto) 0.9L, Monocytes # (Auto) 0.6, Eosinophils # (Auto) 0.1, Basophils # (Auto) 0.0, Nucleated Red Blood Cells % (auto) 0.0, Anion Gap 10, Glomerular Filtration Rate > 60.0, Blood Urea Nitrogen 11, Creatinine 0.44L, Sodium Level 136, Potassium Level 4.0, Chloride Level 103, Carbon Dioxide Level 23, Calcium Level 8.2L, Aspartate Amino Transf (AST/SGOT) 18, Alanine Aminotransferase (ALT/SGPT) 11L, Alkaline Phosphatase 361H, Total Bilirubin 0.4, Total Protein 4.7L, Albumin 1.4L, C-Reactive Protein, Quantitative 5.44H, Albumin/Globulin Ratio 0.42L CBC/BMP Laboratory Tests 01/18/19 08:01 Red Blood Count 3.33 L, Mean Corpuscular Volume 92.2, Mean Corpuscular Hemoglobin 30.3, Mean Corpuscular Hemoglobin Concent 32.9, Red Cell Distribution Width 13.8, Neutrophils (%) (Auto) 87.5 H, Lymphocytes (%) (Auto) 6.3 L, Monocytes (%) (Auto) 4.6, Eosinophils (%) (Auto) 0.4, Basophils (%) (Auto) 0.2, Neutrophils # (Auto) 11.9 H, Lymphocytes # (Auto) 0.9 L, Monocytes # (Auto) 0.6, Eosinophils # (Auto) 0.1, Basophils # (Auto) 0.0, Calcium Level 8.2 L, Aspartate Amino Transf (AST/SGOT) 18, Alanine Aminotransferase (ALT/SGPT) 11 L, Alkaline Phosphatase 361 H, Total Bilirubin 0.4, Total Protein 4.7 L, Albumin 1.4 L Microbiology Microbiology 01/11/19 Blood Culture - Final, Complete NO GROWTH AFTER 5 DAYS 01/09/19 Blood Culture - Final, Complete NO GROWTH AFTER 5 DAYS 01/08/19 Stool Occult Blood (KAMRAN) - Final, Complete Impression Patient is postoperative day 10 for ischemic bowel status post resection of the ischemic portions of bowel secondary to SMA thrombosis/emboli. He is doing well from this surgery. I'll come back at the end of the week and see if the toby are ready to be removed. Plan / VTE VTE Prophylaxis Ordered?: Yes VTE Exclusion Pharmacological: Active Bleeding KEIRY CLIFFORD MD Jan 18, 2019 15:22
[2019-01-18] MEDS: cefTRIAXone SOD 2 GM in D5W MINI-BAG PLUS 50 ML IV SCH (15:56)
[2019-01-18 15:57] VITALS: BP 129/64
--- NOTE | 2019-01-18 16:20 | IPN ---
DATE: 01/18/2019 Eric is doing much better today. He got out of bed twice and walked. He ate 25% of his meal but drinking Ensure for breakfast and lunch. He has no nausea or vomiting. No diarrhea. He has soft stools about 2-3 a day. No fever or chills. He has been afebrile. Temperature is 98.2, pulse 69, respirations 16, blood pressure 129/64, oxygen saturation 99% on room air. Heart: Normal S1, S2, irregular. Lungs are clear. No wheezes, rales or rhonchi. Abdomen: Midline toby with minimal erythema left lower quadrant where a drain was placed has an area of induration measuring about 2 cm., tender to touch with slight yellowish drainage. Back: No costovertebral angle (CVA) tenderness. Extremities: +1 pitting edema bilaterally. Left foot has purplish discoloration of four toes unchanged. Dry skin. LABS: White count is 13.5, hemoglobin 10.1, hematocrit 30.7, platelets 301, 87% neutrophils, 6% lymphocytes, 5% monocytes. ESR 70. Sodium 136, potassium 4, chloride 103, bicarbonate 23, BUN 11, creatinine 0.1, glucose 88, calcium 8.2, AST 18, ALT 11, alkaline phosphatase 361. CRP 5.4., down from 28.8. Blood cultures 01/09/2019 and 01/11/2019 are negative. IMAGING: Chest x-ray, done on 01/15/2019, no acute disease. IMPRESSION: 1. 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 The patient will be treated with 6 weeks of IV Rocephin. 2. Mesenteric artery ischemia status post laparotomy and stenting with thrombus/embolism to the superior mesenteric artery could be complication from endocarditis as well, doing well. 3. Leukocytosis. Clinically, the patient is doing well. The only concern is his left lower quadrant where the drain was placed and could be the source of infection. If white count is persistently elevated, please obtain followup CT abdomen and pelvis to rule out intra-abdominal abscess. 4. Sacral decubitus measuring about 2 cm with no evidence of infection, healing well with Optifoam dressing. PLAN: Continue IV Rocephin for a total of 6 weeks from negative culture. Discontinue IV vancomycin. Monitor for worsening leukocytosis or CRP and if increased white count or fever obtain CT abdomen and pelvis.
[2019-01-18 20:00] VITALS: BP 141/77
[2019-01-18] MEDS: PRAVASTATIN 20 MG TAB PO SCH (20:25)
[2019-01-18] MEDS ORDERED: FUROSEMIDE 20 MG/2 ML VIAL (J1940) IV ONE (21:30)
[2019-01-19 04:00] VITALS: BP 111/61
[2019-01-19] MEDS: SODIUM CHLORIDE 0.9% INJ 10 ML SYR IV SCH ×2 (04:57→17:05)
[2019-01-19 05:15] LABS: BASO % 0.2 % (0.0-1.0); EOS # 0.1 10^3/uL (0.0-0.5); EOS % 0.6 % (0.0-3.0); HEMATOCRIT 29.7 % (42.0-52.0); LYMPH # 0.9 10^3/uL (1.5-5.0); LYMPH % 7.1 % (24.0-44.0); MEAN CORPUSCULAR HEMOGLOBIN 30.6 pg (27.0-33.0); MEAN CORPUSCULAR HGB CONC 33.7 g/dl (32.0-36.5); MEAN CORPUSCULAR VOLUME 90.8 fl (80.0-96.0); MONO # 0.5 10^3/uL (0.0-0.8); MONO % 4.2 % (0.0-5.0); NEUTROPHILS % 86.9 % (36.0-66.0); PLATELET COUNT, AUTOMATED 302 10^3/uL (150-450); RED BLOOD COUNT 3.27 10^6/uL (4.30-6.10); WHITE BLOOD COUNT 12.7 10^3/uL (4.0-10.0)
[2019-01-19 05:35] LABS: ALBUMIN 1.4 GM/DL (3.2-5.2); ALT/SGPT 10 U/L (12-78); BILIRUBIN,TOTAL 0.4 MG/DL (0.2-1.0); BLOOD UREA NITROGEN 11 MG/DL (7-18); CALCIUM LEVEL 7.8 MG/DL (8.8-10.2); CARBON DIOXIDE LEVEL 27 MEQ/L (21-32); CHLORIDE LEVEL 100 MEQ/L (98-107); CREATININE FOR GFR 0.46 MG/DL (0.70-1.30); GLOMERULAR FILTRATION RATE > 60.0 (>42); GLUCOSE, FASTING 81 MG/DL (70-100); SODIUM LEVEL 135 MEQ/L (136-145); TOTAL PROTEIN 4.7 GM/DL (6.4-8.2)
[2019-01-19 08:00] VITALS: BP 105/62
[2019-01-19] MEDS: POTASSIUM CHLORIDE 10 MEQ SR TABLET PO SCH (09:09)
[2019-01-19] MEDS: FINASTERIDE 5 MG TAB PO SCH (09:09)
[2019-01-19] MEDS: CLOPIDOGREL 75 MG TAB PO SCH (09:09)
[2019-01-19] MEDS: AMIODARONE 200 MG TAB (PACERONE) PO SCH ×2 (09:09→20:42)
[2019-01-19] MEDS: METOPROLOL TART 50 MG TAB PO SCH ×2 (09:09→20:42)
[2019-01-19] MEDS: THIAMINE 100 MG TAB PO SCH ×2 (09:09→20:42)
[2019-01-19] MEDS: MAGNESIUM CHLORIDE 64 MG TABCR (SLO MAG) PO SCH (09:09)
[2019-01-19] MEDS: VANICREAM MOISTURIZING SKIN CREAM 113GM TUBE TOP SCH (09:10)
[2019-01-19] MEDS ORDERED: ISOVUE-370 76% 100ML VIAL (Q9967) As Ordered ONE (11:57)
--- NOTE | 2019-01-19 13:04 | IPN ---
DATE: 01/19/2019 SUBJECTIVE: The patient denies any fever or chills. Denies any abdominal pain, nausea or vomiting. OBJECTIVE: PHYSICAL EXAMINATION: OBJECTIVE: Temperature 97.6, pulse 81, respiratory rate 18, blood pressure 105/62, 98% on room air. GENERAL: The patient is awake, alert and oriented. Answering questions appropriately. No respiratory distress. HEENT: Anicteric sclerae. No jaundice. No jugular venous distention (JVD). No thyromegaly. LUNGS: Clear to auscultation with no wheezing, rales or rhonchi. HEART: S1, S2. Loud ejection murmur, 2/6 in the aortic area. ABDOMEN: Soft, nontender, nondistended. Positive bowel sounds. No rebound, guarding. No hepatosplenomegaly. No abdominal bruits noted. EXTREMITIES: 1+ pitting edema. Left lower extremity has some cyanosis and distal pulses are diminished. SKIN: Sacral decubitus around 1.5 to 2 cm with some erythema, no signs of infection. LABORATORY DATA: White count 12.7, hemoglobin 10, hematocrit 29, platelet count 302. Sodium 135, potassium 4, chloride 100, bicarbonate 27, BUN 11, creatinine 0.46, glucose of 81. C-reactive protein 4.71, albumin 1.4 ACTIVE MEDICATIONS: - potassium- loperamide- metoprolol- heparin flushes- ceftriaxone- Plavix- finasteride- Slow- mag- amiodarone- pravastatin- thiamine- acetaminophen- Dulcolax ASSESSMENT AND PLAN: This is a 78-year-old male who presented after falling with generalized weakness, bloody stools for the past 3 days prior to coming in and treated with Protonix. The patient has wounds on the buttock area. Denies having any discharge. 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 Since then, the patient was continued on Plavix and doing well. Blood culture grew gram-positive cocci, positive for Streptococcus salivarius and has been on vancomycin and Zosyn previously, currently on ceftriaxone for endocarditis. Last echocardiogram shows prosthetic valve vegetation. CURRENT ISSUES: 1. Infectious endocarditis secondary to Streptococcus. Had previously been treated with intravenous vancomycin, currently on ceftriaxone. The patient is to complete a full six day course of intravenous antibiotics, awaiting placement. 2. Acute mesenteric ischemia, status post-exploratory laparotomy and revascularizationby vascular surgery and general surgery, postoperative management per general surgery. Due to persistent leukocytosis, infectious disease recommended repeating CT of the abdomen and pelvis to rule out intraabdominal abscess. 3. Recent gastrointestinal bleed, stable with hemoglobin unchanged the past few days at 10 and hematocrit of 30. No active gastrointestinal bleed currently. 4. Sacral decubitus measuring 2 cm without infection. Currently managed by Optifoam dressing. MTDD
[2019-01-19 14:00] VITALS: BP 127/63
--- NOTE | 2019-01-19 14:23 | REP ---
CT ABDOMEN AND PELVIS WITH IV AND WITHOUT ORAL CONTRAST: HISTORY: History of mesenteric ischemia with revascularization. Persistent leukocytosis. Rule out abscess. Postop day 11 post resection of ischemic portions of small bowel secondary to SMA thrombosis/emboli. CT CONTRAST DOSE: 100 mL of intravenous Isovue 370. Comparison CT studies are reviewed from January 10, 2019, and January 07, 2019. CT FINDINGS: Preliminary digital yarn salvager radiograph demonstrates laparotomy sutures in the midline and left lower quadrant. There are two dilated air-filled loops of central abdominal small bowel. There are small bilateral pleural effusions on axial CT images, left a little larger than right. These are similar to the prior study. No focal hepatic lesion is seen. Irregular enhancement pattern is again noted in the spleen suggesting multifocal splenic infarcts. Incomplete perfusion of a tortuous splenic artery suggesting splenic artery thrombosis is again seen unchanged. Stents are again noted in place at the origin of the celiac and superior mesenteric arteries. The distal superior mesenteric artery branches appear occluded as before. Atherosclerotic vascular calcification is seen at the origins of the renal arteries bilaterally. Kidneys enhance symmetrically. There is some cortical scarring on the right in the upper pole and there is a renal cyst in the right lower pole. No abnormality is noted in the gallbladder or pancreas. There is an accessory splenule in the left upper quadrant. There is no visible intra-abdominal abscess. There is a very small curvilinear fluid collection in the pelvic reflections just above the seminal vesicles and anterior to the rectum. There is a small quantity of interloop ascites in the right lower quadrant. There is left colonic diverticulosis. An anastomotic sutures are seen in the small bowel in the midabdomen. There are several fluid filled minimally dilated small bowel loops in the central abdomen. No obstructive lesion is seen. A small quantity of air seen in the urinary bladder. IMPRESSION: No evidence of intra-abdominal abscess seen. Some scattered areas of peritoneal fluid. Ileus pattern in the bowel gas. 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 Stents in the proximal SMA and celiac axis. Electronically Signed by Del Ramos MD 01/19/2019 03:27 P
[2019-01-19] MEDS: cefTRIAXone SOD 2 GM in D5W MINI-BAG PLUS 50 ML IV SCH (17:06)
[2019-01-19] MEDS: PRAVASTATIN 20 MG TAB PO SCH (20:42)
[2019-01-19 22:00] VITALS: BP 116/61
[2019-01-20 06:00] VITALS: BP 108/59
[2019-01-20] MEDS: SODIUM CHLORIDE 0.9% INJ 10 ML SYR IV SCH ×2 (06:00→16:23)
[2019-01-20 08:13] VITALS: BP 152/88
[2019-01-20] MEDS: METOPROLOL TART 50 MG TAB PO SCH ×2 (08:39→21:02)
[2019-01-20] MEDS: THIAMINE 100 MG TAB PO SCH ×2 (08:39→21:02)
[2019-01-20] MEDS: AMIODARONE 200 MG TAB (PACERONE) PO SCH ×2 (08:40→21:02)
[2019-01-20] MEDS: FINASTERIDE 5 MG TAB PO SCH (08:40)
[2019-01-20] MEDS: CLOPIDOGREL 75 MG TAB PO SCH (08:40)
[2019-01-20] MEDS: MAGNESIUM CHLORIDE 64 MG TABCR (SLO MAG) PO SCH (08:41)
[2019-01-20] MEDS: POTASSIUM CHLORIDE 10 MEQ SR TABLET PO SCH (08:41)
[2019-01-20] MEDS: VANICREAM MOISTURIZING SKIN CREAM 113GM TUBE TOP SCH (10:55)
[2019-01-20 14:00] VITALS: BP 144/72
--- NOTE | 2019-01-20 14:40 | IPNPDOC ---
Text Note Date of Service The patient was seen on 01/20/19. NOTE SUBJECTIVE: Feels a little better but still no appetite. No fever or chills, no chest pain ro SOB , appropriate abdominal pain along the site of the sutures. PHYSICAL EXAMINATION: VITALS: As below GENERAL: The patient is awake, alert and oriented. Answering questions appropriately. No respiratory distress. HEENT: Anicteric sclerae. No jaundice. No jugular venous distention (JVD). No thyromegaly. LUNGS: Clear to auscultation with no wheezing, rales or rhonchi. HEART: S1, S2. ejection murmur, 2/6 in the aortic area. ABDOMEN: Soft, nontender, nondistended. Positive bowel sounds. No rebound, guarding. No hepatosplenomegaly. No abdominal bruits noted. There is ascites present. EXTREMITIES: 1+ pitting edema. Left lower extremity has some cyanosis and distal pulses are diminished. SKIN: Sacral decubitus around 1.5 to 2 cm with some erythema, no signs of infection. LABORATORY DATA: as below reviewed. ASSESSMENT AND PLAN: This is a 78-year-old male who presented after falling with generalized weakness, bloody stools for the past 3 days prior to coming in and treated with Protonix. The patient has wounds on the buttock area. Denies having any discharge. 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 Since then, the patient was continued on Plavix and doing well. Blood culture grew gram-positive cocci, positive for Streptococcus salivarius and has been on vancomycin and Zosyn previously, currently on ceftriaxone for endocarditis. Last echocardiogram shows prosthetic valve vegetation. 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 The patient will be treated with 6 weeks of IV Rocephin. Persistent leukocytosis, infectious disease recommended repeating CT of the abdomen and pelvis to rule out intraabdominal abscess. There is no abscess. WBC a little better today but CRP up from 4 to 6 will follow ID recommendations. 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 status post-exploratory laparotomy, laparoscopic lysis of adhesion, small bowel resection of 1 foot of small bowel at the distal jejunum, early ileum with small bowel anastomosis. Now Postop day 12 post resection of ischemic portions of small bowel secondary to SMA thrombosis/emboli Angioplasty and Stenting of the SMA and branches of SMA and Celiac artery was done by vascular surgery prior to laparotomy Postoperative management per general surgery. Recent gastrointestinal bleed due to bowel ischemia stable with hemoglobin unchanged the past few days at 10 and hematocrit of 30. No active gastrointestinal bleed currently. Sacral decubitus measuring 2 cm without infection. Currently managed by Optifoam dressing. 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 Atrial fibrillation continue amiodarone and metoprolol CVA continue plavix, statin Alcohol abuse continue thiamine VS,Fishbone, I+O VS, Fishbone, I+O Vital Signs Date Time Temp Pulse Resp B/P (MAP) Pulse Ox O2 Delivery O2 Flow Rate FiO2 01/20/19 08:39 79 152/88 01/20/19 08:13 97.1 16 99 01/17/19 08:59 10 I&O- Last 24 Hours up to 6 AM 01/20/19 06:00 Intake Total 480 ml Output Total 250 ml Balance 230 ml VIRGEN ROGEL MD Jan 20, 2019 14:38
[2019-01-20] MEDS: cefTRIAXone SOD 2 GM in D5W MINI-BAG PLUS 50 ML IV SCH (16:23)
--- NOTE | 2019-01-20 19:28 | IPN ---
DATE: 01/20/2019 Mr. Eisenberg has no major complaints today. His appetite is not great. He only ate 25% of his lunch and 50% of his breakfast. He did ambulate and use the bathroom. He has no fever or chills. No nausea, vomiting or diarrhea. He denies any chest pain or shortness of breath. LABORATORY DATA: White count is 12.7, hemoglobin 10, hematocrit 29.7, platelets 302, 86% neutrophils, 7% lymphocytes, 4% monocytes. Sodium 135, potassium 4, chloride 100, bicarbonate 27, BUN 11, creatinine 0.46, glucose 81, calcium 7.8, bilirubin 0.4, AST 17, ALT 10, alkaline phosphatase 339, CRP 6.4. Blood culture negative on 01/11/2019. CT abdomen and pelvis done on 01/19/2019 shows no evidence of intra-abdominal abscess, scattered areas of peritoneal fluid, ileus, splenic infarct noted, and splenic artery and distal superior mesenteric artery occlusion stents are noted in both arteries. PHYSICAL EXAMINATION: Temperature is 97.4, pulse 70, respirations 14, blood pressure 144/72, oxygen saturation 100% on room air. HEART: Normal S1, S2 with a holosystolic ejection murmur, 3/6 unchanged. Lungs are clear. No wheezes, rales or rhonchi. ABDOMEN: Soft, nontender. Midline toby clear with no drainage. Left lower quadrant where the Nawaf-Flynn (LEON) drain was has an indurated abscess. The scab was unroofed and purulent material was expressed. A wound culture was sent. EXTREMITIES: +1 ankle edema bilaterally, dry skin peeling, discoloration tip of first, second, fourth and fifth toe on the left foot from septic emboli. SKIN: Bilateral erythematous rash in both groin area consistent with candidiasis. IMPRESSION: 1. Prosthetic aortic valve endocarditis with Streptococcus salivarius, on IV Rocephin for a total of six weeks from negative cultures. End of treatment will be 02/20/2019. 2. Left lower quadrant superficial abscess where the Nawaf-Flynn (LEON) drain was. Wound culture was sent. OptiFoam dressing was placed along with Bactroban twice a day. If the abscess does not resolve then follow the results of the wound culture to treat it appropriately, probably will end of being a methicillin-resistant Staphylococcus aureus (MRSA) localized abscess. 3. Sacral decubitus ulcer, colonized but not infected, currently being followed with dressing changes and offloading pressure from the decubitus. 4. Protein calorie malnutrition with albumin of 1.4. Patient encouraged to eat better and drink Ensure. 5. Mucocutaneous candidiasis of groin, Nystatin powder was ordered. PLAN: Continue IV ceftriaxone until 02/20/2019. Encourage ambulation and nutrition. Wound culture was sent. MTDD
[2019-01-20] MEDS: MUPIROCIN 2% OINT 22 GM TUBE TOP SCH (21:01)
[2019-01-20] MEDS: NYSTATIN 100,000 UNITS/GM TOPICAL PWD 15 GM TOP SCH (21:01)
[2019-01-20] MEDS: PRAVASTATIN 20 MG TAB PO SCH (21:02)
[2019-01-20 22:00] VITALS: BP 117/61
[2019-01-21] MEDS: SODIUM CHLORIDE 0.9% INJ 10 ML SYR IV SCH (05:35)
[2019-01-21 06:00] VITALS: BP 120/64
[2019-01-21 07:08] LABS: BASO % 0.2 % (0.0-1.0); EOS # 0.1 10^3/uL (0.0-0.5); EOS % 0.7 % (0.0-3.0); HEMATOCRIT 27.4 % (42.0-52.0); HEMOGLOBIN 8.9 g/dl (13.5-17.5); LYMPH # 0.8 10^3/uL (1.5-5.0); LYMPH % 8.2 % (24.0-44.0); MEAN CORPUSCULAR HEMOGLOBIN 29.3 pg (27.0-33.0); MEAN CORPUSCULAR HGB CONC 32.5 g/dl (32.0-36.5); MEAN CORPUSCULAR VOLUME 90.1 fl (80.0-96.0); MONO # 0.8 10^3/uL (0.0-0.8); MONO % 7.9 % (0.0-5.0); NEUTROPHILS # 8.2 10^3/uL (1.5-8.5); NEUTROPHILS % 82.2 % (36.0-66.0); PLATELET COUNT, AUTOMATED 301 10^3/uL (150-450); RED BLOOD COUNT 3.04 10^6/uL (4.30-6.10)
[2019-01-21 07:44] LABS: BLOOD UREA NITROGEN 12 MG/DL (7-18); C REACTIVE PROTEIN QUANTITATIV 6.34 MG/DL (0.00-0.30); CALCIUM LEVEL 7.9 MG/DL (8.8-10.2); CARBON DIOXIDE LEVEL 25 MEQ/L (21-32); CHLORIDE LEVEL 101 MEQ/L (98-107); CREATININE FOR GFR 0.42 MG/DL (0.70-1.30); GLOMERULAR FILTRATION RATE > 60.0 (>42); GLUCOSE, FASTING 74 MG/DL (70-100); POTASSIUM SERUM 3.8 MEQ/L (3.5-5.1); SODIUM LEVEL 134 MEQ/L (136-145)
[2019-01-21 08:27] VITALS: BP 121/65
[2019-01-21] MEDS: POTASSIUM CHLORIDE 10 MEQ SR TABLET PO SCH (08:27)
[2019-01-21] MEDS: METOPROLOL TART 50 MG TAB PO SCH (08:27)
[2019-01-21] MEDS: FINASTERIDE 5 MG TAB PO SCH (08:27)
[2019-01-21] MEDS: CLOPIDOGREL 75 MG TAB PO SCH (08:27)
[2019-01-21] MEDS: THIAMINE 100 MG TAB PO SCH (08:28)
[2019-01-21] MEDS: MUPIROCIN 2% OINT 22 GM TUBE TOP SCH (08:28)
[2019-01-21] MEDS: AMIODARONE 200 MG TAB (PACERONE) PO SCH (08:28)
[2019-01-21] MEDS: MAGNESIUM CHLORIDE 64 MG TABCR (SLO MAG) PO SCH (08:28)
[2019-01-21] MEDS: NYSTATIN 100,000 UNITS/GM TOPICAL PWD 15 GM TOP SCH (08:28)
[2019-01-21] MEDS: VANICREAM MOISTURIZING SKIN CREAM 113GM TUBE TOP SCH (08:29)
[2019-01-21] MEDS ORDERED: NYAM10003 TOP (09:15)
[2019-01-21] MEDS ORDERED: MUPI2OI TOP (09:15)
[2019-01-21] MEDS ORDERED: LOPE2CA PO (09:15)
[2019-01-21] MEDS ORDERED: MAGN64TASA PO (09:15)
[2019-01-21] MEDS ORDERED: KLOR10TA76 PO (09:15)
[2019-01-21] MEDS ORDERED: CLOP75TA2 PO (09:15)
[2019-01-21] MEDS ORDERED: VANI1CRE5 TOP (09:17)
--- NOTE | 2019-01-21 11:13 | DS.PDOC ---
Discharge Summary General Date of Admission Jan 07, 2019 at 15:12 Date of Discharge 01/21/19 Discharge Summary PROCEDURES PERFORMED DURING STAY: 1.Exploratory laparotomy, laparoscopic lysis of adhesion, small bowel resection of 1 foot of small bowel at the distal jejunum, early ileum with small bowel francis stomosis. 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 s/p Angioplasty and Stenting of the SMA and branches of SMA and Celiac artery was done Sacral decubitus ulcer Protein calorie malnutrition Mucocutaneus candidiasis. AVR with bioprosthetic valve by TAVR Afib H/O alcohol abuse H/o CVA Recent GIB from Bowel ischemia LALO on CPAP COMPLICATIONS/CHIEF COMPLAINT: Decubitus Skin Ulcer,Hypokalemia,Ugi Bleed,Physic a. HISTORY OF PRESENT ILLNESS: See history and physical HOSPITAL COURSE: This is a 78-year-old male who presented from the Rehab after falling with generalized weakness, bloody stools for the past 3 days prior to coming in and treated with Protonix. Patient was admitted with GI bleed in November 2018 presented hospital with weakness. Patient stated that for past 3 days when he was in the rehabilitation he started feeling weakness, he couldn't have done exercises that he did before. On the day of admission patient developed bloody stool in the morning. Of note patient was recently hospitalized in November with GI bleed, he had black stool heme-positive and anemia, patient was treated conservatively with Protonix and discharged to Rehab with follow-up with shop hand in the outpatient settings. The patient was noted to have wounds on the buttock area. Denies having any discharge. 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 Since then, the patient was continued on Plavix and doing well. He was found to have blood cultures positve so was further investigated and was found to have prothetic valve endocarditis. Blood culture grew gram-positive cocci, positive for Streptococcus salivarius and has been on vancomycin and Zosyn previously, currently on ceftriaxone for endocarditis. Last echocardiogram shows prosthetic valve vegetation. 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 Rocephin for a total of six weeks from negative cultures. End of treatment will be 02/20/2019. Left lower quadrant superficial abscess where the Nawaf-Flynn (LEON) drain was. Wound culture was sent. Still pending. OptiFoam dressing was placed along with Bactroban twice a day. If the abscess does not resolve then follow the results of the wound culture to treat it appropriately, probably will end of being a methicillin-resistant Staphylococcus aureus (MRSA) localized abscess. Persistent leukocytosis, Now resolved. infectious disease had recommended repeating CT of the abdomen and pelvis to rule out intraabdominal abscess. There was no abscess. There was a superficial abscess at the site of the LEON drain. wound culture was sent from there WBC a little better today but CRP stable at 4 to 6 range. 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 status post-exploratory laparotomy, laparoscopic lysis of adhesion, small bowel resection of 1 foot of small bowel at the distal jejunum, early ileum with small bowel anastomosis. Now Postop day 13 post resection of ischemic portions of sma ll bowel secondary to SMA thrombosis/emboli Angioplasty and Stenting of the SMA and branches of SMA and Celiac artery was done by vascular surgery prior to laparotomy Postoperative management per general surgery. Recent gastrointestinal bleed due to bowel ischemia stable with hemoglobin unchanged the past few days at 10 and hematocrit of 30. No active gastrointestinal bleed currently. 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 Paroxysmal Atrial fibrillation continue amiodarone and metoprolol CAD s/p CABG in the past CVA continue plavix, statin LALO on CPAP continue own Alcohol abuse continue thiamine Sacral decubitus ulcer, colonized but not infected, currently being followed with dressing changes and offloading pressure from the decubitus. Protein calorie malnutrition with albumin of 1.4. Patient encouraged to eat better and drink Ensure. Mucocutaneous candidiasis, both groin, Nystatin powder was ordered. DISCHARGE MEDICATIONS: Please see below. ALLERGIES: Please see below. PHYSICAL EXAMINATION ON DISCHARGE: VITAL SIGNS: Please see below. GENERAL: The patient is awake, alert and oriented. Answering questions appropriately. No respiratory distress. HEENT: Anicteric sclerae. No jaundice. No jugular venous distention (JVD). No thyromegaly. LUNGS: Clear to auscultation with no wheezing, rales or rhonchi. HEART: S1, S2. ejection murmur, 2/6 in the aortic area. ABDOMEN: Soft, nontender, nondistended. Positive bowel sounds. No rebound, guarding. No hepatosplenomegaly. No abdominal bruits noted. There is ascites present. EXTREMITIES: 1+ pitting edema. Left lower extremity has some cyanosis and distal pulses are diminished. SKIN: Sacral decubitus around 1.5 to 2 cm with some erythema, no signs of infection. LABORATORY DATA: Please see below. ACTIVITY: [As tolerated]. DIET: As tolerated DISCHARGE PLAN: SNF--[facility] DISPOSITION: SNF DISCHARGE INSTRUCTIONS: Follow up with Dr Basilio in 2 weeks PMD in 1 week ITEMS TO FOLLOWUP ON ON OUTPATIENT: 1. Wound culture 2. CRP, basic, cbc every week while on antibiotics. DISCHARGE CONDITION: [Stable]. TIME SPENT ON DISCHARGE: 35 minutes. Vital Signs/I&Os Vital Signs Date Time Temp Pulse Resp B/P (MAP) Pulse Ox O2 Delivery O2 Flow Rate FiO2 01/21/19 08:27 78 121/65 01/21/19 06:00 97.8 20 96 01/17/19 08:59 10 I&O- Last 24 Hours up to 6 AM 01/21/19 06:00 Intake Total 1166 ml Output Total 0 ml Balance 1166 ml Laboratory Data Labs 24H Laboratory Tests 2 01/21/19 06:26: Immature Granulocyte % (Auto) 0.8, White Blood Count 10.0, Red Blood Count 3.04L, Hemoglobin 8.9L, Hematocrit 27.4L, Mean Corpuscular Volume 90.1, Mean Corpuscular Hemoglobin 29.3, Mean Corpuscular Hemoglobin Concent 32.5, Red Cell Distribution Width 13.9, Platelet Count 301, Neutrophils (%) (Auto) 82.2H, Lymphocytes (%) (Auto) 8.2L, Monocytes (%) (Auto) 7.9H, Eosinophils (%) (Auto) 0.7, Basophils (%) (Auto) 0.2, Neutrophils # (Auto) 8.2, Lymphocytes # (Auto) 0.8L, Monocytes # (Auto) 0.8, Eosinophils # (Auto) 0.1, Basophils # (Auto) 0.0, Nucleated Red Blood Cells % (auto) 0.0, Anion Gap 8, Glomerular Filtration Rate > 60.0, Blood Urea Nitrogen 12, Creatinine 0.42L, Sodium Level 134L, Potassium Level 3.8, Chloride Level 101, Carbon Dioxide Level 25, Calcium Level 7.9L, C- Reactive Protein, Quantitative 6.34H CBC/BMP Laboratory Tests 01/21/19 06:26 Red Blood Count 3.04 L, Mean Corpuscular Volume 90.1, Mean Corpuscular Hemoglobin 29.3, Mean Corpuscular Hemoglobin Concent 32.5, Red Cell Distribution Width 13.9, Neutrophils (%) (Auto) 82.2 H, Lymphocytes (%) (Auto) 8.2 L, Monocytes (%) (Auto) 7.9 H, Eosinophils (%) (Auto) 0.7, Basophils (%) (Auto) 0.2, Neutrophils # (Auto) 8.2, Lymphocytes # (Auto) 0.8 L, Monocytes # (Auto) 0.8, Eosinophils # (Auto) 0.1, Basophils # (Auto) 0.0, Calcium Level 7.9 L Microbiology Microbiology 01/11/19 Blood Culture - Final, Complete NO GROWTH AFTER 5 DAYS 01/21/19 Wound Culture, Received Pending Discharge Medications Scheduled Amiodarone HCl (Amiodarone HCl) 200 Mg Tablet, 200 MG PO BID, (Reported) Clopidogrel Bisulfate (Clopidogrel) 75 Mg Tablet, 75 MG PO DAILY Emollient Base (Vanicream) 453 Gm Cream..g., 0 DOSE TOP DAILY Ergocalciferol (Vitamin D2) (Drisdol) 50,000 Unit Capsule, 50,000 UNIT PO QWEEK, (Reported) SUNDAYS Finasteride (Finasteride) 5 Mg Tablet, 5 MG PO DAILY, (Reported) Magnesium Chloride (Mag64) 64 Mg Tablet.dr, 64 MG PO DAILY Metoprolol Tartrate (Metoprolol Tartrate) 50 Mg Tablet, 50 MG PO BID, (Reported) Mupirocin (Mupirocin) 22 Gm Oint...g., 0 DOSE TOP BID Nystatin (Nyamyc) 15 Gm Powder, 0 DOSE TOP BID Omeprazole (Omeprazole) 40 Mg Capsule.dr, 40 MG PO BID, (Reported) Potassium Chloride (Klor-Con M10) 10 Meq Tab.er.prt, 40 MEQ PO DAILY Pravastatin Sodium (Pravastatin Sodium) 20 Mg Tablet, 40 MG PO QHS, (Reported) Sucralfate (Sucralfate) 1 Gm Tablet, 1 GM PO QID, (Reported) Thiamine HCl (Thiamine HCl) 100 Mg Tablet, 100 MG PO BID, (Reported) Scheduled PRN Acetaminophen (Acetaminophen) 500 Mg Tablet, 500 MG PO Q4H PRN for PAIN, (Reported) Bisacodyl (Dulcolax) 10 Mg Supp.rect, 10 MG MD DAILY PRN for CONSTIPATION, (Reported) Loperamide HCl (Loperamide) 2 Mg Capsule, 2 MG PO ASDIRECTED PRN for DIARRHEA Sennosides/Docusate Sodium (Sennosides-Docusate Sodium Tab) 1 Each Tablet, 2 TAB PO BID PRN for CONSTIPATION, (Reported) Allergies Coded Allergies: No Known Allergies (Unverified , 03/18/17) VIRGEN ROGEL MD Jan 21, 2019 09:06
--- NOTE | 2019-01-21 17:50 | IPN ---
DATE: 01/21/2019 Eric is doing fairly well this morning. He did not eat his breakfast. I am not sure he has an appetite in the morning. He has no nausea, vomiting or diarrhea. No abdominal pains, chest pain or shortness of breath. [facility]. PHYSICAL EXAMINATION: Temperature 97.8, pulse 66, respirations 20, blood pressure 120/64, oxygen saturation 96% on room air. HEART: Normal S1, S2, with a holosystolic ejection all over his precordium, 2-07/14. LUNGS: Clear. No wheezes, rales or rhonchi. ABDOMEN: Obese, soft, nontender. Grant midline left lower quadrant. Open incision where the Nawaf-Flynn (LEON) drain was. No purulent drainage, but erythema and induration measuring about 2 cm, improved from yesterday. EXTREMITIES: +1 edema, improving, with purplish discoloration of four toes on the left side. No change. BACK: No costovertebral angle (CVA) or lumbosacral tenderness. GROIN: Bilateral candidiasis with erythematous hyperpigmented areas along both testicles. IMPRESSION: 1. 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 2. Spinal muscular atrophy (SMA). 3. Celiac feet on intravenous (IV) Rocephin for a total of 6 weeks. End of therapy will be 02/20/2019. 4. Status post laparotomy and superior mesenteric artery and iliac stenting with superficial left lower quadrant abscess. Culture is pending, but seems to have improved just by local incision and drainage (I and D) and Bactroban. We may not need any further management. 5. Sacral decubitus colonitis with methicillin-resistant Staphylococcus aureus (MRSA) and gram-negative is being treated with wound care and a leave-in dressing. 6. Mucocutaneous candidiasis of groin. On nystatin powder, improving. PLAN: Transferred to [facility] on IV Rocephin until 02/20/2019. Bactroban on left lower quadrant abscess. Continue offloading from the sacral decubitus to promote healing. Encourage ambulation and better nutrition. Patient has hypoalbuminemia. The patient to follow up in my office in 2-3 weeks. Infectious disease monitoring labs, including complete blood count (CBC), complete metabolic profile (CMP), C-reactive protein (CRP) and erythrocyte sedimentation rate weekly while at the [facility].
[2019-02-25] MEDS ORDERED: ONDA-83 PO (14:12)
== END 2019-01-21 12:00 | DRG 252 ==
LOC: EDBD 12:00 → M ED 12:00 → M ED INP 15:12 → EEVIPCON 15:12 → M MSPAV 17:05 → M PCU 23:01 → M ICU 01-08 14:23 → M PCU 01-12 17:55 → M MSPAV 01-19 13:50
PROVIDERS: ADMIT Internal Medicine; ATTEND Internal Medicine Nephrology
PROC: 0DBA0ZZ Excision of Jejunum, Open Approach (ICD-10-PCS; 2019-01-07)
PROC: 0DNA4ZZ Release Jejunum, Percutaneous Endoscopic Approach (ICD-10-PCS; 2019-01-07)
PROC: 04753DZ Dilation of Superior Mesenteric Artery with Intraluminal Device, Percutaneous Approach (ICD-10-PCS; 2019-01-08)
PROC: 0DBB0ZZ Excision of Ileum, Open Approach (ICD-10-PCS; 2019-01-08)
PROC: 8E0W4CZ Robotic Assisted Procedure of Trunk Region, Percutaneous Endoscopic Approach (ICD-10-PCS; 2019-01-08)
PROC: 30233N1 Transfusion of Nonautologous Red Blood Cells into Peripheral Vein, Percutaneous Approach (ICD-10-PCS; 2019-01-08)
PROC: 04713DZ Dilation of Celiac Artery with Intraluminal Device, Percutaneous Approach (ICD-10-PCS; principal; 2019-01-08 09:09)
PROC: 02HV33Z Insertion of Infusion Device into Superior Vena Cava, Percutaneous Approach (ICD-10-PCS; 2019-01-11)
PROC: B246ZZ4 Ultrasonography of Right and Left Heart, Transesophageal (ICD-10-PCS; 2019-01-17)
DX: T82.6XXA Infection and inflammatory reaction due to cardiac valve prosthesis, initial encounter (principal); K55.059 Acute (reversible) ischemia of intestine, part and extent unspecified; I33.0 Acute and subacute infective endocarditis; A41.01 Sepsis due to Methicillin susceptible Staphylococcus aureus; K92.2 Gastrointestinal hemorrhage, unspecified; I42.9 Cardiomyopathy, unspecified; E46 Unspecified protein-calorie malnutrition; I48.0 Paroxysmal atrial fibrillation; I25.10 Atherosclerotic heart disease of native coronary artery without angina pectoris; G47.33 Obstructive sleep apnea (adult) (pediatric); D73.5 Infarction of spleen; N20.0 Calculus of kidney; B37.2 Candidiasis of skin and nail; D72.829 Elevated white blood cell count, unspecified; E87.6 Hypokalemia; N28.1 Cyst of kidney, acquired; L89.152 Pressure ulcer of sacral region, stage 2; I70.0 Atherosclerosis of aorta; E78.5 Hyperlipidemia, unspecified; K21.9 Gastro-esophageal reflux disease without esophagitis; F10.10 Alcohol abuse, uncomplicated; I10 Essential (primary) hypertension; D50.9 Iron deficiency anemia, unspecified; Z86.010 Personal history of colon polyps; Z95.5 Presence of coronary angioplasty implant and graft; Z95.3 Presence of xenogenic heart valve; Z87.891 Personal history of nicotine dependence; Z85.46 Personal history of malignant neoplasm of prostate; Z92.3 Personal history of irradiation; Z53.31 Laparoscopic surgical procedure converted to open procedure; Y83.0 Surgical operation with transplant of whole organ as the cause of abnormal reaction of the patient, or of later complication, without mention of misadventure at the time of the procedure

== ENCOUNTER → 2019-02-01 | Outpatient (REF) | payer MEDICARE, OTHER ==
[~2019-02-01] MED LIST changes: +ACET500T15 PO; +AMIO200T PO; +CLOP75TA2 PO; +DRIS50003 PO; +DULC10SU2 PR; +KLOR10TA76 PO; +LOPE2CA PO; +MAGN64TASA PO; +METO50TA7 PO; +MUPI2OI TOP; +NYAM10003 TOP; +OMEP-221 PO; +PRAV20TA2 PO; +SENN-3 PO; +SUCR1TAB56 PO; +THIA100T7 PO; +VANI1CRE5 TOP
[2019-02-01 10:54] LABS: HEMATOCRIT 30.2 % (42.0-52.0); HEMOGLOBIN 9.7 g/dl (13.5-17.5); MEAN CORPUSCULAR HEMOGLOBIN 29.6 pg (27.0-33.0); MEAN CORPUSCULAR HGB CONC 32.1 g/dl (32.0-36.5); MEAN CORPUSCULAR VOLUME 92.1 fl (80.0-96.0); PLATELET COUNT, AUTOMATED 517 10^3/uL (150-450); RED BLOOD COUNT 3.28 10^6/uL (4.30-6.10); WHITE BLOOD COUNT 12.2 10^3/uL (4.0-10.0)
[2019-02-01 11:29] LABS: ALBUMIN 1.5 GM/DL (3.2-5.2); ALT/SGPT 14 U/L (12-78); BILIRUBIN,TOTAL 0.2 MG/DL (0.2-1.0); BLOOD UREA NITROGEN 20 MG/DL (7-18); CALCIUM LEVEL 8.5 MG/DL (8.8-10.2); CARBON DIOXIDE LEVEL 26 MEQ/L (21-32); CHLORIDE LEVEL 101 MEQ/L (98-107); CREATININE FOR GFR 0.65 MG/DL (0.70-1.30); FREE T3 1.3 PG/ML (2.2-4.0); FREE T4 1.32 NG/DL (0.76-1.46); GLOMERULAR FILTRATION RATE > 60.0 (>42); GLUCOSE, FASTING 90 MG/DL (70-100); POTASSIUM SERUM 4.7 MEQ/L (3.5-5.1); SODIUM LEVEL 137 MEQ/L (136-145); TOTAL PROTEIN 5.4 GM/DL (6.4-8.2)
== END ==
PROVIDERS: ATTEND Internal Medicine
DX: R63.4 Abnormal weight loss (principal)

== ENCOUNTER 2019-02-05 21:56 | Emergency (ER) | payer MEDICARE, OTHER ==
[2019-02-05] MEDS ORDERED: ONDANSETRON 4MG/2ML VIAL (J2405) IV ONE (23:15)
[2019-02-05] MEDS ORDERED: NS 1,000 ML IV ONE (23:15)
[2019-02-06 00:32] LABS: BASO # 0.1 10^3/uL (0.0-0.2); BASO % 0.3 % (0.0-1.0); EOS # 0.1 10^3/uL (0.0-0.5); EOS % 0.7 % (0.0-3.0); HEMATOCRIT 36.3 % (42.0-52.0); HEMOGLOBIN 11.4 g/dl (13.5-17.5); LYMPH # 0.9 10^3/uL (1.5-5.0); LYMPH % 4.6 % (24.0-44.0); MEAN CORPUSCULAR HEMOGLOBIN 29.7 pg (27.0-33.0); MEAN CORPUSCULAR HGB CONC 31.4 g/dl (32.0-36.5); MEAN CORPUSCULAR VOLUME 94.5 fl (80.0-96.0); MONO # 0.7 10^3/uL (0.0-0.8); MONO % 3.5 % (0.0-5.0); NEUTROPHILS # 18.5 10^3/uL (1.5-8.5); PLATELET COUNT, AUTOMATED 482 10^3/uL (150-450); RED BLOOD COUNT 3.84 10^6/uL (4.30-6.10); WHITE BLOOD COUNT 20.6 10^3/uL (4.0-10.0)
[2019-02-06 00:59] LABS: ALBUMIN 1.8 GM/DL (3.2-5.2); ALT/SGPT 16 U/L (12-78); BILIRUBIN,DIRECT 0.1 MG/DL (0.0-0.2); BILIRUBIN,TOTAL 0.1 MG/DL (0.2-1.0); BLOOD UREA NITROGEN 24 MG/DL (7-18); CALCIUM LEVEL 8.8 MG/DL (8.8-10.2); CARBON DIOXIDE LEVEL 25 MEQ/L (21-32); CHLORIDE LEVEL 103 MEQ/L (98-107); CREATININE FOR GFR 0.72 MG/DL (0.70-1.30); GLOMERULAR FILTRATION RATE > 60.0 (>42); GLUCOSE, FASTING 88 MG/DL (70-100); LIPASE 99 U/L (73-393); POTASSIUM SERUM 4.3 MEQ/L (3.5-5.1); SODIUM LEVEL 138 MEQ/L (136-145); TOTAL PROTEIN 6.6 GM/DL (6.4-8.2)
[2019-02-06] MEDS ORDERED: ISOVUE-370 76% 100ML VIAL (Q9967) As Ordered ONE (01:19)
--- NOTE | 2019-02-06 02:46 | REPVR ---
PROCEDURE INFORMATION: Exam: CT Abdomen and Pelvis With Contrast Exam date and time: 02/06/2019 1:31 AM Clinical history: 78 years old, male; Abdominal pain; Generalized TECHNIQUE: Imaging protocol: Computed tomography of the abdomen and pelvis with intravenous contrast. Radiation optimization: All CT scans at this facility use at least one of these dose optimization techniques: automated exposure control; mA and/or kV adjustment per patient size (includes targeted exams where dose is matched to clinical indication); or iterative reconstruction. Contrast material: ISOVUE 370; Contrast volume: 100 ml; Contrast route: IV; COMPARISON: CT ABD PELVIS WITH CONTRAST 01/19/2019 12:33 PM FINDINGS: Liver: 11 mm enhancing oval mass in the right lobe of the liver is unchanged. Remainder of the liver is unremarkable. Gallbladder and bile ducts: Normal. No calcified stones. No ductal dilation. Pancreas: Normal. No ductal dilation. Spleen: Multiple areas of peripheral hypoattenuation typical of infarcts are again noted in the spleen. Adrenals: Normal. No mass. Kidneys and ureters: There are calyceal stones in both kidneys. No hydronephrosis. Small renal cysts. Stomach and bowel: Postoperative changes in the small bowel. Stomach is mildly dilated with fluid with mild mucosal enhancement. Proximal small bowel is also mildly dilated with fluid with mucosal enhancement and discontinuous areas of wall thickening. Colonic diverticulosis without evidence of diverticulitis. Appendix: No evidence of appendicitis. Intraperitoneal space: Mild mesenteric edema and trace free fluid. No abscess. Punctate foci of extraluminal gas are noted in the mesentery (axial images 74 and 75). 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 Advanced aortoiliac atherosclerotic disease. Thrombosis of the superior mesenteric artery is unchanged. Lymph nodes: Unremarkable. No enlarged lymph nodes. Bladder: Mild bladder wall thickening. Reproductive: Unremarkable as visualized. Bones/joints: There are advanced degenerative changes in the spine and pelvis. Soft tissues: Unremarkable. IMPRESSION: 1. Thrombosis of the superior mesenteric artery and distal splenic artery. 2. Fluid distention of small bowel with wall thickening and mucosal enhancement. Punctate foci of extraluminal air in the left anterior mesentery. This is not identified on the prior exam and is concerning for ischemia . 3. Nephrolithiasis without obstructing stones or hydronephrosis. 4. No abscess or drainable fluid collection. 5. Mild bladder wall thickening suggesting cystitis. COMMENT: Consistent with the [employer]'s Incidental Findings Committee Report (J Am Nazia Radiol 2010): Unless the patient's specific circumstances suggest otherwise, any liver lesion 0.5 cm or less, any cystic kidney lesion less than 1.0 cm, and/or any adrenal lesion 1.0 cm or less not otherwise characterized in this report as possessing suspicious or indeterminate imaging features is/are highly likely to be benign and do not require follow-up imaging or biopsy. Electronically signed by: Olivier Tillman On 02/06/2019 02:45:31 AM
[2019-02-06] MEDS ORDERED: AMPICILLIN SOD/SULBACTAM SOD 1.5 GM in D5W MINI-BAG PLUS 50 ML IV ONE (04:00)
[2019-02-06] MEDS ORDERED: NS 500 ML IV ONE (04:00)
[2019-02-06 04:15] VITALS: BP 93/51
--- NOTE | 2019-02-07 07:56 | REP ---
ACUTE ABDOMINAL SERIES: 02/05/2019. Comparison: CT 01/19/2019, portable chest 01/15/2019. Clinical history: Abdominal pain. AP chest: Sternotomy wires are noted with a PICC line via the right upper extremity terminating in the SVC. Lungs are hyperinflated and over penetrated but grossly unremarkable. Small effusions could certainly be obscured such as the left effusion on the CT 2 weeks ago. No cardiomegaly, vascular redistribution, aortic aneurysm or abnormality of the airway. Calcifications of the aortic arch. Degenerative changes of the shoulders, left greater than right. Abdomen: Cross-table lateral and two supine views were provided. There is atherosclerotic calcification of the aorta. There are a few air-fluid levels in nondilated bowel loops in the upper abdomen. This might reflect an ileus. Vascular calcifications of the aorta without aneurysm. Some degenerative changes in the spine. Cross-table lateral and demonstrated no definite evidence for perforation or free air. Impression: 1. Findings suggest ileus with nondilated bowel loops with air-fluid levels in the upper abdomen but no sign of definite obstruction, perforation or free air. 2. Atherosclerotic calcification of the aorta without aneurysm. There are some degenerative changes in the spine. 3. PA chest with sternotomy wires, right-sided PICC line and no cardiomegaly, vascular redistribution, edema or definite infiltrate. Electronically Signed by Marty Sanchez MD 02/07/2019 09:25 A
== END 2019-02-06 04:39 | disposition short-term general hospital (02) ==
LOC: M ED 21:56
DX: K55.059 Acute (reversible) ischemia of intestine, part and extent unspecified (principal); I10 Essential (primary) hypertension; E78.5 Hyperlipidemia, unspecified; Z90.49 Acquired absence of other specified parts of digestive tract; Z85.46 Personal history of malignant neoplasm of prostate
CPT/HCPCS: 36415; 74021; 74177; 80048; 80076; 81001; 83690; 85025; 96374; 99285; J2405; Q9967

== ENCOUNTER → 2019-02-15 | Outpatient (CLI) | payer MEDICARE, OTHER ==
[~2019-02-15] MED LIST changes: +ACET-907 PO; +APAP325T4 PO; +ASPI81TA26 PO; +B-1100TA2 PO; +B-12100T2 PO; +ENEMENE PR; +ENSU1LIQ36 PO; +KLOR20TA42 PO; +METO1TAB7 PO; +MILKSUS3 PO; +MIRT1TAB16 PO; +NYST1POW9 TOP; +ONDA4TAB5 PO; +PANT-23 PO; +QUES4POW PO; +SUCR10SS PO; +XARE15TA PO
--- NOTE | 2019-02-15 13:54 | REP ---
PET/CT: History: Restaging prostate cancer. Weight loss. Recent surgery for mesenteric ischemia. Comparisons: Comparison CT abdomen and pelvis February 06, 2019. TECHNIQUE: 54 minutes following the intravenous injection of a 8.20 mCi dose of F-18 FDG, three-dimensional PET scintigraphy is acquired from the skull base to the proximal thighs. Triplanar noncontrast CT scanning is acquired through the same anatomic range for attenuation correction, and image registration with scan parameters optimized to minimize radiation exposure to the patient. PET scintigraphy and CT datasets were fused and displayed on a workstation with multiplanar and projection display capability. PET/CT Findings: Head and neck soft tissues are unremarkable. The accompanying CT study demonstrates chronic arthropathy involving the left shoulder with evidence of a large joint effusion anterior inferior dislocation, and an impaction fracture of the humeral head at the left shoulder. There is mildly hypermetabolic uptake surrounding this in the adjacent soft tissues in a pattern consistent with arthropathy. Maximum standard uptake value is relatively low as 3.67. There is a right-sided PICC line. There is a focus of parenchymal opacity in the right lower lobe posteriorly consistent with an infiltrate. Maximum standard uptake value here is mildly hypermetabolic, 3.46. There is an area of minimally hypermetabolic uptake superior and medial to this also in the right lower lobe peripherally where maximum SUV value is 2.63. These foci may be inflammatory. There is no abnormal hypermetabolic uptake in the liver or spleen. The adrenals are unremarkable. In the small bowel mesentery there is mildly hypermetabolic uptake in a mesenteric lymph node in the central abdomen. This has maximum standard uptake value of 3.68. The lymph node in question measures 12 mm in short axis dimension. There is a curvilinear area of hypermetabolic uptake in the left mid abdomen near the recent operative site, maximum standard uptake value 5.71. The most recent chest CT study from February 06, 2019 showed punctate foci of extraluminal air in this region. These changes are very likely inflammatory. There is skeletal muscle uptake in the pelvis. Fiducial markers are seen in the prostate. No definite iliac or inguinal adenopathy. Impression: Scintigraphy shows inflammatory uptake pattern in the abdomen and in the right lower lobe of the lung. There is a chronic fracture dislocation at the left shoulder which shows some periarticular arthritic pattern uptake. No skeletal hypermetabolic uptake or suspicious alfred uptake to suggest metastatic prostate malignancy. Consider clinical and interval CT followup. Electronically Signed by Del Ramos MD 02/15/2019 04:54 P
== END ==
LOC: M PLARAD 08:09
PROVIDERS: ATTEND Internal Medicine
DX: C61 Malignant neoplasm of prostate (principal); R63.4 Abnormal weight loss; R91.8 Other nonspecific abnormal finding of lung field
CPT/HCPCS: 78815; A9552; G0463

== ENCOUNTER → 2019-02-16 | Outpatient (REF) | payer MEDICARE, OTHER ==
[~2019-02-16] MED LIST changes: -ACET-907 PO; -APAP325T4 PO; -ASPI81TA26 PO; -B-1100TA2 PO; -B-12100T2 PO; -ENEMENE PR; -ENSU1LIQ36 PO; -KLOR20TA42 PO; -METO1TAB7 PO; -MILKSUS3 PO; -MIRT1TAB16 PO; -NYST1POW9 TOP; -ONDA4TAB5 PO; -PANT-23 PO; -QUES4POW PO; -SUCR10SS PO; -XARE15TA PO
[2019-02-16 13:06] LABS: HEMATOCRIT 28.3 % (42.0-52.0); MEAN CORPUSCULAR HEMOGLOBIN 30.3 pg (27.0-33.0); MEAN CORPUSCULAR HGB CONC 31.8 g/dl (32.0-36.5); MEAN CORPUSCULAR VOLUME 95.3 fl (80.0-96.0); PLATELET COUNT, AUTOMATED 447 10^3/uL (150-450); RED BLOOD COUNT 2.97 10^6/uL (4.30-6.10); WHITE BLOOD COUNT 8.8 10^3/uL (4.0-10.0)
[2019-02-16 13:38] LABS: ERYTHROCYTE SEDIMENTATION RATE 67 mm/hr (0-20)
[2019-02-16 13:51] LABS: APPEARANCE, URINE CLEAR (CLEAR); BACTERIA, URINE AUTO NEGATIVE (NEGATIVE); BILIRUBIN, URINE AUTO NEGATIVE (NEGATIVE); BLOOD, URINE BLOOD 1+ (NEGATIVE); COLOR, URINE YELLOW (YELLOW); GLUCOSE, URINE (UA) AUTO NEGATIVE (NEGATIVE); KETONE, URINE AUTO NEGATIVE (NEGATIVE); LEUKOCYTE ESTERASE, URINE AUTO NEGATIVE (NEGATIVE); MUCUS, URINE SMALL (NEGATIVE); NITRITE, URINE AUTO NEGATIVE (NEGATIVE); PROTEIN, URINE AUTO NEGATIVE (NEGATIVE); RBC, URINE AUTO 7 /HPF (0-3); SPECIFIC GRAVITY URINE AUTO 1.019 (1.002-1.035); SQUAMOUS EPITHELIAL CELL UR AU 0 /HPF (0-6); UROBILINOGEN, URINE AUTO 0.2 mg/dL (0.0-2.0); WBC, URINE AUTO 2 /HPF (0-3)
[2019-02-16 14:14] LABS: ALBUMIN 1.7 GM/DL (3.2-5.2); ALT/SGPT 15 U/L (12-78); BILIRUBIN,TOTAL 0.3 MG/DL (0.2-1.0); BLOOD UREA NITROGEN 31 MG/DL (7-18); C REACTIVE PROTEIN QUANTITATIV 1.62 MG/DL (0.00-0.30); CARBON DIOXIDE LEVEL 24 MEQ/L (21-32); CHLORIDE LEVEL 106 MEQ/L (98-107); CREATININE FOR GFR 0.74 MG/DL (0.70-1.30); GLOMERULAR FILTRATION RATE > 60.0 (>42); GLUCOSE, FASTING 78 MG/DL (70-100); POTASSIUM SERUM 5.4 MEQ/L (3.5-5.1); SODIUM LEVEL 138 MEQ/L (136-145); TOTAL PROTEIN 5.2 GM/DL (6.4-8.2)
== END ==
PROVIDERS: ATTEND Internal Medicine
DX: D64.9 Anemia, unspecified (principal)

== ENCOUNTER → 2019-02-18 | Outpatient (REF) | PROVIDERS: ATTEND Internal Medicine | DX: E87.5 Hyperkalemia (principal) ==

== ENCOUNTER → 2019-02-22 | Outpatient (REF) ==
[2019-02-22 09:27] LABS: BLOOD UREA NITROGEN 37 MG/DL (7-18); CALCIUM LEVEL 7.7 MG/DL (8.8-10.2); CARBON DIOXIDE LEVEL 24 MEQ/L (21-32); CHLORIDE LEVEL 111 MEQ/L (98-107); CREATININE FOR GFR 0.61 MG/DL (0.70-1.30); GLOMERULAR FILTRATION RATE > 60.0 (>42); GLUCOSE, FASTING 65 MG/DL (70-100); POTASSIUM SERUM 3.5 MEQ/L (3.5-5.1); SODIUM LEVEL 143 MEQ/L (136-145)
== END ==
PROVIDERS: ATTEND Internal Medicine
DX: Z79.899 Other long term (current) drug therapy (principal)

== ENCOUNTER → 2019-02-23 | Outpatient (REF) ==
[~2019-02-23] MED LIST changes: +ACET-907 PO; +APAP325T4 PO; +ASPI81TA26 PO; +B-1100TA2 PO; +B-12100T2 PO; +ENEMENE PR; +ENSU1LIQ36 PO; +KLOR20TA42 PO; +METO1TAB7 PO; +MILKSUS3 PO; +MIRT1TAB16 PO; +NYST1POW9 TOP; +ONDA4TAB5 PO; +PANT-23 PO; +QUES4POW PO; +SUCR10SS PO; +XARE15TA PO
== END ==
PROVIDERS: ATTEND Physician Assistant
DX: D64.9 Anemia, unspecified (principal)

== ENCOUNTER → 2019-02-23 | Outpatient (REF) ==
[2019-02-23 08:56] LABS: HEMATOCRIT 22.2 % (42.0-52.0); HEMOGLOBIN 7.1 g/dl (13.5-17.5); MEAN CORPUSCULAR HEMOGLOBIN 31.8 pg (27.0-33.0); MEAN CORPUSCULAR VOLUME 99.6 fl (80.0-96.0); PLATELET COUNT, AUTOMATED 456 10^3/uL (150-450); RED BLOOD COUNT 2.23 10^6/uL (4.30-6.10); WHITE BLOOD COUNT 11.6 10^3/uL (4.0-10.0)
[2019-02-23 09:56] LABS: ALBUMIN 1.8 GM/DL (3.2-5.2); ALT/SGPT 14 U/L (12-78); BILIRUBIN,TOTAL 0.1 MG/DL (0.2-1.0); BLOOD UREA NITROGEN 33 MG/DL (7-18); C REACTIVE PROTEIN QUANTITATIV 1.16 MG/DL (0.00-0.30); CALCIUM LEVEL 7.7 MG/DL (8.8-10.2); CARBON DIOXIDE LEVEL 20 MEQ/L (21-32); CHLORIDE LEVEL 111 MEQ/L (98-107); CREATININE FOR GFR 0.78 MG/DL (0.70-1.30); GLOMERULAR FILTRATION RATE > 60.0 (>42); GLUCOSE, FASTING 112 MG/DL (70-100); POTASSIUM SERUM 2.7 MEQ/L (3.5-5.1); SODIUM LEVEL 140 MEQ/L (136-145); TOTAL PROTEIN 5.8 GM/DL (6.4-8.2)
[2019-02-23 09:58] LABS: ERYTHROCYTE SEDIMENTATION RATE 86 mm/hr (0-20)
== END ==
PROVIDERS: ATTEND Internal Medicine
DX: D64.9 Anemia, unspecified (principal)

== ENCOUNTER 2019-02-24 08:11 | Outpatient (CLI) | payer MEDICARE, OTHER ==
[~2019-02-24] VITALS: Ht 172.7 cm; Wt 66.5 kg
[2019-02-24] VITALS (10 sets, daily range): BP systolic 81–123; BP diastolic 51–65
[~2019-02-24 08:11] MED LIST changes: -ACET-907 PO; +ACETAMINOPHEN TAB 650MG DOSE (2X325MG) PO SCH; -APAP325T4 PO; -ASPI81TA26 PO; -B-1100TA2 PO; -B-12100T2 PO; -ENEMENE PR; -ENSU1LIQ36 PO; -KLOR20TA42 PO; -METO1TAB7 PO; -MILKSUS3 PO; -MIRT1TAB16 PO; -NYST1POW9 TOP; -ONDA4TAB5 PO; -PANT-23 PO; -QUES4POW PO; -SUCR10SS PO; -XARE15TA PO; +diphenhydrAMINE 25 MG CAP PO SCH
[2019-02-25] MEDS ORDERED: LOPE2CA PO (14:12)
[2019-02-25] MEDS ORDERED: NYST1POW9 TOP (14:12)
[2019-02-25] MEDS ORDERED: CLOP75TA2 PO (14:12)
[2019-02-25] MEDS ORDERED: ENEMENE PR (14:12)
[2019-02-25] MEDS ORDERED: DRIS50003 PO (14:12)
[2019-02-25] MEDS ORDERED: METO1TAB7 PO (14:12)
[2019-02-25] MEDS ORDERED: APAP325T4 PO (14:12)
[2019-02-25] MEDS ORDERED: DULC10SU2 PR (14:12)
[2019-02-25] MEDS ORDERED: XARE15TA PO (14:12)
[2019-02-25] MEDS ORDERED: ACET-907 PO (14:12)
[2019-02-25] MEDS ORDERED: B-12100T2 PO (14:12)
[2019-02-25] MEDS ORDERED: PANT-23 PO (14:12)
[2019-02-25] MEDS ORDERED: MILKSUS3 PO (14:12)
[2019-02-25] MEDS ORDERED: ENSU1LIQ36 PO (14:12)
[2019-02-25] MEDS ORDERED: MAGN64TASA PO (14:12)
[2019-02-25] MEDS ORDERED: KLOR20TA42 PO ×2 (14:12)
[2019-02-25] MEDS ORDERED: FINA5TAB2 PO (14:12)
[2019-02-25] MEDS ORDERED: ASPI81TA26 PO (14:12)
[2019-02-25] MEDS ORDERED: PRAV40TA2 PO (14:12)
[2019-02-25] MEDS ORDERED: B-1100TA2 PO (14:12)
[2019-02-25] MEDS ORDERED: MIRT1TAB16 PO (14:12)
[2019-02-25] MEDS ORDERED: SUCR10SS PO (14:12)
[2019-02-25] MEDS ORDERED: ONDA4TAB5 PO (14:12)
[2019-02-25] MEDS ORDERED: QUES4POW PO (14:12)
[2019-02-25] MEDS ORDERED: AMIO200T PO (14:12)
== END 2019-02-24 14:50 | disposition home or self-care (01) ==
LOC: M INFU 08:11
PROVIDERS: ATTEND Physician Assistant
DX: D64.9 Anemia, unspecified (principal)

== ENCOUNTER → 2019-02-24 | Outpatient (REF) ==
[2019-02-24 07:25] LABS: MEAN CORPUSCULAR HEMOGLOBIN 32.2 pg (27.0-33.0); MEAN CORPUSCULAR HGB CONC 32.3 g/dl (32.0-36.5); MEAN CORPUSCULAR VOLUME 99.5 fl (80.0-96.0); PLATELET COUNT, AUTOMATED 394 10^3/uL (150-450); RED BLOOD COUNT 1.99 10^6/uL (4.30-6.10); WHITE BLOOD COUNT 10.8 10^3/uL (4.0-10.0)
[2019-02-24 07:28] LABS: HEMATOCRIT 19.8 % (42.0-52.0); HEMOGLOBIN 6.4 g/dl (13.5-17.5)
[2019-02-24 07:38] LABS: BLOOD UREA NITROGEN 25 MG/DL (7-18); CALCIUM LEVEL 7.4 MG/DL (8.8-10.2); CARBON DIOXIDE LEVEL 22 MEQ/L (21-32); CHLORIDE LEVEL 111 MEQ/L (98-107); CREATININE FOR GFR 0.59 MG/DL (0.70-1.30); GLOMERULAR FILTRATION RATE > 60.0 (>42); GLUCOSE, FASTING 76 MG/DL (70-100); POTASSIUM SERUM 3.7 MEQ/L (3.5-5.1); SODIUM LEVEL 141 MEQ/L (136-145)
== END ==
PROVIDERS: ATTEND Internal Medicine
DX: E87.6 Hypokalemia (principal); D64.9 Anemia, unspecified

== ENCOUNTER 2019-02-25 12:42 | Inpatient (IN) | payer MEDICARE, OTHER ==
[~2019-02-25] VITALS: Ht 170.2 cm; Wt 54.6 kg
[~2019-02-25 12:42] MED LIST changes: -ACET-907 PO; -APAP325T4 PO; -ASPI81TA26 PO; -B-1100TA2 PO; -B-12100T2 PO; -ENEMENE PR; -ENSU1LIQ36 PO; -KLOR20TA42 PO; -METO1TAB7 PO; -MILKSUS3 PO; -MIRT1TAB16 PO; -NYST1POW9 TOP; -ONDA4TAB5 PO; -PANT-23 PO; -QUES4POW PO; -SUCR10SS PO; -XARE15TA PO
[2019-02-25] MEDS ORDERED: B-1100TA2 PO (14:12)
[2019-02-25] MEDS ORDERED: DULC10SU2 PR (14:12)
[2019-02-25] MEDS ORDERED: QUES4POW PO (14:12)
[2019-02-25] MEDS ORDERED: NYST1POW9 TOP (14:12)
[2019-02-25] MEDS ORDERED: B-12100T2 PO (14:12)
[2019-02-25] MEDS ORDERED: PRAV40TA2 PO (14:12)
[2019-02-25] MEDS ORDERED: DRIS50003 PO (14:12)
[2019-02-25] MEDS ORDERED: SUCR10SS PO (14:12)
[2019-02-25] MEDS ORDERED: ENSU1LIQ36 PO (14:12)
[2019-02-25] MEDS ORDERED: PANT-23 PO (14:12)
[2019-02-25] MEDS ORDERED: APAP325T4 PO (14:12)
[2019-02-25] MEDS ORDERED: ACET-907 PO (14:12)
[2019-02-25] MEDS ORDERED: ENEMENE PR (14:12)
[2019-02-25] MEDS ORDERED: ONDA4TAB5 PO (14:12)
[2019-02-25] MEDS ORDERED: CLOP75TA2 PO (14:12)
[2019-02-25] MEDS ORDERED: MILKSUS3 PO (14:12)
[2019-02-25] MEDS ORDERED: MIRT1TAB16 PO (14:12)
[2019-02-25] MEDS ORDERED: FINA5TAB2 PO (14:12)
[2019-02-25] MEDS ORDERED: MAGN64TASA PO (14:12)
[2019-02-25] MEDS ORDERED: AMIO200T PO (14:12)
[2019-02-25] MEDS ORDERED: LOPE2CA PO (14:12)
[2019-02-25] MEDS ORDERED: KLOR20TA42 PO ×2 (14:12)
[2019-02-25] MEDS ORDERED: METO1TAB7 PO (14:12)
[2019-02-25] MEDS ORDERED: XARE15TA PO (14:12)
[2019-02-25] MEDS ORDERED: ASPI81TA26 PO (14:12)
[2019-02-25] MEDS ORDERED: ISOVUE-370 76% 100ML VIAL (Q9967) As Ordered ONE (14:31)
--- NOTE | 2019-02-25 16:48 | REP ---
CT abdomen and pelvis with IV but without oral contrast: History: Vomiting. History of GI bleeding. Comparison CT study: February 06, 2019. CT contrast dose: 100 mL of intravenous Isovue 370. CT findings: Preliminary digital cashier receptionist radiograph demonstrates dilated small bowel loop in the central abdomen. There are fiducial markers in the prostate bed. The bowel gas pattern is unremarkable otherwise. Median sternotomy wires are noted. Vascular calcification is seen. Axial CT images demonstrate a noncalcified pulmonary nodule in the left lower lobe on page 12 of 45 in series 204 of today's study. This measures 5 mm in greatest diameter. This is unchanged from remote prior comparison study March 20, 2015. There are one or two other tiny nodular opacities in the left lower lobe which are also unchanged. The liver is normal in size and homogeneous in texture. The spleen has an irregular lobulated shape and several areas of under perfusion are again seen in the spleen suggesting splenic infarct pattern. There is an accessory splenule inferiorly. Splenic vein is patent. The splenic artery appears very small and calcific. There may be a thrombosed or partially thrombosed splenic artery aneurysm at the splenic hilus measuring 12 mm. Contrast enhancement is seen in another circular structure in the small bowel mesentery in the left mid abdomen. This may be a visceral artery aneurysm as well. It measures 1.5 cm in diameter. The mid superior mesenteric artery remains thrombosed. There is a stent in the celiac and superior mesenteric artery origins. There is a calcification in the dependent portion of the small contracted gallbladder which may be a gallstone. No pancreatic mass or cyst is seen. There is a small bowel obstruction pattern moderate in degree with a point of transition beyond a small bowel anastomosis just to the right of midline in the mid jejunum. The ileal and large intestinal loops distal to this are normal in caliber. There is some edema adjacent to these distal moderately dilated jejunal loops. There is sigmoid colon diverticulosis. There are fiducial markers in the prostate. Urinary bladder is unremarkable. A normal appendix is seen in the right pelvis. Impression: 1. Fairly high-grade small bowel obstruction with point of transition in the right lower abdomen at the level of the mid jejunum. No mass lesion is seen here. There is a small bowel anastomotic suture just proximal to the point of transition. Probable adhesions. There is some adjacent mesenteric edema. 2. Left colonic diverticulosis. 3. Fiducial markers in the prostate bed. 4. Subacute splenic infarct pattern. 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 5. 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 6. 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 Electronically Signed by Del Ramos MD 02/25/2019 07:49 P
[2019-02-25] MEDS ORDERED: NS 1,000 ML IV ONE (17:30)
[2019-02-25] MEDS ORDERED: NYSTATIN 100,000 UNITS/GM TOPICAL PWD 15 GM TOP PRN (17:45)
[2019-02-25] MEDS ORDERED: DEXTROSE 50% 50 ML SYRINGE IV PRN (17:45)
[2019-02-25] MEDS ORDERED: GLUCAGON FOR INJ 1 MG VIAL (J1610) SC PRN (17:45)
[2019-02-25] MEDS ORDERED: GLUCOSE 4 GM CHEW TABLET PO PRN (17:45)
[2019-02-25] MEDS ORDERED: HEPARIN DRIP 25,000 UNITS in IV 1 EA IV SCH (18:38)
[2019-02-25] MEDS ORDERED: HEPARIN SOD (PORCINE) 5000 UNITS/ML VIAL IV PRN (18:45)
[2019-02-25] MEDS ORDERED: KCL 40MEQ IN D5/0.45NS 1000ML 1,000 ML IV SCH (19:00)
[2019-02-25 19:57] LABS: HEMATOCRIT 31.1 % (42.0-52.0); HEMOGLOBIN 10.2 g/dl (13.5-17.5); MEAN CORPUSCULAR HEMOGLOBIN 30.2 pg (27.0-33.0); MEAN CORPUSCULAR HGB CONC 32.8 g/dl (32.0-36.5); PLATELET COUNT, AUTOMATED 409 10^3/uL (150-450); RED BLOOD COUNT 3.38 10^6/uL (4.30-6.10); WHITE BLOOD COUNT 11.8 10^3/uL (4.0-10.0)
[2019-02-25 20:31] LABS: ALBUMIN 1.9 GM/DL (3.2-5.2); ALT/SGPT 20 U/L (12-78); BILIRUBIN,DIRECT 0.2 MG/DL (0.0-0.2); BILIRUBIN,TOTAL 0.4 MG/DL (0.2-1.0); BLOOD UREA NITROGEN 24 MG/DL (7-18); CALCIUM LEVEL 8.1 MG/DL (8.8-10.2); CARBON DIOXIDE LEVEL 24 MEQ/L (21-32); CHLORIDE LEVEL 109 MEQ/L (98-107); CREATININE FOR GFR 0.69 MG/DL (0.70-1.30); GLOMERULAR FILTRATION RATE > 60.0 (>42); GLUCOSE, FASTING 90 MG/DL (70-100); POTASSIUM SERUM 3.9 MEQ/L (3.5-5.1); SODIUM LEVEL 140 MEQ/L (136-145); TOTAL PROTEIN 5.8 GM/DL (6.4-8.2)
[2019-02-25] MEDS: KCL 40MEQ IN D5/0.45NS 1000ML 1,000 ML IV SCH (21:57)
[2019-02-25] MEDS: FLUTICASONE PROP 0.05% NASAL SPRAY 16 GM (FLONASE) NARES SCH (21:57)
[2019-02-25] MEDS: PANTOPRAZOLE 40MG INJ (PROTONIX) (C9113) IV SCH (21:57)
--- NOTE | 2019-02-25 21:59 | HPE ---
DATE OF ADMISSION: 02/25/2019 CHIEF COMPLAINT: Nausea, vomiting. 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 Presented to the emergency room with complaints of nausea, vomiting about four times, which started last evening at the retirement. The patient denied any fever, chills, and felt uneasy all night long with growling in the stomach and hiccups. The patient was not passing any gas. For the past few days, he had been having some diarrhea and had "the runs" 4-5 times daily but not yesterday since he was given something to prevent him from having diarrhea. The patient has been unable to sleep due to persistent nausea and vomiting from last night and presented to the emergency room today, was found to have a high-grade bowel obstruction on CT abdomen and pelvis with a point of transition in the right lower abdomen at the level of the midjejunum. No mass lesion is seen. There is a small bowel anastomotic suture proximal to point of transition. Probable adhesions. The patient has adjacent mesenteric edema. 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 There is a stent in the celiac and superior mesenteric artery. Hospitalist was called to admit for small bowel obstruction. General Surgeon, Dr. Busby, to assess and help manage patient's bowel obstruction. Lactic acid is pending. White count slightly elevated at 13,000. He was afebrile. Vital signs were stable. Blood pressure 124 systolic and saturating 100% on room air. PAST MEDICAL HISTORY: Sacral decubitus ulcer. 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 Stent to the SMA and celiac artery, status post laparotomy and SMA iliac stenting with superficial left lower quadrant abscess. Sacral decubitus colonization with methicillin-resistant Staphylococcus aureus (MRSA) and gram negative, and mucocutaneous groin candidiasis. Protein-calorie malnutrition. Aortic valve replacement with bioprosthetic valve by TAVR. Atrial fibrillation. History of alcohol abuse. History of CVA. Recent gastrointestinal (GI) bleed from bowel ischemia. Obstructive sleep apnea, on continuous positive airway pressure (CPAP). Coronary artery disease and coronary artery bypass graft (CABG) in the past. Hyperlipidemia. Prostate cancer, treated with radiation. GI bleed, status post PVI due to radiation proctitis. Gastroesophageal reflux disease (GERD). Hypertension. Cardiomyopathy. Iron deficiency anemia. Diverticulosis. Colonic polyps. Gross hematuria. PAST SURGICAL HISTORY: CABG. Pilonidal cyst. Coronary artery disease, stents times two. Colonoscopy 2016. PCI to left circumflex with stent 2013. CABG times three vessels. TAVR 2014 Cystoscopy 2018. Left thoracentesis 2013. Angioplasty and stenting of SMA and branches of SMA celiac artery. Exploratory laparotomy. Colon resection 01/08/2019. Left lower quadrant superficial abscess at the site of the LEON drain. Acute mesenteric ischemia with SMA thrombosis from emboli with small bowel resection, one foot of small bowel at the distal jejunum and early ileus with small bowel anastomosis. ALLERGIES: No known drug allergies. HOME MEDICATIONS: - acetaminophen 650 mg three times a day - Tylenol 650 mg every 4 hours as needed - aspirin 81 mg daily - Dulcolax 10 mg as needed - Questran 4 grams daily - Plavix 75 mg daily - Drisdol 50,000 units weekly - finasteride 5 mg daily - loperamide 2 mg daily as needed - Slow-Mag 64 mg daily - milk of magnesia 30 mL daily as needed - Protonix 40 mg daily - Zofran 4 mg every 8 hours as needed - pravastatin 40 mg nightly - Xarelto 15 mg nightly - Fleet enema daily - Carafate 1 gram before food and nightly - thiamine 100 mg twice a day - vitamin B12 100 mcg nightly - Ensure Enlive 8 ounces by mouth three times a day - mirtazapine 30 mg nightly - Klor-Con 20 mEq daily - potassium 40 mEq daily - amiodarone 200 mg daily - metoprolol 50 mg daily - Nystatin powder as needed FAMILY HISTORY: Mother and father - both had coronary artery disease and myocardial infarction ([place]). SOCIAL HISTORY: Previous smoker. Occasional alcohol use with wine. REVIEW OF SYSTEMS: Per history of the present illness, 12-point system otherwise negative. PHYSICAL EXAMINATION: Vital Signs: Temperature 97.6, pulse 92, respiratory rate 18, blood pressure 124/60, 100% pulse oximetry on room air. Generally, the patient is awake, alert, oriented to person, place and time, able to provide much of the history. He is cooperative. No jugular venous distention. No thyromegaly. Anicteric sclerae. No jaundice. Patient appears his stated age. No respiratory distress. No use of respiratory accessory muscles, speaks in full sentences. Face is symmetric. Neck is supple, full range of motion. No cervical lymphadenopathy, thyromegaly. Lungs: Diminished but clear to auscultation. No wheezing, rales or rhonchi. Heart: S1, S2, irregularly irregular. Patient has a well-healed mid sternal scar. Abdomen is slightly distended with well-healed scars. No hernias noted. Patient has high-pitched bowel sounds, hypoactive. No rebound, no guarding. Extremities: No cyanosis, clubbing or pitting edema. White count 13, hemoglobin 10, hematocrit 31, platelets 455, 90% neutrophils, 1 band. Sedimentation rate of 86. Metabolic panel: Sodium 141, potassium 3.7, chloride 109, bicarbonate 24, BUN 22, creatinine 0.62, glucose of 100. Lactic acid is pending. CT abdomen and pelvis 02/25/2019: Fairly high-grade small bowel obstruction, point of transition right lower abdomen at the level of the midjejunum. No mass lesion is seen. There is small bowel anastomotic suture just proximal to the point of transition. Probable adhesions. There is some adjacent mesenteric edema. Left colonic diverticulosis. Fiducial markers in the prostate bed. 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 ASSESSMENT AND PLAN: A 78-year-old male, presented with high-grade small bowel obstruction, recent history of prosthetic aortic valve endocarditis, chronic sacral decubitus, TAVR, mesenteric ischemia, status post celiac and SMA stent, presents with a 1-day history of nausea, vomiting, found to have high-grade small bowel obstruction. Patient will be admitted as an inpatient for two midnights to progressive care unit (PCU) telemetry unit. Small bowel obstruction. Nothing by mouth status. Nasogastric tube placement. Hold ORAL anticoagulants and antiplatelets for now. General surgery has been consulted, Dr. Busby, for management. IV fluids with D5 half normal with potassium 40 mEq. trial of conservative management as patient is a high risk candidate for surgery. Patient has heme positive stool. history of TAVR with prosthetic valve endocarditis, completed 6 weeks of intravenous antibiotics, last dose was given February 20, 2019. He is currently afebrile despite a slight increase in white count. No empiric antibiotics for now. Medical clearance. Patient is high risk for surgery. Conservative management should be pursued. If not, patient is optimized with continued use of his metoprolol, amiodarone, currently not complaining of any acute ischemic symptoms and not in congestive heart failure. Anemia with history of GI bleed and heme positive stool. Not requiring blood transfusion at this time. Monitor for clinical decompensation and overt GI bleed. Protonix IV daily while the patient is nothing by mouth. History of coronary artery disease, CABG times three vessels. The patient is high risk for surgery. His antiplatelets and oral anticoagulants have been held secondary to possible need for intervention. History of mesenteric ischemia with SMA and celiac stents placed by vascular surgery, Dr. Yo 12/2018. The patient's oral anticoagulant will be held due to small bowel obstruction, potential need for surgical intervention. He will need to be heparinized which can be held prior to surgery. History of prostate cancer, in remission. History of CVA with no residual neurological dysfunction. Patient's antiplatelet agents and oral anticoagulants have been held. ADVANCED DIRECTIVES: Healthcare proxy is Talya Vaughn, phone number [phone] and Cha Blank [phone]. [facility]
[2019-02-25 22:44] LABS: INR 1.16; PROTHROMBIN TIME 14.5 SECONDS (11.8-14.0)
[2019-02-25 22:45] LABS: PARTIAL THROMBOPLASTIN TIME 37.6 SECONDS (25.0-38.4)
[2019-02-26 06:26] LABS: RED BLOOD COUNT 2.83 10^6/uL (4.30-6.10); WHITE BLOOD COUNT 8.4 10^3/uL (4.0-10.0)
[2019-02-26 06:27] LABS: BASO % 0.2 % (0.0-1.0); EOS # 0.2 10^3/uL (0.0-0.5); EOS % 2.3 % (0.0-3.0); HEMATOCRIT 25.7 % (42.0-52.0); HEMOGLOBIN 8.4 g/dl (13.5-17.5); LYMPH # 1.6 10^3/uL (1.5-5.0); LYMPH % 19.3 % (24.0-44.0); MEAN CORPUSCULAR HEMOGLOBIN 29.7 pg (27.0-33.0); MEAN CORPUSCULAR HGB CONC 32.7 g/dl (32.0-36.5); MEAN CORPUSCULAR VOLUME 90.8 fl (80.0-96.0); MONO # 0.8 10^3/uL (0.0-0.8); MONO % 9.5 % (0.0-5.0); NEUTROPHILS # 5.7 10^3/uL (1.5-8.5); NEUTROPHILS % 67.9 % (36.0-66.0); PLATELET COUNT, AUTOMATED 340 10^3/uL (150-450)
[2019-02-26 06:53] LABS: BLOOD UREA NITROGEN 22 MG/DL (7-18); CALCIUM LEVEL 7.3 MG/DL (8.8-10.2); CARBON DIOXIDE LEVEL 24 MEQ/L (21-32); CHLORIDE LEVEL 113 MEQ/L (98-107); CREATININE FOR GFR 0.58 MG/DL (0.70-1.30); GLOMERULAR FILTRATION RATE > 60.0 (>42); GLUCOSE, FASTING 77 MG/DL (70-100); POTASSIUM SERUM 3.4 MEQ/L (3.5-5.1); SODIUM LEVEL 142 MEQ/L (136-145)
--- NOTE | 2019-02-26 08:47 | REP ---
Portable chest x-ray: Single view. History: Preop. Comparison chest x-ray: February 06, 2019. Findings: A nasogastric tube is seen entering the left upper quadrant of the abdomen. Prior sternotomy wires are again noted. The lungs are symmetrically aerated and free of infiltrate. The heart is not enlarged. Pleural angles are sharp. No free subdiaphragmatic air is seen. Advanced arthropathy is again seen in the shoulders bilaterally. Electronically Signed by Del Ramos MD 02/26/2019 08:39 A
[2019-02-26] MEDS: PANTOPRAZOLE 40MG INJ (PROTONIX) (C9113) IV SCH (09:35)
[2019-02-26] MEDS: METOPROLOL SUCC (TopROL XL) 50MG **XL** TAB PO SCH (09:36)
[2019-02-26] MEDS: AMIODARONE 200 MG TAB (PACERONE) PO SCH (09:36)
[2019-02-26] MEDS: FLUTICASONE PROP 0.05% NASAL SPRAY 16 GM (FLONASE) NARES SCH ×2 (09:37→22:01)
--- NOTE | 2019-02-26 10:39 | REP ---
Abdomen series: Three views. History: Small bowel obstruction. Check resolution. Comparison is made with CT study from February 25 2019. Findings: Cross-table lateral view shows multiple air-fluid levels in the central abdomen. A nasogastric tube is seen in the distal stomach. There are still air and fluid dilated loops in the central abdomen although these appear somewhat improved. Contrast opacified urine is seen in the urinary bladder. Fiducial markers are noted in the prostate. Impression: Persistent air-fluid levels and a small bowel dilation. Improved small bowel obstruction pattern. Electronically Signed by Del Ramos MD 02/26/2019 10:30 A
[2019-02-26] MEDS ORDERED: MORPHINE 4 MG/ML 1ML VIAL/SYRINGE (J2270) IV PRN (11:30)
[2019-02-26 12:52] LABS: INR 1.23; PROTHROMBIN TIME 15.2 SECONDS (11.8-14.0)
[2019-02-26 12:53] LABS: PARTIAL THROMBOPLASTIN TIME 35.3 SECONDS (25.0-38.4)
[2019-02-26] MEDS: KCL 40MEQ IN D5/0.45NS 1000ML 1,000 ML IV SCH (12:59)
[2019-02-26 13:51] LABS: HEMATOCRIT 25.6 % (42.0-52.0); HEMOGLOBIN 8.3 g/dl (13.5-17.5)
[2019-02-26] MEDS: MAG SULF 1GM/100ML (MAG RUN) 1 GM in IV 1 EA IV SCH ×3 (14:30→17:37)
--- NOTE | 2019-02-26 15:44 | IPN ---
DATE: 02/26/2019 The patient had two small bowel movements yesterday. He states that his abdominal cramping is improved this morning. He was afebrile. No nausea or vomiting. Nasogastric tube has been placed. Output has not been documented. The patient has no respiratory distress this morning. Per nursing, the patient did have some blood in his bowel movement and heparin was held temporarily. VITAL SIGNS: Temperature 96.7, pulse 79, respiratory rate 16, blood pressure 105/58, 99% on room air. GENERAL: The patient is awake, alert, oriented times three. No respiratory distress. No jugular venous distention (JVD). No cervical lymphadenopathy. Dry mucous membranes. Nasogastric tube with bilious drainage. Lungs are diminished but clear to auscultation. No wheezing, rales or rhonchi. Heart: S1, S2. Irregularly irregular. Abdomen: Softer, nondistended, slightly tender diffusely with hyperactive bowel sounds. Extremities: No cyanosis, clubbing or pitting edema. LABORATORY DATA: White count 8.4, hemoglobin 8.4, hematocrit 25, previous hemoglobin 10 and hematocrit 31. Platelet count of 340. Sodium 142, potassium 3.4, chloride 114, bicarbonate 24, BUN 22, creatinine 0.58, glucose 77, magnesium of 1. CT of the abdomen and pelvis shows high grade small bowel obstruction with point of transition in the right lower abdomen at the level of the mid jejunum. No mass lesion is seen. 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 ASSESSMENT AND PLAN: This is a 78-year-old male with history of infective endocarditis of a prosthetic aortic valve, completed antibiotics 02/20/2019, left lower quadrant superficial abscess at the LEON drain, status post mesenteric ischemia with SMA thrombosis with stenting of the SMA branches and celiac artery, presented to the emergency room with nausea, vomiting for the past [address] of the abdomen and pelvis showed high grade small bowel obstruction with chronic thrombus and occlusion of the mid and distal SMA and possible visceral artery aneurysm in small bowel mesentery. Surgery has been consulted for help in management for small bowel obstruction. IMPRESSION: 1. Small bowel obstruction. Doing well. The patient has had two bowel movements over the past 24 hours with improvement in his abdominal cramping. He is currently being managed conservatively with nothing by mouth status, IV fluids, nasogastric tube to low intermittent suction. Repeat abdominal film this morning has improved small bowel obstruction pattern with persistent air fluid and small bowel dilatation. Defer to general surgery regarding further changes in management. 2. Heme positive stool with anemia. THe patient had received IV fluids overnight. He currently denies any chest pain, pressure, tightness, shortness of breath, palpitations, lightheadedness, or dizziness. Due to recent stent placement at the main celiac artery, patient is kept on intravenous heparin to be discontinued if the patient is going for surgery or persistent anemia occurs. 3. Hypertension, history of coronary artery disease and coronary artery bypass graft (CABG). Continued on home dose of Toprol XL. 4. Atrial fibrillation. Currently rate controlled on IV heparin drip to be discontinued if persistent lower gastrointestinal bleed. Continued on amiodarone orally. 5. Type 2 diabetes. Currently nothing by mouth status with IV fluids. 6. Electrolyte abnormalities, most likely secondary to low intermittent suctioning with low potassium and low magnesium, which will be supplemented. 7. Human rhinovirus. Strict handwashing. MTDD
[2019-02-26 18:30] LABS: HEMATOCRIT 24.4 % (42.0-52.0); HEMOGLOBIN 7.9 g/dl (13.5-17.5)
[2019-02-26 18:41] LABS: INR 1.25; PROTHROMBIN TIME 15.5 SECONDS (11.8-14.0)
[2019-02-26 18:44] LABS: PARTIAL THROMBOPLASTIN TIME 118.7 SECONDS (25.0-38.4)
[2019-02-26 20:40] VITALS: BP 121/66
[2019-02-27] VITALS: BP 110/60
[2019-02-27 02:21] LABS: HEMATOCRIT 25.9 % (42.0-52.0); HEMOGLOBIN 8.4 g/dl (13.5-17.5)
[2019-02-27 04:00] VITALS: BP 104/57
[2019-02-27] MEDS: KCL 40MEQ IN D5/0.45NS 1000ML 1,000 ML IV SCH ×3 (06:03→19:48)
[2019-02-27 07:17] LABS: BASO % 0.4 % (0.0-1.0); EOS # 0.3 10^3/uL (0.0-0.5); HEMATOCRIT 28.5 % (42.0-52.0); HEMOGLOBIN 9.1 g/dl (13.5-17.5); LYMPH # 1.5 10^3/uL (1.5-5.0); LYMPH % 21.8 % (24.0-44.0); MEAN CORPUSCULAR HGB CONC 31.9 g/dl (32.0-36.5); MEAN CORPUSCULAR VOLUME 94.1 fl (80.0-96.0); MONO # 0.7 10^3/uL (0.0-0.8); MONO % 9.7 % (0.0-5.0); NEUTROPHILS # 4.2 10^3/uL (1.5-8.5); NEUTROPHILS % 61.9 % (36.0-66.0); PLATELET COUNT, AUTOMATED 306 10^3/uL (150-450); RED BLOOD COUNT 3.03 10^6/uL (4.30-6.10); WHITE BLOOD COUNT 6.8 10^3/uL (4.0-10.0)
[2019-02-27 07:40] LABS: BLOOD UREA NITROGEN 13 MG/DL (7-18); CALCIUM LEVEL 7.9 MG/DL (8.8-10.2); CARBON DIOXIDE LEVEL 24 MEQ/L (21-32); CHLORIDE LEVEL 113 MEQ/L (98-107); CREATININE FOR GFR 0.45 MG/DL (0.70-1.30); GLOMERULAR FILTRATION RATE > 60.0 (>42); GLUCOSE, FASTING 74 MG/DL (70-100); MAGNESIUM LEVEL 1.8 MG/DL (1.8-2.4); POTASSIUM SERUM 3.6 MEQ/L (3.5-5.1); SODIUM LEVEL 143 MEQ/L (136-145)
[2019-02-27 08:00] VITALS: BP 102/60
--- NOTE | 2019-02-27 08:32 | CR ---
DATE OF CONSULTATION: 02/26/2019 REASON FOR CONSULTATION: Small bowel obstruction. HISTORY OF PRESENT ILLNESS: Patient is a pleasant 78-year-old man who has been residing at the [facility]. The patient had been seen by surgery at the end of December for treatment of some small bowel ischemia secondary to superior mesenteric artery thrombosis. A short small bowel resection was required and he also was seen by Dr. Yo of vascular surgery for angioplasty and stenting apparently. The patient had some issues with a gastrointestinal (GI) bleed as well. He has apparently more recently been residing at the [facility]. He has been followed for anemia and received additional blood transfusion. He was apparently seen in the emergency department on the 05 of February and transferred to [place] after a CT scan reported the presence of some mesenteric edema and some punctate foci of extraluminal gas in the mesentery with a known thrombosis of the superior mesenteric artery. He apparently did not undergo any surgery in [place] and was returned to [place] several days later. He now presented to the emergency department with complaints of some nausea and vomiting multiple times, which had started the day prior to presentation. He had some cramping and abdominal pain. In the emergency department he had a CT scan of the abdomen and pelvis obtained which showed a markedly distended fluid-filled stomach with some dilated proximal small bowel which appeared to reach a transition point in the right upper quadrant and the bowel distal to that point was of normal caliber. The patient was admitted by the hospitalist because of his multiple other medical issues for management, particularly his anticoagulation and antiplatelet agents. I am consulted to make recommendations regarding the bowel obstruction. ALLERGIES: The patient has no known drug allergies. MEDICATIONS: Prior to admission his medication list was fairly long and included: Tylenol as needed, amiodarone, aspirin, bisacodyl as needed, cholestyramine daily, clopidogrel 75 mg daily at bedtime, vitamin B12, vitamin D, finasteride, loperamide as needed, magnesium chloride daily, metoprolol ER 50 mg daily, mirtazapine, nystatin powder topically, Zofran 4 mg by mouth every 8 hours as needed, Protonix daily, potassium chloride, pravastatin, rivaroxaban, Fleet's enemas as needed, Carafate 1 gram four times daily before meals and at bedtime and thiamine. 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 Sacral decubitus with a history of methicillin-resistant staph aureus. Atrial fibrillation. Past history of alcohol abuse. A history of CVA. Recent gastrointestinal bleed, obstructive sleep apnea, coronary artery disease status post coronary artery bypass, hyperlipidemia, prostate cancer treated with radiation, gastroesophageal reflux, hypertension, cardiomyopathy, iron deficiency anemia, diverticulosis, colon polyps. SURGICAL HISTORY: Is significant for coronary artery bypass grafting. He has had a pilonidal cystectomy. He has had two coronary stents and a coronary artery bypass to three vessels. He has had a transvenous aortic valve replacement in 2013. He has had prior cystoscopy. He had a left thoracentesis in 2013. He had angioplasty and stenting of the SMA and the celiac. He had a exploratory laparotomy at the end of December with a small bowel resection. FAMILY HISTORY: Is noncontributory. SOCIAL HISTORY: His is a previous smoker and occasionally drinks some wine. REVIEW OF SYSTEMS: Is without any significant findings other than those mentioned in history of present illness. He is not having any chest pain or shortness of breath in particular. PHYSICAL EXAMINATION: Patient is a somewhat frail-appearing older man lying quietly on the ER stretcher. He has a nasogastric tube in place draining some bilious fluid. He has multiple bruises on his extremities. The neck is without mass. Heart exam shows a regular rhythm. The lungs show distant breath sounds. The abdomen is flat. He has a well-healed fairly recent upper midline scar. He has bowel sounds present. There is a small bulge evident in the left mid abdomen which is soft and nontender to palpation. The abdomen overall was soft and without apparent mass. There is no significant tenderness on palpation currently. He has no evident hernia. LABORATORY STUDIES: Include a CBC this morning showing a white count of 8, hemoglobin of 8, hematocrit of 26 and platelet count of 340,000. Differential count shows 68% neutrophils, 19% lymphocytes and 10% monocytes. Chemistry profile shows a sodium of 142, potassium 3.4, chloride 113, CO2 of 24, BUN of 22, creatinine 0.6 and glucose of 77. Calcium is 7.3 with a magnesium of 1.0. Yesterday's labs included liver function tests which were normal with the exception of a slight elevation of the alkaline phosphatase to 220. Total protein and albumin are depressed to 5.[address] scan of the abdomen and pelvis from the was reviewed. This revealed a markedly distended fluid-filled stomach. An anastomosis was noted in the left mid to lower abdomen in the small bowel and this was somewhat distended as well. The small bowel distension extended beyond this point to a loop that crossed from the left-side the abdomen about at the level of the umbilicus to the right mid abdomen where it tapered off and more distal small bowel loops appeared of normal caliber. The spleen was small and the kidneys were slightly atrophic. There was no free air or free fluid noted. IMPRESSION: 1. Small bowel obstruction possibly secondary to adhesions versus scarring from ischemia. 2. Multiple other medical problems as noted in the medical history. RECOMMENDATIONS: At this point I would recommend continuing with nasogastric decompression. I will review a KUB which he has ordered for today to see if this shows continuing evidence of a bowel obstruction. He reports that he has not had any flatus or bowel movement today yet. I have recommended that we monitor for resolution of his bowel obstruction but do not at this time intravenous surgically. If within a couple of days he has not shown any return of bowel function, then surgical intervention may be appropriate. SADIE
[2019-02-27] MEDS: METOPROLOL SUCC (TopROL XL) 50MG **XL** TAB PO SCH (09:00)
[2019-02-27] MEDS: PANTOPRAZOLE 40MG INJ (PROTONIX) (C9113) IV SCH (09:30)
[2019-02-27] MEDS: FLUTICASONE PROP 0.05% NASAL SPRAY 16 GM (FLONASE) NARES SCH ×2 (09:30→20:01)
[2019-02-27] MEDS: AMIODARONE 200 MG TAB (PACERONE) PO SCH (09:30)
[2019-02-27] MEDS ORDERED: SLF 3 ML SYR IV PRN (09:30)
--- NOTE | 2019-02-27 10:19 | REP ---
Abdomen series: Four views. History: Small bowel obstruction. Check resolution. Comparison study: February 26 2019. Findings: Nasogastric tube is seen in the distal stomach. The lungs are well inflated and free of infiltrate. No free subdiaphragmatic air. Median sternotomy wires are seen. Normal heart size. The bowel gas pattern is improved. A small quantity of small bowel air is seen to the left of midline. Air and stool seen in a nondistended colon. Vascular stents are again noted in the epigastric region superimposed on the thoracolumbar spine. Impression: Bowel gas pattern is improved. Electronically Signed by Del Ramos MD 02/27/2019 10:11 A
[2019-02-27] MEDS ORDERED: MAG SULF 1GM/100ML (MAG RUN) 1 GM in IV 1 EA IV ONE (11:00)
[2019-02-27 12:00] VITALS: BP 123/72
[2019-02-27 13:43] LABS: HEMOGLOBIN 9.6 g/dl (13.5-17.5)
[2019-02-27] MEDS: SLF 3 ML SYR IV SCH ×2 (14:11→20:00)
--- NOTE | 2019-02-27 14:37 | IPN ---
DATE: 02/27/2019 He denies any shortness of breath. No nausea or vomiting. The patient's nasogastric tube is still in place with copious amount of bilious material coming out, about 600 mL last night and about 500 mL since midnight. The patient has been net negative balance, had an episode of hypoglycemia and glucose of 66, status post hypoglycemic protocol and amp of D50 given overnight. The patient's hemoglobin dropped down to 7.9 yesterday. No complaints of generalized weakness, bright red blood per rectum, melena or black tarry stools. With serial checks, the patient's hemoglobin is 9.1 and hematocrit of 28.5 this morning. No bowel movements today but two yesterday. Has not passed any flatus. Denies any bloating sensation. Repeat abdominal film is still pending. Previous film shows some improvement but persistent small bowel pattern. VITAL SIGNS: Temperature 97.9, pulse 73, respiratory rate 18, blood pressure 102/60, 98% on room air. GENERAL: Awake, alert and oriented to person, place and time. The patient has nasogastric tube with bilious drainage. No respiratory distress. No cyanosis. No pallor. LUNGS: Diminished but clear to auscultation. No wheezing or rales. HEART: S1, S2. Sinus rhythm. ABDOMEN: Soft, nontender, nondistended with hypoactive bowel sounds. No rebound or guarding. EXTREMITIES: No cyanosis, clubbing or pitting edema. LABORATORY DATA: White count 6.9, hemoglobin 9.1, hematocrit 28, platelet count 306. Sodium 142, potassium 3.6, chloride 113, bicarbonate 24, BUN 13, creatinine 0.45, glucose 74, magnesium 1.8. Microbiology: Human rhinovirus and enterovirus. Abdominal film from 02/26/2019 shows persistent small bowel dilatation, improved small bowel obstruction pattern. ASSESSMENT AND PLAN: This is a 78-year-old male with a history of infective endocarditis, prosthetic aortic valve, status post TAVR completed antibiotic on 02/20/2019, history of left lower quadrant superficial abscess at the LEON drain site, also treated fully, had mesenteric ischemia with SMA thrombosis, stenting of the SMA branch and celiac artery, usually on Plavix, aspirin anticoagulation. 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 The patient is admitted for a small bowel obstruction. IMPRESSION: 1. High grade small bowel obstruction. Still on nasogastric tube due to increased output of 600 mL last night and 500 mL today since midnight. He is being treated conservatively with nothing by mouth status, IV fluids and nasogastric tube to low intermittent suction. Repeat abdominal film has persistent small bowel obstruction pattern but with some improvement. Per general surgery, continue with conservative management, but still at high risk if intervention is needed. He is currently on IV heparin, which can be discontinued if the patient goes to the operating room. 2. Heme positive stool with anemia. The patient denies any overt gastrointestinal bleed. Hemoglobin and hematocrit appear stable. Currently does not need a blood transfusion. He is still on IV heparin, but we will discontinue if bleeding is noted. 3. Medical clearance. The patient is high risk for surgery. If bowel ischemia is a concern, will need to go to surgery. He is currently on his home dose of Toprol and amiodarone for atrial fibrillation. 4. Hypertensive heart disease. Coronary artery disease and coronary artery bypass graft (CABG). On Toprol and amiodarone. 5. Atrial fibrillation. Rate controlled on Toprol. Currently on IV heparin drip, as we are holding his oral anticoagulants and antiplatelets as the patient may need to go to surgery for his small bowel obstruction for exploratory laparotomy and lysis of adhesions. 6. Type 2 diabetes with an episode of low glucose and hypoglycemia. Currently on hypoglycemic protocol. Fluids will be increased to 100 mL an hour and monitor for respiratory distress and fluid overload. 7. Electrolyte abnormalities. Appears to be improved. Magnesium and potassium are back to range. Due to premature ventricular contractions (PVCs) noted on telemetry, the patient's potassium should be above 4 and magnesium above 2, supplement as needed. MTDD
[2019-02-27 16:00] VITALS: BP 144/76
[2019-02-27 18:55] LABS: HEMATOCRIT 29.3 % (42.0-52.0); HEMOGLOBIN 9.3 g/dl (13.5-17.5)
[2019-02-27 20:00] VITALS: BP 114/70
[2019-02-28] VITALS: BP 116/68
[2019-02-28 01:02] LABS: HEMATOCRIT 29.8 % (42.0-52.0); HEMOGLOBIN 9.4 g/dl (13.5-17.5)
[2019-02-28 04:00] VITALS: BP 140/69
[2019-02-28] MEDS: SLF 3 ML SYR IV SCH ×3 (06:39→20:55)
--- NOTE | 2019-02-28 06:52 | IPN ---
DATE OF VISIT: 02/17/2019 HISTORY: The patient was admitted on the with evidence for a small bowel obstruction. A nasogastric tube was placed and he has been continued on. He is receiving maintenance IV fluid. He was on a heparin drip but this was apparently stopped by the hospitalist in response to a dip in his hematocrit 24.4 on the . His hematocrit has since recovered slightly without any blood transfusion. VITAL SIGNS: The patient has been afebrile over the past 24 hours. His pulse is in the 60s and low 70s and his blood pressure is excellent. Room air oxygen saturation is normal. IV fluids are not being recorded based on the small amounts recorded. His nasogastric (NG) output was 600 mL yesterday and he had 600 mL out today from 6 o'clock in the morning until approximately 8 o'clock in the evening. This is a very watery, lightly bilious fluid. PHYSICAL EXAMINATION: The patient is lying quietly on the hospital bed. He is alert and oriented. He appears in no discomfort. HEART: Heart exam shows a regular rhythm. ABDOMEN: The abdomen is scaphoid. He has bowel sounds present. The abdomen is soft and nontender without appreciable mass. LABORATORY FINDINGS: The patient had a hemoglobin and hematocrit this evening at 1830 that was hemoglobin 9.3 and hematocrit of 29. Earlier today his white count was 7 with a platelet count of 306,000 and a nearly normal differential. His chemistry profile this morning showed a sodium of 143, potassium 3.6, chloride 113, CO2 of 24, BUN of 13, creatinine 0.4 and glucose of 74. A flat and upright abdominal series this morning showed some air and stool seen in the colon with no definite distended small bowel. The NG tube was noted. IMPRESSION: The patient's abdomen is nicely decompressed. He has some fairly watery lightly bilious fluid draining from the NG tube which is in quite far. I think it is quite possible that his obstruction has resolved despite his report that he has not passed any flatus. PLAN: The patient's nasogastric (NG) tube will be clamped tonight. I advised the patient that if he develops nausea or vomiting or feels bloated or uncomfortable that the nurses can put his NG tube back to suction. If he tolerates the tube clamped overnight. It will be removed in the morning. SADIE
[2019-02-28 07:43] LABS: BASO % 0.3 % (0.0-1.0); EOS # 0.4 10^3/uL (0.0-0.5); EOS % 4.9 % (0.0-3.0); HEMATOCRIT 30.3 % (42.0-52.0); HEMOGLOBIN 9.3 g/dl (13.5-17.5); LYMPH # 1.4 10^3/uL (1.5-5.0); LYMPH % 18.6 % (24.0-44.0); MEAN CORPUSCULAR HEMOGLOBIN 28.9 pg (27.0-33.0); MEAN CORPUSCULAR HGB CONC 30.7 g/dl (32.0-36.5); MEAN CORPUSCULAR VOLUME 94.1 fl (80.0-96.0); MONO # 0.8 10^3/uL (0.0-0.8); MONO % 9.8 % (0.0-5.0); NEUTROPHILS % 65.4 % (36.0-66.0); PLATELET COUNT, AUTOMATED 311 10^3/uL (150-450); RED BLOOD COUNT 3.22 10^6/uL (4.30-6.10); WHITE BLOOD COUNT 7.6 10^3/uL (4.0-10.0)
[2019-02-28 08:00] VITALS: BP 119/68
[2019-02-28 08:06] LABS: BLOOD UREA NITROGEN 10 MG/DL (7-18); CALCIUM LEVEL 8.1 MG/DL (8.8-10.2); CARBON DIOXIDE LEVEL 23 MEQ/L (21-32); CHLORIDE LEVEL 112 MEQ/L (98-107); GLOMERULAR FILTRATION RATE > 60.0 (>42); GLUCOSE, FASTING 74 MG/DL (70-100); MAGNESIUM LEVEL 1.6 MG/DL (1.8-2.4); POTASSIUM SERUM 4.3 MEQ/L (3.5-5.1); SODIUM LEVEL 141 MEQ/L (136-145)
[2019-02-28] MEDS: AMIODARONE 200 MG TAB (PACERONE) PO SCH (09:05)
[2019-02-28] MEDS: PANTOPRAZOLE 40MG INJ (PROTONIX) (C9113) IV SCH (09:06)
[2019-02-28] MEDS: METOPROLOL SUCC (TopROL XL) 50MG **XL** TAB PO SCH (09:06)
[2019-02-28] MEDS: FLUTICASONE PROP 0.05% NASAL SPRAY 16 GM (FLONASE) NARES SCH ×2 (09:06→20:55)
--- NOTE | 2019-02-28 11:03 | IPNPDOC ---
Text Note Date of Service The patient was seen on 02/28/19. NOTE Patient was seen and examined this morning. The patient has an NG tube which was removed and the patient was started on clear liquid diet No overnight events. Has been passing gas. Physical examination GENERAL: Awake, alert and oriented to person, place and time. The patient has nasogastric tube with bilious drainage. No respiratory distress. No cyanosis. No pallor. LUNGS: Diminished but clear to auscultation. No wheezing or rales. HEART: S1, S2. Sinus rhythm. ABDOMEN: Soft, nontender, nondistended with hypoactive bowel sounds. No rebound or guarding. EXTREMITIES: No cyanosis, clubbing or pitting edema. Microbiology: Human rhinovirus and enterovirus. Abdominal film from 02/26/2019 shows persistent small bowel dilatation, improved small bowel obstruction pattern. ASSESSMENT AND PLAN: This is a 78-year-old male with a history of infective endocarditis, prosthetic aortic valve, status post TAVR completed antibiotic on 02/20/2019, history of left lower quadrant superficial abscess at the LEON drain site, also treated fully, had mesenteric ischemia with SMA thrombosis, stenting of the SMA branch and celiac artery, usually on Plavix, aspirin anticoagulation. 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 The patient is admitted for a small bowel obstruction. IMPRESSION: 1. High grade small bowel obstruction. Resolved NG tube removed .He is being treated conservatively . Per general surgery, he has been started on clear liquid diet Continue monitoring 2. Heme positive stool with anemia. Stable hemoglobin The patient denies any overt gastrointestinal bleed. Hemoglobin and hematocrit appear stable. Currently does not need a blood transfusion. We'll restart his xeralto as well as aspirin 3. Mesenteric ischemia with SMA thrombosis, stenting in the past of the SMA branch and celiac artery, usually on Plavix, aspirin anticoagulation. Will continue xeralto and aspirin today 4. Hypertensive heart disease. Coronary artery disease and coronary artery bypass graft (CABG). On Toprol and amiodarone. 5. Atrial fibrillation. Rate controlled on Toprol. Continue Zaroxolyn 6. Type 2 diabetes with an episode of low glucose and hypoglycemia. Continue glucose checks Continue present liquid diet Disposition likely home once medically optimized Angie LICONA I+O VS, Fishbone, I+O Laboratory Tests 02/27/19 13:17 02/27/19 18:30 02/28/19 00:56 02/28/19 07:16 Vital Signs Date Time Temp Pulse Resp B/P (MAP) Pulse Ox O2 Delivery O2 Flow Rate FiO2 02/28/19 09:06 72 119/68 02/28/19 08:00 97.7 17 100 Room Air I&O- Last 24 Hours up to 6 AM 02/28/19 06:00 Intake Total 0 ml Output Total 1550 ml Balance -1550 ml ONOFRE GOSS MD Feb 28, 2019 11:03
[2019-02-28 12:00] VITALS: BP 120/72
[2019-02-28] MEDS: MAGNESIUM OXIDE 400 MG TAB (MAG-OX) PO SCH (12:13)
--- NOTE | 2019-02-28 13:15 | IPN ---
DATE: 02/28/2019 HISTORY: The patient was admitted on 02/25/2019 with evidence for a small bowel obstruction. A nasogastric (NG) tube was placed. Yesterday, his NG tube was clamped. He has tolerated this well overnight with no complaints of abdominal pain or cramping, distension, or nausea or vomiting. Vital signs show that he has been afebrile over the past 24 hours. His pulse is in the 70s generally and his blood pressure is fine. Intake and output show that yesterday he had 360 recorded in, which I think cannot possibly be correct, and an output of 1850. This morning he had 350 mL of urine output recorded. PHYSICAL EXAM: The patient is lying quietly in the hospital bed dozing. He rouses readily to voice. He is alert and oriented. Abdomen is flat to scaphoid. He has bowel sounds present. The abdomen is soft and nontender. Laboratory studies show a white count of 8, hemoglobin 9, hematocrit 30 and a platelet count of 311,000. Chemistry profile is pending at the time of this dictation. IMPRESSION: The patient has tolerated clamping of his NG tube over the last 12 hours or so without any apparent difficulty. PLAN: The patient's NG tube was discontinued. He will be started on some clear liquids. Once he tolerates the clears well his diet can be advanced and he can be discharged when his medical issues are stable and he is tolerating an adequate diet. SADIE
[2019-02-28 13:27] LABS: HEMATOCRIT 32.1 % (42.0-52.0); HEMOGLOBIN 10.3 g/dl (13.5-17.5)
[2019-02-28 16:00] VITALS: BP 141/81
[2019-02-28 19:33] LABS: HEMATOCRIT 29.7 % (42.0-52.0); HEMOGLOBIN 9.7 g/dl (13.5-17.5)
[2019-02-28 20:00] VITALS: BP 117/61
[2019-03-01] VITALS (7 sets, daily range): BP systolic 102–160; BP diastolic 62–84
[2019-03-01] MEDS: SLF 3 ML SYR IV SCH ×3 (05:05→20:39)
[2019-03-01 06:37] LABS: BASO % 0.5 % (0.0-1.0); EOS # 0.4 10^3/uL (0.0-0.5); HEMATOCRIT 33.3 % (42.0-52.0); HEMOGLOBIN 10.5 g/dl (13.5-17.5); LYMPH # 1.7 10^3/uL (1.5-5.0); LYMPH % 22.1 % (24.0-44.0); MEAN CORPUSCULAR HEMOGLOBIN 29.8 pg (27.0-33.0); MEAN CORPUSCULAR HGB CONC 31.5 g/dl (32.0-36.5); MEAN CORPUSCULAR VOLUME 94.6 fl (80.0-96.0); MONO # 0.7 10^3/uL (0.0-0.8); MONO % 9.2 % (0.0-5.0); NEUTROPHILS # 4.7 10^3/uL (1.5-8.5); NEUTROPHILS % 62.7 % (36.0-66.0); PLATELET COUNT, AUTOMATED 305 10^3/uL (150-450); RED BLOOD COUNT 3.52 10^6/uL (4.30-6.10); WHITE BLOOD COUNT 7.5 10^3/uL (4.0-10.0)
[2019-03-01 06:54] LABS: BLOOD UREA NITROGEN 8 MG/DL (7-18); CALCIUM LEVEL 8.1 MG/DL (8.8-10.2); CARBON DIOXIDE LEVEL 22 MEQ/L (21-32); CHLORIDE LEVEL 108 MEQ/L (98-107); CREATININE FOR GFR 0.58 MG/DL (0.70-1.30); GLOMERULAR FILTRATION RATE > 60.0 (>42); GLUCOSE, FASTING 61 MG/DL (70-100); MAGNESIUM LEVEL 1.4 MG/DL (1.8-2.4); POTASSIUM SERUM 3.9 MEQ/L (3.5-5.1); SODIUM LEVEL 138 MEQ/L (136-145)
[2019-03-01] MEDS ORDERED: MAG SULF 1GM/100ML (MAG RUN) 1 GM in IV 1 EA IV ONE (08:45)
[2019-03-01] MEDS: AMIODARONE 200 MG TAB (PACERONE) PO SCH (09:05)
[2019-03-01] MEDS: METOPROLOL SUCC (TopROL XL) 50MG **XL** TAB PO SCH (09:05)
[2019-03-01] MEDS: PANTOPRAZOLE 40MG INJ (PROTONIX) (C9113) IV SCH (09:05)
[2019-03-01] MEDS: MAGNESIUM OXIDE 400 MG TAB (MAG-OX) PO SCH (09:05)
[2019-03-01] MEDS: ASPIRIN 81 MG ENTERIC TAB PO SCH (09:06)
[2019-03-01] MEDS: FLUTICASONE PROP 0.05% NASAL SPRAY 16 GM (FLONASE) NARES SCH ×2 (09:06→20:39)
--- NOTE | 2019-03-01 10:38 | IPNPDOC ---
Text Note Date of Service The patient was seen on 03/01/19. NOTE Patient was seen and examined this morning. No overnight events. Has been passing gas. Physical examination GENERAL: Awake, alert and oriented to person, place and time. . No respiratory distress. No cyanosis.No pallor. LUNGS: Diminished but clear to auscultation. No wheezing or rales. HEART: S1, S2. Sinus rhythm. ABDOMEN: Soft, nontender, nondistended with hypoactive bowel sounds. No rebound or guarding. EXTREMITIES: No cyanosis, clubbing or pitting edema. Microbiology: Human rhinovirus and enterovirus. Abdominal film from 02/26/2019 shows persistent small bowel dilatation, improved small bowel obstruction pattern. ASSESSMENT AND PLAN: This is a 78-year-old male with a history of infective endocarditis, prosthetic aortic valve, status post TAVR completed antibiotic on 02/20/2019, history of left lower quadrant superficial abscess at the LEON drain site, also treated fully, had mesenteric ischemia with SMA thrombosis, stenting of the SMA branch and celiac artery, usually on Plavix, aspirin anticoagulation. 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 The patient is admitted for a small bowel obstruction. IMPRESSION: 1. High grade small bowel obstruction. Resolved NG tube removed .He is being treated conservatively . Per general surgery, he has been started on clear liquid diet Continue monitoring 2. Heme positive stool with anemia. Stable hemoglobin The patient denies any overt gastrointestinal bleed. Hemoglobin and hematocrit appear stable. Currently does not need a blood transfusion. We'll restart his xeralto as well as aspirin 3. Mesenteric ischemia with SMA thrombosis, stenting in the past of the SMA branch and celiac artery, usually on Plavix, aspirin anticoagulation. Will continue xeralto and aspirin today 4. Hypertensive heart disease. Coronary artery disease and coronary artery bypass graft (CABG). On Toprol and amiodarone. 5. Atrial fibrillation. Rate controlled on Toprol. Continue Zaroxolyn 6. Type 2 diabetes with an episode of low glucose and hypoglycemia. Continue glucose checks Continue present liquid diet Disposition likely rehab once medically optimized and if hb stable tomorrow VS,Fishbone, I+O VS, Fishbone, I+O Laboratory Tests 02/28/19 13:13 02/28/19 19:26 03/01/19 06:09 Vital Signs Date Time Temp Pulse Resp B/P (MAP) Pulse Ox O2 Delivery O2 Flow Rate FiO2 03/01/19 09:05 81 120/82 03/01/19 08:37 97.3 18 100 Room Air I&O- Last 24 Hours up to 6 AM 03/01/19 06:00 Intake Total 2660 ml Output Total 650 ml Balance 2009 ml ONOFRE GOSS MD Mar 01, 2019 10:37
[2019-03-01] MEDS: SUCRALFATE SUSP 1GM/10ML UD PO SCH ×3 (12:19→20:39)
[2019-03-01] MEDS: RIVAROXABAN 15 MG TAB (XARELTO) PO SCH (18:30)
[2019-03-02] VITALS (8 sets, daily range): BP systolic 101–136; BP diastolic 60–93
[2019-03-02] MEDS: SLF 3 ML SYR IV SCH ×3 (05:09→19:58)
[2019-03-02 05:50] LABS: BASO % 0.2 % (0.0-1.0); EOS # 0.1 10^3/uL (0.0-0.5); HEMATOCRIT 27.8 % (42.0-52.0); HEMOGLOBIN 9.1 g/dl (13.5-17.5); LYMPH % 7.8 % (24.0-44.0); MEAN CORPUSCULAR HGB CONC 32.7 g/dl (32.0-36.5); MEAN CORPUSCULAR VOLUME 91.7 fl (80.0-96.0); MONO # 0.6 10^3/uL (0.0-0.8); MONO % 4.6 % (0.0-5.0); NEUTROPHILS % 85.8 % (36.0-66.0); PLATELET COUNT, AUTOMATED 246 10^3/uL (150-450); RED BLOOD COUNT 3.03 10^6/uL (4.30-6.10); WHITE BLOOD COUNT 12.8 10^3/uL (4.0-10.0)
[2019-03-02 06:13] LABS: BLOOD UREA NITROGEN 11 MG/DL (7-18); CARBON DIOXIDE LEVEL 23 MEQ/L (21-32); CHLORIDE LEVEL 106 MEQ/L (98-107); CREATININE FOR GFR 0.54 MG/DL (0.70-1.30); GLOMERULAR FILTRATION RATE > 60.0 (>42); GLUCOSE, FASTING 95 MG/DL (70-100); MAGNESIUM LEVEL 1.6 MG/DL (1.8-2.4); POTASSIUM SERUM 3.5 MEQ/L (3.5-5.1); SODIUM LEVEL 138 MEQ/L (136-145)
[2019-03-02] MEDS: METOPROLOL SUCC (TopROL XL) 50MG **XL** TAB PO SCH (08:44)
[2019-03-02] MEDS: AMIODARONE 200 MG TAB (PACERONE) PO SCH (08:53)
[2019-03-02] MEDS: ASPIRIN 81 MG ENTERIC TAB PO SCH (08:53)
[2019-03-02] MEDS: PANTOPRAZOLE 40MG INJ (PROTONIX) (C9113) IV SCH (08:53)
[2019-03-02] MEDS: FLUTICASONE PROP 0.05% NASAL SPRAY 16 GM (FLONASE) NARES SCH ×2 (08:53→19:57)
[2019-03-02] MEDS: SUCRALFATE SUSP 1GM/10ML UD PO SCH ×4 (08:53→19:57)
[2019-03-02] MEDS: MAGNESIUM OXIDE 400 MG TAB (MAG-OX) PO SCH (08:53)
[2019-03-02] MEDS ORDERED: MAG SULF 1GM/100ML (MAG RUN) 1 GM in IV 1 EA IV ONE (09:00)
--- NOTE | 2019-03-02 11:30 | IPNPDOC ---
Text Note Date of Service The patient was seen on 03/02/19. NOTE Patient was seen and examined this morning. No overnight events. Has been passing gas. Physical examination GENERAL: Awake, alert and oriented to person, place and time. . No respiratory distress. No cyanosis.No pallor. LUNGS: Diminished but clear to auscultation. No wheezing or rales. HEART: S1, S2. Sinus rhythm. ABDOMEN: Soft, nontender, nondistended with hypoactive bowel sounds. No rebound or guarding. EXTREMITIES: No cyanosis, clubbing or pitting edema. Microbiology: Human rhinovirus and enterovirus. Abdominal film from 02/26/2019 shows persistent small bowel dilatation, improved small bowel obstruction pattern. ASSESSMENT AND PLAN: This is a 78-year-old male with a history of infective endocarditis, prosthetic aortic valve, status post TAVR completed antibiotic on 02/20/2019, history of left lower quadrant superficial abscess at the LEON drain site, also treated fully, had mesenteric ischemia with SMA thrombosis, stenting of the SMA branch and celiac artery, usually on Plavix, aspirin anticoagulation. 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 The patient is admitted for a small bowel obstruction. IMPRESSION: 1. High grade small bowel obstruction. Resolved, NG tube removed .He is being treated conservatively . Per general surgery, he has been started on soft diet Tolerating well. Continue monitoring 2. Heme positive stool with anemia. Hemoglobin trending down to 9.3 .The patient denies any overt gastrointestinal bleed. Currently does not need a blood transfusion. Xarelto and aspirin were restarted And after that his hemoglobin has trending down. We will continue to monitor for any signs of bleeding. 3. Mesenteric ischemia with SMA thrombosis, stenting in the past of the SMA branch and celiac artery, usually on Plavix, aspirin anticoagulation. Will continue xeralto and aspirin today and reassess tomorrow 4. Hypertensive heart disease. Coronary artery disease and coronary artery bypass graft (CABG). On Toprol and amiodarone. 5. Atrial fibrillation. Rate controlled on Toprol. Anticoagulation with Xarelto 6. Type 2 diabetes with an episode of low glucose and hypoglycemia. Continue glucose checks Continue present liquid diet Disposition likely rehab once medically optimized and if hb stable tomorrow VS,Fishbone, I+O VS, Fishbone, I+O Laboratory Tests 03/02/19 05:27 Vital Signs Date Time Temp Pulse Resp B/P (MAP) Pulse Ox O2 Delivery O2 Flow Rate FiO2 03/02/19 08:00 98.1 74 18 112/64 (80) 98 Room Air I&O- Last 24 Hours up to 6 AM 03/02/19 06:00 Intake Total 540 ml Output Total 175 ml Balance 365 ml ONOFRE GOSS MD Mar 02, 2019 11:30
[2019-03-02] MEDS: RIVAROXABAN 15 MG TAB (XARELTO) PO SCH (17:27)
[2019-03-03] VITALS: BP 133/84
[2019-03-03 04:00] VITALS: BP 148/78
[2019-03-03] MEDS: SLF 3 ML SYR IV SCH ×3 (05:14→22:47)
[2019-03-03 07:19] LABS: BASO % 0.2 % (0.0-1.0); EOS # 0.2 10^3/uL (0.0-0.5); EOS % 2.3 % (0.0-3.0); HEMATOCRIT 29.8 % (42.0-52.0); HEMOGLOBIN 9.9 g/dl (13.5-17.5); LYMPH # 1.5 10^3/uL (1.5-5.0); LYMPH % 16.3 % (24.0-44.0); MEAN CORPUSCULAR HEMOGLOBIN 30.9 pg (27.0-33.0); MEAN CORPUSCULAR HGB CONC 33.2 g/dl (32.0-36.5); MEAN CORPUSCULAR VOLUME 93.1 fl (80.0-96.0); MONO # 0.5 10^3/uL (0.0-0.8); MONO % 5.8 % (0.0-5.0); NEUTROPHILS # 6.9 10^3/uL (1.5-8.5); NEUTROPHILS % 74.7 % (36.0-66.0); PLATELET COUNT, AUTOMATED 239 10^3/uL (150-450); WHITE BLOOD COUNT 9.2 10^3/uL (4.0-10.0)
[2019-03-03 07:42] LABS: BLOOD UREA NITROGEN 17 MG/DL (7-18); CALCIUM LEVEL 8.1 MG/DL (8.8-10.2); CARBON DIOXIDE LEVEL 24 MEQ/L (21-32); CHLORIDE LEVEL 105 MEQ/L (98-107); CREATININE FOR GFR 0.69 MG/DL (0.70-1.30); GLOMERULAR FILTRATION RATE > 60.0 (>42); GLUCOSE, FASTING 75 MG/DL (70-100); MAGNESIUM LEVEL 1.7 MG/DL (1.8-2.4); POTASSIUM SERUM 3.5 MEQ/L (3.5-5.1); SODIUM LEVEL 138 MEQ/L (136-145)
[2019-03-03 08:00] VITALS: BP 128/66
[2019-03-03] MEDS ORDERED: MAG SULF 1GM/100ML (MAG RUN) 1 GM in IV 1 EA IV ONE (08:15)
[2019-03-03] MEDS: PANTOPRAZOLE 40MG INJ (PROTONIX) (C9113) IV SCH (09:16)
[2019-03-03] MEDS: SUCRALFATE SUSP 1GM/10ML UD PO SCH ×4 (09:16→20:19)
[2019-03-03] MEDS: ASPIRIN 81 MG ENTERIC TAB PO SCH (09:16)
[2019-03-03] MEDS: AMIODARONE 200 MG TAB (PACERONE) PO SCH (09:17)
[2019-03-03] MEDS: METOPROLOL SUCC (TopROL XL) 50MG **XL** TAB PO SCH (09:17)
[2019-03-03] MEDS: MAGNESIUM OXIDE 400 MG TAB (MAG-OX) PO SCH (09:17)
[2019-03-03] MEDS: FLUTICASONE PROP 0.05% NASAL SPRAY 16 GM (FLONASE) NARES SCH ×2 (09:17→20:19)
--- NOTE | 2019-03-03 11:34 | IPNPDOC ---
Text Note Date of Service The patient was seen on 03/03/19. NOTE Patient was seen and examined this morning. No overnight events. Has been passing gas. Physical examination GENERAL: Awake, alert and oriented to person, place and time. . No respiratory distress. No cyanosis.No pallor. LUNGS: Diminished but clear to auscultation. No wheezing or rales. HEART: S1, S2. Sinus rhythm. ABDOMEN: Soft, nontender, nondistended with hypoactive bowel sounds. No rebound or guarding. EXTREMITIES: No cyanosis, clubbing or pitting edema. Microbiology: Human rhinovirus and enterovirus. Abdominal film from 02/26/2019 shows persistent small bowel dilatation, improved small bowel obstruction pattern. ASSESSMENT AND PLAN: This is a 78-year-old male with a history of infective endocarditis, prosthetic aortic valve, status post TAVR completed antibiotic on 02/20/2019, history of left lower quadrant superficial abscess at the LEON drain site, also treated fully, had mesenteric ischemia with SMA thrombosis, stenting of the SMA branch and celiac artery, usually on Plavix, aspirin anticoagulation. 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 The patient is admitted for a small bowel obstruction. IMPRESSION: 1. High grade small bowel obstruction. Resolved, NG tube removed .He is being treated conservatively . Per general surgery, he has been started on soft diet Tolerating well. Continue monitoring 2. Heme positive stool with anemia. Hemoglobin trending down to 9.3 .The patient denies any overt gastrointestinal bleed. Currently does not need a blood transfusion. Xarelto and aspirin were restarted And after that his hemoglobin has trending down but stable now. We will continue to monitor for any signs of bleeding. Also Plavix to be restarted today. Monitor hemoglobins were monitored 3. Mesenteric ischemia with SMA thrombosis, stenting in the past of the SMA branch and celiac artery, usually on Plavix, aspirin anticoagulation. Will continue xeralto , Plavix and aspirin today and reassess tomorrow 4. Hypertensive heart disease. Coronary artery disease and coronary artery bypass graft (CABG). On Toprol and amiodarone. 5. Atrial fibrillation. Rate controlled on Toprol. Anticoagulation with Xare lto 6. Type 2 diabetes with an episode of low glucose and hypoglycemia. Continue glucose checks Continue present liquid diet Disposition likely rehab once medically optimized and if hb stable tomorrow VS,Docbone, I+O VS, Fishbone, I+O Laboratory Tests 03/03/19 06:49 Vital Signs Date Time Temp Pulse Resp B/P (MAP) Pulse Ox O2 Delivery O2 Flow Rate FiO2 03/03/19 09:17 68 128/66 03/03/19 08:00 98.5 18 100 Room Air I&O- Last 24 Hours up to 6 AM 03/03/19 06:00 Intake Total 700 ml Output Total 725 ml Balance -25 ml ONOFRE GOSS MD Mar 03, 2019 11:34
[2019-03-03 12:00] VITALS: BP 131/73
[2019-03-03 16:00] VITALS: BP 134/77
[2019-03-03 16:38] LABS: APPEARANCE, URINE CLEAR (CLEAR); BACTERIA, URINE AUTO NEGATIVE (NEGATIVE); BILIRUBIN, URINE AUTO NEGATIVE (NEGATIVE); BLOOD, URINE BLOOD 3+ (NEGATIVE); COLOR, URINE YELLOW (YELLOW); GLUCOSE, URINE (UA) AUTO NEGATIVE (NEGATIVE); KETONE, URINE AUTO NEGATIVE (NEGATIVE); LEUKOCYTE ESTERASE, URINE AUTO NEGATIVE (NEGATIVE); MUCUS, URINE SMALL (NEGATIVE); NITRITE, URINE AUTO NEGATIVE (NEGATIVE); PROTEIN, URINE AUTO NEGATIVE (NEGATIVE); RBC, URINE AUTO TNTC /HPF (0-3); SPECIFIC GRAVITY URINE AUTO 1.015 (1.002-1.035); SQUAMOUS EPITHELIAL CELL UR AU 0 /HPF (0-6); UROBILINOGEN, URINE AUTO 0.2 mg/dL (0.0-2.0); WBC, URINE AUTO 14 /HPF (0-3)
[2019-03-03] MEDS: RIVAROXABAN 15 MG TAB (XARELTO) PO SCH (17:34)
[2019-03-03 20:00] VITALS: BP 121/62
[2019-03-04] VITALS: BP 102/55
[2019-03-04 00:07] LABS: HEMATOCRIT 28.8 % (42.0-52.0); HEMOGLOBIN 9.3 g/dl (13.5-17.5)
[2019-03-04 04:00] VITALS: BP 100/60
[2019-03-04 05:37] LABS: BASO % 0.3 % (0.0-1.0); EOS # 0.3 10^3/uL (0.0-0.5); HEMATOCRIT 28.2 % (42.0-52.0); HEMOGLOBIN 9.1 g/dl (13.5-17.5); LYMPH # 1.8 10^3/uL (1.5-5.0); LYMPH % 20.9 % (24.0-44.0); MEAN CORPUSCULAR HEMOGLOBIN 29.8 pg (27.0-33.0); MEAN CORPUSCULAR HGB CONC 32.3 g/dl (32.0-36.5); MEAN CORPUSCULAR VOLUME 92.5 fl (80.0-96.0); MONO # 0.6 10^3/uL (0.0-0.8); MONO % 6.9 % (0.0-5.0); NEUTROPHILS # 5.9 10^3/uL (1.5-8.5); NEUTROPHILS % 68.4 % (36.0-66.0); PLATELET COUNT, AUTOMATED 231 10^3/uL (150-450); RED BLOOD COUNT 3.05 10^6/uL (4.30-6.10); WHITE BLOOD COUNT 8.7 10^3/uL (4.0-10.0)
[2019-03-04 06:09] LABS: BLOOD UREA NITROGEN 21 MG/DL (7-18); CARBON DIOXIDE LEVEL 25 MEQ/L (21-32); CHLORIDE LEVEL 104 MEQ/L (98-107); CREATININE FOR GFR 0.69 MG/DL (0.70-1.30); GLOMERULAR FILTRATION RATE > 60.0 (>42); GLUCOSE, FASTING 74 MG/DL (70-100); MAGNESIUM LEVEL 1.6 MG/DL (1.8-2.4); POTASSIUM SERUM 3.4 MEQ/L (3.5-5.1); SODIUM LEVEL 135 MEQ/L (136-145)
[2019-03-04] MEDS: SLF 3 ML SYR IV SCH ×3 (06:20→20:49)
[2019-03-04 08:00] VITALS: BP 93/56
[2019-03-04] MEDS: METOPROLOL SUCC (TopROL XL) 50MG **XL** TAB PO SCH (09:00)
[2019-03-04] MEDS: MAGNESIUM OXIDE 400 MG TAB (MAG-OX) PO SCH (09:30)
[2019-03-04] MEDS: SUCRALFATE SUSP 1GM/10ML UD PO SCH ×4 (09:30→20:49)
[2019-03-04] MEDS: ASPIRIN 81 MG ENTERIC TAB PO SCH (09:30)
[2019-03-04] MEDS: AMIODARONE 200 MG TAB (PACERONE) PO SCH (09:30)
[2019-03-04] MEDS: PANTOPRAZOLE 40MG INJ (PROTONIX) (C9113) IV SCH (09:31)
[2019-03-04] MEDS: FLUTICASONE PROP 0.05% NASAL SPRAY 16 GM (FLONASE) NARES SCH ×2 (09:31→20:49)
--- NOTE | 2019-03-04 11:07 | DS.PDOC ---
Discharge Summary General Date of Admission Feb 25, 2019 at 17:35 Date of Discharge 03/04/19 Discharge Summary ASSESSMENT AND PLAN: This is a 78-year-old male with a history of infective endocarditis, prosthetic aortic valve, status post TAVR completed antibiotic on 02/20/2019, history of left lower quadrant superficial abscess at the LEON drain site, also treated fully, had mesenteric ischemia with SMA thrombosis, stenting of the SMA branch and celiac artery, usually on Plavix, aspirin anticoagulation. 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 The patient is admitted for a small bowel obstruction. For his High grade small bowel obstruction. Resolved, NG tube removed .He is being treated conservatively by general surgery, he has been started on soft diet , Tolerating well. For hi Heme positive stool with anemia. Hemoglobin stable 9.3 .The patient denies any overt gastrointestinal bleed. Did not need need a blood transfusion. Xarelto and plavix aspirin were restarted And after that his hemoglobin has trending down but stable now. For his h/o Mesenteric ischemia with SMA thrombosis, stenting in the past of the SMA branch and celiac artery, usually on Plavix, aspirin anticoagulation. Will continue xeralto ,and aspirin only as he has not been able to tolerate the taper and the quadrants. Breasts weren't benefits were discussed in detail with him and the daughter at the bedside and they agree with only aspirin is at auto at this time. For his Hypertensive heart disease. Coronary artery disease and coronary artery bypass graft (CABG). On Toprol and amiodarone. For his Atrial fibrillation. Rate controlled on Toprol. Anticoagulation with Xarelto. Is medically optimized for discharge and will be discharged back to [facility] today with hemoglobin checks in the next 3-4 days.. Physical examination GENERAL: Awake, alert and oriented to person, place and time. . No respiratory distress. No cyanosis.No pallor. LUNGS: Diminished but clear to auscultation. No wheezing or rales. HEART: S1, S2. Sinus rhythm. ABDOMEN: Soft, nontender, nondistended with hypoactive bowel sounds. No rebound or guarding. EXTREMITIES: No cyanosis, clubbing or pitting edema. Medications As per discharge reconciliation medication list Activity as tolerated Diet. 2 g sodium diet Follow-up appointments. PCP in 1 week, surgery in 1 week Condition on discharge. Patient is medically optimized for discharge Discharge disposition: [facility] Total time spent on this discharge including coordination of care, review of chart documentation and actual contact is around 35 minutes Vital Signs/I&Os Vital Signs Date Time Temp Pulse Resp B/P (MAP) Pulse Ox O2 Delivery O2 Flow Rate FiO2 03/04/19 08:00 98.3 70 18 93/56 (68) 100 Room Air I&O- Last 24 Hours up to 6 AM 03/04/19 06:00 Intake Total 780 ml Output Total 325 ml Balance 455 ml Laboratory Data Labs 24H Laboratory Tests 2 03/03/19 16:21: Urine Color YELLOW, Urine Appearance CLEAR, Urine pH 5.0, Urine Specific [place] 1.015, Urine Protein NEGATIVE, Urine Glucose (Auto)(UA) NEGATIVE, Urine Ketones (Auto) NEGATIVE, Urine Blood 3+H, Urine Nitrite NEGATIVE, Urine Bilirubin NEGATIVE, Urine Urobilinogen 0.2, Urine Leukocyte Esterase (Auto) NEGATIVE, Urine WBC (Auto) 14H, Urine RBC (Auto) TNTCH, Urine Hyaline Casts (Auto) 16, Urine Bacteria (Auto) NEGATIVE, Urine Squamous Epithelial Cells 0, Urine Mucus (Auto) SMALL, Urine Sperm (Auto) 03/03/19 17:33: Bedside Glucose (Misc Panel) 85 03/03/19 20:25: Bedside Glucose (Misc Panel) 80L 03/04/19 05:21: Immature Granulocyte % (Auto) 0.5, Neutrophils (%) (Auto) 68.4H, Lymphocytes (%) (Auto) 20.9L, Monocytes (%) (Auto) 6.9H, Eosinophils (%) (Auto) 3.0, Basophils (%) (Auto) 0.3, Neutrophils # (Auto) 5.9, Lymphocytes # (Auto) 1.8, Monocytes # (Auto) 0.6, Eosinophils # (Auto) 0.3, Basophils # (Auto) 0.0, Nucleated Red Blood Cells % (auto) 0.0, Anion Gap 6L, Glomerular Filtration Rate > 60.0, Calcium Level 8.0L, Magnesium Level 1.6L CBC/BMP Laboratory Tests 03/03/19 23:46 03/04/19 05:21 FSBS Laboratory Tests Test 03/03/19 17:33 03/03/19 20:25 Range/Units Bedside Glucose (Misc Panel) 85 80 83-110 MG/DL Microbiology Microbiology 03/03/19 Stool Occult Blood ([facility]) - Final, Complete 02/26/19 Respiratory Virus Panel (PCR) ([facility]) - Final, Complete Human Rhinovirus/Enterovirus Discharge Medications Scheduled Acetaminophen (Acetaminophen) 325 Mg Tablet, 650 MG PO TID, (Reported) Amiodarone HCl (Amiodarone HCl) 200 Mg Tablet, 200 MG PO DAILY, (Reported) Aspirin (Aspirin EC) 81 Mg Tablet.dr, 81 MG PO DAILY, (Reported) Cholestyramine (with Sugar) (Questran Packet) 4 Gm Powd.pack, 4 GM PO DAILY, (Reported) TAKES AT NOON Cyanocobalamin (Vitamin B-12) (Vitamin B-12) 100 Mcg Tablet, 100 MCG PO QHS, (Reported) Ergocalciferol (Vitamin D2) (Drisdol) 50,000 Unit Capsule, 50,000 UNIT PO QWEEK, (Reported) SUNDAYS Finasteride (Finasteride) 5 Mg Tablet, 5 MG PO DAILY, (Reported) Lactose-Reduced Food (Ensure Enlive) 237 Ml Liquid, 8 OZ PO TID, (Reported) Magnesium Chloride (Mag64) 64 Mg Tablet.dr, 64 MG PO DAILY, (Reported) Metoprolol Succinate (Metoprolol Succinate) 50 Mg Tab.er.24h, 50 MG PO DAILY, (Reported) Mirtazapine (Mirtazapine) 30 Mg Tab.rapdis, 30 MG PO QHS, (Reported) Pantoprazole Sodium (Pantoprazole Sodium) 40 Mg Tablet.dr, 40 MG PO DAILY, (Reported) Potassium Chloride (Klor-Con M20) 20 Meq Tab.er.prt, 20 MEQ PO DAILY, (Reported) TAKES AT 1400 Pravastatin Sodium (Pravastatin Sodium) 40 Mg Tablet, 40 MG PO QHS, (Reported) Rivaroxaban (Xarelto) 15 Mg Tablet, 15 MG PO QHS, (Reported) ON HOLD UNTIL 03/01/19 Sucralfate (Sucralfate) 1 Gm/10 Ml Oral.susp, 1 GM PO ACHS, (Reported) Thiamine HCl (Vitamin B-1) 100 Mg Tablet, 100 MG PO BID, (Reported) Scheduled PRN Acetaminophen (Tylenol) 325 Mg Tablet, 650 MG PO Q4H PRN for PAIN / FEVER, (Reported) Bisacodyl (Dulcolax) 10 Mg Supp.rect, 10 MG WI DAILY PRN for CONSTIPATION, (Reported) Loperamide HCl (Loperamide) 2 Mg Capsule, 2 MG PO DAILY PRN for DIARRHEA, (Reported) Magnesium Hydroxide (Milk of Magnesia) 400 Mg/5 Ml Oral.susp, 30 ML PO DAILY PRN for CONSTIPATION, (Reported) Nystatin (Nystatin Powder) 15 Gm Powder, 1 DOSE TOP BID PRN for RASH/ITCHING, (Reported) APPLY TO GROIN Ondansetron HCl (Ondansetron HCl) 4 Mg Tablet, 4 MG PO Q8H PRN for NAUSEA OR VOMITING, (Reported) Sodium Phosphate,Real-Dibasic (Enema) 133 Ml Enema, 1 DHAVAL WI DAILY PRN for CONSTIPATION, (Reported) Allergies Coded Allergies: No Known Allergies (Unverified , 03/18/17) ONOFRE GOSS MD Mar 04, 2019 11:07
[2019-03-04 11:29] VITALS: BP 104/60
[2019-03-04] MEDS ORDERED: ONDANSETRON 4MG/2ML VIAL (J2405) As Ordered ONE (14:34)
[2019-03-04] MEDS: ONDANSETRON 4MG/2ML VIAL (J2405) IV PRN (14:56)
[2019-03-04] MEDS ORDERED: MORPHINE 4 MG/ML 1ML VIAL/SYRINGE (J2270) IV ONE (15:15)
[2019-03-04 15:18] VITALS: BP 115/69
[2019-03-04] MEDS: RIVAROXABAN 15 MG TAB (XARELTO) PO SCH (18:33)
[2019-03-04] MEDS: CLOPIDOGREL 75 MG TAB PO SCH (20:49)
[2019-03-04 22:00] VITALS: BP 108/67
[2019-03-05] MEDS: SLF 3 ML SYR IV SCH ×3 (05:39→22:05)
[2019-03-05 06:00] VITALS: BP 102/60
[2019-03-05] MEDS: METOPROLOL SUCC (TopROL XL) 50MG **XL** TAB PO SCH (09:00)
[2019-03-05] MEDS: ASPIRIN 81 MG ENTERIC TAB PO SCH (09:31)
[2019-03-05] MEDS: MAGNESIUM OXIDE 400 MG TAB (MAG-OX) PO SCH (09:31)
[2019-03-05] MEDS: AMIODARONE 200 MG TAB (PACERONE) PO SCH (09:31)
[2019-03-05] MEDS: PANTOPRAZOLE 40MG INJ (PROTONIX) (C9113) IV SCH (09:31)
[2019-03-05] MEDS: SUCRALFATE SUSP 1GM/10ML UD PO SCH ×4 (09:37→22:05)
[2019-03-05] MEDS: FLUTICASONE PROP 0.05% NASAL SPRAY 16 GM (FLONASE) NARES SCH ×2 (09:38→22:05)
[2019-03-05 09:56] LABS: HEMATOCRIT 28.7 % (42.0-52.0); HEMOGLOBIN 9.5 g/dl (13.5-17.5); MEAN CORPUSCULAR HEMOGLOBIN 30.5 pg (27.0-33.0); MEAN CORPUSCULAR HGB CONC 33.1 g/dl (32.0-36.5); MEAN CORPUSCULAR VOLUME 92.3 fl (80.0-96.0); PLATELET COUNT, AUTOMATED 252 10^3/uL (150-450); RED BLOOD COUNT 3.11 10^6/uL (4.30-6.10); WHITE BLOOD COUNT 8.6 10^3/uL (4.0-10.0)
--- NOTE | 2019-03-05 10:51 | IPNPDOC ---
Text Note Date of Service The patient was seen on 03/05/19. NOTE Patient was seen and examined this morning. No overnight events. Has been p assing gas. Awaiting transfer to [facility] Physical examination GENERAL: Awake, alert and oriented to person, place and time. . No respiratory distress. No cyanosis.No pallor. LUNGS: Diminished but clear to auscultation. No wheezing or rales. HEART: S1, S2. Sinus rhythm. ABDOMEN: Soft, nontender, nondistended with hypoactive bowel sounds. No rebound or guarding. EXTREMITIES: No cyanosis, clubbing or pitting edema. Microbiology: Human rhinovirus and enterovirus. Abdominal film from 02/26/2019 shows persistent small bowel dilatation, improved small bowel obstruction pattern. ASSESSMENT AND PLAN: This is a 78-year-old male with a history of infective endocarditis, prosthetic aortic valve, status post TAVR completed antibiotic on 02/20/2019, history of left lower quadrant superficial abscess at the LEON drain site, also treated fully, had mesenteric ischemia with SMA thrombosis, stenting of the SMA branch and celiac artery, usually on Plavix, aspirin anticoagulation. 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 The patient is admitted for a small bowel obstruction. For his High grade small bowel obstruction. Resolved, NG tube removed .He is being treated conservatively by general surgery, he has been started on soft diet , Tolerating well. For hi Heme positive stool with anemia. Hemoglobin stable 9.3 .The patient denies any overt gastrointestinal bleed. Did not need need a blood transfusion. Xarelto and plavix aspirin were restarted And after that his hemog lobin has trending down but stable now. For his h/o Mesenteric ischemia with SMA thrombosis, stenting in the past of the SMA branch and celiac artery, usually on Plavix, aspirin anticoagulation. Will continue xeralto ,and aspirin only as he has not been able to tolerate the taper and the quadrants. Breasts weren't benefits were discussed in detail with him and the daughter at the bedside and they agree with only aspirin is at auto at this time. For his Hypertensive heart disease. Coronary artery disease and coronary artery bypass graft (CABG). On Toprol and amiodarone. For his Atrial fibrillation. Rate controlled on Toprol. Anticoagulation with Xarelto. Is medically optimized for discharge and awaiting bed at [facility] with hemoglobin checks in the next 3-4 days.. 1. High grade small bowel obstruction. Resolved, NG tube removed .He is being treated conservatively . Per general surgery, he has been started on soft diet Tolerating well. Continue monitoring 2. Heme positive stool with anemia. Hemoglobin trending down to 9.3 .The patient denies any overt gastrointestinal bleed. Currently does not need a blood transfusion. Xarelto and aspirin were restarted And after that his he moglobin has trending down but stable now. We will continue to monitor for any signs of bleeding. Also Plavix to be restarted today. Monitor hemoglobins were monitored 3. Mesenteric ischemia with SMA thrombosis, stenting in the past of the SMA branch and celiac artery, usually on Plavix, aspirin anticoagulation. Will continue xeralto , Plavix and aspirin today and reassess tomorrow 4. Hypertensive heart disease. Coronary artery disease and coronary artery bypass graft (CABG). On Toprol and amiodarone. 5. Atrial fibrillation. Rate controlled on Toprol. Anticoagulation with Xarelto 6. Type 2 diabetes with an episode of low glucose and hypoglycemia. Continue glucose checks Continue present liquid diet Disposition likely rehab once medically optimized and if hb stable tomorrow VS,Fishbone, I+O VS, Fishbone, I+O Laboratory Tests 03/05/19 09:41 Vital Signs Date Time Temp Pulse Resp B/P (MAP) Pulse Ox O2 Delivery O2 Flow Rate FiO2 03/05/19 09:00 86 95/63 03/05/19 06:00 97.8 16 99 Room Air I&O- Last 24 Hours up to 6 AM 03/05/19 06:00 Intake Total 500 ml Output Total 450 ml Balance 50 ml ONOFRE GOSS MD Mar 05, 2019 10:50
[2019-03-05 14:00] VITALS: BP 95/57
[2019-03-05] MEDS: RIVAROXABAN 15 MG TAB (XARELTO) PO SCH (17:45)
[2019-03-05 22:00] VITALS: BP 122/71
[2019-03-05] MEDS: CLOPIDOGREL 75 MG TAB PO SCH (22:05)
[2019-03-06] MEDS: SLF 3 ML SYR IV SCH ×3 (05:26→21:28)
[2019-03-06 06:00] VITALS: BP 119/71
[2019-03-06] MEDS: SUCRALFATE SUSP 1GM/10ML UD PO SCH ×4 (08:47→21:27)
[2019-03-06] MEDS: MAGNESIUM OXIDE 400 MG TAB (MAG-OX) PO SCH (08:48)
[2019-03-06] MEDS: ASPIRIN 81 MG ENTERIC TAB PO SCH (08:48)
[2019-03-06] MEDS: PANTOPRAZOLE 40MG INJ (PROTONIX) (C9113) IV SCH (08:48)
[2019-03-06] MEDS: FLUTICASONE PROP 0.05% NASAL SPRAY 16 GM (FLONASE) NARES SCH ×2 (08:50→21:27)
[2019-03-06] MEDS: METOPROLOL SUCC (TopROL XL) 50MG **XL** TAB PO SCH (08:50)
[2019-03-06] MEDS: AMIODARONE 200 MG TAB (PACERONE) PO SCH (08:54)
[2019-03-06 14:00] VITALS: BP 109/61
--- NOTE | 2019-03-06 15:03 | IPNPDOC ---
Text Note Date of Service The patient was seen on 03/06/19. NOTE SUBJECTIVE: Mr. Eisenberg is doing well. He is not having any pain, nausea or vomiting. He is concerned about his decreased appetite. Overall, his oral intake is adequate. He states he used to be able to eat a whole pizza by himself. The patient has had a recent small bowel resection in December of this year and also has had recent intervention for mesenteric ischemia with stent placements to the mesenteric and celiac arteries. For this admission he had a small bowel obstruction that appears to have resolved. OBJECTIVE: Please see vital signs below Physical exam: HENT: Neck is supple and without adenopathy or thyromegaly, oral mucosa is moist Cardiovascular: Regular rate and rhythm, normal S1 and S2. Respiratory: Good air movement bilaterally. Abdomen: Soft, nontender, nondistended, bowel tones are present. Extremities: No peripheral edema, pedal pulses are palpable. Neuro: No focal neuromotor or sensory deficit. Psych: Cognition, judgment and insight appear intact for his age. ASSESSMENT/PLAN: 1. Small bowel obstruction. This has resolved after conservative management. He did not require surgical intervention. He is currently tolerating a soft diet, which is advancing. 2. Anemia of chronic disease. Hemoglobin is 9.5 today. The patient has not required transfusion during this hospital stay. He has not had drew blood loss. He has not had any hemodynamic instability such as hypotension or tachycardia. 3. Ischemic bowel. Patient has a history of mesenteric ischemia with thrombosis to the superior mesenteric and celiac arteries for which he has undergone intervention with stent placement and continues on antiplatelet therapy. 4. Chronic atrial fibrillation. Patient remains on rate control with Toprol and amiodarone. Anticoagulation is with Xarelto. 5. Zqb-nlinpii-kjruimxuz diabetes mellitus. Patient maintains adequate glucose control. 6. Valvular heart disease. Patient has a history of TAVR. There is reported prior history of endocarditis, which has been treated. VS,Fishbone, I+O VS, Fishbone, I+O Vital Signs Date Time Temp Pulse Resp B/P (MAP) Pulse Ox O2 Delivery O2 Flow Rate FiO2 03/06/19 14:00 97.3 72 18 109/61 (77) 99 Room Air I&O- Last 24 Hours up to 6 AM0 03/06/19 06:00 Intake Total 780 ml Output Total 700 ml Balance 80 ml YOON,BENSON A. MD Mar 06, 2019 15:02
[2019-03-06] MEDS: RIVAROXABAN 15 MG TAB (XARELTO) PO SCH (17:43)
[2019-03-06] MEDS: ONDANSETRON 4MG/2ML VIAL (J2405) IV PRN (19:04)
[2019-03-06] MEDS: CLOPIDOGREL 75 MG TAB PO SCH (21:27)
[2019-03-06 22:00] VITALS: BP 108/60
[2019-03-07 06:00] VITALS: BP 107/60
[2019-03-07] MEDS: SLF 3 ML SYR IV SCH ×3 (06:05→20:26)
[2019-03-07] MEDS: SUCRALFATE SUSP 1GM/10ML UD PO SCH ×4 (07:42→20:25)
[2019-03-07] MEDS: PANTOPRAZOLE 40MG INJ (PROTONIX) (C9113) IV SCH (07:42)
[2019-03-07] MEDS: AMIODARONE 200 MG TAB (PACERONE) PO SCH (07:43)
[2019-03-07] MEDS: MAGNESIUM OXIDE 400 MG TAB (MAG-OX) PO SCH (07:43)
[2019-03-07] MEDS: ASPIRIN 81 MG ENTERIC TAB PO SCH (07:43)
[2019-03-07] MEDS: FLUTICASONE PROP 0.05% NASAL SPRAY 16 GM (FLONASE) NARES SCH ×2 (07:44→20:26)
[2019-03-07] MEDS: METOPROLOL SUCC (TopROL XL) 50MG **XL** TAB PO SCH (07:55)
[2019-03-07 10:34] LABS: HEMOGLOBIN 8.6 g/dl (13.5-17.5); MEAN CORPUSCULAR HEMOGLOBIN 30.4 pg (27.0-33.0); MEAN CORPUSCULAR HGB CONC 33.1 g/dl (32.0-36.5); MEAN CORPUSCULAR VOLUME 91.9 fl (80.0-96.0); PLATELET COUNT, AUTOMATED 246 10^3/uL (150-450); RED BLOOD COUNT 2.83 10^6/uL (4.30-6.10); WHITE BLOOD COUNT 6.6 10^3/uL (4.0-10.0)
[2019-03-07 11:00] LABS: BLOOD UREA NITROGEN 27 MG/DL (7-18); CALCIUM LEVEL 7.8 MG/DL (8.8-10.2); CARBON DIOXIDE LEVEL 26 MEQ/L (21-32); CHLORIDE LEVEL 102 MEQ/L (98-107); CREATININE FOR GFR 0.65 MG/DL (0.70-1.30); GLOMERULAR FILTRATION RATE > 60.0 (>42); GLUCOSE, FASTING 76 MG/DL (70-100); MAGNESIUM LEVEL 1.4 MG/DL (1.8-2.4); POTASSIUM SERUM 3.2 MEQ/L (3.5-5.1); SODIUM LEVEL 135 MEQ/L (136-145)
[2019-03-07] MEDS: ONDANSETRON 4MG/2ML VIAL (J2405) IV PRN (11:56)
[2019-03-07 14:00] VITALS: BP 110/70
[2019-03-07] MEDS ORDERED: POTASSIUM CHLORIDE 10 MEQ SR TABLET PO ONE (16:15)
--- NOTE | 2019-03-07 16:35 | IPNPDOC ---
Text Note Date of Service The patient was seen on 03/07/19. NOTE SUBJECTIVE: Mr. Eisenberg reports having a difficult night. States he's had cramping, nausea, vomiting, and multiple bowel movements. Nursing staff reports 6 bowel movements overnight but none after midnight. Patient had a recent small bowel resection associated with mesenteric ischemia with stent placements to the mesenteric and celiac arteries. OBJECTIVE: Please see vital signs below Physical exam: General: The patient is ill appearing today, he is hesitant to eat HENT: Neck is supple and without adenopathy or thyromegaly, oral mucosa is moist Cardiovascular: Regular rate and rhythm, normal S1 and S2. Respiratory: Good air movement bilaterally. Abdomen: Soft, mildly tender, nondistended, bowel tones are present. Extremities: No peripheral edema, pedal pulses are palpable. Neuro: No focal neuromotor or sensory deficit. Psych: Cognition, judgment and insight appear otherwise intact for his age. ASSESSMENT/PLAN: 1. Small bowel obstruction. This has resolved after conservative management. NG tube is out and he is currently tolerating a soft diet. He did not require surgical intervention. 2. Anemia of chronic disease Hemoglobin is 8.6 today. Patient has not required transfusion during this hospital stay. By report, he has had some maroon stools, but otherwise no hemodynamic instability such as hypotension or tachycardia. 3. Ischemic bowel. Patient has a history of mesenteric ischemia with thrombosis to the superior mesenteric and celiac arteries for which she has undergone intervention with stent placement. He continues on antiplatelet therapy inclusive of aspirin and Plavix. He is also on Xarelto. The patient may have some slight blood loss; stool guaiacs are positive and this is not unexpected. We continue to monitor for drew bleeding. We will transfuse as needed. 4. Chronic atrial fibrillation. Patient is on rate control with Toprol and amiodarone with anticoagulation with Xarelto. 5. Kus-xyentlq-nfqdpqthy diabetes mellitus. Patient continues to maintain adequate glucose control; he has had some lower readings due to decreased intake. 6. Valvular heart disease Patient has a history of TAVR. There is reported prior history of endocarditis, which has been treated. He remains on chronic anticoagulation. VS,Fishbone, I+O VS, Fishbone, I+O Laboratory Tests 03/07/19 10:23 Vital Signs Date Time Temp Pulse Resp B/P (MAP) Pulse Ox O2 Delivery O2 Flow Rate FiO2 10/28/19 14:00 97.7 79 18 110/70 (83) 100 Room Air I&O- Last 24 Hours up to 6 AM 03/07/19 06:00 Intake Total 1200 ml Output Total 470 ml Balance 730 ml BENSON YOON MD Mar 07, 2019 16:35
[2019-03-07] MEDS: MAG SULF 1GM/100ML (MAG RUN) 1 GM in IV 1 EA IV SCH ×2 (16:39→17:55)
[2019-03-07] MEDS: RIVAROXABAN 15 MG TAB (XARELTO) PO SCH (17:55)
[2019-03-07] MEDS: CLOPIDOGREL 75 MG TAB PO SCH (20:25)
[2019-03-07 22:00] VITALS: BP 110/69
[2019-03-07 23:00] LABS: HEMATOCRIT 30.3 % (42.0-52.0); HEMOGLOBIN 9.8 g/dl (13.5-17.5)
[2019-03-08] MEDS: SLF 3 ML SYR IV SCH ×3 (04:03→20:13)
[2019-03-08 06:00] VITALS: BP 116/71
[2019-03-08 06:16] LABS: BASO % 0.1 % (0.0-1.0); EOS % 0.1 % (0.0-3.0); HEMATOCRIT 28.3 % (42.0-52.0); HEMOGLOBIN 9.3 g/dl (13.5-17.5); LYMPH # 0.6 10^3/uL (1.5-5.0); LYMPH % 3.4 % (24.0-44.0); MEAN CORPUSCULAR HEMOGLOBIN 29.9 pg (27.0-33.0); MEAN CORPUSCULAR HGB CONC 32.9 g/dl (32.0-36.5); MONO # 0.7 10^3/uL (0.0-0.8); NEUTROPHILS # 15.6 10^3/uL (1.5-8.5); NEUTROPHILS % 91.9 % (36.0-66.0); PLATELET COUNT, AUTOMATED 305 10^3/uL (150-450); RED BLOOD COUNT 3.11 10^6/uL (4.30-6.10)
[2019-03-08 06:46] LABS: BLOOD UREA NITROGEN 29 MG/DL (7-18); CARBON DIOXIDE LEVEL 23 MEQ/L (21-32); CHLORIDE LEVEL 104 MEQ/L (98-107); CREATININE FOR GFR 0.73 MG/DL (0.70-1.30); GLOMERULAR FILTRATION RATE > 60.0 (>42); GLUCOSE, FASTING 114 MG/DL (70-100); POTASSIUM SERUM 3.9 MEQ/L (3.5-5.1); SODIUM LEVEL 135 MEQ/L (136-145)
[2019-03-08] MEDS: PANTOPRAZOLE 40MG INJ (PROTONIX) (C9113) IV SCH (08:28)
[2019-03-08] MEDS: MAGNESIUM OXIDE 400 MG TAB (MAG-OX) PO SCH (08:33)
[2019-03-08] MEDS: AMIODARONE 200 MG TAB (PACERONE) PO SCH (08:33)
[2019-03-08] MEDS: ASPIRIN 81 MG ENTERIC TAB PO SCH (08:33)
[2019-03-08] MEDS: SUCRALFATE SUSP 1GM/10ML UD PO SCH ×4 (08:33→20:13)
[2019-03-08] MEDS: FLUTICASONE PROP 0.05% NASAL SPRAY 16 GM (FLONASE) NARES SCH ×2 (08:35→20:13)
[2019-03-08] MEDS: METOPROLOL SUCC (TopROL XL) 50MG **XL** TAB PO SCH (08:35)
[2019-03-08] MEDS: PANTOPRAZOLE 40MG TAB (PROTONIX) PO SCH (12:52)
[2019-03-08 14:00] VITALS: BP 110/67
--- NOTE | 2019-03-08 17:00 | IPNPDOC ---
Text Note Date of Service The patient was seen on 03/08/19. NOTE SUBJECTIVE: Mr. Eisenberg has had some additional bowel movements but not of high frequency or volume. They are mildly bloody. Patient had a recent small bowel resection associated with mesenteric ischemia with stent placements to the mesenteric and celiac arteries. OBJECTIVE: Please see vital signs below Physical exam: General: He is hesitant to eat; states nothing tastes good HENT: Neck is supple and without adenopathy or thyromegaly, oral mucosa is moist Cardiovascular: Regular rate and rhythm, normal S1 and S2. Respiratory: Good air movement bilaterally. Abdomen: Soft, mildly tender, nondistended, bowel tones are present. Extremities: No peripheral edema, pedal pulses are palpable. Neuro: No focal neuromotor or sensory deficit. Psych: Cognition, judgment and insight appear otherwise intact for his age. ASSESSMENT/PLAN: 1. Small bowel obstruction. This has resolved after conservative management. He is currently tolerating a soft diet. He did not require surgical intervention. 2. Anemia of chronic disease Hemoglobin is 9.3 today. Patient has not required transfusion during this hospital stay. By report, he has had some maroon stools, but otherwise no he modynamic instability such as hypotension or tachycardia. 3. Ischemic bowel. 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 He continues on antiplatelet therapy inclusive of aspirin and Plavix. He is also on Xarelto. The patient may have some slight blood loss; stoo l guaiacs are positive and this is not unexpected. We continue to monitor for drew bleeding. We will transfuse as needed--he has not needed it thus far. 4. Chronic atrial fibrillation. Patient is on rate control with Toprol and amiodarone with anticoagulation with Xarelto. 5. Str-mhiibdg-bysxdyglx diabetes mellitus. Patient continues to maintain adequate glucose control; he has had some lower r eadings due to decreased intake. 6. Valvular heart disease Patient has a history of TAVR. There is reported prior history of endocarditis, which has been treated. He remains on chronic anticoagulation. VS,Fishbone, I+O VS, Fishbone, I+O Laboratory Tests 03/07/19 22:54 03/08/19 06:04 Vital Signs Date Time Temp Pulse Resp B/P (MAP) Pulse Ox O2 Delivery O2 Flow Rate FiO2 10/29/19 14:00 98.2 74 17 110/67 (81) 100 Room Air I&O- Last 24 Hours up to 6 AM 03/08/19 06:00 Intake Total 870 ml Output Total 200 ml Balance 670 ml BENSON YOON MD Mar 08, 2019 17:00
[2019-03-08] MEDS: RIVAROXABAN 15 MG TAB (XARELTO) PO SCH (17:37)
[2019-03-08] MEDS: CLOPIDOGREL 75 MG TAB PO SCH (20:13)
[2019-03-08 22:00] VITALS: BP 107/66
[2019-03-09] VITALS (11 sets, daily range): BP systolic 90–143; BP diastolic 54–71
[2019-03-09 07:23] LABS: BASO % 0.1 % (0.0-1.0); EOS # 0.1 10^3/uL (0.0-0.5); EOS % 1.1 % (0.0-3.0); HEMATOCRIT 23.5 % (42.0-52.0); HEMOGLOBIN 7.6 g/dl (13.5-17.5); LYMPH # 1.5 10^3/uL (1.5-5.0); LYMPH % 21.2 % (24.0-44.0); MEAN CORPUSCULAR HEMOGLOBIN 29.3 pg (27.0-33.0); MEAN CORPUSCULAR HGB CONC 32.3 g/dl (32.0-36.5); MEAN CORPUSCULAR VOLUME 90.7 fl (80.0-96.0); MONO # 0.6 10^3/uL (0.0-0.8); MONO % 8.3 % (0.0-5.0); NEUTROPHILS # 4.8 10^3/uL (1.5-8.5); NEUTROPHILS % 68.9 % (36.0-66.0); PLATELET COUNT, AUTOMATED 265 10^3/uL (150-450); RED BLOOD COUNT 2.59 10^6/uL (4.30-6.10)
[2019-03-09] MEDS: MAGNESIUM OXIDE 400 MG TAB (MAG-OX) PO SCH (08:38)
[2019-03-09] MEDS: ASPIRIN 81 MG ENTERIC TAB PO SCH (08:38)
[2019-03-09] MEDS: FLUTICASONE PROP 0.05% NASAL SPRAY 16 GM (FLONASE) NARES SCH ×2 (08:38→21:26)
[2019-03-09] MEDS: SUCRALFATE SUSP 1GM/10ML UD PO SCH ×4 (08:38→21:26)
[2019-03-09] MEDS: PANTOPRAZOLE 40MG TAB (PROTONIX) PO SCH (08:38)
[2019-03-09] MEDS: AMIODARONE 200 MG TAB (PACERONE) PO SCH (08:38)
[2019-03-09] MEDS: METOPROLOL SUCC (TopROL XL) 50MG **XL** TAB PO SCH (08:39)
[2019-03-09] MEDS ORDERED: FUROSEMIDE 20 MG/2 ML VIAL (J1940) IV ONE (12:00)
[2019-03-09] MEDS: NS 1,000 ML IV SCH (13:45)
[2019-03-09] MEDS: RIVAROXABAN 15 MG TAB (XARELTO) PO SCH (18:17)
[2019-03-09 19:23] LABS: CLOSTRIDIUM DIFFICILE PCR NEGATIVE (NEGATIVE)
--- NOTE | 2019-03-09 19:25 | IPNPDOC ---
Text Note Date of Service The patient was seen on 03/09/19. NOTE SUBJECTIVE: Mr. Eisenberg has had some additional bowel movements but not of high frequency or volume. They are mildly bloody. Patient had a recent small bowel resection associated with mesenteric ischemia with stent placements to the mesenteric and celiac arteries. He continues with very poor appetite. OBJECTIVE: Please see vital signs below Physical exam: General: He is hesitant to eat; states nothing tastes good HENT: Neck is supple and without adenopathy or thyromegaly, oral mucosa is moist Cardiovascular: Regular rate and rhythm, normal S1 and S2. Respiratory: Good air movement bilaterally. Abdomen: Soft, mildly tender, nondistended, bowel tones are present. Extremities: No peripheral edema, pedal pulses are palpable. Neuro: No focal neuromotor or sensory deficit. Psych: Cognition, judgment and insight appear otherwise intact for his age. ASSESSMENT/PLAN: 1. Small bowel obstruction. This has resolved after conservative management. He is currently tolerating a soft diet. He did not require surgical intervention. 2. Anemia of chronic disease Hemoglobin is 7.6 today. Patient had not required transfusion during this hospital stay, but today will receive 2 units of packed red blood cells. 3. Ischemic bowel. 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 He has had some maroon stools with being replaced back on his antiplatelet and anticoagulation therapy. Stool guaiacs are positive and this is not unexpected. The patient has underlying conditions inclusive of valvular heart disease with TAVR, chronic atrial fibrillation, atherosclerotic vascular disease and recent arterial thrombosis that require medications inclusive of aspirin, Plavix and Xarelto. The risk of morbidity is greater without these medications. 4.. Zoe-bqsnqnn-ugesyovrj diabetes mellitus. Patient continues to maintain adequate glucose control; he has had some lower readings due to decreased intake. 5. Poor appetite. The patient's intake has been moderately poor since surgery. We'll consult with nutrition services and will follow with their recommendations. 6. Concern for C. difficile The patient had had some increased stooling frequency. The patient has had significant change to his bowel gregg as a result of his procedures and is at risk of C. difficile colitis. Studies are pending. VS,Fishbone, I+O VS, Fishbone, I+O Laboratory Tests 03/09/19 07:09 Vital Signs Date Time Temp Pulse Resp B/P (MAP) Pulse Ox O2 Delivery O2 Flow Rate FiO2 03/09/19 18:30 97.5 68 18 100/58 96 Room Air I&O- Last 24 Hours up to 6 AM 03/09/19 05:59 Intake Total 720 ml Output Total 350 ml Balance 370 ml BENSON YOON MD Mar 09, 2019 19:25
[2019-03-09] MEDS: CLOPIDOGREL 75 MG TAB PO SCH (21:26)
[2019-03-10] MEDS: NS 1,000 ML IV SCH (04:18)
[2019-03-10 06:00] VITALS: BP 98/54
[2019-03-10 06:53] LABS: BASO % 0.3 % (0.0-1.0); EOS # 0.1 10^3/uL (0.0-0.5); EOS % 2.1 % (0.0-3.0); HEMATOCRIT 31.6 % (42.0-52.0); LYMPH # 1.6 10^3/uL (1.5-5.0); MEAN CORPUSCULAR HEMOGLOBIN 29.7 pg (27.0-33.0); MEAN CORPUSCULAR HGB CONC 33.2 g/dl (32.0-36.5); MEAN CORPUSCULAR VOLUME 89.3 fl (80.0-96.0); MONO # 0.6 10^3/uL (0.0-0.8); MONO % 10.6 % (0.0-5.0); NEUTROPHILS # 3.7 10^3/uL (1.5-8.5); NEUTROPHILS % 60.5 % (36.0-66.0); PLATELET COUNT, AUTOMATED 241 10^3/uL (150-450); RED BLOOD COUNT 3.54 10^6/uL (4.30-6.10); WHITE BLOOD COUNT 6.1 10^3/uL (4.0-10.0)
[2019-03-10 06:58] LABS: HEMOGLOBIN 10.5 g/dl (13.5-17.5)
[2019-03-10 07:12] LABS: BLOOD UREA NITROGEN 27 MG/DL (7-18); CALCIUM LEVEL 7.8 MG/DL (8.8-10.2); CARBON DIOXIDE LEVEL 24 MEQ/L (21-32); CHLORIDE LEVEL 104 MEQ/L (98-107); CREATININE FOR GFR 0.54 MG/DL (0.70-1.30); GLOMERULAR FILTRATION RATE > 60.0 (>42); GLUCOSE, FASTING 64 MG/DL (70-100); MAGNESIUM LEVEL 1.4 MG/DL (1.8-2.4); POTASSIUM SERUM 3.8 MEQ/L (3.5-5.1); SODIUM LEVEL 135 MEQ/L (136-145)
[2019-03-10] MEDS: SUCRALFATE SUSP 1GM/10ML UD PO SCH ×4 (08:03→20:10)
[2019-03-10] MEDS: ASPIRIN 81 MG ENTERIC TAB PO SCH (08:03)
[2019-03-10] MEDS: MAGNESIUM OXIDE 400 MG TAB (MAG-OX) PO SCH (08:03)
[2019-03-10] MEDS: PANTOPRAZOLE 40MG TAB (PROTONIX) PO SCH (08:03)
[2019-03-10] MEDS: AMIODARONE 200 MG TAB (PACERONE) PO SCH (08:03)
[2019-03-10] MEDS: METOPROLOL SUCC (TopROL XL) 50MG **XL** TAB PO SCH (08:05)
[2019-03-10] MEDS: FLUTICASONE PROP 0.05% NASAL SPRAY 16 GM (FLONASE) NARES SCH ×2 (08:06→20:11)
[2019-03-10] MEDS: MEGESTROL SUSP 400 MG/10 ML UDC PO SCH (09:00)
[2019-03-10 13:36] VITALS: BP 108/64
[2019-03-10] MEDS: KCL 20MEQ in NS 1000ML 1,000 ML IV SCH (15:00)
[2019-03-10] MEDS: MAG SULF 1GM/100ML (MAG RUN) 1 GM in IV 1 EA IV SCH ×2 (15:00→16:00)
[2019-03-10] MEDS: ONDANSETRON 4 MG ORAL DISINTEGRATING TAB (Q0162 PER 1MG) PO PRN (17:38)
[2019-03-10] MEDS: RIVAROXABAN 15 MG TAB (XARELTO) PO SCH (17:52)
--- NOTE | 2019-03-10 18:40 | IPNPDOC ---
Text Note Date of Service The patient was seen on 03/10/19. NOTE SUBJECTIVE: Mr. Eisenberg continues with a very poor appetite but has been increasing his by mouth intake a bit. For example, he did manage to eat half of a [place] omelette this morning. Patient had a recent small bowel resection associated with mesenteric ischemia with stent placements to the mesenteric and celiac arteries. OBJECTIVE: Please see vital signs below Physical exam: General: He is hesitant to eat; states nothing tastes good HENT: Neck is supple and without adenopathy or thyromegaly, oral mucosa is moist Cardiovascular: Regular rate and rhythm, normal S1 and S2. Respiratory: Good air movement bilaterally. Abdomen: Soft, mildly tender, nondistended, bowel tones are present. Extremities: No peripheral edema, pedal pulses are palpable. Neuro: No focal neuromotor or sensory deficit. Psych: Cognition, judgment and insight appear otherwise intact for his age. ASSESSMENT/PLAN: 1. Small bowel obstruction. This has resolved after conservative management. He is currently tolerating a soft diet. He did not require surgical intervention. 2. Anemia of chronic disease Patient has also had chronic GI blood loss anemia. Patient had not required transfusion during this hospital stay , but then his hemoglobin got down to 7.3. He has received 2 units of packed red blood cells. His hemoglobin is now 10.5. 3. Ischemic bowel. 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 He has had some maroon stools with being replaced back on his antiplatelet and anticoagulation therapy. Stool guaiacs are positive and this is not unexpected. The patient has underlying conditions inclusive of valvular heart disease with TAVR, chronic atrial fibrillation, atherosclerotic vascular disease and recent arterial thrombosis that require medications inclusive of aspirin, Plavix and Xarelto. The risk of morbidity is greater without these med ications. 4.. Hbc-kcwmemn-nzghugufc diabetes mellitus. Patient continues to maintain adequate glucose control; he has had some lower readings due to decreased intake. 5. Poor appetite. The patient's intake has been moderately poor since surgery. We have consulted with nutrition services; they're monitoring his intake and have recommended use of a supplement in the form of Ensure Enlive. We will also trial an appetite stimulant in the form of Megace. 6. Concern for C. difficile The patient had had some increased stooling frequency. The patient has had significant change to his bowel gregg as a result of his procedures and is at risk of C. difficile colitis. Studies , however, are negative. VS,Fishbone, I+O VS, Fishbone, I+O Laboratory Tests 03/10/19 06:29 Vital Signs Date Time Temp Pulse Resp B/P (MAP) Pulse Ox O2 Delivery O2 Flow Rate FiO2 03/10/19 13:36 96.5 80 16 108/64 (79) 98 03/10/19 06:00 Room Air I&O- Last 24 Hours up to 6 AM 03/10/19 06:00 Intake Total 1703 ml Output Total 350 ml Balance 1353 ml BENSON YOON MD Mar 10, 2019 18:40
[2019-03-10] MEDS: CLOPIDOGREL 75 MG TAB PO SCH (20:10)
[2019-03-10 22:00] VITALS: BP 127/69
[2019-03-11] MEDS: KCL 20MEQ in NS 1000ML 1,000 ML IV SCH ×4 (01:00→21:00)
[2019-03-11 06:00] VITALS: BP 129/71
[2019-03-11 06:34] LABS: BASO % 0.3 % (0.0-1.0); EOS # 0.1 10^3/uL (0.0-0.5); EOS % 1.4 % (0.0-3.0); HEMATOCRIT 30.8 % (42.0-52.0); LYMPH # 1.5 10^3/uL (1.5-5.0); MEAN CORPUSCULAR HEMOGLOBIN 29.2 pg (27.0-33.0); MEAN CORPUSCULAR HGB CONC 32.5 g/dl (32.0-36.5); MEAN CORPUSCULAR VOLUME 90.1 fl (80.0-96.0); MONO # 0.7 10^3/uL (0.0-0.8); MONO % 9.6 % (0.0-5.0); NEUTROPHILS # 4.9 10^3/uL (1.5-8.5); NEUTROPHILS % 67.3 % (36.0-66.0); PLATELET COUNT, AUTOMATED 260 10^3/uL (150-450); RED BLOOD COUNT 3.42 10^6/uL (4.30-6.10); WHITE BLOOD COUNT 7.3 10^3/uL (4.0-10.0)
[2019-03-11 07:00] LABS: BLOOD UREA NITROGEN 28 MG/DL (7-18); CALCIUM LEVEL 7.6 MG/DL (8.8-10.2); CARBON DIOXIDE LEVEL 26 MEQ/L (21-32); CHLORIDE LEVEL 102 MEQ/L (98-107); CREATININE FOR GFR 0.57 MG/DL (0.70-1.30); GLOMERULAR FILTRATION RATE > 60.0 (>42); GLUCOSE, FASTING 71 MG/DL (70-100); POTASSIUM SERUM 3.6 MEQ/L (3.5-5.1); SODIUM LEVEL 134 MEQ/L (136-145)
[2019-03-11 07:39] LABS: MAGNESIUM LEVEL 1.4 MG/DL (1.8-2.4)
[2019-03-11] MEDS: ASPIRIN 81 MG ENTERIC TAB PO SCH (09:45)
[2019-03-11] MEDS: AMIODARONE 200 MG TAB (PACERONE) PO SCH (09:45)
[2019-03-11] MEDS: MAGNESIUM OXIDE 400 MG TAB (MAG-OX) PO SCH (09:45)
[2019-03-11] MEDS: PANTOPRAZOLE 40MG TAB (PROTONIX) PO SCH (09:45)
[2019-03-11] MEDS: FLUTICASONE PROP 0.05% NASAL SPRAY 16 GM (FLONASE) NARES SCH ×2 (09:46→21:48)
[2019-03-11] MEDS: SUCRALFATE SUSP 1GM/10ML UD PO SCH ×4 (09:46→21:48)
[2019-03-11] MEDS: MEGESTROL SUSP 400 MG/10 ML UDC PO SCH (09:46)
[2019-03-11] MEDS: METOPROLOL SUCC (TopROL XL) 50MG **XL** TAB PO SCH (09:46)
[2019-03-11] MEDS ORDERED: LIDOCAINE 1% MDV 20ML VIAL As Ordered ONE (13:37)
[2019-03-11] MEDS ORDERED: SODIUM CHLORIDE 0.9% INJ 10 ML SYR IV PRN (15:00)
--- NOTE | 2019-03-11 15:53 | REP ---
MIDLINE CATHETER INSERTION WITH SITE DARRINCara The procedure was performed under the direct supervision of Dr. Conroy. The risks and benefits of the procedure were explained to the patient and informed consent was obtained. The right basilic vein was localized using ultrasound guidance. The skin was prepped and draped in a sterile fashion. 1% lidocaine was used as a local anesthetic. Using ultrasound guidance the basilic vein was cannulated and a 0.018 guidewire was inserted. The needle was removed and a 5.5-Slovak dilator and peel-away sheath was inserted over the guide wire. A 5.5 Slovak dual lumen catheter was left at a length of 16.5 cm. The dilator was removed and the catheter was inserted over the guide wire. The peel-away sheath was removed and the catheter was flushed with heparinized saline as per Hospital protocol. The catheter was affixed to the skin and a sterile dressing was applied. The patient tolerated the procedure well and there were no immediate complications. Electronically Signed by AUGUSTA Hidalgo 03/11/2019 02:12 P Electronically Signed by Harjinder Conroy MD 03/11/2019 03:45 P
[2019-03-11] MEDS: RIVAROXABAN 15 MG TAB (XARELTO) PO SCH (17:25)
[2019-03-11] MEDS: SODIUM CHLORIDE 0.9% INJ 10 ML SYR IV SCH (17:26)
--- NOTE | 2019-03-11 20:18 | IPNPDOC ---
Text Note Date of Service The patient was seen on 03/11/19. NOTE SUBJECTIVE: Mr. Eisenberg continues with a very poor appetite but has been increasing his oral intake a bit. Patient had a recent small bowel resection associated with mesenteric ischemia with stent placements to the mesenteric and celiac arteries. OBJECTIVE: Please see vital signs below Physical exam: General: He is hesitant to eat; states nothing tastes good HENT: Neck is supple and without adenopathy or thyromegaly, oral mucosa is moist Cardiovascular: Regular rate and rhythm, normal S1 and S2. Respiratory: Good air movement bilaterally. Abdomen: Soft, mildly tender, nondistended, bowel tones are present. Extremities: No peripheral edema, pedal pulses are palpable. Neuro: No focal neuromotor or sensory deficit. Psych: Cognition, judgment and insight appear otherwise intact for his age. ASSESSMENT/PLAN: The patient has lost IV access and so a midline is being placed so that we have access for blood transfusion or fluid/electrolyte infusion. 1. Small bowel obstruction. This has resolved after conservative management. He is currently tolerating a soft diet. He did not require surgical intervention. 2. Anemia of chronic disease Patient has also had chronic GI blood loss anemia. Patient had not required transfusion during this hospital stay , but then his hemoglobin got down to 7.3. He has received 2 units of packed red blood cells. His hemoglobin is now 10.5. 3. Ischemic bowel. 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 He has had some maroon stools with being replaced back on his antiplatelet and anticoagulation therapy. Stool guaiacs are positive and this is not unexpected. The patient has underlying conditions inclusive of valvular heart disease with TAVR, chronic atrial fibrillation, atherosclerotic vascular disease and recent arterial thrombosis that require medications inclusive of aspirin, Plavix and Xarelto. The risk of morbidity is greater without these medications. 4.. Abz-cknfhbv-dpbthktkc diabetes mellitus. Patient continues to maintain adequate glucose control; he has had some lower readings due to decreased intake. 5. Poor appetite. The patient's intake has been moderately poor since surgery. We have consulted with nutrition services; they're monitoring his intake and have recommended use of a supplement in the form of Ensure Enlive. We will also trial an appetite stimulant in the form of Megace. 6. Concern for C. difficile The patient had had some increased stooling frequency. The patient has had significant change to his bowel gregg as a result of his procedures and is at risk of C. difficile colitis. Studies , however, are negative. I am hesitant to use an antidiarrheal medication as I do not wish to trigger ileus/bowel obstruction. VS,Fishbone, I+O VS, Fishbone, I+O Laboratory Tests 03/11/19 05:57 Vital Signs Date Time Temp Pulse Resp B/P (MAP) Pulse Ox O2 Delivery O2 Flow Rate FiO2 03/11/19 14:17 66 16 98 Room Air 03/11/19 13:27 98.3 03/11/19 09:46 133/73 I&O- Last 24 Hours up to 6 AM 03/11/19 06:00 Intake Total 1980 ml Output Total 100 ml Balance 1880 ml BENSON YOON MD Mar 11, 2019 20:18
[2019-03-11] MEDS: CLOPIDOGREL 75 MG TAB PO SCH (21:49)
[2019-03-11 22:00] VITALS: BP 95/56
[2019-03-11] MEDS ORDERED: ACETAMINOPHEN TAB 650MG DOSE (2X325MG) PO PRN (23:45)
[2019-03-12] VITALS (10 sets, daily range): BP systolic 66–106; BP diastolic 36–61
[2019-03-12] MEDS: KCL 20MEQ in NS 1000ML 1,000 ML IV SCH ×4 (00:36→17:00)
[2019-03-12] MEDS ORDERED: traMADol 50 MG TAB PO ONE (00:45)
[2019-03-12] MEDS ORDERED: NS 500 ML IV ONE (02:30)
[2019-03-12] MEDS ORDERED: NS 1,000 ML IV ONE (03:30)
[2019-03-12] MEDS: SODIUM CHLORIDE 0.9% INJ 10 ML SYR IV SCH ×2 (05:31→17:49)
[2019-03-12 05:58] LABS: HEMATOCRIT 27.4 % (42.0-52.0); MEAN CORPUSCULAR HEMOGLOBIN 29.8 pg (27.0-33.0); MEAN CORPUSCULAR HGB CONC 32.8 g/dl (32.0-36.5); MEAN CORPUSCULAR VOLUME 90.7 fl (80.0-96.0); PLATELET COUNT, AUTOMATED 245 10^3/uL (150-450); RED BLOOD COUNT 3.02 10^6/uL (4.30-6.10); WHITE BLOOD COUNT 6.1 10^3/uL (4.0-10.0)
[2019-03-12 06:27] LABS: ALBUMIN 1.2 GM/DL (3.2-5.2); ALT/SGPT 10 U/L (12-78); BILIRUBIN,TOTAL 0.2 MG/DL (0.2-1.0); BLOOD UREA NITROGEN 24 MG/DL (7-18); CALCIUM LEVEL 7.4 MG/DL (8.8-10.2); CARBON DIOXIDE LEVEL 23 MEQ/L (21-32); CHLORIDE LEVEL 109 MEQ/L (98-107); CREATININE FOR GFR 0.48 MG/DL (0.70-1.30); GLOMERULAR FILTRATION RATE > 60.0 (>42); GLUCOSE, FASTING 69 MG/DL (70-100); POTASSIUM SERUM 3.8 MEQ/L (3.5-5.1); SODIUM LEVEL 138 MEQ/L (136-145)
[2019-03-12] MEDS: METOPROLOL SUCC (TopROL XL) 50MG **XL** TAB PO SCH (07:41)
[2019-03-12] MEDS: FLUTICASONE PROP 0.05% NASAL SPRAY 16 GM (FLONASE) NARES SCH ×2 (08:37→20:26)
[2019-03-12] MEDS: MEGESTROL SUSP 400 MG/10 ML UDC PO SCH (08:37)
[2019-03-12] MEDS: SUCRALFATE SUSP 1GM/10ML UD PO SCH ×4 (08:37→20:26)
[2019-03-12] MEDS: AMIODARONE 200 MG TAB (PACERONE) PO SCH (08:38)
[2019-03-12] MEDS: MAGNESIUM OXIDE 400 MG TAB (MAG-OX) PO SCH (08:38)
[2019-03-12] MEDS: PANTOPRAZOLE 40MG TAB (PROTONIX) PO SCH (08:38)
[2019-03-12] MEDS: ASPIRIN 81 MG ENTERIC TAB PO SCH (08:38)
--- NOTE | 2019-03-12 16:51 | IPNPDOC ---
Text Note Date of Service The patient was seen on 03/12/19. NOTE SUBJECTIVE: Mr. Eisenberg states that he does not plan on eating breakfast today. He has had difficulty with his appetite ever since his bowel resection and vascular intervention for bowel ischemia. OBJECTIVE: See vital signs below Physical exam: eneral: He is hesitant to eat; states nothing tastes good HENT: Neck is supple and without adenopathy or thyromegaly, oral mucosa is moist Cardiovascular: Regular rate and rhythm, normal S1 and S2. Respiratory: Good air movement bilaterally. Abdomen: Soft, mildly tender, nondistended, bowel tones are present. Extremities: No peripheral edema, pedal pulses are palpable. Neuro: No focal neuromotor or sensory deficit. Psych: Cognition, judgment and insight appear otherwise intact for his age. ASSESSMENT/PLAN: The patient has lost IV access and so a midline has been placed so that we have access for blood transfusion or fluid/electrolyte infusion. 1. Small bowel obstruction. This has resolved after conservative management. He is currently tolerating a soft diet. He did not require surgical intervention. 2. Anemia of chronic disease Patient has also had chronic GI blood loss anemia. Patient had not required transfusion during this hospital stay , but then his hemoglobin got down to 7.3. He has received 2 units of packed red blood cells. His hemoglobin is now 10.5. 3. Ischemic bowel. 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 He has had some maroon stools with being replaced back on his antiplatelet and anticoagulation therapy. Stool guaiacs are positive and this is not unexpected. The patient has underlying conditions inclusive of valvular heart disease with TAVR, chronic atrial fibrillation, atherosclerotic vascular disease and recent arterial thrombosis that require medications inclusive of aspirin, Plavix and Xarelto. The risk of morbidity is greater without these medications. 4.. Ilv-cxkfeht-zhscuhcay diabetes mellitus. Patient continues to maintain adequate glucose control; he has had some lower readings due to decreased intake. 5. Poor appetite. The patient's intake has been moderately poor since surgery. We have consulted with nutrition services; they're monitoring his intake and have recommended use of a supplement in the form of Ensure Enlive. We will also trial an appetite stimulant in the form of Megace. 6. Concern for C. difficile The patient had had some increased stooling frequency. The patient has had significant change to his bowel gregg as a result of his procedures and is at risk of C. difficile colitis. Studies , however, are negative. I am hesitant to use an antidiarrheal medication as I do not wish to trigger ileus/bowel obstr uction. VS,Fishbone, I+O VS, Fishbone, I+O Laboratory Tests 03/12/19 05:33 Vital Signs Date Time Temp Pulse Resp B/P (MAP) Pulse Ox O2 Delivery O2 Flow Rate FiO2 03/12/19 14:00 97.8 72 20 106/61 (76) 100 Room Air I&O- Last 24 Hours up to 6 AM 03/12/19 06:00 Intake Total 955 ml Output Total 935 ml Balance 20 ml BENSON YOON MD Mar 12, 2019 16:51
[2019-03-12 17:22] LABS: HEMATOCRIT 28.2 % (42.0-52.0); MEAN CORPUSCULAR HEMOGLOBIN 29.6 pg (27.0-33.0); MEAN CORPUSCULAR HGB CONC 31.9 g/dl (32.0-36.5); MEAN CORPUSCULAR VOLUME 92.8 fl (80.0-96.0); PLATELET COUNT, AUTOMATED 249 10^3/uL (150-450); RED BLOOD COUNT 3.04 10^6/uL (4.30-6.10); WHITE BLOOD COUNT 4.5 10^3/uL (4.0-10.0)
[2019-03-12] MEDS: RIVAROXABAN 15 MG TAB (XARELTO) PO SCH (17:48)
[2019-03-12] MEDS: CLOPIDOGREL 75 MG TAB PO SCH (20:26)
[2019-03-13] MEDS: KCL 20MEQ in NS 1000ML 1,000 ML IV SCH ×2 (03:00→16:52)
[2019-03-13 06:00] VITALS: BP 111/76
[2019-03-13] MEDS: SODIUM CHLORIDE 0.9% INJ 10 ML SYR IV SCH ×2 (06:07→16:53)
[2019-03-13] MEDS: METOPROLOL SUCC (TopROL XL) 50MG **XL** TAB PO SCH (07:40)
[2019-03-13] MEDS: ASPIRIN 81 MG ENTERIC TAB PO SCH (09:11)
[2019-03-13] MEDS: SUCRALFATE SUSP 1GM/10ML UD PO SCH ×4 (09:11→20:29)
[2019-03-13] MEDS: PANTOPRAZOLE 40MG TAB (PROTONIX) PO SCH (09:11)
[2019-03-13] MEDS: FLUTICASONE PROP 0.05% NASAL SPRAY 16 GM (FLONASE) NARES SCH ×2 (09:11→20:29)
[2019-03-13] MEDS: MEGESTROL SUSP 400 MG/10 ML UDC PO SCH (09:11)
[2019-03-13] MEDS: MAGNESIUM OXIDE 400 MG TAB (MAG-OX) PO SCH (09:11)
[2019-03-13] MEDS: AMIODARONE 200 MG TAB (PACERONE) PO SCH (09:11)
[2019-03-13 14:00] VITALS: BP 124/76
--- NOTE | 2019-03-13 15:31 | IPNPDOC ---
Text Note Date of Service The patient was seen on 03/13/19. NOTE SUBJECTIVE: Mr. Eisenberg has had and continues to have difficulty with his appetite ever since his bowel resection and vascular intervention for bowel ischemia. OBJECTIVE: See vital signs below Physical exam: eneral: He is hesitant to eat; states nothing tastes good HENT: Neck is supple and without adenopathy or thyromegaly, oral mucosa is moist Cardiovascular: Regular rate and rhythm, normal S1 and S2. Respiratory: Good air movement bilaterally. Abdomen: Soft, mildly tender, nondistended, bowel tones are present. Extremities: No peripheral edema, pedal pulses are palpable. Neuro: No focal neuromotor or sensory deficit. Psych: Cognition, judgment and insight appear otherwise intact for his age. ASSESSMENT/PLAN: The patient had lost IV access and so a midline has been placed so that we have access for blood transfusion or fluid/electrolyte infusion. 1. Small bowel obstruction. This has resolved after conservative management. He is currently tolerating a soft diet. He did not require surgical intervention. 2. Anemia of chronic disease Patient has also had chronic GI blood loss anemia. Patient had not required transfusion during this hospital stay , but then his hemoglobin got down to 7.3. He has received 2 units of packed red blood cells. His hemoglobin is now 10.5. 3. Ischemic bowel. 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 He has had some maroon stools with being replaced back on his antiplatelet and anticoagulation therapy. Stool guaiacs are positive and this is not unexpected. The patient has underlying conditions inclusive of valvular heart disease with TAVR, chronic atrial fibrillation, atherosclerotic vascular disease and recent arterial thrombosis that require medications inclusive of aspirin, Plavix and Xarelto. The risk of morbidity is greater without these medications. 4.. Usn-vvhrheo-whvodarht diabetes mellitus. Patient continues to maintain adequate glucose control; he has had some lower readings due to decreased intake. 5. Poor appetite. The patient's intake has been moderately poor since surgery. We have consulted with nutrition services; they're monitoring his intake and have recommended use of a supplement in the form of Ensure Enlive. We are trying an appetite stimulant in the form of Megace. Family has made inquiry as to feeding tube placement; the patient firmly refuses this. 6. Concern for C. difficile The patient had had some increased stooling frequency. The patient has had significant change to his bowel gregg as a result of his procedures and is at risk of C. difficile colitis. Studies , however, are negative. I am hesitant to use an antidiarrheal medication as I do not wish to trigger ileus/bowel obstruction. VS,Fishbone, I+O VS, Fishbone, I+O Laboratory Tests 03/12/19 17:04 Vital Signs Date Time Temp Pulse Resp B/P (MAP) Pulse Ox O2 Delivery O2 Flow Rate FiO2 03/13/19 07:40 89 111/76 03/13/19 06:00 98.1 16 99 Room Air I&O- Last 24 Hours up to 6 AM 03/13/19 06:00 Intake Total 3537 ml Output Total 675 ml Balance 2862 ml BENSON YOON MD Mar 13, 2019 15:31
[2019-03-13] MEDS ORDERED: LOPERAMIDE 2 MG CAPLET PO ONE (15:45)
[2019-03-13] MEDS: RIVAROXABAN 15 MG TAB (XARELTO) PO SCH (16:52)
[2019-03-13 20:10] VITALS: BP 87/57
[2019-03-13] MEDS: CLOPIDOGREL 75 MG TAB PO SCH (20:29)
[2019-03-13 20:30] VITALS: BP 92/56
[2019-03-14] MEDS: KCL 20MEQ in NS 1000ML 1,000 ML IV SCH ×2 (02:54→12:36)
[2019-03-14] MEDS: SODIUM CHLORIDE 0.9% INJ 10 ML SYR IV SCH ×2 (05:11→17:31)
[2019-03-14 05:30] VITALS: BP 95/57
[2019-03-14 05:56] LABS: HEMATOCRIT 24.5 % (42.0-52.0); HEMOGLOBIN 7.9 g/dl (13.5-17.5)
[2019-03-14 07:05] LABS: HEMATOCRIT 25.5 % (42.0-52.0)
[2019-03-14 07:32] LABS: BLOOD UREA NITROGEN 22 MG/DL (7-18); CALCIUM LEVEL 7.5 MG/DL (8.8-10.2); CARBON DIOXIDE LEVEL 23 MEQ/L (21-32); CHLORIDE LEVEL 112 MEQ/L (98-107); GLOMERULAR FILTRATION RATE > 60.0 (>42); GLUCOSE, FASTING 66 MG/DL (70-100); MAGNESIUM LEVEL 1.3 MG/DL (1.8-2.4); POTASSIUM SERUM 4.7 MEQ/L (3.5-5.1); SODIUM LEVEL 140 MEQ/L (136-145)
[2019-03-14] MEDS: FLUTICASONE PROP 0.05% NASAL SPRAY 16 GM (FLONASE) NARES SCH ×2 (08:51→21:20)
[2019-03-14] MEDS: ASPIRIN 81 MG ENTERIC TAB PO SCH (08:52)
[2019-03-14] MEDS: METOPROLOL SUCC (TopROL XL) 50MG **XL** TAB PO SCH (08:53)
[2019-03-14] MEDS: AMIODARONE 200 MG TAB (PACERONE) PO SCH (08:53)
[2019-03-14] MEDS: MAGNESIUM OXIDE 400 MG TAB (MAG-OX) PO SCH (08:53)
[2019-03-14] MEDS: PANTOPRAZOLE 40MG TAB (PROTONIX) PO SCH (08:54)
[2019-03-14] MEDS: MEGESTROL SUSP 400 MG/10 ML UDC PO SCH (08:55)
[2019-03-14] MEDS: SUCRALFATE SUSP 1GM/10ML UD PO SCH ×4 (08:55→21:20)
[2019-03-14 14:00] VITALS: BP 83/50
--- NOTE | 2019-03-14 14:59 | IPNPDOC ---
Text Note Date of Service The patient was seen on 03/14/19. NOTE SUBJECTIVE: Mr. Eisenberg is comfortable within his wishes. He has residual very poor appetite after undergoing bowel resection and abdominal vascular surgery. Patient has underlying conditions requiring anticoagulation. He consequently has chronic lower GI blood loss. OBJECTIVE: Please see vital signs below Physical exam: General: He remains hesitant to eat; states nothing tastes good HENT: Neck is supple and without adenopathy or thyromegaly, oral mucosa is moist Cardiovascular: Regular rate and rhythm, normal S1 and S2. Respiratory: Good air movement bilaterally. Abdomen: Soft, mildly tender, nondistended, bowel tones are present. Extremities: No peripheral edema, pedal pulses are palpable, patient has midline for IV access Neuro: No focal neuromotor or sensory deficit. Psych: Cognition, judgment and insight appear otherwise intact for his age. ASSESSMENT/PLAN: Otherwise, expectant of placement in a bed at [facility]. 1. Small bowel obstruction. This has resolved after conservative management. He did not require surgical intervention. 2. Anemia of chronic disease Patient has also had chronic GI blood loss anemia. Patient had not required transfusion during this hospital stay , but then his hemoglobin got down to 7.3. He has received 2 units of packed red blood cells. His hemoglobin is now 9.0. 3. Ischemic bowel. 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 He has had some maroon stools with being replaced back on his antiplatelet and anticoagulation therapy. Stool guaiacs are positive and this is not unexpected. The patient has underlying conditions inclusive of valvular heart disease with TAVR, chronic atrial fibrillation, atherosclerotic vascular disease and recent arterial thrombosis that require medications inclusive of aspirin, Plavix and Xarelto. The risk of morbidity is greater without these medications. 4.. Ucs-mqdjinx-bxyuimrhz diabetes mellitus. Patient continues to maintain adequate glucose control; he has had some lower readings due to decreased intake. 5. Poor appetite. The patient's intake has been moderately poor since surgery. We have consulted with nutrition services; they're monitoring his intake and have recommended use of a supplement in the form of Ensure Enlive. We are also trying an appetite stimulant in the form of Megace. Family has made inquiry as to feeding tube placement; the patient firmly refuses this. 6. Concern for C. difficile The patient had had some increased stooling frequency. The patient has had significant change to his bowel gregg as a result of his procedures and is at risk of C. difficile colitis. Studies, however, are negative. Hesitant to use an antidiarrheal medication as I do not wish to trigger ileus/bowel obstruction. VS,Fishbone, I+O VS, Fishbone, I+O Laboratory Tests 03/14/19 05:34 03/14/19 06:58 Vital Signs Date Time Temp Pulse Resp B/P (MAP) Pulse Ox O2 Delivery O2 Flow Rate FiO2 03/14/19 14:00 98.4 72 17 83/50 (61) 98 Room Air I&O- Last 24 Hours up to 6 AM 03/14/19 06:00 Intake Total 2080 ml Output Total 790 ml Balance 1290 ml BENSON YOON MD Mar 14, 2019 14:59
[2019-03-14] MEDS: MAG SULF 1GM/100ML (MAG RUN) 1 GM in IV 1 EA IV SCH ×2 (15:10→15:11)
[2019-03-14] MEDS: RIVAROXABAN 15 MG TAB (XARELTO) PO SCH (17:28)
[2019-03-14] MEDS: CLOPIDOGREL 75 MG TAB PO SCH (21:20)
[2019-03-14 22:00] VITALS: BP 96/52
[2019-03-15] MEDS: SODIUM CHLORIDE 0.9% INJ 10 ML SYR IV SCH ×2 (05:06→18:08)
[2019-03-15 06:00] VITALS: BP 94/58
[2019-03-15 07:09] LABS: HEMATOCRIT 22.2 % (42.0-52.0); HEMOGLOBIN 7.4 g/dl (13.5-17.5); MEAN CORPUSCULAR HEMOGLOBIN 30.8 pg (27.0-33.0); MEAN CORPUSCULAR HGB CONC 33.3 g/dl (32.0-36.5); MEAN CORPUSCULAR VOLUME 92.5 fl (80.0-96.0); PLATELET COUNT, AUTOMATED 296 10^3/uL (150-450); WHITE BLOOD COUNT 7.1 10^3/uL (4.0-10.0)
[2019-03-15 07:35] LABS: BLOOD UREA NITROGEN 27 MG/DL (7-18); CALCIUM LEVEL 7.6 MG/DL (8.8-10.2); CARBON DIOXIDE LEVEL 25 MEQ/L (21-32); CHLORIDE LEVEL 107 MEQ/L (98-107); CREATININE FOR GFR 0.52 MG/DL (0.70-1.30); GLOMERULAR FILTRATION RATE > 60.0 (>42); GLUCOSE, FASTING 78 MG/DL (70-100); POTASSIUM SERUM 4.2 MEQ/L (3.5-5.1); SODIUM LEVEL 138 MEQ/L (136-145)
[2019-03-15] MEDS: FLUTICASONE PROP 0.05% NASAL SPRAY 16 GM (FLONASE) NARES SCH ×2 (08:04→21:52)
[2019-03-15] MEDS: MAGNESIUM OXIDE 400 MG TAB (MAG-OX) PO SCH (08:05)
[2019-03-15] MEDS: ASPIRIN 81 MG ENTERIC TAB PO SCH (08:05)
[2019-03-15] MEDS: AMIODARONE 200 MG TAB (PACERONE) PO SCH (08:05)
[2019-03-15] MEDS: PANTOPRAZOLE 40MG TAB (PROTONIX) PO SCH (08:05)
[2019-03-15] MEDS: METOPROLOL SUCC (TopROL XL) 50MG **XL** TAB PO SCH (08:06)
[2019-03-15] MEDS: SUCRALFATE SUSP 1GM/10ML UD PO SCH ×4 (08:20→21:52)
[2019-03-15] MEDS: MEGESTROL 400MG 10ML SUSP ORAL SYRINGE *DRAW UP EXACT DOSE PO SCH (08:50)
[2019-03-15] MEDS: ONDANSETRON 4 MG ORAL DISINTEGRATING TAB (Q0162 PER 1MG) PO PRN (10:48)
[2019-03-15 14:00] VITALS: BP 79/52
[2019-03-15] MEDS: RIVAROXABAN 15 MG TAB (XARELTO) PO SCH (18:08)
--- NOTE | 2019-03-15 19:27 | IPNPDOC ---
Text Note Date of Service The patient was seen on 03/15/19. NOTE Subjective: No any acute events overnight. Patient continues to have poor marilu etite. Objective: General: NAD HEENT: PERRLA, EOMI Cardiovascular: S1 and S2 Respiratory: Diminished lung sounds bilaterally Abdomen: Soft, mildly tender, nondistended, bowel tones are present. Extremities: No peripheral edema, pedal pulses are palpable Neuro: No focal neuromotor or sensory deficit. Patient is 78 years old male with past medical history of small bowel obstruction, mesenteric thrombosis, diabetes, atrial fibrillation presented hospital with mesenteric thrombosis. Subsequently patient had abdominal vascular surgery with bowel resection. Small bowel obstruction. 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 He has had some maroon stools with being replaced back on his antiplatelet and anticoagulation therapy. Stool guaiacs are positive. We will continue aspirin and Plavix due to high risk of recurrent mesenteric thrombosis. Atrial fibrillation Rate controlled I will hold Xarelto due to GI bleed Gbb-fmrfyrx-lggwmryxv diabetes mellitus. Patient continues to maintain adequate glucose control; he has had some lower readings due to decreased intake. Poor appetite. The patient's intake has been moderately poor since surgery. We have consulted with nutrition services; they're monitoring his intake and have recommended use of a supplement in the form of Ensure Enlive. We are also trying an appetite stimulant in the form of Megace. Family has made inquiry as to feeding tube placement; the patient firmly refuses this. Diarrhea The patient had had some increased stooling frequency. The patient has had sign ificant change to his bowel gregg as a result of his procedures and is at risk of C. difficile colitis. Studies, however, are negative. His diarrhea can be attributed to GI blood loss. Continue to monitor Malnutrition Moderate Patient has very poor appetite, his BMI 18.9, albumin 1.2 VS,Fishbone, I+O VS, Fishbone, I+O Laboratory Tests 03/15/19 06:49 Vital Signs Date Time Temp Pulse Resp B/P (MAP) Pulse Ox O2 Delivery O2 Flow Rate FiO2 03/15/19 14:00 96.6 78 18 79/52 (61) 96 Room Air I&O- Last 24 Hours up to 6 AM 03/15/19 06:00 Intake Total 1500 ml Output Total 1100 ml Balance 400 ml MARCELO BARCENAS DO Mar 15, 2019 19:27
[2019-03-15] MEDS: CLOPIDOGREL 75 MG TAB PO SCH (21:52)
[2019-03-15 22:00] VITALS: BP 94/53
[2019-03-15 22:25] VITALS: BP 80/50
[2019-03-15 22:40] VITALS: BP 80/52
[2019-03-15 23:25] VITALS: BP 92/54
[2019-03-16 01:27] VITALS: BP 92/55
[2019-03-16] MEDS: SODIUM CHLORIDE 0.9% INJ 10 ML SYR IV SCH ×2 (05:24→17:22)
[2019-03-16 06:00] VITALS: BP 80/51
[2019-03-16 06:20] LABS: HEMATOCRIT 25.2 % (42.0-52.0); HEMOGLOBIN 8.3 g/dl (13.5-17.5); MEAN CORPUSCULAR HEMOGLOBIN 29.6 pg (27.0-33.0); MEAN CORPUSCULAR HGB CONC 32.9 g/dl (32.0-36.5); PLATELET COUNT, AUTOMATED 295 10^3/uL (150-450); WHITE BLOOD COUNT 8.1 10^3/uL (4.0-10.0)
[2019-03-16 06:45] LABS: BLOOD UREA NITROGEN 31 MG/DL (7-18); CALCIUM LEVEL 7.6 MG/DL (8.8-10.2); CARBON DIOXIDE LEVEL 27 MEQ/L (21-32); CHLORIDE LEVEL 107 MEQ/L (98-107); CREATININE FOR GFR 0.63 MG/DL (0.70-1.30); GLOMERULAR FILTRATION RATE > 60.0 (>42); GLUCOSE, FASTING 72 MG/DL (70-100); SODIUM LEVEL 137 MEQ/L (136-145)
[2019-03-16] MEDS: AMIODARONE 200 MG TAB (PACERONE) PO SCH ×2 (09:00→09:09)
[2019-03-16] MEDS: METOPROLOL SUCC (TopROL XL) 50MG **XL** TAB PO SCH (09:00)
[2019-03-16] MEDS: SUCRALFATE SUSP 1GM/10ML UD PO SCH ×4 (09:08→20:04)
[2019-03-16] MEDS: ASPIRIN 81 MG ENTERIC TAB PO SCH (09:09)
[2019-03-16] MEDS: MAGNESIUM OXIDE 400 MG TAB (MAG-OX) PO SCH (09:09)
[2019-03-16] MEDS: PANTOPRAZOLE 40MG TAB (PROTONIX) PO SCH (09:09)
[2019-03-16] MEDS: MEGESTROL 400MG 10ML SUSP ORAL SYRINGE *DRAW UP EXACT DOSE PO SCH (09:12)
[2019-03-16] MEDS: FLUTICASONE PROP 0.05% NASAL SPRAY 16 GM (FLONASE) NARES SCH ×2 (09:17→20:04)
--- NOTE | 2019-03-16 15:43 | IPNPDOC ---
Text Note Date of Service The patient was seen on 03/16/19. NOTE Subjective: No any acute events overnight. Patient received 1 unit of blood t ransfusion yesterday Patient continues to have poor appetite. Declined breakfast Objective: General: NAD HEENT: PERRLA, EOMI Cardiovascular: S1 and S2 Respiratory: Diminished lung sounds bilaterally Abdomen: Soft, mildly tender, nondistended, bowel tones are present. Extremities: No peripheral edema, pedal pulses are palpable Neuro: No focal neuromotor or sensory deficit. Patient is 78 years old male with past medical history of small bowel obstruction, mesenteric thrombosis, diabetes, atrial fibrillation presented hospital with mesenteric thrombosis. Subsequently patient had abdominal vascular surgery with bowel resection. Small bowel obstruction. Status post bowel resection Resolved Anemia of chronic disease/iron deficient anemia secondary to GI loss Patient continues to lose blood from GI, his hemoglobin is stable Will transfuse 1 unit I will hold Xarelto due to continues GI bleed Ischemic bowel. 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 He has had some maroon stools with being replaced back on his antiplatelet and anticoagulation therapy. Stool guaiacs are positive. We will continue aspirin and Plavix due to high risk of recurrent mesenteric thrombosis. Atrial fibrillation Rate controlled I will hold Xarelto due to GI bleed Hzk-hjexiez-nipzwuqqd diabetes mellitus. Patient continues to maintain adequate glucose control; he has had some lower readings due to decreased intake. Poor appetite. The patient's intake has been moderately poor since surgery. We have consulted with nutrition services; they're monitoring his intake and have recommended use of a supplement in the form of Ensure Enlive. We are also trying an appetite stimulant in the form of Megace. Family has made inquiry as to feeding tube placement; the patient firmly refuses this. Diarrhea The patient had had some increased stooling frequency. The patient has had si gnificant change to his bowel gregg as a result of his procedures and is at risk of C. difficile colitis. Studies, however, are negative. His diarrhea can be attributed to GI blood loss. Continue to monitor Malnutrition Moderate Patient has very poor appetite, his BMI 18.9, albumin 1.2 VS,Fishbone, I+O VS, Fishbone, I+O Laboratory Tests 03/16/19 05:59 Vital Signs Date Time Temp Pulse Resp B/P (MAP) Pulse Ox O2 Delivery O2 Flow Rate FiO2 03/16/19 06:00 97.6 61 18 80/51 (61) 95 Room Air I&O- Last 24 Hours up to 6 AM 03/16/19 06:00 Intake Total 1620 ml Output Total 1100 ml Balance 520 ml MARCELO BARCENAS DO Mar 16, 2019 15:43
[2019-03-16 17:14] VITALS: BP 100/59
[2019-03-16 17:30] VITALS: BP 98/60
[2019-03-16 18:15] VITALS: BP 122/78
[2019-03-16 19:57] VITALS: BP 101/56
[2019-03-16] MEDS: CLOPIDOGREL 75 MG TAB PO SCH (20:04)
[2019-03-17] MEDS: SODIUM CHLORIDE 0.9% INJ 10 ML SYR IV SCH ×2 (05:09→17:32)
[2019-03-17 06:00] VITALS: BP 102/64
[2019-03-17 06:20] LABS: HEMATOCRIT 26.6 % (42.0-52.0); HEMOGLOBIN 8.7 g/dl (13.5-17.5); MEAN CORPUSCULAR HEMOGLOBIN 29.5 pg (27.0-33.0); MEAN CORPUSCULAR HGB CONC 32.7 g/dl (32.0-36.5); MEAN CORPUSCULAR VOLUME 90.2 fl (80.0-96.0); PLATELET COUNT, AUTOMATED 271 10^3/uL (150-450); RED BLOOD COUNT 2.95 10^6/uL (4.30-6.10); WHITE BLOOD COUNT 6.7 10^3/uL (4.0-10.0)
[2019-03-17 06:37] LABS: BLOOD UREA NITROGEN 36 MG/DL (7-18); CALCIUM LEVEL 7.7 MG/DL (8.8-10.2); CARBON DIOXIDE LEVEL 23 MEQ/L (21-32); CHLORIDE LEVEL 109 MEQ/L (98-107); CREATININE FOR GFR 0.58 MG/DL (0.70-1.30); GLOMERULAR FILTRATION RATE > 60.0 (>42); GLUCOSE, FASTING 75 MG/DL (70-100); POTASSIUM SERUM 3.7 MEQ/L (3.5-5.1); SODIUM LEVEL 138 MEQ/L (136-145)
[2019-03-17] MEDS: METOPROLOL SUCC (TopROL XL) 50MG **XL** TAB PO SCH ×2 (09:00→09:17)
[2019-03-17] MEDS: SUCRALFATE SUSP 1GM/10ML UD PO SCH ×4 (09:15→20:27)
[2019-03-17] MEDS: ASPIRIN 81 MG ENTERIC TAB PO SCH (09:15)
[2019-03-17] MEDS: MAGNESIUM OXIDE 400 MG TAB (MAG-OX) PO SCH (09:17)
[2019-03-17] MEDS: AMIODARONE 200 MG TAB (PACERONE) PO SCH (09:18)
[2019-03-17] MEDS: PANTOPRAZOLE 40MG TAB (PROTONIX) PO SCH (09:18)
[2019-03-17] MEDS: MEGESTROL 400MG 10ML SUSP ORAL SYRINGE *DRAW UP EXACT DOSE PO SCH (09:18)
[2019-03-17] MEDS: FLUTICASONE PROP 0.05% NASAL SPRAY 16 GM (FLONASE) NARES SCH ×2 (09:18→20:27)
[2019-03-17 14:00] VITALS: BP 96/60
--- NOTE | 2019-03-17 14:19 | IPNPDOC ---
Text Note Date of Service The patient was seen on 03/17/19. NOTE Subjective: No any acute events overnight. After blood transfusion Hb is stable Patient continues to have poor appetite. He drinks Ensure. I discussed today the code status, pt confirmed Full code Objective: General: NAD HEENT: PERRLA, EOMI Cardiovascular: S1 and S2 Respiratory: Diminished lung sounds bilaterally Abdomen: Soft, mildly tender, nondistended, bowel tones are present. Extremities: No peripheral edema, pedal pulses are palpable Neuro: No focal neuromotor or sensory deficit. Patient is 78 years old male with past medical history of small bowel obstruction, mesenteric thrombosis, diabetes, atrial fibrillation presented hospital with mesenteric thrombosis. Subsequently patient had abdominal vascular surgery with bowel resection. Small bowel obstruction. Status post bowel resection Resolved Anemia of chronic disease/iron deficient anemia secondary to GI loss Patient continues to lose blood from GI, his hemoglobin is stable after blood transfusion on 03/16/19 I will hold Xarelto due to continues GI bleed Ischemic bowel. 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 He has had some maroon stools with being replaced back on his antiplatelet and anticoagulation therapy. Stool guaiacs are positive. We will continue aspirin and Plavix due to high risk of recurrent mesenteric thrombosis. Atrial fibrillation Rate controlled I will hold Xarelto due to GI bleed Lif-uwwbzry-nyskzddha diabetes mellitus. Patient continues to maintain adequate glucose control; he has had some lower readings due to decreased intake. Poor appetite. The patient's intake has been moderately poor since surgery. We have consulted with nutrition services; they're monitoring his intake and have recommended use of a supplement in the form of Ensure Enlive. We are also trying an appetite stimulant in the form of Megace. Family has made inquiry as to feeding tube placement; the patient firmly refuses this. Diarrhea The patient had had some increased stooling frequency. The patient has had significant change to his bowel gregg as a result of his procedures and is at risk of C. difficile colitis. Studies, however, are negative. His diarrhea can be attributed to GI blood loss. Continue to monitor Malnutrition Moderate Patient has very poor appetite, his BMI 18.9, albumin 1.2 Deconditioning 2/2 severe acute diseases c/w PT/ OT VS,Fishbone, I+O VS, Fishbone, I+O Laboratory Tests 03/17/19 05:52 Vital Signs Date Time Temp Pulse Resp B/P (MAP) Pulse Ox O2 Delivery O2 Flow Rate FiO2 03/17/19 09:00 76 102/64 03/17/19 06:00 98.8 18 98 Room Air I&O- Last 24 Hours up to 6 AM 03/17/19 06:00 Intake Total 2120 ml Output Total 1325 ml Balance 795 ml MARCELO BARCENAS DO Mar 17, 2019 14:19
[2019-03-17] MEDS: ONDANSETRON 4 MG ORAL DISINTEGRATING TAB (Q0162 PER 1MG) PO PRN (18:47)
[2019-03-17] MEDS: CLOPIDOGREL 75 MG TAB PO SCH (20:27)
[2019-03-17 20:30] VITALS: BP 80/50
[2019-03-17 21:30] VITALS: BP 88/56
[2019-03-17] MEDS ORDERED: SODIUM CHLORIDE 0.9% 1000ML IV ONE (22:00)
[2019-03-17 23:30] VITALS: BP 102/64
[2019-03-18 06:00] VITALS: BP 103/63
[2019-03-18] MEDS: SODIUM CHLORIDE 0.9% INJ 10 ML SYR IV SCH ×2 (06:07→17:39)
[2019-03-18 06:46] LABS: HEMOGLOBIN 7.9 g/dl (13.5-17.5); MEAN CORPUSCULAR HEMOGLOBIN 30.4 pg (27.0-33.0); MEAN CORPUSCULAR HGB CONC 32.9 g/dl (32.0-36.5); MEAN CORPUSCULAR VOLUME 92.3 fl (80.0-96.0); PLATELET COUNT, AUTOMATED 289 10^3/uL (150-450)
[2019-03-18 07:04] LABS: BLOOD UREA NITROGEN 39 MG/DL (7-18); CALCIUM LEVEL 7.6 MG/DL (8.8-10.2); CARBON DIOXIDE LEVEL 28 MEQ/L (21-32); CHLORIDE LEVEL 108 MEQ/L (98-107); CREATININE FOR GFR 0.64 MG/DL (0.70-1.30); GLOMERULAR FILTRATION RATE > 60.0 (>42); GLUCOSE, FASTING 77 MG/DL (70-100); POTASSIUM SERUM 3.7 MEQ/L (3.5-5.1); SODIUM LEVEL 140 MEQ/L (136-145)
[2019-03-18] MEDS: MAGNESIUM OXIDE 400 MG TAB (MAG-OX) PO SCH (08:45)
[2019-03-18] MEDS: SUCRALFATE SUSP 1GM/10ML UD PO SCH ×4 (08:45→21:31)
[2019-03-18] MEDS: PANTOPRAZOLE 40MG TAB (PROTONIX) PO SCH (08:45)
[2019-03-18] MEDS: AMIODARONE 200 MG TAB (PACERONE) PO SCH (08:45)
[2019-03-18] MEDS: MEGESTROL 400MG 10ML SUSP ORAL SYRINGE *DRAW UP EXACT DOSE PO SCH (08:45)
[2019-03-18] MEDS: ASPIRIN 81 MG ENTERIC TAB PO SCH (08:45)
[2019-03-18] MEDS: FLUTICASONE PROP 0.05% NASAL SPRAY 16 GM (FLONASE) NARES SCH ×3 (08:47→21:31)
[2019-03-18] MEDS: METOPROLOL SUCC (TopROL XL) 50MG **XL** TAB PO SCH (08:47)
[2019-03-18] MEDS ORDERED: ISOVUE-370 76% 100ML VIAL (Q9967) As Ordered ONE (13:38)
[2019-03-18 14:00] VITALS: BP 115/68
--- NOTE | 2019-03-18 17:05 | REP ---
CT angiography of the abdomen and pelvis: Dual-phase postcontrast imaging. History: Gastrointestinal bleeding. Comparison CT study February 25, 2019. CT contrast dose: 100 mL of intravenous Isovue 370. CT findings: Preliminary digital supervisor engine assembly radiograph demonstrates a dilated air-filled loop of bowel in the left mid abdomen. Bowel gas pattern is otherwise unremarkable. There are small bilateral pleural effusions, left greater than right. Small accessory splenule is seen. There is a stent in the SMA. The stent is seen in the celiac axis. 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 This is unchanged. Inferior mesenteric artery is patent. No new arterial occlusion is seen. There is a dilated loop of small bowel adjacent to an anastomosis in the left mid abdomen. This dilated loop measures up to 6.9 cm in transverse dimension. Distal to this, the small bowel does not appear dilated. This pattern is similar to the prior study. There is left colonic diverticulosis. No evidence of pneumatosis is seen. No area of nonenhancement of the bowel wall is appreciated. There is no evidence of free air or abnormal fluid collection. Impression: Findings essentially unchanged from February 25, 2019 with evidence of a small bowel obstruction with point of transition near a small bowel anastomosis. Branch SMA occlusion, patent proximal stents. No evidence of free air or abnormal fluid collection. Electronically Signed by Del Ramos MD 03/18/2019 05:21 P
--- NOTE | 2019-03-18 17:27 | REP ---
Radionuclide gastrointestinal bleed scan: The study is performed with 25 mCi of tagged red blood cells: The initial vascular flow phase of the study is performed with images at 3-second intervals for 1 minute. On the 1 ml. There is a small faintly visible collection of radiotracer in the midline of the pelvis. Following this images are performed at 5-minute intervals for 60 minutes. There is a gradually increasing collection of radiotracer in the midline of the pelvis. Radiolabeling extends inferiorly from this collection intermittently. Impression: Findings are compatible with intraluminal bleed, possibly in the rectosigmoid colon with radiotracer extending distally into the rectum. Electronically Signed by Harjinder Vivas MD 03/18/2019 05:20 P
--- NOTE | 2019-03-18 17:40 | IPNPDOC ---
Text Note Date of Service The patient was seen on 03/18/19. NOTE Subjective: No any acute events overnight. Patient continues to have loose stool Patient continues to have poor appetite. He drinks Ensure. Objective: General: NAD HEENT: PERRLA, EOMI Cardiovascular: S1 and S2 Respiratory: Diminished lung sounds bilaterally Abdomen: Soft, mildly tender, nondistended, bowel tones are present. Extremities: No peripheral edema, pedal pulses are palpable Neuro: No focal neuromotor or sensory deficit. Patient is 78 years old male with past medical history of small bowel obstruction, mesenteric thrombosis, diabetes, atrial fibrillation presented hospital with mesenteric thrombosis. Subsequently patient had abdominal vascular surgery with bowel resection. Small bowel obstruction. Status post bowel resection Resolved Anemia of chronic disease/iron deficient anemia secondary to GI loss Patient continues to lose blood from GI, his hemoglobin is stable after blood transfusion on 03/16/19 dc Xarelto due to continues GI bleed RBC scan, CT angio of abdomen Appreciate/agree with GI consult, surgical consult Ischemic bowel. 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 He has had some maroon stools with being replaced back on his antiplatelet and anticoagulation therapy. Stool guaiacs are positive. We will c ontinue aspirin and Plavix due to high risk of recurrent mesenteric thrombosis. Atrial fibrillation Rate controlled I will hold Xarelto due to GI bleed Ybv-oinlvqe-eeqjuckxk diabetes mellitus. Patient continues to maintain adequate glucose control; he has had some lower readings due to decreased intake. Poor appetite. The patient's intake has been moderately poor since surgery. We have consulted with nutrition services; they're monitoring his intake and have recommended use of a supplement in the form of Ensure Enlive. We are also trying an appetite stimulant in the form of Megace. Family has made inquiry as to feeding tube placement; the patient firmly refuses this. Continue Megace Diarrhea The patient had had some increased stooling frequency. The patient has had significant change to his bowel gregg as a result of his procedures and is at risk of C. difficile colitis. Studies, however, are negative. His diarrhea can be attributed to GI blood loss. Continue to monitor Malnutrition Moderate Patient has very poor appetite, his BMI 18.9, albumin 1.2 Deconditioning 2/2 severe acute diseases c/w PT/ OT VS,Fishbone, I+O VS, Fishbone, I+O Laboratory Tests 03/18/19 06:34 Vital Signs Date Time Temp Pulse Resp B/P (MAP) Pulse Ox O2 Delivery O2 Flow Rate FiO2 03/18/19 14:00 97.2 86 18 115/68 (84) 100 03/17/19 22:00 Room Air I&O- Last 24 Hours up to 6 AM 03/18/19 06:00 Intake Total 1910 ml Output Total 750 ml Balance 1160 ml MARCELO BARCENAS Mar 18, 2019 17:40
[2019-03-18] MEDS: CLOPIDOGREL 75 MG TAB PO SCH (21:31)
[2019-03-18 22:00] VITALS: BP 101/59
[2019-03-19] VITALS (12 sets, daily range): BP systolic 93–119; BP diastolic 54–66
[2019-03-19] MEDS: SODIUM CHLORIDE 0.9% INJ 10 ML SYR IV SCH ×2 (06:12→17:58)
[2019-03-19 06:45] LABS: HEMATOCRIT 22.3 % (42.0-52.0); HEMOGLOBIN 7.5 g/dl (13.5-17.5); MEAN CORPUSCULAR HEMOGLOBIN 30.9 pg (27.0-33.0); MEAN CORPUSCULAR HGB CONC 33.6 g/dl (32.0-36.5); MEAN CORPUSCULAR VOLUME 91.8 fl (80.0-96.0); PLATELET COUNT, AUTOMATED 343 10^3/uL (150-450); RED BLOOD COUNT 2.43 10^6/uL (4.30-6.10); WHITE BLOOD COUNT 12.9 10^3/uL (4.0-10.0)
[2019-03-19 07:13] LABS: BLOOD UREA NITROGEN 43 MG/DL (7-18); CALCIUM LEVEL 7.9 MG/DL (8.8-10.2); CARBON DIOXIDE LEVEL 25 MEQ/L (21-32); CHLORIDE LEVEL 109 MEQ/L (98-107); CREATININE FOR GFR 0.65 MG/DL (0.70-1.30); GLOMERULAR FILTRATION RATE > 60.0 (>42); GLUCOSE, FASTING 92 MG/DL (70-100); POTASSIUM SERUM 3.8 MEQ/L (3.5-5.1); SODIUM LEVEL 140 MEQ/L (136-145)
[2019-03-19] MEDS: ASPIRIN 81 MG ENTERIC TAB PO SCH (08:52)
[2019-03-19] MEDS: AMIODARONE 200 MG TAB (PACERONE) PO SCH (08:52)
[2019-03-19] MEDS: METOPROLOL SUCC (TopROL XL) 50MG **XL** TAB PO SCH (08:52)
[2019-03-19] MEDS: SUCRALFATE SUSP 1GM/10ML UD PO SCH ×4 (08:52→21:34)
[2019-03-19] MEDS: MAGNESIUM OXIDE 400 MG TAB (MAG-OX) PO SCH (08:52)
[2019-03-19] MEDS: MEGESTROL 400MG 10ML SUSP ORAL SYRINGE *DRAW UP EXACT DOSE PO SCH (08:53)
[2019-03-19] MEDS: PANTOPRAZOLE 40MG TAB (PROTONIX) PO SCH (08:53)
[2019-03-19] MEDS: FLUTICASONE PROP 0.05% NASAL SPRAY 16 GM (FLONASE) NARES SCH ×2 (08:53→21:34)
--- NOTE | 2019-03-19 13:45 | IPNPDOC ---
Text Note Date of Service The patient was seen on 03/19/19. NOTE Subjective: No any acute events overnight. Patient continues to have loose s tool, no red blood in the stool Patient continues to have poor appetite. He drinks Ensure. Objective: General: NAD HEENT: PERRLA, EOMI Cardiovascular: S1 and S2 Respiratory: Diminished lung sounds bilaterally Abdomen: Soft, mildly tender, nondistended, bowel tones are present. Extremities: No peripheral edema, pedal pulses are palpable Neuro: No focal neuromotor or sensory deficit. Radionuclide gastrointestinal bleed scan: The study is performed with 25 mCi of tagged red blood cells: The initial vascular flow phase of the study is performed with images at 3- second intervals for 1 minute. On the 1 ml. There is a small faintly visible collection of radiotracer in the midline of the pelvis. Following this images are performed at 5-minute intervals for 60 minutes. There is a gradually increasing collection of radiotracer in the midline of the pelvis. Radiolabeling extends inferiorly from this collection intermittently. Impression: Findings are compatible with intraluminal bleed, possibly in the rectosigmoid colon with radiotracer extending distally into the rectum. CT angiography of the abdomen and pelvis: Dual-phase postcontrast imaging. History: Gastrointestinal bleeding. Comparison CT study February 25, 2019. CT contrast dose: 100 mL of intravenous Isovue 370. CT findings: Preliminary digital fisher net radiograph demonstrates a dilated air-filled loop of bowel in the left mid abdomen. Bowel gas pattern is otherwise unremarkable. There are small bilateral pleural effusions, left greater than right. Small accessory splenule is seen. There is a stent in the SMA. The stent is seen in the celiac axis. 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 This is unchanged. Inferior mesenteric artery is patent. No new arterial occlusion is seen. There is a dilated loop of small bowel adjacent to an anastomosis in the left mid abdomen. This dilated loop measures up to 6.9 cm in transverse dimension. Distal to this, the small bowel does not appear dilated. This pattern is similar to the prior study. There is left colonic diverticulosis. No evidence of pneumatosis is seen. No area of nonenhancement of the bowel wall is appreciated. There is no evidence of free air or abnormal fluid collection. Impression: Findings essentially unchanged from February 25, 2019 with evidence of a small bowel obstruction with point of transition near a small bowel anastomosis. Branch SMA occlusion, patent proximal stents. No evidence of free air or abnormal fluid collection. Patient is 78 years old male with past medical history of small bowel obs truction, mesenteric thrombosis, diabetes, atrial fibrillation presented hospital with mesenteric thrombosis. Subsequently patient had abdominal vascular surgery with bowel resection. Small bowel obstruction. On 03/18/19 CT angio of abdomen showed evidence of a small bowel obstruction with point of transition near a small bowel anastomosis See below Anemia of chronic disease/iron deficient anemia secondary to GI loss Patient continues to lose blood from GI, we will transfuse 2 units of blood dc Xarelto due to continues GI bleed On 03/18/19 RBC scan showed intraluminal bleed, possibly in the rectosigmoid colon with radiotracer extending distally into the rectum. On 03/18/19 CT angio of abdomen showed evidence of a small bowel obstruction with point of transition near a small bowel anastomosis. I discussed the findings with surgeon Dr. Robert, he recommended slow preparation for colonoscopy and PPN. Will change midline to PICC line on Thursday for TPN Appreciate/agree with GI consult, surgical consult Ischemic bowel. 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 He has had some maroon stools with being replaced back on his antiplatelet and anticoagulation therapy. Stool guaiacs are positive. We will continue aspirin and Plavix due to high risk of recurrent mesenteric thrombosis. Atrial fibrillation Rate controlled I will hold Xarelto due to GI bleed Lfj-tmaktnx-xcgmhvunr diabetes mellitus. Patient continues to maintain adequate glucose control; he has had some lower readings due to decreased intake. Poor appetite. The patient's intake has been moderately poor since surgery. We have consulted with nutrition services; they're monitoring his intake and have recommended use of a supplement in the form of Ensure Enlive. We are also trying an appetite stimulant in the form of Megace. Family has made inquiry as to feeding tube placement; the patient firmly refuses this. Continue Megace Diarrhea The patient had had some increased stooling frequency. The patient has had significant change to his bowel gregg as a result of his procedures and is at risk of C. difficile colitis. Studies, however, are negative. His diarrhea can be attributed to GI blood loss. Continue to monitor Malnutrition Moderate Patient has very poor appetite, his BMI 18.9, albumin 1.2 Deconditioning 2/2 severe acute diseases c/w PT/ OT VS,Fishbone, I+O VS, Fishbone, I+O Laboratory Tests 03/19/19 06:07 Vital Signs Date Time Temp Pulse Resp B/P (MAP) Pulse Ox O2 Delivery O2 Flow Rate FiO2 03/19/19 08:52 84 119/66 03/19/19 06:00 96.8 18 99 Room Air I&O- Last 24 Hours up to 6 AM 03/19/19 06:00 Intake Total 420 ml Output Total 875 ml Balance -455 ml MARCELO BARCENAS DO Mar 19, 2019 13:45
[2019-03-19] MEDS: MAGNESIUM CITRATE 300 ML BTL PO SCH ×2 (13:57→21:34)
--- NOTE | 2019-03-19 15:08 | CR.PDOC ---
General Date of Consultation: Mar 18, 2019 Referring Provider: MARCELO BOOKER DO Attending Physician: ERMELINDA GUTIERRES MD Consultation Primary physician/ hospitalist: Dr. Booker. Reason for consult: Anemia with slight drop in hemoglobin, despite transfusion. HPI: 78-year-old male patient with HTN, PVD, prosthetic valve endocarditis, atrial fibrillation, CVA, recent hospitalization for bowel ischemia with GI bleeding from SMA thrombosis, status post laparotomy, small bowel resection and SMA and celiac artery stenting on 01/08/2019, complicated hospital course, prosthetic valve endocarditis, treated with antibiotics as per ID, is now admitted from [facility] for complaints of nausea and vomiting, on 02/25/2019, CT abdomen showing high-grade bowel obstruction, being treated conservatively with NG suctioning and gradually replaced on the oral diet. Patient is noted to have gradual drop in hemoglobin with loose stools, and GI was consulted for possible GI bleeding. Patient reports lack of appetite, poor oral intake but no overt nausea or vomiting. Patient has loose dark stools. Patient denies any new abdominal pain. OFF note: Patient is on multiple antithrombotic agents including aspirin 81 mg, Plavix 75 mg, and Xarelto. Review of Systems: GI: as stated above CVS: No chest pain, No palpitations, No leg swelling. RS: No Shortness of breath, No Wheezing, no cough STITCH WHEELER: No dizziness, No motor weakness, No sensory problems Hematology: No bruising, No gum bleeding, Musculoskeletal: No joint pain, ambulating well. Skin: No rash : No hematuria, No burning sensation of the urine ENT: No ear discharge/ pain, No dysphagia. Eyes: No photophobia. Home medications: reviewed. Antithrombotic agents -as above Medical h/o: As above. Surgical h/o: As above Social h/o: Alcohol-denies, tobacco-prior smoker, IVDA/ drugs-denies. Family h/o of GI cancers -none Prior Endoscopies: Colonoscopy done by Dr. Price for screening in 2017 -- 2 diminutive polyps in ascending colon and cecum remote. Sigmoid diverticulosis. Recommended repeat in 5 years. Prior GI evaluation: None Exam: Vitals: reviewed General: Alert and oriented x 3, not in acute distress HEENT: Mild pallor, no icterus. Normal oropharynx, NO cervical lymph nodes. Chest: symmetric with bilateral clear air entry, CVS: S1, S2 heard, normal, no murmurs . Abdomen: slightly distended, prior surgical scars noted- healed well, soft, minimal tenderness, no guarding, no palpable masses, slightly increased bowel sounds heard. Rectal exam: black soft stools, not typical melena but appears to have altered blood.. Extremities: minimal pedal edema, pulses palpable. STITCH WHEELER: no focal motor or sensory deficits. Moves all extremities Skin: no rash. Labs: reviewed. Imaging tests: reviewed Bleeding scan - reported possible recto-sigmoid bleeding but on review of images- not very certain of blood pooling. CT angiography -- did not show any leaking, noted persistent bowel obstruction with multiple air-fluid levels. Impression: - Slight drop in hemoglobin and hematocrit with melanotic stools and positive occult blood testing, in a patient with prior intestinal ischemia and bowel resection, with persistent bowel obstruction noted on CT abdomen, and patient on multiple antithrombotic agents -- likely small bowel bleeding versus AVM bleeding. Recommendations: - Patient educated about the test results, possible differential diagnoses and All questions answered. - Monitor hemoglobin and hematocrit and transfuse as needed. - Continue IV PPI for now. - Surgery evaluation. - In view of CT scan findings, patient would not be a candidate for endoscopy procedures from GI standpoint. - Due to complicated medical comorbidities, patient would need multispecialty approach for management. Consult IR for possible IR embolization versus repeat surgery if profuse bleeding. Plan of care discussed with patient and primary team. Patient verbalized understanding and agreed with the plan. Vital Signs/I&O Vital Signs Date Time Temp Pulse Resp B/P (MAP) Pulse Ox O2 Delivery O2 Flow Rate FiO2 03/19/19 14:00 98.7 80 15 95/58 (70) 99 Room Air I&O- Last 24 Hours up to 6 AM 03/19/19 05:59 Intake Total 570 ml Output Total 975 ml Balance -405 ml Laboratory Data Labs 24H Laboratory Tests 2 03/18/19 17:16: Bedside Glucose (Misc Panel) 92 03/18/19 20:28: Bedside Glucose (Misc Panel) 84 03/19/19 06:07: Nucleated Red Blood Cells % (auto) 0.0, Anion Gap 6L, Glomerular Filtration Rate > 60.0, Calcium Level 7.9L 03/19/19 11:48: Bedside Glucose (Misc Panel) 90 CBC/BMP Laboratory Tests 03/19/19 06:07 Allergies Coded Allergies: No Known Allergies (Unverified , 03/18/17) Home Medications Scheduled Acetaminophen (Acetaminophen) 325 Mg Tablet, 650 MG PO TID, (Reported) Amiodarone HCl (Amiodarone HCl) 200 Mg Tablet, 200 MG PO DAILY, (Reported) Aspirin (Aspirin EC) 81 Mg Tablet.dr, 81 MG PO DAILY, (Reported) Cholestyramine (with Sugar) (Questran Packet) 4 Gm Powd.pack, 4 GM PO DAILY, (Reported) TAKES AT NOON Cyanocobalamin (Vitamin B-12) (Vitamin B-12) 100 Mcg Tablet, 100 MCG PO QHS, (Reported) Ergocalciferol (Vitamin D2) (Drisdol) 50,000 Unit Capsule, 50,000 UNIT PO QWEEK, (Reported) SUNDAYS Finasteride (Finasteride) 5 Mg Tablet, 5 MG PO DAILY, (Reported) Lactose-Reduced Food (Ensure Enlive) 237 Ml Liquid, 8 OZ PO TID, (Reported) Magnesium Chloride (Mag64) 64 Mg Tablet.dr, 64 MG PO DAILY, (Reported) Metoprolol Succinate (Metoprolol Succinate) 50 Mg Tab.er.24h, 50 MG PO DAILY, (Reported) Mirtazapine (Mirtazapine) 30 Mg Tab.rapdis, 30 MG PO QHS, (Reported) Pantoprazole Sodium (Pantoprazole Sodium) 40 Mg Tablet.dr, 40 MG PO DAILY, (Reported) Potassium Chloride (Klor-Con M20) 20 Meq Tab.er.prt, 20 MEQ PO DAILY, (Reported) TAKES AT 1400 Pravastatin Sodium (Pravastatin Sodium) 40 Mg Tablet, 40 MG PO QHS, (Reported) Rivaroxaban (Xarelto) 15 Mg Tablet, 15 MG PO QHS, (Reported) ON HOLD UNTIL 03/01/19 Sucralfate (Sucralfate) 1 Gm/10 Ml Oral.susp, 1 GM PO ACHS, (Reported) Thiamine HCl (Vitamin B-1) 100 Mg Tablet, 100 MG PO BID, (Reported) Scheduled PRN Acetaminophen (Tylenol) 325 Mg Tablet, 650 MG PO Q4H PRN for PAIN / FEVER, (Reported) Bisacodyl (Dulcolax) 10 Mg Supp.rect, 10 MG NC DAILY PRN for CONSTIPATION, (Reported) Loperamide HCl (Loperamide) 2 Mg Capsule, 2 MG PO DAILY PRN for DIARRHEA, (Reported) Magnesium Hydroxide (Milk of Magnesia) 400 Mg/5 Ml Oral.susp, 30 ML PO DAILY PRN for CONSTIPATION, (Reported) Nystatin (Nystatin Powder) 15 Gm Powder, 1 DOSE TOP BID PRN for RASH/ITCHING, (Reported) APPLY TO GROIN Ondansetron HCl (Ondansetron HCl) 4 Mg Tablet, 4 MG PO Q8H PRN for NAUSEA OR VOMITING, (Reported) Sodium Phosphate,Gem-Dibasic (Enema) 133 Ml Enema, 1 DHAVAL NC DAILY PRN for CONSTIPATION, (Reported) ERMELINDA GUTIERRES MD Mar 19, 2019 15:08
[2019-03-19] MEDS: HumaLOG INSULIN (NovoLOG) PER UNIT SC SCH (17:58)
[2019-03-19] MEDS ORDERED: FAT EMULSION IV 20% 500 ML IV SCH (18:00)
[2019-03-19] MEDS: AMINO AC/ELECTROLYTE/DEX/CALC 1,000 ML IV SCH (19:41)
[2019-03-19] MEDS: CLOPIDOGREL 75 MG TAB PO SCH (21:34)
[2019-03-20 06:00] VITALS: BP 108/60
[2019-03-20] MEDS: HumaLOG INSULIN (NovoLOG) PER UNIT SC SCH ×5 (06:45→23:56)
[2019-03-20 06:48] LABS: HEMATOCRIT 29.6 % (42.0-52.0); MEAN CORPUSCULAR HEMOGLOBIN 30.2 pg (27.0-33.0); MEAN CORPUSCULAR HGB CONC 33.1 g/dl (32.0-36.5); MEAN CORPUSCULAR VOLUME 91.1 fl (80.0-96.0); PLATELET COUNT, AUTOMATED 302 10^3/uL (150-450); RED BLOOD COUNT 3.25 10^6/uL (4.30-6.10)
[2019-03-20] MEDS: SODIUM CHLORIDE 0.9% INJ 10 ML SYR IV SCH ×2 (06:49→17:58)
[2019-03-20 06:50] LABS: HEMOGLOBIN 9.8 g/dl (13.5-17.5)
[2019-03-20 07:12] LABS: BLOOD UREA NITROGEN 35 MG/DL (7-18); CALCIUM LEVEL 7.7 MG/DL (8.8-10.2); CARBON DIOXIDE LEVEL 27 MEQ/L (21-32); CHLORIDE LEVEL 109 MEQ/L (98-107); CREATININE FOR GFR 0.54 MG/DL (0.70-1.30); GLOMERULAR FILTRATION RATE > 60.0 (>42); GLUCOSE, FASTING 96 MG/DL (70-100); POTASSIUM SERUM 3.3 MEQ/L (3.5-5.1); SODIUM LEVEL 140 MEQ/L (136-145)
[2019-03-20] MEDS ORDERED: POTASSIUM CHLORIDE 10 MEQ SR TABLET PO ONE (07:45)
[2019-03-20 09:00] VITALS: BP 107/60
[2019-03-20] MEDS: METOPROLOL SUCC (TopROL XL) 50MG **XL** TAB PO SCH (09:00)
[2019-03-20] MEDS: MAGNESIUM CITRATE 300 ML BTL PO SCH (09:00)
[2019-03-20] MEDS: MEGESTROL 400MG 10ML SUSP ORAL SYRINGE *DRAW UP EXACT DOSE PO SCH (09:10)
[2019-03-20] MEDS: SUCRALFATE SUSP 1GM/10ML UD PO SCH ×4 (09:11→23:47)
[2019-03-20] MEDS: ASPIRIN 81 MG ENTERIC TAB PO SCH (09:11)
[2019-03-20] MEDS: PANTOPRAZOLE 40MG TAB (PROTONIX) PO SCH (09:16)
[2019-03-20] MEDS: AMIODARONE 200 MG TAB (PACERONE) PO SCH (09:16)
[2019-03-20] MEDS: MAGNESIUM OXIDE 400 MG TAB (MAG-OX) PO SCH (09:16)
[2019-03-20] MEDS: FLUTICASONE PROP 0.05% NASAL SPRAY 16 GM (FLONASE) NARES SCH ×2 (09:17→23:48)
--- NOTE | 2019-03-20 11:57 | REP ---
Supine abdomen two views: Comparison is the abdomen/pelvis CT dated 03/18/2019. There is a dilated bowel loop in the left lower quadrant. On the comparison CT, this is a dilated small bowel loop. On the comparison CT. The remainder of the dilated small bowel loops are fluid filled, therefore, not visible on the plain film study. There is no colonic dilatation. There are calcifications medial to the left kidney, likely vascular calcified atheroma. There are two vascular stents in the midline superimposed over the T12 and L1 vertebral bodies, likely vascular stents in the SMA and celiac arteries. There are surgical clips in the midline of the pelvis inferiorly. Impression: The bowel gas pattern as described. Electronically Signed by Harjinder Vivas MD 03/20/2019 11:47 A
--- NOTE | 2019-03-20 12:25 | IPNPDOC ---
Text Note Date of Service The patient was seen on 03/20/19. NOTE Subjective: No any acute events overnight. Patient has multiple bowel movements secondary to magnesium citrate and bowel preparation for colonoscopy. Patient continues to have poor appetite. He drinks Ensure. Objective: General: NAD HEENT: PERRLA, EOMI Cardiovascular: S1 and S2 Respiratory: Diminished lung sounds bilaterally Abdomen: Soft, mildly tender, nondistended, hyperactive bowel tones are present. Extremities: No peripheral edema, pedal pulses are palpable Neuro: No focal neuromotor or sensory deficit. Patient is 78 years old male with past medical history of small bowel obstruction, mesenteric thrombosis, diabetes, atrial fibrillation presented hospital with mesenteric thrombosis. Subsequently patient had abdominal vascular surgery with bowel resection. Small bowel obstruction. On 03/18/19 CT angio of abdomen showed evidence of a small bowel obstruction with point of transition near a small bowel anastomosis See below Anemia of chronic disease/iron deficient anemia secondary to GI loss Hemoglobin is stable after 2 units of blood transfusion on 03/19/19 Xarelto was discontinued due to GI bleed On 03/18/19 RBC scan showed intraluminal bleed, possibly in the rectosigmoid colon with radiotracer extending distally into the rectum. On 03/18/19 CT angio of abdomen showed evidence of a small bowel obstruction with point of transition near a small bowel anastomosis. I discussed the findings with surgeon Dr. Robert, he recommended slow preparation for colonoscopy and PPN. Will change midline to PICC line on Thursday for TPN GI team rec IR consult for possible IR embolization. Will consult if colonoscopy does not reveal source of bleed Ischemic bowel. 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 He has had some maroon stools with being replaced back on his antiplatelet and anticoagulation therapy. Stool guaiacs are positive. We will continue aspirin and Plavix due to high risk of recurrent mesenteric thrombosis. Atrial fibrillation Rate controlled dc Xarelto due to GI bleed Qng-xvgbzpe-cgwabmtaw diabetes mellitus. Patient continues to maintain adequate glucose control; he has had some lower readings due to decreased intake. Poor appetite. The patient's intake has been moderately poor since surgery. We have consulted with nutrition services; they're monitoring his intake and have recommended use of a supplement in the form of Ensure Enlive. We are also trying an appetite stimulant in the form of Megace. Family has made inquiry as to feeding tube placement; the patient firmly refuses this. Continue Megace Diarrhea The patient had had some increased stooling frequency. The patient has had significant change to his bowel gregg as a result of his procedures and is at risk of C. difficile colitis. Studies, however, are negative. His diarrhea can be attributed to GI blood loss. He is on bowel prep for colonoscopy Continue to monitor Malnutrition Moderate Patient has very poor appetite, his BMI 18.9, albumin 1.2 Deconditioning 2/2 severe acute diseases c/w PT/ OT VS,Fishbone, I+O VS, Fishbone, I+O Laboratory Tests 03/20/19 06:25 Vital Signs Date Time Temp Pulse Resp B/P (MAP) Pulse Ox O2 Delivery O2 Flow Rate FiO2 03/20/19 09:00 72 107/60 03/20/19 06:00 97.7 18 97 Room Air I&O- Last 24 Hours up to 6 AM 03/20/19 06:00 Intake Total 2232 ml Balance 2232 ml MARCELO BARCENAS DO Mar 20, 2019 12:25
[2019-03-20 14:00] VITALS: BP 107/62
[2019-03-20] MEDS ORDERED: AMINO AC/ELECTROLYTE/DEX/CALC 1,000 ML IV SCH (14:00)
[2019-03-20] MEDS ORDERED: GOLYTELY SOLN 4000 ML BTL PO ONE (14:00)
[2019-03-20] MEDS: AMINO AC/ELECTROLYTE/DEX/CALC 1,000 ML IV SCH (14:35)
[2019-03-20] MEDS ORDERED: FAT EMULSION IV 20% 500 ML IV SCH (18:00)
[2019-03-20] MEDS ORDERED: HumaLOG INSULIN (NovoLOG) PER UNIT SC SCH (18:00)
[2019-03-20 22:00] VITALS: BP 107/81
[2019-03-20] MEDS: CLOPIDOGREL 75 MG TAB PO SCH (23:47)
[2019-03-21 06:00] VITALS: BP 112/69
[2019-03-21] MEDS: HumaLOG INSULIN (NovoLOG) PER UNIT SC SCH ×3 (06:00→23:03)
[2019-03-21] MEDS: AMINO AC/ELECTROLYTE/DEX/CALC 1,000 ML IV SCH ×2 (06:12→17:58)
[2019-03-21] MEDS: SODIUM CHLORIDE 0.9% INJ 10 ML SYR IV SCH ×2 (06:13→17:59)
[2019-03-21 06:16] LABS: HEMATOCRIT 27.8 % (42.0-52.0); HEMOGLOBIN 9.2 g/dl (13.5-17.5); MEAN CORPUSCULAR HEMOGLOBIN 30.4 pg (27.0-33.0); MEAN CORPUSCULAR HGB CONC 33.1 g/dl (32.0-36.5); MEAN CORPUSCULAR VOLUME 91.7 fl (80.0-96.0); PLATELET COUNT, AUTOMATED 281 10^3/uL (150-450); RED BLOOD COUNT 3.03 10^6/uL (4.30-6.10)
[2019-03-21 06:38] LABS: BLOOD UREA NITROGEN 26 MG/DL (7-18); CALCIUM LEVEL 7.5 MG/DL (8.8-10.2); CARBON DIOXIDE LEVEL 26 MEQ/L (21-32); CHLORIDE LEVEL 105 MEQ/L (98-107); GLOMERULAR FILTRATION RATE > 60.0 (>42); GLUCOSE, FASTING 87 MG/DL (70-100); SODIUM LEVEL 135 MEQ/L (136-145)
[2019-03-21] MEDS: ASPIRIN 81 MG ENTERIC TAB PO SCH (08:35)
[2019-03-21] MEDS: PANTOPRAZOLE 40MG TAB (PROTONIX) PO SCH (08:36)
[2019-03-21] MEDS: MAGNESIUM OXIDE 400 MG TAB (MAG-OX) PO SCH (08:36)
[2019-03-21] MEDS: METOPROLOL SUCC (TopROL XL) 50MG **XL** TAB PO SCH (08:37)
[2019-03-21] MEDS: AMIODARONE 200 MG TAB (PACERONE) PO SCH (08:38)
[2019-03-21] MEDS: MEGESTROL 400MG 10ML SUSP ORAL SYRINGE *DRAW UP EXACT DOSE PO SCH (08:39)
[2019-03-21] MEDS: FLUTICASONE PROP 0.05% NASAL SPRAY 16 GM (FLONASE) NARES SCH ×2 (08:39→20:17)
[2019-03-21] MEDS: SUCRALFATE SUSP 1GM/10ML UD PO SCH ×4 (08:43→20:17)
--- NOTE | 2019-03-21 10:19 | REP ---
Abdomen series: Two views. History: Evaluate for bowel loops and abdominal distension. Comparison study: March 20, 2019. Comparison CT study March 18, 2019. Radiographic findings: Supine view of the abdomen show fiducial markers at the prostate and some vascular calcification. There are metallic vascular stents in the epigastric region as before. There are scattered loops of large and small bowel gas without definite distension. Decubitus left side down view of the abdomen shows no evidence of free intraperitoneal air. There are scattered large bowel air-fluid levels. Impression: Scattered colonic air fluid levels consistent with enteritis or mild ileus. No evidence of obstruction. Celiac and SMA stents noted. Electronically Signed by Del Ramos MD 03/21/2019 01:45 P
[2019-03-21 14:00] VITALS: BP 111/69
[2019-03-21] MEDS ORDERED: FAT EMULSION IV 20% 500 ML IV SCH (18:00)
[2019-03-21 20:00] VITALS: BP 113/63
[2019-03-21] MEDS: CLOPIDOGREL 75 MG TAB PO SCH (20:17)
[2019-03-21] MEDS ORDERED: GOLYTELY SOLN 4000 ML BTL PO ONE (21:45)
[2019-03-21 22:00] VITALS: BP 111/70
[2019-03-22] VITALS (12 sets, daily range): BP systolic 89–117; BP diastolic 50–68
[2019-03-22] MEDS: SODIUM CHLORIDE 0.9% INJ 10 ML SYR IV SCH ×2 (05:13→19:08)
[2019-03-22] MEDS: HumaLOG INSULIN (NovoLOG) PER UNIT SC SCH ×3 (05:13→13:00)
[2019-03-22 06:02] LABS: HEMATOCRIT 23.3 % (42.0-52.0); HEMOGLOBIN 7.6 g/dl (13.5-17.5); MEAN CORPUSCULAR HEMOGLOBIN 30.6 pg (27.0-33.0); MEAN CORPUSCULAR HGB CONC 32.6 g/dl (32.0-36.5); PLATELET COUNT, AUTOMATED 269 10^3/uL (150-450); RED BLOOD COUNT 2.48 10^6/uL (4.30-6.10); WHITE BLOOD COUNT 7.9 10^3/uL (4.0-10.0)
[2019-03-22 06:33] LABS: BLOOD UREA NITROGEN 21 MG/DL (7-18); CALCIUM LEVEL 7.5 MG/DL (8.8-10.2); CARBON DIOXIDE LEVEL 24 MEQ/L (21-32); CHLORIDE LEVEL 105 MEQ/L (98-107); GLOMERULAR FILTRATION RATE > 60.0 (>42); GLUCOSE, FASTING 92 MG/DL (70-100); SODIUM LEVEL 136 MEQ/L (136-145)
[2019-03-22] MEDS: MEGESTROL 400MG 10ML SUSP ORAL SYRINGE *DRAW UP EXACT DOSE PO SCH (08:08)
[2019-03-22] MEDS: MAGNESIUM OXIDE 400 MG TAB (MAG-OX) PO SCH (08:08)
[2019-03-22] MEDS: AMIODARONE 200 MG TAB (PACERONE) PO SCH (08:08)
[2019-03-22] MEDS: FLUTICASONE PROP 0.05% NASAL SPRAY 16 GM (FLONASE) NARES SCH ×2 (08:08→20:56)
[2019-03-22] MEDS: SUCRALFATE SUSP 1GM/10ML UD PO SCH ×4 (08:08→20:56)
[2019-03-22] MEDS: ASPIRIN 81 MG ENTERIC TAB PO SCH (08:08)
[2019-03-22] MEDS: PANTOPRAZOLE 40MG TAB (PROTONIX) PO SCH (08:09)
[2019-03-22] MEDS: METOPROLOL SUCC (TopROL XL) 50MG **XL** TAB PO SCH (08:09)
[2019-03-22] MEDS ORDERED: D5W/0.45% SODIUM CHLORIDE 1,000 ML IV SCH (09:36)
[2019-03-22] MEDS: AMINO AC/ELECTROLYTE/DEX/CALC 1,000 ML IV SCH (10:14)
[2019-03-22 10:19] LABS: HEMATOCRIT 24.6 % (42.0-52.0); HEMOGLOBIN 8.1 g/dl (13.5-17.5)
[2019-03-22 10:39] LABS: INR 1.15; PROTHROMBIN TIME 14.4 SECONDS (11.8-14.0)
[2019-03-22 10:40] LABS: PARTIAL THROMBOPLASTIN TIME 29.9 SECONDS (25.0-38.4)
[2019-03-22] MEDS ORDERED: fentaNYL 100 MCG/2 ML INJECTION (J3010) As Ordered ONE (16:16)
[2019-03-22] MEDS ORDERED: PROPOFOL 500 MG/50 ML VIAL As Ordered ONE (16:16)
[2019-03-22] MEDS ORDERED: LIDOCAINE 2% INJ 100 MG/5 ML SDV (FOR ANES.) As Ordered ONE (17:06)
[2019-03-22] MEDS ORDERED: ePHEDrine SULFATE 25 MG/5 ML(5MG/ML) SYRINGE As Ordered ONE (17:15)
[2019-03-22] MEDS ORDERED: FAT EMULSION IV 20% 500 ML IV SCH (18:00)
--- NOTE | 2019-03-22 18:14 | ROOR ---
Patient Name: Eric Eisenberg Procedure Date: 03/22/2019 2:51 PM Date of : 1940 Age: 78 Gender: Male Note Status: Finalized Procedure: Upper GI endoscopy Indications: Acute post hemorrhagic anemia Providers: Noah Alfonso MD Referring MD: 2. Inpatient 2. Inpatient Requesting Provider: Medicines: Monitored Anesthesia Care Complications: No immediate complications. Procedure: Pre-Anesthesia Assessment: - Prior to the procedure, a History and Physical was performed, and patient medications and allergies were reviewed. The patient is competent. The risks and benefits of the procedure and the sedation options and risks were discussed with the patient. All questions were answered and informed consent was obtained. Patient identification and proposed procedure were verified by the physician, the nurse and the anesthesiologist in the procedure room. Mental Status Examination: alert and oriented. Airway Examination: normal oropharyngeal airway and neck mobility. Respiratory Examination: clear to auscultation. CV Examination: normal. Prophylactic Antibiotics: The patient does not require prophylactic antibiotics. Prior Anticoagulants: The patient has taken no previous anticoagulant or antiplatelet agents. ASA Grade Assessment: IV - A patient with severe systemic disease that is a constant threat to life. After reviewing the risks and benefits, the patient was deemed in satisfactory condition to undergo the procedure. The anesthesia plan was to use monitored anesthesia care (MAC). Immediately prior to administration of medications, the patient was re-assessed for adequacy to receive sedatives. The heart rate, respiratory rate, oxygen saturations, blood pressure, adequacy of pulmonary ventilation, and response to care were monitored throughout the procedure. The physical status of the patient was re-assessed after the procedure. The Endoscope was introduced through the mouth, and advanced to the second part of duodenum. The upper GI endoscopy was accomplished without difficulty. The patient tolerated the procedure well. Findings: The examined esophagus was normal. No gross lesions were noted in the entire examined stomach. One 8 mm angioectasia without bleeding was found in the second portion of the duodenum. To treat the lesion, one hemostatic clip was successfully placed. There was no bleeding during, or at the end, of the procedure. The examined proximal 10 cm jejunum was normal. Impression: - Normal esophagus. - No gross lesions in the stomach. - One non-bleeding angioectasia in the duodenum. Clip was placed. - Normal examined jejunum. - No specimens collected. Recommendation: - Patient has a contact number available for emergencies. The signs and symptoms of potential delayed complications were discussed with the patient. Return to normal activities tomorrow. Written discharge instructions were provided to the patient. - Resume previous diet. - Continue present medications. - Follow up with Vascular and general surgery recommendations. - Elective follow up with patient's primary Colonoscopist or [facility] GI clinic in 6 months for repeat Colonoscopy after acute issues are resolved. - Return to primary care physician. Noah Alfonso MD Noah Alfonso MD 03/22/2019 6:13:40 PM Electronically signed by Noah Alfonso MD Number of Addenda: 0 Note Initiated On: 03/22/2019 2:51 PM Estimated Blood Loss: Estimated blood loss: none.
[2019-03-22] MEDS ORDERED: [UNRECOGNIZED DRUG - CODE] IV (18:33)
[2019-03-22] MEDS ORDERED: SLF IV ×2 (18:33)
[2019-03-22] MEDS ORDERED: MAG400TA PO (18:33)
[2019-03-22] MEDS ORDERED: [UNRECOGNIZED DRUG - CODE] IV (18:33)
--- NOTE | 2019-03-22 18:33 | ROOR ---
Patient Name: Eric Eisenberg Procedure Date: 03/22/2019 2:54 PM Date of : 1940 Age: 78 Room: Main OR Gender: Male Note Status: Finalized Procedure: Colonoscopy Indications: Rectal bleeding, Acute post hemorrhagic anemia Providers: Noah Alfonso MD Referring MD: Cookie Juarez MD Requesting Provider: Medicines: Monitored Anesthesia Care Complications: No immediate complications. Procedure: Pre-Anesthesia Assessment: - Prior to the procedure, a History and Physical was performed, and patient medications and allergies were reviewed. The patient is competent. The risks and benefits of the procedure and the sedation options and risks were discussed with the patient. All questions were answered and informed consent was obtained. Patient identification and proposed procedure were verified by the physician, the nurse and the anesthesiologist in the procedure room. Mental Status Examination: alert and oriented. Airway Examination: normal oropharyngeal airway and neck mobility. Respiratory Examination: clear to auscultation. CV Examination: normal. Prophylactic Antibiotics: The patient does not require prophylactic antibiotics. Prior Anticoagulants: The patient has taken no previous anticoagulant or antiplatelet agents. ASA Grade Assessment: IV - A patient with severe systemic disease that is a constant threat to life. After reviewing the risks and benefits, the patient was deemed in satisfactory condition to undergo the procedure. The anesthesia plan was to use monitored anesthesia care (MAC). Immediately prior to administration of medications, the patient was re-assessed for adequacy to receive sedatives. The heart rate, respiratory rate, oxygen saturations, blood pressure, adequacy of pulmonary ventilation, and response to care were monitored throughout the procedure. The physical status of the patient was re-assessed after the procedure. The Colonoscope was introduced through the anus and advanced to 20 cm into the ileum. The colonoscopy was performed without difficulty. The patient tolerated the procedure well. The quality of the bowel preparation was good. The terminal ileum, ileocecal valve, appendiceal orifice, and rectum were photographed. Scope insertion time was 5 minutes. Scope withdrawal time was 10 minutes. The total duration of the procedure was 15 minutes. Findings: The perianal and digital rectal examinations were normal. The distal ileum contained hematin (altered blood/zjrwdb-aaatdi-agna material). Hematin (altered blood/bfxtmm-yjvkyy-hseb material) was found from rectum to cecum. A 15 mm polyp was found in the proximal ascending colon. The polyp was sessile. Polypectomy was not attempted due to the patient taking anticoagulation medication. Multiple medium-mouthed diverticula were found in the sigmoid colon. There was no evidence of diverticular bleeding. Non-bleeding external and internal hemorrhoids were found during retroflexion. The hemorrhoids were medium-sized. The mucosa vascular pattern in the distal rectum was locally increased. This likely related to mild/minimal radiation proctitis. No bleeding. Impression: - Blood in the distal ileum. - Blood from rectum to cecum. - One 15 mm polyp in the proximal ascending colon. Resection not attempted. - Moderate diverticulosis in the sigmoid colon. There was no evidence of diverticular bleeding. - Non-bleeding external and internal hemorrhoids. - Increased mucosa vascular pattern in the distal rectum. (likely related to mild/minimal radiation proctitis. No bleeding). - No specimens collected. Recommendation: - Return patient to hospital [facility] for ongoing care. - Patient has a contact number available for emergencies. The signs and symptoms of potential delayed complications were discussed with the patient. Return to normal activities tomorrow. Written discharge instructions were provided to the patient. - Resume previous diet. - Continue present medications. - Follow Vascular surgery and general surgery recommendations. Consider IR agniography or by vascular surgery. - Monitor Hemoglobin and hematocrit and transfuse as needed. - Repeat colonoscopy after the acute issues are resolved, in 6 months to 1 year, because the bowel preparation was suboptimal and for therapy of the polyps. - Return to GI clinic in 6 months. - Return to primary care physician. Noah Alfonso MD Noah Alfonso MD 03/22/2019 6:32:39 PM Electronically signed by Noah Alfonso MD Number of Addenda: 0 Note Initiated On: 03/22/2019 2:54 PM Estimated Blood Loss: Estimated blood loss was minimal.
--- NOTE | 2019-03-22 18:34 | IPNPDOC ---
Date Seen The patient was seen on 03/22/19. Progress Note Interval history: Patient was evaluated by surgery and vascular surgeon. Patient was given mag nesium citrate by surgery and started to have bowel movements. Patient's imaging studies were reviewed again with the surgeon and patient. Patient reprots he is able to tolerate oral diet, denies any abdominal pain and passing stools. Denies any fever chills, nausea or episodes of vomiting. Exam: Vitals: reviewed General: Alert and oriented x 3, not in distress Abdomen: non-distended, no surgical scars, soft, non-tender, no palpable masses, normal bowel sounds heard. Labs: reviewed. Imaging: reviewed. Impression: -- Acute post hemorrhagic anemia -- needs further evaluation. -- Prior intestinal ishemia with small bowel surgery and vascular stents. Recommendations: -- Patient educated about the test results, possible differential diagnoses and All questions answered. -- Discussed with patient about the surgical team opinion about the further work up. -- As patient continues to have dark stools with gradual drop in Hemoglobin levels, patient is educated about other options of work up going forward. Patient is educated about EGD and Colonoscopy and he wanted to proceed with both procedures. -- The procedures, indications, risks (bleeding, perforation, infection, hypotension, respiratory depression, allergy, need for endotracheal intubation, surgery, colostomy, cardiac arrest, even ), benefits, limitations (e.g., missing a lesion), and all other alternatives (including no intervention) were explained to the patient who understood and agreed for the procedures. -- Patient is educated about the risks, benefits and alternatives to anticoagulants/ anti-platelet agents. Patient to continue on plavix and ASA for now for vascular stents. -- Patient is given slow bowel prep with Golytely. Plan of care discussed with patient and primary team. Patient verbalized un derstanding and agreed with the plan. Post Procedures addendum: -- Patient is noted with small duldenal AVM, treated. No avtive bleeding lesions in stomach or proimal small bowel. Colonoscopy showed altered blood in sentire colon and upto 20 cm of termial ileum. Recommendations: -- Reviewed the procedure fidings with surgery team, primary team and patient. -- In view of no bleeding lesions in EGD and COlonoscopy and altered blood noted till terminal ileum, patient might had small bowel bleeding. in view of prior know ischemic bowel, will recommend first IR angiography. -- TO follow up with general surgery and vascular surgery recommendations. -- Recall GI fi any change in status. -- rest of the recommendations as per procedure notes. Plan of care discussed with patient and primary team. Patient verbalized understanding and agreed with the plan. VS, I&O, 24H, Fishbone Vital Signs/I&O Vital Signs Date Time Temp Pulse Resp B/P (MAP) Pulse Ox O2 Delivery O2 Flow Rate FiO2 03/22/19 18:17 97.5 79 18 114/64 (81) 100 Room Air 03/22/19 14:16 98.0 I&O- Last 24 Hours up to 6 AM 03/22/19 06:00 Intake Total 1200 ml Output Total 620 ml Balance 580 ml Laboratory Data 24H LABS Laboratory Tests 2 03/21/19 20:17: Bedside Glucose (Misc Panel) 87 03/21/19 23:53: Bedside Glucose (Misc Panel) 89 03/22/19 05:11: Bedside Glucose (Misc Panel) 90 03/22/19 05:45: Nucleated Red Blood Cells % (auto) 0.0, Anion Gap 7L, Glomerular Filtration Rate > 60.0, Calcium Level 7.5L 03/22/19 09:59: Prothrombin Time 14.4H, Prothromb Time International Ratio 1.15, Activated Partial Thromboplast Time 29.9 03/22/19 13:00: Bedside Glucose (Misc Panel) 76L CBC/BMP Laboratory Tests 03/22/19 05:45 03/22/19 09:59 ERMELINDA GUTIERRES MD Mar 22, 2019 18:34
[2019-03-22] MEDS ORDERED: PROT1TAB2 IV (18:35)
[2019-03-22] MEDS ORDERED: CLOP75TA2 PO (18:36)
[2019-03-22 18:55] LABS: HEMATOCRIT 32.9 % (42.0-52.0); HEMOGLOBIN 10.9 g/dl (13.5-17.5)
[2019-03-22] MEDS: CLOPIDOGREL 75 MG TAB PO SCH (20:56)
--- NOTE | 2019-03-22 21:35 | DSES ---
DATE OF ADMISSION: 02/25/2019 DATE OF DISCHARGE: 03/22/2019 The patient is being transferred to [facility] for interventional radiology angiogram with embolization. CONSULTANTS DURING THIS ADMISSION: General Surgeon, Dr. Segundo Busby. Pond Supervisor, Dr. Noah Alfonso. Phone consultation with Vascular Surgeon, Dr. Peña. REASON FOR TRANSFER TO [facility]: Occult gastrointestinal (GI) bleed requiring angiogram for possible embolization due to acute blood loss anemia. PRIMARY DISCHARGE DIAGNOSES: 1. Occult GI bleed, most likely in the ileum or jejunum. 2. Acute blood loss anemia secondary to occult GI bleed. 3. High-grade bowel obstruction. 4. History of acute ischemic bowel requiring small bowel resection December 2018 with angioplasty and stent placement to the superior mesenteric artery and celiac artery performed by Dr. Yo. On chronic Plavix and aspirin. 5. Chronic atrial fibrillation. On Eliquis, which has been held due to acute blood loss anemia. 6. 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 7. History of CVA. 8. History of coronary artery disease, coronary artery bypass graft (CABG). 9. History of prostate cancer, treated with radiation. 10. History of GI bleed secondary to radiation proctitis. 11. Cardiomyopathy. 12. Hypertension. 13. History of alcohol abuse. 14. History of sacral decubitus with colonization with methicillin-resistant Staphylococcus aureus (MRSA). 15. 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 16. History of sacral decubitus ulcer. History of small resection December 2018 due to acute mesenteric ischemia with SMA thrombosis with removal of one foot of small bowel at the distal jejunum and early ileus with small bowel anastomosis. DISCHARGE MEDICATIONS: - Total parenteral nutrition (TPN) Clinimix at 65 mL per hour - Plavix 75 mg - aspirin 81 mg - amiodarone 200 mg daily - magnesium oxide 400 mg daily - Protonix 40 mg IV twice a day Patient's metoprolol 50 mg nightly has been discontinued due to persistent hypotension with systolic pressure of 89/54. 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 Ashutosh Yo, vascular surgery, in December 2018, has been on chronic aspirin and Plavix since then, CVA, coronary artery disease, CABG in the past, GI bleed from bowel ischemia, MRSA due to sacral decubitus, aortic valve replacement with bioprosthetic valve by TAVR, obstructive sleep apnea - on continuous positive airway pressure (CPAP), prostate cancer treated with radiation. Presented to the emergency room with a 4-5 day history of nausea, vomiting, increased abdominal distention, and has been unable to sleep due to persistent vomiting. CT abdomen and pelvis in the ER showed high-grade bowel obstruction with point of transition in the right lower abdomen at the level of the midjejunum without a mass lesion. There is a small bowel anastomotic suture proximal to the point of transition, probable adhesions. 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 There is a stent in the celiac, superior mesenteric artery. He was afebrile. He had a distended abdomen with hyperactive bowel sounds. White count was 13,000, 90% neutrophils, sedimentation rate was 86, and creatinine was normal 0.62. Lactic acid was 1.7. General Surgeon, Dr. Segundo Busby, was consulted. Nasogastric tube was placed. The patient's abdominal pain resolved, nasogastric (NG) tube over the first 12 hours was 600 mL over night. The patient had no abdominal pain, nausea, vomiting, did well with NG tube clamping. Repeat abdominal film on 02/27/2019 showed improvement in the bowel gas pattern with small quantity of small bowel air seen to the left of midline. Air and stool was seen in the nondistended colon. Vascular stents again noted in the epigastric region superimposed on the thoracolumbar spine. Patient's hemoglobin remained steady at 10.2 on admission; with IV fluid hydration, dropped down to 9.3, was doing well until 03/09/2019 when hemoglobin dropped to 7.6, when he was given four units of red blood cell (RBC) transfusion. Due to poor IV access, midline was inserted on 03/11/2019. Patient's vital signs were stable, dropped down to the lowest of 90/54 and 80/50, which responded well to four units RBC transfusion to 127/69. There is no fever. The patient was advanced on his diet to a soft diet. Did not require any surgical intervention. Due to poor appetite, he was given some Megace. Patient started to have increasing loose bowels, 3 to 4. Hemoccult stool on 03/03/2019 was positive. Patient continued to have bright red blood per rectum. Pond Supervisor was consulted, Dr. Alfonso. Had a tagged scan on 03/18/2019. Per Vascular Surgeon, Dr. Peña, the aspirin and Plavix needed to be continued due to recent stent placement and very high risk of thrombus and stenosis. Tagged scan showed and intraluminal bleed, possibly in the rectosigmoid colon with radiotracer extending distally to the rectum. Pond Supervisor, Dr. Alfonso, recommended esophagogastroduodenoscopy (EGD), colonoscopy. CT angio of the abdomen and pelvis also performed on 03/18/2019, compared to 02/25/2019, showed small bilateral effusions, left greater than right, stent in the SMA and stents seen in the celiac axis. Distal branch occlusion of the SMA is again seen. This is unchanged. Inferior mesenteric artery is patent. No new arterial occlusion is seen. There is a dilated loop of small bowel adjacent to the anastomosis in the left mid abdomen. Dilated loop measures up to 6.9 cm, and distal to this, the small bowel does not appear dilated. There is left colonic diverticulosis. No evidence of pneumatosis. No area of nonenhancement of the bowel is appreciated. There is no evidence of free air or abnormal fluid collection. Findings essentially unchanged from 02/25/2019 with evidence of small bowel obstruction with point of transition near the small bowel anastomosis. Branch SMA occlusion, patent proximal stents. No evidence of free air or abnormal fluid collection. The patient and stepdaughter, who is the healthcare proxy, agreed to proceeding with colonoscopy and EGD, with despite the increased risk of perforation with high-grade bowel obstruction. Patient's hemoglobin and hematocrit remained stable at 8.3 to 8.7. Midline had been placed with TPN started by surgery. He was kept on a clears diet. 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 Per Dr. Alfonso, bleeding most likely is in the jejunum and ileum. Colonoscopy showed some polyps but no active bleeding. Recommends continuation of proton pump inhibitor (PPI) and proceeding with angiogram and embolization if possible. Interventional radiology was not available. Patient had multiple bloody bowel movements on the night of 03/21/2019 to 03/22/2019 with blood pressure dropping to 89/54, resuscitated with two more units of RBC transfusion with improvement in blood pressure to 114/64. Patient's metoprolol had been held for rate control. He had been sinus rhythm throughout the evening into 03/22/2019 with ventricular rate of 70-85. Patient denied any shortness of breath, dizziness or lightheadedness. He was agreeable to transfer for angiogram and embolization if possible. He understands that this would not be a definite success and may continue to have complications. Repeat hemoglobin after blood transfusion is 10.9 and hematocrit of 32 from previous 7.6 and 23. Patient has been accepted in transfer to [facility], accepting physician is Dr. Dolan. Reason for transfer is angiogram with interventional radiology, consultation and embolization for occult GI bleed - most likely in the small bowel anastomosis, most likely in the terminal ileum, possibly jejunum. Patient has no bleeding lesions found on EGD and colonoscopy all the way to the duodenum and the rectosigmoid area was negative aside from colonic polyps, which were biopsied. PHYSICAL EXAM ON DISCHARGE: Temperature 98, pulse 76, respiratory rate 18, blood pressure is 114/64, 100% on room air. Generally, patient is awake, alert, oriented to person, place and time. Answers questions appropriately. Patient appears cachectic, bitemporal wasting, decreased muscle tone bilateral lower extremities. Dry mucous membranes. Chapped lips. Missing teeth and poor dentition. No respiratory distress, able to speak in full sentences. Patient has no jugular venous distention, thyromegaly or cervical lymphadenopathy. Lung exam is diminished but clear to auscultation bilaterally, very faint crackles at bilateral bases. Heart: S1, S2, currently sinus rhythm. No gallops noted. No pitting edema on exam. Abdomen is soft, nontender, nondistended. Scaphoid abdomen. Extremities: No pitting edema. LABORATORY DATA ON DISCHARGE: White count 7.9, hemoglobin 10.9, hematocrit 32.9, MCV 94, MCH of 30, platelet count 269. Sodium 136, potassium 4, chloride 105, bicarbonate 24, BUN 21, creatinine 0.4, glucose of 92, calcium of 7.5, INR of 1.15, PTT 29.9, PT of 14.4. 02/26/2019 Microbiology: Rhinovirus and Enterovirus. The patient does have a history of MRSA and sacral decubitus. 03/03/2019 hemoccult stool is positive. IMAGING STUDIES: 02/25/2019 CT abdomen and pelvis: Fairly high-grade small bowel obstruction with point of transition in the right lower abdomen at the level of the midjejunum. No mass lesion is seen. There is small bowel anastomotic suture just proximal to the point of transition, probable adhesions with adjacent mesenteric edema. Left colonic diverticulosis. Fiducial markers in the prostate bed. 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 Chest x-ray, 02/25/2019: Nasogastric tube. Prior sternotomy wires. Lungs are aerated, free of infiltrate. Heart is not enlarged. Pleural angles are sharp. Advanced arthropathy in bilateral shoulders. Midline insertion performed on 03/11/2019. PROCEDURES DURING THIS ADMISSION: Midline insertion 03/11/2019. Colonoscopy, EGD by Dr. Alfonso 03/22/2019. Tagged GI bleed scan 03/18/2019. CT angio repeated of the abdomen 03/18/2019. GI tagged scan 03/18/2019, findings compatible with intraluminal bleed, possibly in the rectosigmoid colon with radiotracer extending distally into the rectum. CT angio of the abdomen. Findings unchanged from 02/25/2019. Evidence of small bowel obstruction with point of transition near the small bowel anastomosis. Branch SMA occlusion. Patent proximal stent. No evidence of free air or abnormal fluid collection. Abdominal x-ray 03/21/2019 shows scattered colonic air fluid levels consistent with enteritis or mild ileus. No evidence of obstruction. Celiac and SMA stents are noted. Echocardiogram read by Dr. Evelin Lozada 01/17/2019: Preserved ejection fraction, ejection fraction (EF) of 60%, normally functioning mitral valve with only mild insufficiency, bioprosthetic aortic valve with trivial insufficiency and no stenosis, mobile echodensity attached to the aortic surface consistent with vegetation, mild tricuspid insufficiency, mild pulmonary hypertension, mild atherosclerosis of the thoracic aorta. echocardiogram, transthoracic, read by Dr. Dequan Agustin: Aortic valve bioprosthesis, which appears to be structurally and functionally normal. TAVR valve. No aortic stenosis or regurgitation. Moderate focal hypertrophy of the basal anterior ventricular septum. No dynamic left ventricular outlet obstruction. Normal left ventricle wall thickness. Left ventricle ejection fraction of 60% by visual estimate. Grade 1 left ventricle diastolic dysfunction. Severe left atrial dilatation. Mild mitral annular calcification, presence of thickening of distal portion of the anterior mitral leaflet with septal contact lesion, mild mitral regurgitation, tiny pericardial effusion. Mild to moderate elevation of pulmonary artery systolic pressure and estimated right ventricle systolic pressure. TIME SPENT ON DISCHARGE: 60 minutes edited: 03/23/2019 0717 [id number] [id number]
== END 2019-03-22 22:10 | disposition short-term general hospital (02) | DRG 389 ==
LOC: M ED 12:42 → M ED INP 17:35 → M PCU 02-26 20:46 → M MSPAV 03-04 14:59 → M PCU 03-22 11:37
PROVIDERS: ADMIT General Practice; ATTEND Internal Medicine Nephrology
PROC: 30233N1 Transfusion of Nonautologous Red Blood Cells into Peripheral Vein, Percutaneous Approach (ICD-10-PCS; 2019-03-09)
PROC: 05H933Z Insertion of Infusion Device into Right Brachial Vein, Percutaneous Approach (ICD-10-PCS; 2019-03-11)
PROC: 0DJD8ZZ Inspection of Lower Intestinal Tract, Via Natural or Artificial Opening Endoscopic (ICD-10-PCS; 2019-03-22)
PROC: 0W3P8ZZ Control Bleeding in Gastrointestinal Tract, Via Natural or Artificial Opening Endoscopic (ICD-10-PCS; principal; 2019-03-22 14:30)
DX: K56.52 Intestinal adhesions [bands] with complete obstruction (principal); E44.0 Moderate protein-calorie malnutrition; I42.9 Cardiomyopathy, unspecified; I74.8 Embolism and thrombosis of other arteries; I48.20 Chronic atrial fibrillation, unspecified; Z68.1 Body mass index [BMI] 19.9 or less, adult; D62 Acute posthemorrhagic anemia; K92.2 Gastrointestinal hemorrhage, unspecified; K31.819 Angiodysplasia of stomach and duodenum without bleeding; G47.33 Obstructive sleep apnea (adult) (pediatric); D73.5 Infarction of spleen; I25.10 Atherosclerotic heart disease of native coronary artery without angina pectoris; L89.152 Pressure ulcer of sacral region, stage 2; E78.5 Hyperlipidemia, unspecified; K21.9 Gastro-esophageal reflux disease without esophagitis; I11.9 Hypertensive heart disease without heart failure; E11.649 Type 2 diabetes mellitus with hypoglycemia without coma; R19.7 Diarrhea, unspecified; D63.8 Anemia in other chronic diseases classified elsewhere; E83.42 Hypomagnesemia; B97.89 Other viral agents as the cause of diseases classified elsewhere; K62.7 Radiation proctitis; D12.2 Benign neoplasm of ascending colon; E87.6 Hypokalemia; K57.30 Diverticulosis of large intestine without perforation or abscess without bleeding; Z95.5 Presence of coronary angioplasty implant and graft; Z95.3 Presence of xenogenic heart valve; Z86.73 Personal history of transient ischemic attack (TIA), and cerebral infarction without residual deficits; Z95.820 Peripheral vascular angioplasty status with implants and grafts; Z95.828 Presence of other vascular implants and grafts; Z98.0 Intestinal bypass and anastomosis status; Z90.49 Acquired absence of other specified parts of digestive tract; Z79.02 Long term (current) use of antithrombotics/antiplatelets; Z87.891 Personal history of nicotine dependence; Z79.01 Long term (current) use of anticoagulants; Z79.82 Long term (current) use of aspirin; Z79.899 Other long term (current) drug therapy; Z86.010 Personal history of colon polyps; Z85.46 Personal history of malignant neoplasm of prostate; K64.4 Residual hemorrhoidal skin tags; K64.8 Other hemorrhoids

== ENCOUNTER → 2019-02-25 | Outpatient (REF) ==
[~2019-02-25] MED LIST changes: +ACET-907 PO; -ACETAMINOPHEN TAB 650MG DOSE (2X325MG) PO SCH; +APAP325T4 PO; +ASPI81TA26 PO; +B-1100TA2 PO; +B-12100T2 PO; +ENEMENE PR; +ENSU1LIQ36 PO; +KLOR20TA42 PO; +METO1TAB7 PO; +MILKSUS3 PO; +MIRT1TAB16 PO; +NYST1POW9 TOP; +ONDA4TAB5 PO; +PANT-23 PO; +QUES4POW PO; +SUCR10SS PO; +XARE15TA PO; -diphenhydrAMINE 25 MG CAP PO SCH
[2019-02-25 11:17] LABS: HEMATOCRIT 31.3 % (42.0-52.0); MEAN CORPUSCULAR HEMOGLOBIN 29.4 pg (27.0-33.0); MEAN CORPUSCULAR HGB CONC 31.9 g/dl (32.0-36.5); MEAN CORPUSCULAR VOLUME 92.1 fl (80.0-96.0); PLATELET COUNT, AUTOMATED 455 10^3/uL (150-450); WHITE BLOOD COUNT 13.6 10^3/uL (4.0-10.0)
[2019-02-25 11:39] LABS: BLOOD UREA NITROGEN 22 MG/DL (7-18); CALCIUM LEVEL 7.8 MG/DL (8.8-10.2); CARBON DIOXIDE LEVEL 24 MEQ/L (21-32); CHLORIDE LEVEL 109 MEQ/L (98-107); CREATININE FOR GFR 0.62 MG/DL (0.70-1.30); GLOMERULAR FILTRATION RATE > 60.0 (>42); GLUCOSE, FASTING 75 MG/DL (70-100); POTASSIUM SERUM 3.7 MEQ/L (3.5-5.1); SODIUM LEVEL 141 MEQ/L (136-145)
== END ==
PROVIDERS: ATTEND Internal Medicine
DX: D64.9 Anemia, unspecified (principal)